=== PATIENT | female | born 1990 | race Caucasian/White ===

== ENCOUNTER 2017-12-27 18:35 | Emergency (ER) | payer BC ==
[2017-12-27 19:38] LABS: Absolute Lymphocytes (CBC) 2.5 K/uL (0.7-4.9); Absolute Monocytes 0.4 K/uL (0.1-1.3); Absolute Neutrophil 5.7 K/uL (1.8-8.0); Basophils % 0.9 % (0-1.3); Eosinophils % 5.6 % (0-4.4); Hematocrit 40.2 % (36.0-45.0); Lymphocytes % 27.1 % (15.3-44.8); MCH 28.3 pg (27.0-35.0); MCV 82.2 fL (80-100); MPV 8.1 fL (7.6-11.3); Monocytes % 4.6 % (3.3-12.3); RBC Red Blood Cell Count 4.89 M/uL (3.86-4.86)
[2017-12-27 19:47] LABS: Potassium 3.8 mEq/L (3.6-5.0)
[2017-12-27 20:09] LABS: Urine Blood 3+ (NEG); Urine Glucose NEGATIVE (NEG); Urine Protein NEGATIVE (NEG); Urine Specific Gravity 1.025 (1.005-1.030)
--- NOTE | 2017-12-27 20:40 | RAD REPORT ---
EXAM DESCRIPTION: US - Transvaginal OB - 12/27/2017 8:02 pm CLINICAL HISTORY: , vaginal bleeding COMPARISON: None. TECHNIQUE: Endovaginal and limited transabdominal sonography performed. FINDINGS: Endometrial stripe is approximately 10 mm. No gestational sac or sac remnant identifiable. No hematoma or mass seen. Uterus is 8.8 x 5.1 x 6.0 cm. No myometrial mass. Both ovaries are identif ied and normal in size. No adnexal mass to suspect ectopic . No free fluid or blood in the c ul-de-sac. IMPRESSION: No gestational sac or sac remnant in the uterus. No adnexal mass or finding to suspect ectopic .
--- NOTE | 2017-12-28 00:20 | ER ---
Nurse's Notes [facility] Name: Fauzia Darnell Age: 27 yrs Sex: Female : 1990 Arrival Date: 12/27/2017 Time: 18:36 Bed 30 Private MD: Diagnosis: Threatened Presentation: 12/27 18:47 Presenting complaint: Patient states: "I am supposed to be about 10 weeks . I lk1 had bleeding before and it stopped. I spotted over the weekend and today it was bright red with a clot and some cramping. I called my doctor and they told me to come get checked.". Transition of care: patient was not received from another setting of care. Onset of symptoms was December 24, 2017. Care prior to arrival: None. 18:47 Method Of Arrival: Ambulatory lk1 18:47 Acuity: PARAMJIT 3 lk1 Triage Assessment: 18:49 General: Appears in no apparent distress. Behavior is calm, cooperative, appropriate lk1 for age. Pain: Denies pain. : Reports vaginal bleeding that is bright red, with clots, light flow. 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 - Social history:: Smoking status: Patient uses tobacco products, smokes one-half pack cigarettes per day. Screenin:08 Abuse screen: Denies threats or abuse. Nutritional screening: No deficits noted. kb1 Tuberculosis screening: No symptoms or risk factors identified. Fall Risk None identified. Assessment: 19:07 General: Appears in no apparent distress. Behavior is calm, cooperative. Pain: Denies kb1 pain. Neuro: Level of Consciousness is awake, alert, obeys commands, Oriented to person, place, time. Cardiovascular: Patient's skin is warm and dry. Respiratory: Airway is patent. GI: Reports cramping, earlier today, has now resolved. : No signs and/or symptoms were reported regarding the genitourinary system. Reports vaginal bleeding that is with clots, currently approximately 10 weeks . 19:28 Reassessment: Notified nothing to eat or drink. kb1 20:27 Reassessment: Patient appears in no apparent distress at this time. Patient and/or kb1 family updated on plan of care and expected duration. Pain level reassessed. Patient is alert, oriented x 3, equal unlabored respirations, skin warm/dry/pink. 23:11 Reassessment: Patient appears in no apparent distress at this time. Patient and/or kb1 family updated on plan of care and expected duration. Pain level reassessed. Patient is alert, oriented x 3, equal unlabored respirations, skin warm/dry/pink. Vital Signs: 18:49 BP 134 / 88; Pulse 93; Resp 16; Temp 97.3(TE); Pulse Ox 98% on R/A; Weight 122.47 kg lk1 (R); Height 5 ft. 6 in. (167.64 cm) (R); Pain 0/10; 19:20 BP 128 / 93; Pulse 89; Resp 16; Pulse Ox 100% on R/A; mt 19:57 BP 121 / 74; Pulse 90; Resp 16; Pulse Ox 99% on R/A; mt 21:00 BP 126 / 91; Pulse 84; Resp 17; Pulse Ox 99% on R/A; mt 22:24 BP 129 / 89; Pulse 86; Resp 16; Pulse Ox 97% on R/A; mt 23:16 BP 108 / 84; Pulse 92; Resp 16; Pulse Ox 99% on R/A; mt 12/28 00:36 BP 120 / 69; Pulse 72; Resp 18; Pulse Ox 97% on R/A; [facility] 12/27 18:49 Body Mass Index 43.58 (122.47 kg, 167.64 cm) [facility] ED Course: 12/27 18:36 Patient arrived in ED. sb2 18:48 Triage completed. lk1 18:51 Arm band placed on left wrist. lk1 18:54 Karen Paul, MOSES is Primary Nurse. kb1 18:55 Froilan Hernandez NP is PHCP. pm1 18:55 Maikel Naqvi MD is Attending Physician. pm1 18:55 Attending Physician role handed off by Maikel Naqvi MD kdr 18:55 Oscar Murillo MD is Attending Physician. kdr 19:08 Patient has correct armband on for positive identification. Bed in low position. Call kb1 light in reach. Side rails up X 1. Pulse ox on. NIBP on. 19:25 Inserted saline lock: 20 gauge in right antecubital area, using aseptic technique. kb1 Blood collected. 19:29 Warm blanket given. kb1 20:02 Ultrasound completed. Patient tolerated well. lc3 20:02 Transvaginal OB US In Process Unspecified. EDMS 22:15 Assist provider with pelvic exam: Set up pelvic tray. Performed by Froilan Hernandez MIDDLE SCHOOL ART TEACHER. kb1 22:15 IV discontinued, intact, bleeding controlled, No redness/swelling at site. Pressure kb1 dressing applied. 12/28 00:19 New Harrell MD is Referral Physician. pm1 Administered Medications: No medications were administered Outcome: 00:20 Discharge ordered by . pm1 00:38 Discharged to home ambulatory. kb1 00:38 Condition: stable 00:38 Discharge instructions given to patient, Instructed on discharge instructions, follow up and referral plans. Demonstrated understanding of instructions, follow-up care. 00:38 Patient left the ED. kb1 Signatures: Dispatcher [employer] EDMS Oscar Murillo MD MD kdr Cunningham, Laulita lc3 Kluge, Leah, RN RN lk1 Froilan Hernandez NP MIDDLE SCHOOL ART TEACHER pm1 Christin Theodore mt, Kristina, RN RN kb1 Anni Richards sb2
--- NOTE | 2017-12-28 00:21 | EDPHYS ---
Physician Documentation [facility] Name: Fauzia Darnell Age: 27 yrs Sex: Female : 1990 Arrival Date: 12/27/2017 Time: 18:36 Bed 30 Private MD: ED Physician Oscar Murillo HPI: 12/27 20:30 This 27 yrs old Female presents to ER via Ambulatory with complaints of 10 pm1 WKS ,BLEEDING. 20:30 The patient presents with vaginal bleeding that is. Onset: The symptoms/episode pm1 began/occurred 2 week(s) ago. Modifying factors: The symptoms are alleviated by nothing, the symptoms are aggravated by nothing. Severity of symptoms: in the emergency department the symptoms have improved, markedly. The patient is sexually active. The patient has not experienced similar symptoms in the past. The patient has been recently seen by a physician: Dr. Harrell yesterday, with similar presenting complaints. Patient was seen by Julio Cesar yesterday for the same complaint of vaginal bleeding. Patient has had vaginal bleeding on and off with this for the past two weeks. Today around 1500 patient reports bleeding with a large clot passed. Since the large clot patient reports marked decrease in bleeding. 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 - Social history:: Smoking status: Patient uses tobacco products, smokes one-half pack cigarettes per day. ROS: 20:30 Positive for vaginal bleeding, Negative for burning with urination, vaginal pm1 discharge. 20:30 Constitutional: Negative for fever, chills, and weight loss, Eyes: Negative for injury, pain, redness, and discharge, ENT: Negative for injury, pain, and discharge, Neck: Negative for injury, pain, and swelling, Cardiovascular: Negative for chest pain, palpitations, and edema, Respiratory: Negative for shortness of breath, cough, wheezing, and pleuritic chest pain, Abdomen/GI: Negative for abdominal pain, nausea, vomiting, diarrhea, and constipation, MS/Extremity: Negative for injury and deformity, Skin: Negative for injury, rash, and discoloration, Neuro: Negative for headache, weakness, numbness, tingling, and seizure. 20:30 Back: Positive for mild right flank pain. Exam: 20:30 Constitutional: This is a well developed, well nourished patient who is awake, alert, pm1 and in no acute distress. Head/Face: Normocephalic, atraumatic. Eyes: Pupils equal round and reactive to light, extra-ocular motions intact. Lids and lashes normal. Conjunctiva and sclera are non-icteric and not injected. Cornea within normal limits. Periorbital areas with no swelling, redness, or edema. ENT: Nares patent. No nasal discharge, no septal abnormalities noted. Tympanic membranes are normal and external auditory canals are clear. Oropharynx with no redness, swelling, or masses, exudates, or evidence of obstruction, uvula midline. Mucous membranes moist. Neck: Trachea midline, no thyromegaly or masses palpated, and no cervical lymphadenopathy. Supple, full range of motion without nuchal rigidity, or vertebral point tenderness. No Meningismus. Chest/axilla: Normal chest wall appearance and motion. Nontender with no deformity. No lesions are appreciated. Cardiovascular: Regular rate and rhythm with a normal S1 and S2. No gallops, murmurs, or rubs. Normal PMI, no JVD. No pulse deficits. Respiratory: Lungs have equal breath sounds bilaterally, clear to auscultation and percussion. No rales, rhonchi or wheezes noted. No increased work of breathing, no retractions or nasal flaring. Abdomen/GI: Soft, non-tender, with normal bowel sounds. No distension or tympany. No guarding or rebound. No evidence of tenderness throughout. Back: No spinal tenderness. No costovertebral tenderness. Full range of motion. Skin: Warm, dry with normal turgor. Normal color with no rashes, no lesions, and no evidence of cellulitis. MS/ Extremity: Pulses equal, no cyanosis. Neurovascular intact. Full, normal range of motion. 20:30 Neuro: Orientation: is normal, Motor: is normal, moves all fours. 21:15 : Pelvic Exam: External exam: is normal, Speculum exam: scant bleeding, os that is pm1 closed, no tissue in cervix is seen, no tissue in vagina is seen, bimanual exam reveals normal findings, no cervical motion tenderness, no uterine tenderness, no adnexa tenderness or masses bilaterally, [place] police crime scene technician present. Vital Signs: 18:49 BP 134 / 88; Pulse 93; Resp 16; Temp 97.3(TE); Pulse Ox 98% on R/A; Weight 122.47 kg lk1 (R); Height 5 ft. 6 in. (167.64 cm) (R); Pain 0/10; 19:20 BP 128 / 93; Pulse 89; Resp 16; Pulse Ox 100% on R/A; mt 19:57 BP 121 / 74; Pulse 90; Resp 16; Pulse Ox 99% on R/A; mt 21:00 BP 126 / 91; Pulse 84; Resp 17; Pulse Ox 99% on R/A; mt 22:24 BP 129 / 89; Pulse 86; Resp 16; Pulse Ox 97% on R/A; mt 23:16 BP 108 / 84; Pulse 92; Resp 16; Pulse Ox 99% on R/A; mt 12/28 00:36 BP 120 / 69; Pulse 72; Resp 18; Pulse Ox 97% on R/A; kb1 12/27 18:49 Body Mass Index 43.58 (122.47 kg, 167.64 cm) lk1 MDM: 12/27 18:55 Patient medically screened. pm1 23:55 Physician consultation: Mariola Moore MD was contacted at 23:55, regarding patient's pm1 condition, recommended contacting Dr. Harrell through L\T\D. 12/28 00:15 Physician consultation: New Harrell MD was called at 22:31, was contacted at 00:05, pm1 regarding patient's condition, and will see patient in office, tomorrow. 00:19 Data reviewed: vital signs. Data interpreted: Pulse oximetry: on room air is 99 %. pm1 Interpretation: normal. Counseling: I had a detailed discussion with the patient and/or guardian regarding: the historical points, exam findings, and any diagnostic results supporting the discharge/admit diagnosis, the need for outpatient follow up, Dr. Jacobsen tomorrow in the office, to return to the emergency department if symptoms worsen or persist or if there are any questions or concerns that arise at home. 12/27 19:00 Order name: Quantitative Hcg; Complete Time: 20:48 pm1 12/27 19:00 Order name: Abo/rh Typing; Complete Time: 20:20 pm1 12/27 19:00 Order name: Basic Metabolic Panel; Complete Time: 20:48 pm1 12/27 19:00 Order name: CBC with Diff; Complete Time: 20:20 pm1 12/27 19:51 Order name: Urine Dipstick--Ancillary (enter results); Complete Time: 20:20 rg2 12/27 19:51 Order name: Urine --Ancillary (enter results); Complete Time: 20:20 rg2 12/27 19:00 Order name: Urine Test (obtain specimen); Complete Time: 19:20 pm1 12/27 19:00 Order name: IV Saline Lock; Complete Time: 19:20 pm1 12/27 19:00 Order name: Labs collected and sent; Complete Time: 19:20 pm1 12/27 19:00 Order name: NPO; Complete Time: 19:20 pm1 12/27 19:00 Order name: Urine Dipstick-Ancillary (obtain specimen); Complete Time: 19:20 pm1 12/27 19:00 Order name: Transvaginal OB US; Complete Time: 20:48 pm1 12/27 20:50 Order name: Pelvic Exam Setup; Complete Time: 20:57 pm1 Administered Medications: No medications were administered Disposition: 01:08 Co-signature as Attending Physician, Oscar Murillo MD I agree with the assessment and kdr plan of care. Disposition: 12/28/17 00:20 Discharged to Home. Impression: Threatened . - Condition is Stable. - Discharge Instructions: Threatened Miscarriage, Pelvic Rest. - Work release form, Medication Reconciliation Form, Thank You Letter form. - Follow up: Emergency Department; When: As needed; Reason: Worsening of condition. Follow up: New Harrell MD; When: Tomorrow; Reason: Recheck today's complaints, Continuance of care, Re-evaluation by your physician. - Problem is new. - Symptoms have improved. Signatures: Dispatcher [employer] EDMS Oscar Murillo MD MD kdr Kluge, Leah RN RN lk1 Froilan Hernandez NP JET MAN pm1 Karen Paul, RN RN kb1
== END 2017-12-28 00:38 | disposition home or self-care (01) ==
LOC: ER 18:35
DX: F17.210 Nicotine dependence, cigarettes, uncomplicated; O99.331 Smoking (tobacco) complicating pregnancy, first trimester; O20.0 Threatened abortion; Z3A.10 10 weeks gestation of pregnancy
CPT/HCPCS: 36415; 76817; 80048; 81003; 81025; 84702; 85025; 86900; 86901; 99284

== ENCOUNTER 2018-01-26 20:13 | Emergency (ER) | payer BC ==
[2018-01-26] MEDS ORDERED: ONDANSETRON 4 MG/2 ML VIAL ONE (21:49)
[2018-01-26] MEDS ORDERED: NA CHLORIDE 0.9% 1,000 ML ONE (21:49)
[2018-01-26] MEDS ORDERED: FENTANYL CITR 100 MCG/2 ML ONE (21:49)
[2018-01-26 21:52] LABS: Urine Blood 2+ (NEG); Urine Glucose NEGATIVE (NEG); Urine Protein TRACE (NEG); Urine Specific Gravity >1.030 (1.005-1.030); Urine pH 5.5 (5.0-7.0)
[2018-01-26 21:55] LABS: Absolute Lymphocytes (CBC) 1.6 K/uL (0.7-4.9); Absolute Monocytes 0.4 K/uL (0.1-1.3); Absolute Neutrophil 6.6 K/uL (1.8-8.0); Basophils % 0.6 % (0-1.3); Eosinophils % 3.9 % (0-4.4); Hematocrit 39.6 % (36.0-45.0); Lymphocytes % 17.4 % (15.3-44.8); MCV 82.3 fL (80-100); MPV 8.3 fL (7.6-11.3); Monocytes % 4.5 % (3.3-12.3); RBC Red Blood Cell Count 4.81 M/uL (3.86-4.86)
[2018-01-26 22:07] LABS: Potassium 3.8 mEq/L (3.6-5.0)
[2018-01-26 22:13] LABS: Albumin 4.2 g/dL (3.2-5.5); Bilirubin Direct 0.1 mg/dL (0-0.2); Bilirubin Total 0.5 mg/dL (0.3-1.2); Protein, Total 7.4 g/dL (6.0-8.3)
[2018-01-26 22:33] LABS: Urine Bacteria 20-50 /HPF (<20); Urine Culture Reflex Order REFLEXED; Urine RBC <5 /HPF (NONE SEEN)
--- NOTE | 2018-01-27 00:27 | ER ---
Nurse's Notes [facility] Name: Fauzia Darnell Age: 27 yrs Sex: Female : 1990 Arrival Date: 01/26/2018 Time: 20:14 Bed 17 Private MD: Diagnosis: Abdominal tenderness;Other ovarian cysts-3 cm right ovarian cyst Presentation: 01/26 20:28 Presenting complaint: Patient states: Reports right pelvic pain that shoots to left aj side of pelvis, started suddenly today. Patient had spontaneous 1 month ago. Transition of care: patient was not received from another setting of care. Onset of symptoms was January 26, 2018. Initial Sepsis Screen: Does the patient meet any 2 criteria? No. Patient's initial sepsis screen is negative. Does the patient have a suspected source of infection? No. Patient's initial sepsis screen is negative. Care prior to arrival: None. 20:28 Method Of Arrival: Ambulatory aj 20:28 Acuity: PARAMJIT 3 aj Triage Assessment: 20:30 General: Appears in no apparent distress. uncomfortable, Behavior is calm, cooperative, aj appropriate for age. Pain: Complains of pain in suprapubic area, right inguinal area and left inguinal area Pain currently is 9 out of 10 on a pain scale. Neuro: Level of Consciousness is awake, alert, obeys commands, Oriented to person, place, time, situation. Respiratory: Airway is patent Respiratory effort is even, unlabored, Respiratory pattern is regular, symmetrical. GI: Abdomen is obese. : Reports pain in right in left pelvis. Derm: Skin is intact, is healthy with good turgor, Skin is pink, warm \T\ dry. normal. 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 - Social history:: Smoking status: Patient uses tobacco products, smokes one pack cigarettes per day. - Family history:: not pertinent. Screenin:53 Abuse screen: Denies threats or abuse. Denies injuries from another. Nutritional aj1 screening: No deficits noted. Tuberculosis screening: No symptoms or risk factors identified. 01/27 01:00 Fall Risk None identified. lk1 Assessment: 01/26 20:53 General: Appears in no apparent distress. uncomfortable, Behavior is calm, cooperative, aj1 appropriate for age. Pain: Complains of pain in groin, right femoral area, suprapubic area and right inguinal area Pain does not radiate. Pain currently is 9 out of 10 on a pain scale. Quality of pain is described as sharp, Pain began 2 hours ago. Is continuous, Alleviated by nothing. Aggravated by nothing Also complains of nausea. Neuro: Level of Consciousness is awake, alert, obeys commands, Oriented to person, place, time, situation, Speech is normal, Facial symmetry appears normal. Cardiovascular: Patient's skin is warm and dry. Respiratory: Airway is patent Respiratory effort is even, unlabored, Respiratory pattern is regular, symmetrical. GI: Abdomen is non-distended, obese, Bowel sounds present X 4 quads. Abd is soft X 4 quads Reports nausea. : Reports vaginal bleeding that is spotty, that has now resolved Denies burning with urination, discharge, urinary frequency, urgency, vaginal itching. EENT: No signs and/or symptoms were reported regarding the EENT system. Derm: No signs and/or symptoms reported regarding the dermatologic system. Skin is pink, warm \T\ dry. normal. Musculoskeletal: No signs and/or symptoms reported regarding the musculoskeletal system. Circulation, motion, and sensation intact. 21:57 Reassessment: Patient appears in no apparent distress at this time. No changes from aj1 previously documented assessment. Patient and/or family updated on plan of care and expected duration. Pain level reassessed. Patient is alert, oriented x 3, equal unlabored respirations, skin warm/dry/pink. Vital Signs: 20:30 BP 136 / 83; Pulse 89; Resp 20; Temp 98.2; Pulse Ox 99% on R/A; Weight 122.47 kg; aj Height 5 ft. 6 in. (167.64 cm); Pain 9/10; 21:45 BP 137 / 65; Pulse 93; Resp 18; Pulse Ox 99% on R/A; aj1 22:30 BP 129 / 68; Pulse 87; Resp 15; Pulse Ox 100% on R/A; lk1 23:30 BP 132 / 74; Pulse 88; Resp 16; Pulse Ox 99% on R/A; 1 01/27 00:30 BP 124 / 62; Pulse 87; Resp 16; Pulse Ox 100% on R/A; Pain 8/10; lk1 01/26 20:30 Body Mass Index 43.58 (122.47 kg, 167.64 cm) ED Course: 01/26 20:14 Patient arrived in ED. as 20:29 Triage completed. aj 20:30 Arm band placed on left wrist. Patient placed in an exam room. aj 20:47 Dyan Balderas, MOSES is Primary Nurse. aj1 20:53 Patient has correct armband on for positive identification. Bed in low position. Call 1 light in reach. Side rails up X 1. 20:53 No provider procedures requiring assistance completed. aj1 21:02 Johnny Torrez MD is Attending Physician. omar 21:37 Oral contrast given. [facility] 21:57 Initial lab(s) drawn, by nj, sent to lab. Inserted saline lock: 20 gauge in right [facility] antecubital area, using aseptic technique. Blood collected. 23:36 CT Abd/Pelvis - W/Contrast In Process Unspecified. EDMS 01/27 00:27 Jonathan Barger MD is Referral Physician. omar 00:59 IV discontinued, intact, bleeding controlled, No redness/swelling at site. Pressure lk1 dressing applied. Administered Medications: 01/26 21:56 Drug: NS 0.9% 1000 ml Route: IV; Rate: 1 bolus; Site: right antecubital; aj 22:45 Follow up: Response: No adverse reaction; IV Status: Completed infusion lk1 21:56 Drug: fentaNYL (PF) 25 mcg Route: IVP; Site: right antecubital; aj1 22:30 Follow up: Response: No adverse reaction; Pain is unchanged, physician notified lk1 21:56 Drug: Zofran 4 mg Route: IVP; Site: right antecubital; aj1 22:30 Follow up: Response: No adverse reaction; Marked relief of symptoms [facility] Outcome: 01/27 00:27 Discharge ordered by . omar 00:59 Discharged to home ambulatory, with significant other. [facility] 00:59 Condition: good 00:59 Discharge instructions given to patient, significant other, Instructed on discharge instructions, follow up and referral plans. medication usage, safety practices, Demonstrated understanding of instructions, follow-up care, medications, Prescriptions given X 4. 01:15 Patient left the ED. lk1 Signatures: Dispatcher [employer] EDDyan Watkins RN RN vianney1 Margaret Goldsmith RN RN aj Anderson, Corey, MD MD cha Martinez, Amelia as Kluge, Leah, RN RN lk1 Nia White [facility]
--- NOTE | 2018-01-27 00:27 | EDPHYS ---
Physician Documentation [facility] Name: Fauzia Darnell Age: 27 yrs Sex: Female : 1990 Arrival Date: 01/26/2018 Time: 20:14 Bed 17 Private MD: ED Physician Johnny Torrez HPI: 01/26 21:25 This 27 yrs old Female presents to ER via Ambulatory with complaints of omar Abdominal Pain, Pelvic Pain, Nausea. 21:25 The patient presents to the emergency department with nausea, vomiting, abdominal pain, omar of the right lower quadrant. Onset: The symptoms/episode began/occurred today. Possible causes: unknown. The symptoms are aggravated by movement, pressure, The symptoms are alleviated by nothing. Associated signs and symptoms: The patient has no apparent associated signs or symptoms. Severity of symptoms: At their worst the symptoms were mild moderate in the emergency department the symptoms are unchanged. The patient has not experienced similar symptoms in the past. 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 - Social history:: Smoking status: Patient uses tobacco products, smokes one pack cigarettes per day. - Family history:: not pertinent. ROS: 21:25 Constitutional: Negative for fever, chills, and weight loss, Eyes: Negative for injury, omar pain, redness, and discharge, ENT: Negative for injury, pain, and discharge, Neck: Negative for injury, pain, and swelling, Cardiovascular: Negative for chest pain, palpitations, and edema, Respiratory: Negative for shortness of breath, cough, wheezing, and pleuritic chest pain, Back: Negative for injury and pain, : Negative for injury, bleeding, discharge, and swelling, MS/Extremity: Negative for injury and deformity, Skin: Negative for injury, rash, and discoloration, Neuro: Negative for headache, weakness, numbness, tingling, and seizure, Psych: Negative for depression, anxiety, suicide ideation, homicidal ideation, and hallucinations, Allergy/Immunology: Negative for hives, rash, and allergies, Endocrine: Negative for neck swelling, polydipsia, polyuria, polyphagia, and marked weight changes, Hematologic/Lymphatic: Negative for swollen nodes, abnormal bleeding, and unusual bruising. 21:25 Abdomen/GI: Positive for abdominal pain, abdominal distension, of the right lower quadrant. Exam: 21:25 Constitutional: This is a well developed, well nourished patient who is awake, alert, omar and in no acute distress. Head/Face: Normocephalic, atraumatic. Eyes: Pupils equal round and reactive to light, extra-ocular motions intact. Lids and lashes normal. Conjunctiva and sclera are non-icteric and not injected. Cornea within normal limits. Periorbital areas with no swelling, redness, or edema. ENT: Nares patent. No nasal discharge, no septal abnormalities noted. Tympanic membranes are normal and external auditory canals are clear. Oropharynx with no redness, swelling, or masses, exudates, or evidence of obstruction, uvula midline. Mucous membranes moist. Neck: Trachea midline, no thyromegaly or masses palpated, and no cervical lymphadenopathy. Supple, full range of motion without nuchal rigidity, or vertebral point tenderness. No Meningismus. Chest/axilla: Normal chest wall appearance and motion. Nontender with no deformity. No lesions are appreciated. Cardiovascular: Regular rate and rhythm with a normal S1 and S2. No gallops, murmurs, or rubs. Normal PMI, no JVD. No pulse deficits. Respiratory: Lungs have equal breath sounds bilaterally, clear to auscultation and percussion. No rales, rhonchi or wheezes noted. No increased work of breathing, no retractions or nasal flaring. Back: No spinal tenderness. No costovertebral tenderness. Full range of motion. Female : Normal external genitalia. Skin: Warm, dry with normal turgor. Normal color with no rashes, no lesions, and no evidence of cellulitis. MS/ Extremity: Pulses equal, no cyanosis. Neurovascular intact. Full, normal range of motion. Neuro: Awake and alert, GCS 15, oriented to person, place, time, and situation. Cranial nerves II-XII grossly intact. Motor strength 5/5 in all extremities. Sensory grossly intact. Cerebellar exam normal. Normal gait. Psych: Awake, alert, with orientation to person, place and time. Behavior, mood, and affect are within normal limits. 21:25 Abdomen/GI: Inspection: distension, Bowel sounds: normal, Palpation: mild abdominal tenderness, moderate abdominal tenderness, in the suprapubic area and right lower quadrant, Liver: no appreciated palpable abnormalities, Hernia: not appreciated. Vital Signs: 20:30 BP 136 / 83; Pulse 89; Resp 20; Temp 98.2; Pulse Ox 99% on R/A; Weight 122.47 kg; aj Height 5 ft. 6 in. (167.64 cm); Pain 9/10; 21:45 BP 137 / 65; Pulse 93; Resp 18; Pulse Ox 99% on R/A; aj1 22:30 BP 129 / 68; Pulse 87; Resp 15; Pulse Ox 100% on R/A; lk1 23:30 BP 132 / 74; Pulse 88; Resp 16; Pulse Ox 99% on R/A; 1 01/27 00:30 BP 124 / 62; Pulse 87; Resp 16; Pulse Ox 100% on R/A; Pain 8/10; lk1 01/26 20:30 Body Mass Index 43.58 (122.47 kg, 167.64 cm) aj MDM: 01/26 21:02 Patient medically screened. [facility] 21:27 Data reviewed: vital signs, nurses notes, lab test result(s), radiologic studies, CT omar scan. 01/26 21:25 Order name: Amylase, Serum; Complete Time: 23:42 [facility] 01/26 21:25 Order name: Basic Metabolic Panel; Complete Time: 23:42 [facility] 01/26 21:25 Order name: CBC with Diff; Complete Time: 23:42 [facility] 01/26 21:25 Order name: Creatinine for Radiology; Complete Time: 23:42 [facility] 01/26 21:25 Order name: Hepatic Function; Complete Time: 23:42 [facility] 01/26 21:25 Order name: Lipase; Complete Time: 23:42 [facility] 01/26 21:25 Order name: Urine Test (obtain specimen); Complete Time: 21:33 [facility] 01/26 21:25 Order name: Urine Microscopic Only; Complete Time: 23:42 [facility] 01/26 21:25 Order name: CT Abd/Pelvis - W/Contrast [facility] 01/26 21:34 Order name: Urine Dipstick--Ancillary (enter results); Complete Time: 23:42 01/26 22:34 Order name: Urine Culture EDMD 01/26 21:25 Order name: IV Saline Lock; Complete Time: 23:12 [facility] 01/26 21:25 Order name: Labs collected and sent; Complete Time: 23:13 [facility] 01/26 21:25 Order name: Urine Dipstick-Ancillary (obtain specimen); Complete Time: 21:33 [facility] Administered Medications: 21:56 Drug: NS 0.9% 1000 ml Route: IV; Rate: 1 bolus; Site: right antecubital; aj1 22:45 Follow up: Response: No adverse reaction; IV Status: Completed infusion [facility] 21:56 Drug: fentaNYL (PF) 25 mcg Route: IVP; Site: right antecubital; aj1 22:30 Follow up: Response: No adverse reaction; Pain is unchanged, physician notified [facility] 21:56 Drug: Zofran 4 mg Route: IVP; Site: right antecubital; aj1 22:30 Follow up: Response: No adverse reaction; Marked relief of symptoms [facility] Disposition: 01/27/18 00:27 Discharged to Home. Impression: Abdominal tenderness, Other ovarian cysts - 3 cm right ovarian cyst. - Condition is Stable. - Discharge Instructions: Abdominal Pain, Adult, Ovarian Cyst, Abdominal Pain, Adult, [id number], Ovarian Cyst, [id number]. - Prescriptions for Bentyl 20 mg Oral Tablet - take 1 tablet by ORAL route every 6 hours As needed; 20 tablet. Zofran 4 mg Oral Tablet - take 1 tablet by ORAL route every 12 hours As needed; 20 tablet. Motrin IB 200 mg Oral Tablet - take 2 tablet by ORAL route every 6 hours As needed as needed with food; 24 tablet. Tylenol- Codeine #3 300-30 mg Oral Tablet - take 2 tablets by ORAL route every 6 hours As needed; 20 tablet. - Medication Reconciliation Form, Thank You Letter, Antibiotic Education, Prescription Opioid Use, Work release form form. - Follow up: Private Physician; When: 2 - 3 days; Reason: Recheck today's complaints, Continuance of care, Re-evaluation by your physician. Follow up: Jonathan Barger MD; When: 2 - 3 days; Reason: Recheck today's complaints, Re-evaluation by your physician. - Problem is new. - Symptoms have improved. Signatures: Dispatcher [employer] [facility] Dyan Balderas RN RN aj1 Margaret Goldsmith, RN RN aj Johnny Torrez MD MD cha Kluge, Leah, RN RN lk1
--- NOTE | 2018-01-27 10:58 | RAD REPORT ---
EXAM DESCRIPTION: CT - Abdomen Pelvis W Contrast - 01/27/2018 6:41 am CLINICAL HISTORY: Abdominal pain. The right pelvic pain COMPARISON: None. TECHNIQUE: Computed axial tomography of the abdomen and pelvis was obtained. 100 cc Isovue-300 is ad ministered intravenously. Oral contrast was given. A preliminary report was generated by [facility] and review prior to this dictation All CT scans are performed using dose optimization technique as appropriate and may include automated exposure control or mA/KV adjustment according to patient size. FINDINGS: The liver has a diminished attenuation consistent with fatty infiltration. The gallbladder has been r emoved. The spleen measures 14 centimeters. Pancreas, adrenals and kidneys appear unremarkable. The appendix is normal caliber. There is no evidence of diverticulitis A 3 centimeter right ovarian cyst is present without significant free-fluid the. Air is present within the vagina which usually is not significant. It can be associated with infectio n or fistula and should be correlated clinically IMPRESSION: A 3 centimeter right ovarian cyst is present without significant free-fluid Air is present within the vagina which usually is not significant. It can be associated with infectio n or fistula and should be correlated clinically The exam was discussed with Familia Gleason in the Emergency Room at 10:55a.m. on January 27, 2018
== END 2018-01-27 01:15 | disposition home or self-care (01) ==
LOC: ER 20:13
DX: N83.291 Other ovarian cyst, right side (principal); F17.210 Nicotine dependence, cigarettes, uncomplicated
CPT/HCPCS: 36415; 74177; 80048; 80076; 81003; 81015; 81025; 82150; 83690; 85025; 87086; 87088; 96361; 96374; 96375; 99284; J2405; J3010; J7030; Q9967

== ENCOUNTER 2018-04-06 21:13 | Emergency (ER) | payer BC ==
[2018-04-06 22:03] LABS: Urine Blood 3+ (NEG); Urine Glucose NEGATIVE (NEG); Urine Protein 1+ (NEG); Urine pH 6.5 (5.0-7.0)
[2018-04-06 22:07] LABS: Absolute Lymphocytes (CBC) 2.1 K/uL (0.7-4.9); Absolute Monocytes 0.5 K/uL (0.1-1.3); Absolute Neutrophil 5.6 K/uL (1.8-8.0); Basophils % 0.7 % (0-1.3); Eosinophils % 3.8 % (0-4.4); Hematocrit 39.5 % (36.0-45.0); Lymphocytes % 24.8 % (15.3-44.8); MCH 28.6 pg (27.0-35.0); MCV 81.5 fL (80-100); Monocytes % 5.5 % (3.3-12.3); RBC Red Blood Cell Count 4.85 M/uL (3.86-4.86)
[2018-04-06 22:24] LABS: Potassium 3.5 mmol/L (3.5-5.1)
--- NOTE | 2018-04-06 23:33 | ER ---
Nurse's Notes [facility] Name: Fauzia Darnell Age: 27 yrs Sex: Female : 1990 Arrival Date: 04/06/2018 Time: 21:13 Bed 16 Private MD: Diagnosis: Other specified abnormal uterine and vaginal bleeding Presentation: 04/06 21:22 Presenting complaint: Patient states: "I've been having a lot of abnormally heavy aj1 menstrual bleeding. My period lasted for 2 weeks and then stopped for a week and now I've started again and its really heavy and Im going through a super tampon every 30 minutes" Reports abdominal cramping and pressure when she uses the bathroom. Patient also reports pain during sexual intercourse. Transition of care: patient was not received from another setting of care. Onset of symptoms was April 04, 2018. Risk Assessment: Do you want to hurt yourself or someone else? Patient reports no desire to harm self or others. Initial Sepsis Screen: Does the patient meet any 2 criteria? HR > 90 bpm. No. Patient's initial sepsis screen is negative. Does the patient have a suspected source of infection? No. Patient's initial sepsis screen is negative. Care prior to arrival: None. 21:22 Method Of Arrival: Ambulatory aj1 21:22 Acuity: PARAMJIT 3 aj1 Triage Assessment: 21:25 General: Appears in no apparent distress. uncomfortable, Behavior is calm, cooperative, aj1 appropriate for age. Pain: Complains of pain in suprapubic area, right lower quadrant and left lower quadrant Pain does not radiate. Pain currently is 5 out of 10 on a pain scale. Quality of pain is described as dull, pressure, Pain began 2-3 days ago. Neuro: Level of Consciousness is awake, alert, obeys commands. Cardiovascular: Patient's skin is warm and dry. Respiratory: Airway is patent Respiratory effort is even, unlabored, Respiratory pattern is regular, symmetrical. GI: Abdomen is non-distended, obese, Reports cramping, nausea, Patient currently denies diarrhea, tolerance of food. : Reports vaginal bleeding that is bright red, with clots, heavy flow. Derm: Skin is pink, warm \\T\\ dry. normal. Musculoskeletal: Circulation, motion, and sensation intact. 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 - Social history:: Smoking status: Patient uses tobacco products, smokes one-half pack cigarettes per day. - Ebola Screening: : Patient denies travel to an Ebola-affected area in the 21 days before illness onset. Screenin:39 Abuse screen: Denies threats or abuse. Nutritional screening: No deficits noted. tl2 Tuberculosis screening: No symptoms or risk factors identified. Fall Risk None identified. Assessment: 21:39 General: Appears in no apparent distress. uncomfortable, Behavior is calm, cooperative, tl2 appropriate for age. Pain: Complains of pain in left lower quadrant and right lower quadrant and suprapubic area Pain does not radiate. Quality of pain is described as pressure. Neuro: Level of Consciousness is awake, alert, obeys commands, Oriented to person, place, time, situation. Cardiovascular: Denies chest pain. Respiratory: Airway is patent Respiratory effort is even, unlabored, Respiratory pattern is regular, symmetrical. GI: Patient currently denies nausea, rectal bleeding, vomiting. : Reports vaginal bleeding that is heavy flow saturating a tampon every 30 minutes. Derm: Skin is pink, warm \\T\\ dry. 21:45 Reassessment: Instructed pt to remove tampon and use a pad to better monitor bleeding. tl2 22:31 Reassessment: Patient appears in no apparent distress at this time. Patient and/or tl2 family updated on plan of care and expected duration. Pain level reassessed. Patient is alert, oriented x 3, equal unlabored respirations, skin warm/dry/pink. Pt states that she is not saturating the pads like the tampons. 23:39 Reassessment: Patient appears in no apparent distress at this time. Patient and/or tl2 family updated on plan of care and expected duration. Pain level reassessed. Patient is alert, oriented x 3, equal unlabored respirations, skin warm/dry/pink. Pt verbalized understanding of discharge instructions and need for follow up Patient states symptoms have improved. Vital Signs: 21:25 BP 140 / 66; Pulse 121; Resp 18; Temp 97.8; Pulse Ox 98% on R/A; Weight 111.13 kg (R); aj1 Height 5 ft. 6 in. (167.64 cm) (R); Pain 5/10; 22:31 BP 136 / 85; Pulse 96; Resp 18; Pulse Ox 97% on R/A; tl2 23:39 BP 137 / 82; Pulse 98; Resp 18; Pulse Ox 98% on R/A; tl2 21:25 Body Mass Index 39.54 (111.13 kg, 167.64 cm) aj1 ED Course: 21:13 Patient arrived in ED. ds1 21:25 Triage completed. aj1 21:25 Arm band placed on Patient placed in an exam room. aj1 21:38 Gertrude Sarabia, MOSES is Primary Nurse. tl2 21:39 Patient has correct armband on for positive identification. Placed in gown. Bed in low tl2 position. Call light in reach. Side rails up X 1. 21:42 Froilan Hernandez NP is PHCP. pm1 21:42 Hawk Zamora MD is Attending Physician. pm1 21:56 Initial lab(s) drawn, by ga, sent to lab. Inserted saline lock: 20 gauge in right cb2 antecubital area, using aseptic technique. Blood collected. 23:40 No provider procedures requiring assistance completed. IV discontinued, intact, tl2 bleeding controlled, No redness/swelling at site. Pressure dressing applied. Administered Medications: No medications were administered Outcome: 23:33 Discharge ordered by . pm1 23:40 Discharged to home ambulatory. tl2 23:40 Condition: stable 23:40 Discharge instructions given to patient, Instructed on discharge instructions, follow up and referral plans. Demonstrated understanding of instructions, follow-up care. 23:43 Patient left the ED. tl2 Signatures: Dyan Balderas, RN RN aj1 Jennifer Black ds1 Froilan Hernandez NP REHAB THERAPIST pm1 Gertrude Sarabia RN RN 2 Natan Joe [facility]
--- NOTE | 2018-04-06 23:33 | EDPHYS ---
Physician Documentation [facility] Name: Fauzia Darnell Age: 27 yrs Sex: Female : 1990 Arrival Date: 04/06/2018 Time: 21:13 Bed 16 Private MD: ED Physician Hawk Zamora HPI: 04/06 23:00 This 27 yrs old Female presents to ER via Ambulatory with complaints of pm1 Vaginal Bleeding. 23:00 The patient presents with vaginal bleeding that is heavy. Onset: The symptoms/episode pm1 began/occurred 3 week(s) ago. Modifying factors: The symptoms are alleviated by nothing, the symptoms are aggravated by nothing. Associated signs and symptoms: Pertinent positives: dyspareunia, urinary frequency for 2 days, Pertinent negatives: fever. Severity of symptoms: in the emergency department the symptoms have improved. The patient is sexually active, reportedly has a single partner. The patient has not experienced similar symptoms in the past. Patient with vaginal bleeding onset 3 weeks ago. Lasted for 2 weeks and then resolved. No vaginal bleeding for 1 week then started having heavy vaginal bleeding for two days. Patient with history of irregular cycles. Patient of Dr. Harrell. Pending resolution of her menses so she can be placed on the Ciro ring . 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 - Social history:: Smoking status: Patient uses tobacco products, smokes one-half pack cigarettes per day. - Ebola Screening: : Patient denies travel to an Ebola-affected area in the 21 days before illness onset. ROS: 23:00 Positive for urinary frequency, vaginal bleeding, menstrual abnormality. pm1 23:00 Constitutional: Negative for fever, chills, and weight loss, Cardiovascular: Negative for chest pain, palpitations, and edema, Respiratory: Negative for shortness of breath, cough, wheezing, and pleuritic chest pain, Abdomen/GI: Negative for abdominal pain, nausea, vomiting, diarrhea, and constipation, Back: Negative for injury and pain, MS/Extremity: Negative for injury and deformity, Skin: Negative for injury, rash, and discoloration, Neuro: Negative for headache, weakness, numbness, tingling, and seizure. Exam: 23:00 Constitutional: This is a well developed, well nourished patient who is awake, alert, pm1 and in no acute distress. Head/Face: Normocephalic, atraumatic. Chest/axilla: Normal chest wall appearance and motion. Nontender with no deformity. No lesions are appreciated. Cardiovascular: Regular rate and rhythm with a normal S1 and S2. No gallops, murmurs, or rubs. No pulse deficits. Respiratory: Lungs have equal breath sounds bilaterally, clear to auscultation and percussion. No rales, rhonchi or wheezes noted. No increased work of breathing, no retractions or nasal flaring. Abdomen/GI: Soft, non-tender, with normal bowel sounds. No distension or tympany. No guarding or rebound. No evidence of tenderness throughout. Back: No spinal tenderness. No costovertebral tenderness. Full range of motion. Skin: Warm, dry with normal turgor. Normal color with no rashes, no lesions, and no evidence of cellulitis. MS/ Extremity: Pulses equal, no cyanosis. Neurovascular intact. Full, normal range of motion. 23:00 Neuro: Orientation: is normal, Motor: moves all fours, Gait: is steady, at a normal pace, without difficulty. Vital Signs: 21:25 BP 140 / 66; Pulse 121; Resp 18; Temp 97.8; Pulse Ox 98% on R/A; Weight 111.13 kg (R); aj1 Height 5 ft. 6 in. (167.64 cm) (R); Pain 5/10; 22:31 BP 136 / 85; Pulse 96; Resp 18; Pulse Ox 97% on R/A; tl2 23:39 BP 137 / 82; Pulse 98; Resp 18; Pulse Ox 98% on R/A; tl2 21:25 Body Mass Index 39.54 (111.13 kg, 167.64 cm) aj1 MDM: 21:43 Patient medically screened. pm1 23:30 ED course: Patient does not feel that she has a urinary tract infection. she does not pm1 want to wait to provide another urine sample for the urine microscopy. States she will go to the urgent care clinic or follow up with Julio Cesar if she has any other symptoms besides urinary frequency . 23:32 Data reviewed: vital signs. Data interpreted: Pulse oximetry: on room air is 97 %. pm1 Interpretation: normal. Counseling: I had a detailed discussion with the patient and/or guardian regarding: the historical points, exam findings, and any diagnostic results supporting the discharge/admit diagnosis, lab results, the need for outpatient follow up, an OB/Gyne specialist, to return to the emergency department if symptoms worsen or persist or if there are any questions or concerns that arise at home. 04/06 21:55 Order name: Abo/rh Typing tl1 04/06 21:55 Order name: Basic Metabolic Panel; Complete Time: 23:05 tl1 04/06 21:43 Order name: Urine Dipstick-Ancillary (obtain specimen); Complete Time: 21:44 pm1 04/06 21:55 Order name: CBC with Diff; Complete Time: 22:12 tl1 04/06 22:00 Order name: Urine Dipstick--Ancillary (enter results); Complete Time: 22:12 eb 04/06 22:00 Order name: Urine --Ancillary (enter results); Complete Time: 22:12 eb 04/06 21:43 Order name: Urine Test (obtain specimen); Complete Time: 21:44 pm1 04/06 21:55 Order name: IV Saline Lock; Complete Time: 21:56 tl1 04/06 21:55 Order name: Labs collected and sent; Complete Time: 21:57 tl1 04/06 21:55 Order name: NPO; Complete Time: 21:59 tl1 Administered Medications: No medications were administered Disposition: 23:46 Co-signature as Attending Physician, Hawk Zamora MD. pktino Disposition: 04/06/18 23:33 Discharged to Home. Impression: Other specified abnormal uterine and vaginal bleeding. - Condition is Stable. - Discharge Instructions: Abnormal Uterine Bleeding. - Medication Reconciliation Form, Thank You Letter, Antibiotic Education form. - Follow up: Emergency Department; When: As needed; Reason: Worsening of condition. Follow up: Private Physician; When: 2 - 3 days; Reason: Recheck today's complaints, Continuance of care, Re-evaluation by your physician. - Problem is new. - Symptoms have improved. Signatures: Dispatcher [facility] Dyan Peña RN RN aj1 Hawk Zamora MD MD pkl Marlen Griffiths RN RN tl1 Froilan Hernandez, INSOLE BUFFER INSOLE BUFFER pm1 Gertrude Sarabia RN RN tl2 Corrections: (The following items were deleted from the chart) 23:43 23:33 04/06/2018 23:33 Discharged to Home. Impression: Other specified abnormal uterine tl2 and vaginal bleeding. Condition is Stable. Forms are Medication Reconciliation Form, Thank You Letter, Antibiotic Education, Prescription Opioid Use. Follow up: Emergency Department; When: As needed; Reason: Worsening of condition. Follow up: Private Physician; When: 2 - 3 days; Reason: Recheck today's complaints, Continuance of care, Re-evaluation by your physician. Problem is new. Symptoms have improved. pm1
== END 2018-04-06 23:43 | disposition home or self-care (01) ==
LOC: ER 21:13
DX: N93.9 Abnormal uterine and vaginal bleeding, unspecified (principal); F17.210 Nicotine dependence, cigarettes, uncomplicated
CPT/HCPCS: 36415; 80048; 81003; 81025; 85025; 86900; 86901; 99283

== ENCOUNTER 2018-04-21 09:18 | Emergency (ER) | payer BC ==
[2018-04-21] MEDS ORDERED: ONDANSETRON 4 MG/2 ML VIAL ONE (09:51)
[2018-04-21] MEDS ORDERED: NA CHLORIDE 0.9% 1,000 ML ONE (09:51)
[2018-04-21] MEDS ORDERED: LIDOCAINE VISCOUS 2% SOLN 15 ML UDC ONE (09:51)
[2018-04-21] MEDS ORDERED: MAGNE/ALUM HYDROXD 30 ML UCUP ONE (09:51)
[2018-04-21 10:06] LABS: Urine Blood TRACE (NEG); Urine Glucose NEGATIVE (NEG); Urine Protein TRACE (NEG); Urine Specific Gravity >1.030 (1.005-1.030); Urine pH 5.5 (5.0-7.0)
[2018-04-21 10:22] LABS: Urine Amorphous Sediment 1+ /HPF (NONE SEEN); Urine Bacteria <20 /HPF (<20); Urine Culture Reflex Order NOT NEEDED; Urine RBC <5 /HPF (NONE SEEN)
[2018-04-21 10:58] LABS: Absolute Lymphocytes (CBC) 1.5 K/uL (0.7-4.9); Absolute Monocytes 0.4 K/uL (0.1-1.3); Absolute Neutrophil 8.2 K/uL (1.8-8.0); Eosinophils % 2.5 % (0-4.4); Hematocrit 41.1 % (36.0-45.0); Lymphocytes % 14.6 % (15.3-44.8); MCV 81.2 fL (80-100); MPV 8.1 fL (7.6-11.3); Monocytes % 4.1 % (3.3-12.3); RBC Red Blood Cell Count 5.07 M/uL (3.86-4.86)
[2018-04-21 11:06] LABS: Bilirubin Direct 0.1 mg/dL (0-0.2); Bilirubin Total 0.4 mg/dL (0.2-1.0); Potassium 4.1 mmol/L (3.5-5.1); Protein, Total 8.8 g/dL (6.4-8.2)
--- NOTE | 2018-04-21 11:08 | ER ---
Nurse's Notes [facility] Name: Fauzia Darnell Age: 27 yrs Sex: Female : 1990 Arrival Date: 04/21/2018 Time: 09:21 Bed 20 Private MD: None, None Diagnosis: Epigastric pain;Vomiting;Enteritis Presentation: 04/21 09:33 Presenting complaint: Patient states: i started having this crampy abdominal pain last hj night (epigastric area that moves to the sides, move to the R flank area), reports nausea and diarrhea that started today; denies fever and chills; reports lightheadness;. 09:33 Acuity: PARAMJIT 3 hj 09:33 Transition of care: patient was not received from another setting of care. Onset of hj symptoms was April 21, 2018. Risk Assessment: Do you want to hurt yourself or someone else? Patient reports no desire to harm self or others. Initial Sepsis Screen: Does the patient meet any 2 criteria? No. Patient's initial sepsis screen is negative. Does the patient have a suspected source of infection? No. Patient's initial sepsis screen is negative. Care prior to arrival: None. 09:33 Method Of Arrival: Ambulatory Triage Assessment: :41 General: Appears in no apparent distress. uncomfortable, Behavior is calm, cooperative, hj appropriate for age. Pain: Complains of pain in abdomen Pain radiates to back. GI: Reports upper abdominal pain, diarrhea, nausea. 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 - Social history:: Smoking status: Patient uses tobacco products, Patient/guardian denies using alcohol. - Ebola Screening: : Patient negative for fever greater than or equal to 101.5 degrees Fahrenheit, and additional compatible Ebola Virus Disease symptoms Patient denies exposure to infectious person Patient denies travel to an Ebola-affected area in the 21 days before illness onset. - Family history:: not pertinent. - Hospitalizations: : No recent hospitalization is reported. Screenin:41 Abuse screen: Denies threats or abuse. Denies injuries from another. Nutritional hj screening: No deficits noted. Tuberculosis screening: No symptoms or risk factors identified. Fall Risk None identified. Assessment: 09:42 GI: Bowel sounds present X 4 quads. Abd is soft Abd is non tender. hj 11:15 Reassessment: to finish 1L NS before going home;. hj 11:24 Reassessment: Patient and/or family updated on plan of care and expected duration. Pain hj level reassessed. Patient is alert, oriented x 3, equal unlabored respirations, skin warm/dry/pink. awaiting fluids to finish. Vital Signs: 09:42 BP 134 / 87; Pulse 94; Resp 18; Temp 98.0(O); Pulse Ox 99% on R/A; Weight 117.93 kg; hj Height 5 ft. 6 in. (167.64 cm); Pain 9/10; 10:30 BP 135 / 85; Pulse 95; Resp 18; Pulse Ox 100% on R/A; hj 11:27 BP 118 / 93; Pulse 73; Resp 18; Pulse Ox 98% on R/A; hj 09:42 Body Mass Index 41.96 (117.93 kg, 167.64 cm) hj ED Course: 09:21 Patient arrived in ED. mr 09:21 None, None is Private Physician. mr 09:25 Jourdan Jonas MD is Attending Physician. rn 09:28 Brent Mendoza, MOSES is Primary Nurse. hj 09:41 Triage completed. hj 09:42 Arm band placed on right wrist. hj 09:42 Patient has correct armband on for positive identification. Placed in gown. Bed in low hj position. Call light in reach. Side rails up X 1. 10:42 Initial lab(s) drawn, by me, sent to lab. Inserted saline lock: 20 gauge in right iw antecubital area, using aseptic technique. Blood collected. 11:14 No provider procedures requiring assistance completed. IV discontinued, intact, hj bleeding controlled, No redness/swelling at site. Pressure dressing applied. Administered Medications: 09:46 Drug: GI Cocktail without - (Maalox Suspension 30 ml, Lidocaine Liquid 2 % 15 hj ml) Route: PO; 10:46 Follow up: Response: No adverse reaction hj 10:41 Drug: Zofran 4 mg Route: IVP; Site: right antecubital; iw 10:46 Follow up: Response: No adverse reaction hj 10:41 Drug: NS 0.9% 1000 ml Route: IV; Rate: 1000 ml; Site: right antecubital; iw 11:28 Follow up: IV Status: Completed infusion hj 11:27 Drug: Bentyl 20 mg Route: PO; hj 11:30 Follow up: Response: No adverse reaction hj Outcome: 11:08 Discharge ordered by . rn 11:14 Discharged to home ambulatory. hj 11:14 Condition: stable 11:14 Discharge instructions given to patient, Instructed on discharge instructions, follow up and referral plans. medication usage, Demonstrated understanding of instructions, follow-up care, medications, Prescriptions given X 1. 11:57 Patient left the ED. iw Signatures: Zaynab Bailon Irene RN RN Jourdan Jonas MD MD rn Joaquin, Henry, RN RN
--- NOTE | 2018-04-21 11:09 | EDPHYS ---
Physician Documentation [facility] Name: Fauzia Darnell Age: 27 yrs Sex: Female : 1990 Arrival Date: 04/21/2018 Time: 09:21 Bed 20 Private MD: None, None ED Physician Jourdan Jonas HPI: 04/21 09:54 This 27 yrs old Female presents to ER via Ambulatory with complaints of rn Abdominal Pain, Nausea. 09:54 The patient presents to the emergency department with nausea, diarrhea, abdominal pain, rn of the epigastric area. Onset: The symptoms/episode began/occurred yesterday. Possible causes: unknown. Severity of symptoms: At their worst the symptoms were mild in the emergency department the symptoms have improved. The patient has experienced similar episodes in the past. Reports upper abd pain, assoc with nausea and diarrhea, no fever, began yesterday, has had this several times before, doesn't take her acid medication despite hx of GERD, has seen GI and no diagnosis other than GERD, has had cholecystectomy. Reports epigastric cramping and pain, intermittent. . 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 - Social history:: Smoking status: Patient uses tobacco products, Patient/guardian denies using alcohol. - Ebola Screening: : Patient negative for fever greater than or equal to 101.5 degrees Fahrenheit, and additional compatible Ebola Virus Disease symptoms Patient denies exposure to infectious person Patient denies travel to an Ebola-affected area in the 21 days before illness onset. - Family history:: not pertinent. - Hospitalizations: : No recent hospitalization is reported. ROS: 09:54 Constitutional: Negative for fever, chills, and weight loss, Eyes: Negative for injury, rn pain, redness, and discharge, Neck: Negative for injury, pain, and swelling, Cardiovascular: Negative for chest pain, palpitations, and edema, Respiratory: Negative for shortness of breath, cough, wheezing, and pleuritic chest pain, Abdomen/GI: + abd pain/nausea/diarrhea MS/Extremity: Negative for injury and deformity, Skin: Negative for injury, rash, and discoloration, Neuro: Negative for headache, weakness, numbness, tingling, and seizure. Exam: 09:54 Constitutional: This is a well developed, well nourished patient who is awake, alert, rn and in no acute distress. Head/Face: Normocephalic, atraumatic. Eyes: Pupils equal round and reactive to light, extra-ocular motions intact. Lids and lashes normal. Conjunctiva and sclera are non-icteric and not injected. Cornea within normal limits. Periorbital areas with no swelling, redness, or edema. ENT: MMM Cardiovascular: Regular rate and rhythm with a normal S1 and S2. No gallops, murmurs, or rubs. Normal PMI, no JVD. No pulse deficits. Respiratory: Lungs have equal breath sounds bilaterally, clear to auscultation and percussion. No rales, rhonchi or wheezes noted. No increased work of breathing, no retractions or nasal flaring. Abdomen/GI: soft, mild epigastric abd tenderness, no rebound Skin: Warm, dry with normal turgor. Normal color with no rashes, no lesions, and no evidence of cellulitis. Vital Signs: 09:42 BP 134 / 87; Pulse 94; Resp 18; Temp 98.0(O); Pulse Ox 99% on R/A; Weight 117.93 kg; hj Height 5 ft. 6 in. (167.64 cm); Pain 9/10; 10:30 BP 135 / 85; Pulse 95; Resp 18; Pulse Ox 100% on R/A; hj 11:27 BP 118 / 93; Pulse 73; Resp 18; Pulse Ox 98% on R/A; hj 09:42 Body Mass Index 41.96 (117.93 kg, 167.64 cm) MDM: 09:25 Patient medically screened. rn 11:07 Differential diagnosis: Nonspecific abd pain, gastritis, pancreatitis, viral rn gastroenteritis, gastroenteritis. Data reviewed: vital signs, nurses notes, lab test result(s), and as a result, I will discharge patient. Counseling: I had a detailed discussion with the patient and/or guardian regarding: the historical points, exam findings, and any diagnostic results supporting the discharge/admit diagnosis, lab results, the need for outpatient follow up, to return to the emergency department if symptoms worsen or persist or if there are any questions or concerns that arise at home. Response to treatment: the patient's symptoms have mildly improved after treatment, and as a result, I will discharge patient. Special discussion: Based on the patient's Hx, exam, and Dx evaluation, there is no indication for emergent surgery or inpatient Tx. It is understood by the patient/guardian that if the Sx's persist or worsen they need to return immediately for re-evaluation. I discussed with the patient/guardian in detail that at this point there is no indication for admission to the hospital. It is understood, however, that if the symptoms persist or worsen the patient needs to return immediately for re-evaluation. ED course: Recommended daily antacid use. . 04/21 09:46 Order name: Basic Metabolic Panel; Complete Time: 11: 04/21 09:46 Order name: CBC with Diff; Complete Time: 11: 04/21 09:46 Order name: Hepatic Function; Complete Time: 11: 04/21 09:46 Order name: Lipase; Complete Time: 11: 04/21 09:46 Order name: Urine Microscopic Only; Complete Time: 10:42 04/21 09:47 Order name: Urine Dipstick--Ancillary (enter results); Complete Time: 10:42 04/21 09:43 Order name: Urine Dipstick-Ancillary (obtain specimen); Complete Time: 09:43 04/21 09:43 Order name: Urine Test (obtain specimen); Complete Time: 09:43 04/21 09:46 Order name: IV Saline Lock; Complete Time: 10:42 04/21 09:47 Order name: Urine --Ancillary (enter results); Complete Time: 10:42 04/21 09:46 Order name: Labs collected and sent; Complete Time: 10:42 rn Administered Medications: 09:46 Drug: GI Cocktail without - (Maalox Suspension 30 ml, Lidocaine Liquid 2 % 15 hj ml) Route: PO; 10:46 Follow up: Response: No adverse reaction hj 10:41 Drug: Zofran 4 mg Route: IVP; Site: right antecubital; iw 10:46 Follow up: Response: No adverse reaction hj 10:41 Drug: NS 0.9% 1000 ml Route: IV; Rate: 1000 ml; Site: right antecubital; iw 11:28 Follow up: IV Status: Completed infusion hj 11:27 Drug: Bentyl 20 mg Route: PO; hj 11:30 Follow up: Response: No adverse reaction hj Disposition: 04/21/18 11:08 Discharged to Home. Impression: Epigastric pain, Vomiting, Enteritis. - Condition is Stable. - Discharge Instructions: Gastroesophageal Reflux Disease, Adult, Nausea and Vomiting, Adult, Viral Gastroenteritis, Adult. - Prescriptions for Zofran ODT 4 mg Oral tablet,disintegrating - place 1 tablet by TRANSLINGUAL route every 8 hours As needed; 20 tablet. - Medication Reconciliation Form, Thank You Letter, Antibiotic Education, Prescription Opioid Use, Work release form form. - Follow up: Private Physician; When: As needed; Reason: Recheck today's complaints, Re-evaluation by your physician. - Problem is new. - Symptoms have improved. Signatures: Dispatcher [employer] EDMichelle Grajeda RN RN iw Nieto, Roman, MD MD rn Joaquin, Henry, RN RN hj Corrections: (The following items were deleted from the chart) 11:57 11:08 04/21/2018 11:08 Discharged to Home. Impression: Epigastric pain; Vomiting; iw Enteritis. Condition is Stable. Forms are Medication Reconciliation Form, Thank You Letter, Antibiotic Education, Prescription Opioid Use. Follow up: Private Physician; When: As needed; Reason: Recheck today's complaints, Re-evaluation by your physician. Problem is new. Symptoms have improved. rn
[2018-04-21] MEDS ORDERED: DICYCLOMINE HCL 10 MG CAP ONE (11:32)
== END 2018-04-21 11:57 | disposition home or self-care (01) ==
LOC: ER 09:18
DX: K52.9 Noninfective gastroenteritis and colitis, unspecified (principal); R11.10 Vomiting, unspecified; Z72.0 Tobacco use
CPT/HCPCS: 36415; 80048; 80076; 81003; 81015; 81025; 83690; 85025; 96361; 96374; 99284; J2405; J7030

== ENCOUNTER 2018-07-16 22:29 | Emergency (ER) | payer BC ==
--- OUTSIDE RECORDS SUMMARY | 2018-07-16 22:33 | XMS REPORT | Summary of Care ---
:1990 Author Encounter FLORENCE Culp(LUIS EDUARDO) [id number] Date(s): 04/18/14 - 04/19/14 [facility] [id number] [address] Discharge Diagnosis: Abdominal pain Discharge Disposition: Home Physician Attending: Elbert Singh DO Reason for Visit ABD PAIN, NAUSEA, VOMITING Vital Signs Most recent to oldest [Reference Range]: 1 2 Height 167.64 cm (04/18/14 8:36 PM) Temperature Oral [96.4-99.1 DegF] 98 DegF 98.3 DegF (04/18/14 11:37 PM) (04/18/14 8:36 PM) Systolic Blood Pressure [90-140 mmHg] 123 mmHg 134 mmHg (04/18/14 11:37 PM) (04/18/14 8:36 PM) Diastolic Blood Pressure [60-90 mmHg] 81 mmHg 91 mmHg (04/18/14 11:37 PM) *HI* (04/18/14 8:36 PM) Respiratory Rate [14-20 BRMIN] 18 BRMIN 20 BRMIN (04/18/14 11:37 PM) (04/18/14 8:36 PM) Peripheral Pulse Rate [60-100 bpm] 77 bpm 112 bpm (04/18/14 11:37 PM) *HI* (04/18/14 8:36 PM) Weight 115.909 kg (04/18/14 8:36 PM) Body Mass Index 41.24 m2 (04/18/14 8:36 PM) Problem List Condition Effective Dates Status Health Status Informant Anxiety(Confirmed) Resolved Allergies, Adverse Reactions, Alerts Substance Reaction Severity Status NKDA Active Medications GI cocktail 30 mL, Route: PO, Dosing Weight 115.909, kg, ONCE, STAT, Start date: 04/18/14 23 :47:00, Stop date: 04/18/14 23:47:00 Start Date: 04/18/14 Stop Date: 04/18/14 Status: Completedmorphine Sulfate 4 mg, 2 mL, Route: IVP, Drug form: INJ, ONCE, Dosing Weight 115.909, kg, Priority: STAT, Start date:04/18/14 21:02:00, Stop date: 04/18/14 21:02:00 Notes: (Same as:MORPhine Sulfate) Start Date: 04/18/14 Stop Date: 04/18/14 Status: Completedondansetron 4 mg, 2 mL, Route: IVP, Drug form: INJ, ONCE, Dosing Weight 115.909, kg, Priority: STAT, Start date:04/18/14 21:02:00, Stop date: 04/18/14 21:02:00 Notes: (Same as: Zofran) Start Date: 04/18/14 Stop Date: 04/18/14 Status: CompletedProtonix 40 mg oral enteric coated tablet 40 mg=1 tab, PO, Daily, # 30 tab, 0 Refill(s) Start Date: 04/18/14 Status: OrderedUltram 50 mg oral tablet 50 mg=1 tab, PO, Q4H, for pain, # 30 tab, 0 Refill(s) Start Date: 04/18/14 Status: Ordered Results ELECTROLYTES Most recent to oldest [Reference Range]: 1 Sodium Lvl [135-145 mEq/L] 137 mEq/L (04/18/14 9:07 PM) Potassium Lvl [3.5-5.1 mEq/L] 3.5 mEq/L (04/18/14 9:07 PM) Chloride Lvl [95-109 mEq/L] 104 mEq/L (04/18/14 9:07 PM) CO2 [24-32 mEq/L] 23 mEq/L *LOW* (04/18/14 9:07 PM) AGAP [10.0-20.0 mEq/L] 13.5 mEq/L (04/18/14 9:07 PM) CHEM PANEL Most recent to oldest [Reference Range]: 1 Creatinine Lvl [0.5-1.4 mg/dL] 1.3 mg/dL (04/18/14 9:07 PM) eGFR 58 mL/min/1.73m2 1 *NA* (04/18/14 9:07 PM) BUN [7-22 mg/dL] 14 mg/dL (04/18/14 9:07 PM) B/C Ratio [6-25] 11 (04/18/14 9:07 PM) Glucose Lvl [70-99 mg/dL] 112 mg/dL 2 *HI* (04/18/14 9:07 PM) Total Protein [6.4-8.4 g/dL] 8.2 g/dL (04/18/14 9:07 PM) Albumin Lvl [3.5-5.0 g/dL] 4.1 g/dL (04/18/14 9:07 PM) Globulin [2.0-4.0 g/dL] 4.1 g/dL *HI* (04/18/14 9:07 PM) A/G Ratio [0.7-1.6] 1.0 (04/18/14 9:07 PM) Calcium Lvl [8.5-10.5 mg/dL] 8.8 mg/dL (04/18/14 9:07 PM) ALT [0-65 unit/L] 134 unit/L *HI* (04/18/14 9:07 PM) AST [0-37 unit/L] 55 unit/L *HI* (04/18/14 9:07 PM) Alk Phos [39-136 unit/L] 87 unit/L (04/18/14 9:07 PM) Bili Total [0.2-1.3 mg/dL] 0.5 mg/dL (04/18/14 9:07 PM) Lipase Lvl [73-393 unit/L] 134 unit/L (04/18/14 9:07 PM) 1Result Comment: The eGFR is calculated using the CKD-EPI formula. In most young , healthy individualsthe eGFR will be >90 mL/min/1.73m2. The eGFR declines with age. An eGFR of 60-89 may be normal in some populations, particularly the elderly, for whom the CKD-EPI formula has not been extensively validated. Use of the eGFR is not recommended in the following populations: Individuals with unstable creatinine concentrations, including patients and those with serious co-morbid conditions. Patients with extremes in muscle mass or diet. The data above are obtained from the National Kidney Disease Education Program ( NKDEP) which additionally recommends that when the eGFR is used in patients with extremes of body mass index for purposesof drug dosing, the eGFR should be multiplied by the estimated BMI.2Interpretive Data: Adult reference range values reflect the clinical guidelines of the [place] [employer].ENDOCRINOLOGY Most recent to oldest [Reference Range]: 1 S Preg [Negative] Negative *NA* (04/18/14 9:07 PM) URINE AND STOOL Most recent to oldest [Reference Range]: 1 UA Turbidity [Clear] Marked *ABN* (04/18/14 9:07 PM) UA Color [Yellow] Yellow *NA* (04/18/14 9:07 PM) UA pH [5.0-8.0] 5.0 (04/18/14 9:07 PM) UA Spec Grav [<=1.030] 1.031 *HI* (04/18/14 9:07 PM) UA Glucose [Negative mg/dL] Negative mg/dL *NA* (04/18/14 9:07 PM) UA Blood [Negative] Moderate *ABN* (04/18/14 9:07 PM) UA Ketones [Negative mg/dL] Negative mg/dL *NA* (04/18/14 9:07 PM) UA Protein [Negative mg/dL] Negative mg/dL (04/18/14 9:07 PM) UA Urobilinogen [0.1-1.0 mg/dL] 2.0 mg/dL *HI* (04/18/14 9:07 PM) UA Bili [Negative] Negative *NA* (04/18/14 9:07 PM) UA Leuk Est [Negative] Small *ABN* (04/18/14 9:07 PM) UA Nitrite [Negative] Negative (04/18/14 9:07 PM) UA WBC [0-5 /HPF] 3 /HPF (04/18/14 9:07 PM) UA RBC [0-2 /HPF] 2 /HPF (04/18/14 9:07 PM) UA Bacteria [None Seen /HPF] Occasional /HPF *NA* (04/18/14 9:07 PM) UA Sq Epi [Few /LPF] Many /LPF *ABN* (04/18/14 9:07 PM) UA Mucus [None Seen /LPF] Few /LPF *NA* (04/18/14 9:07 PM) IMMUNOLOGY Most recent to oldest [Reference Range]: [address] [facility] HIV 4th GEN [Negative] Negative (04/18/14 9:07 PM) HEMATOLOGY Most recent to oldest [Reference Range]: 1 WBC [3.7-10.4 K/CMM] 10.8 K/CMM *HI* (04/18/14 9:07 PM) RBC [4.20-5.40 M/CMM] 5.22 M/CMM (04/18/14 9:07 PM) Hgb [12.0-16.0 g/dL] 14.8 g/dL (04/18/14 9:07 PM) Hct [36.0-48.0 %] 43.0 % (04/18/14:07 PM) MCV [81.0-99.0 fL] 82.4 fL (04/18/14 9:07 PM) MCH [27.0-31.0 pg] 28.3 pg (04/18/14:07 PM) MCHC [32.0-36.0 g/dL] 34.4 g/dL (04/18/14 9:07 PM) RDW [11.5-14.5 %] 14.5 % (04/18/14 9:07 PM) Platelet [133-450 K/CMM] 321 K/CMM (04/18/14 9:07 PM) MPV [7.4-10.4 fL] 8.2 fL (04/18/14 9:07 PM) Segs [45.0-75.0 %] 66.3 % (04/18/14 9:07 PM) Lymphocytes [20.0-40.0 %] 24.6 % (04/18/14 9:07 PM) Monocytes [2.0-12.0 %] 4.8 % (04/18/14 9:07 PM) Eosinophils [0.0-4.0 %] 3.5 % (04/18/14 9:07 PM) Basophils [0.0-1.0 %] 0.8 % (04/18/14 9:07 PM) Segs-Bands # [1.5-8.1 K/CMM] 7.2 K/CMM (04/18/14 9:07 PM) Lymphocytes # [1.0-5.5 K/CMM] 2.7 K/CMM (04/18/14 9:07 PM) Monocytes # [0.0-0.8 K/CMM] 0.5 K/CMM (04/18/14 9:07 PM) Eosinophils # [0.0-0.5 K/CMM] 0.4 K/CMM (04/18/14 9:07 PM) Basophils # [0.0-0.2 K/CMM] 0.1 K/CMM (04/18/14 9:07 PM) Medications Administered During Your Visit No data available for this section Immunizations No data available for this section Social History Social History Type Response Smoking Status Current every day smoker, Type: Cigarettes, Exposure to Tobacco Smoke None, Cigarette Smoking Last 365 Days No, Reg Smoking Cessation Counseling No
--- OUTSIDE RECORDS SUMMARY | 2018-07-16 22:33 | XMS REPORT | Continuity of Care Document ---
:1990 Author Organization Interface Problems Problem Status Onset Classification Date Comments Source Date Reported ABD PAIN Active 08/22/20 [facility] 14 HEMATEMESIS, Active 08/22/20 [facility] EPIGASTRIC 14 ABDOMINAL PAIN, Discharge 04/18/20 04/21/2014 [facility] Diagnosis: 14 Abdominal pain ABD PAIN, Active 04/18/20 [facility] NAUSEA, 14 VOMITING Anxiety Resolved Problem 08/30/2014 [facility] Fatty liver Resolved Problem 08/30/2014 [facility] HEMATEMESIS Active [facility] Medications Medication Details Route Status Patient Ordering Order Source Instructions Provider Date pneumococcal 0.5 ml, Route: Inactive capsular IM, Drug Form: 2013 [facility] polysaccharide INJ, Daily, type 1 vaccine / Start date: pneumococcal 08/27/14 capsular 9:00:00, polysaccharide Duration: 1 type 10A vaccine doses or times, / pneumococcal Stop date: capsular 08/27/14 polysaccharide 9:00:00Notes: type 11A vaccine (Same as: / pneumococcal Pneumovax 23) capsular Refrigerate polysaccharide type 12F vaccine / pneumococcal capsular polysacchar Enoxaparin 40 mg, 0.4 mL, Inactive Route: SUB-Q, 2013 [facility] Drug form: INJ, [id number], Dosing Weight 120.227, kg, Start date: 08/27/14 5:02:00, Duration: 30 day, Stop date: 09/25/14 5:02:00Notes: (Same as: Lovenox) Ofirmev 1,000 mg, 100 No Longer mL, Route: IV, Active 2013 [facility] Drug form: INJ, Q6H, Dosing Weight 120.227, kg, for > or=50 kg, Start date: 08/26/14 18:00:00, Duration: 1 day, Stop date: 08/27/14 12:00:00Notes: Infuse over 15 minutes Do not exceed 4gm/day of acetaminophen Saline Flush 10 ml, Route: No Longer 0.9% IVP, Drug Form: Active 2013 [facility] INJ, Dosing Weight 120.227, kg, PRN, PRN Line Flush, Start date: 08/26/14 17:00:00, Duration: 30 day, Stop date: 09/25/14 16:59:00Notes: preservative free. Sodium Chloride 1,000 mL, Rate: No Longer 0.154 MEQ/ML 125 ml/hr, 2013 [facility] Injectable Infuse over: 8 Solution hr, Route: IV, Dosing Weight 120.227 kg, Total Volume: 1,000, Start date: 08/26/14 17:00:00, Duration: 30 day, Stop date: 09/25/14 16:59:00 Docusate Sodium 100 mg, 1 cap, No Longer 100 MG Oral Route: PO, Drug Active 2013 [facility] Capsule form: CAP, BID, Dosing Weight 120.227, kg, Start date: 08/26/14 17:00:00, Duration: 30 day, Stop date: 09/25/14 9:00:00Notes: (Same as: Colace) (Do Not Crush) Ondansetron 4 mg, 2 mL, No Longer Route: IVP, 2013 [facility] Drug form: INJ, Q6H, Dosing Weight 120.227, kg, PRN Nausea & Vomiting, Start date: 08/26/14 17:00:00, Duration: 30 day, Stop date: 09/25/14 16:59:00Notes: (Same as: Zofran) Acetaminophen 1 tab, Route: No Longer 325 MG / PO, Drug Form: [facility] 2013 [facility] Hydrocodone TAB, Dosing Bitartrate 5 MG Weight 120.227, Oral Tablet kg, Q4H, PRN Pain Score 1-3, Start date: 08/26/14 17:00:00, Stop date: 09/25/14 16:59:00Notes: (Same as: [place] 325/5) Do not exceed 4gm/day of acetaminophen. Morphine 2 mg, 1 mL, No Longer Route: IVP, [facility] 2013 [facility] Drug form: INJ, Q3H, Dosing Weight 120.227, kg, PRN Pain Score 4-6, Start date: 08/26/14 17:00:00, Duration: 30 day, Stop date: 09/25/14 16:59:00Notes: (Same as:MORPhine Sulfate) Acetaminophen 1 tab, Route: No Longer 300 MG / Codeine PO, Drug Form: 2013 [facility] Phosphate 30 MG TAB, Dosing Oral Tablet Weight 120.227, [Tylenol with kg, Q4H, PRN as Codeine #3] needed for pain, Start date: 08/24/14 12:30:00, Stop date: 09/23/14 12:29:00Notes: Do not exceed 4gm/day of acetaminophen. (Same as: Tylenol with Codeine # 3) Protonix 40 mg, 1 tab, No Longer Route: PO, Drug Active 2013 [facility] form: ECTAB, Before Dinner, Dosing Weight 120.227, kg, Start date: 08/23/14 16:30:00, Stop date: 09/21/14 16:30:00Notes: Tablet should not be chewed or crushed. (Same as: Protonix) Flumazenil 0.2 mg, 2 mL, No Longer Route: IVP, Active 2013 [facility] Drug form: INJ, PRN, Dosing Weight 120.227, kg, PRN Other -See Comment, Start date: 08/23/14 15:23:00, Duration: 1 doses or times, Stop date: Limited # of timesNotes: (Same as: Romazicon) Naloxone 0.1 mg, 0.25 No Longer mL, Route: IVP, Active 2013 [facility] Drug form: INJ, Q2MIN, Dosing Weight 120.227, kg, PRN Narcotic Reversal, Start date: 08/23/14 15:23:00, Duration: 4 doses or times, Stop date: Limited # of timesNotes: Same as Narcan Dilaudid 0.5 mg, 0.5 mL, Inactive Route: IV, Drug 2013 [facility] form: INJ, ONCE, Dosing Weight 120.227, kg, Start date: 08/23/14 12:26:00, Stop date: 08/23/14 12:26:00 Zofran 4 mg, 2 mL, No Longer Route: IV, Drug Active 2013 [facility] form: INJ, Q4H, Dosing Weight 120.227, kg, PRN as needed for nausea/vomiting , Start date: 08/23/14 9:02:00, Duration: 30 day, Stop date: 09/22/14 9:01:00Notes: (Same as: Zofran) Tylenol 650 mg, 2 tab, No Longer Route: PO, Drug Active 2013 [facility] form: TAB, Q6H, Dosing Weight 120.227, kg, PRN Pain Score 1-3, Start date: 08/23/14 9:01:00, Stop date: 09/22/14 9:00:00Notes: Do not exceed 4 gm/day. (Same as: Tylenol) pantoprazole 40 mg, Route: Inactive IVP, Drug form: 2013 INJ, Daily, Dosing Weight 118.182, kg, Start date: 08/23/14 9:00:00, Duration: 30 day, Stop date: 09/21/14 9:00:00Notes: For IV push reconstitute with 10 ml 0.9% sodium chloride and push over 2 minutes. (Same as: Protonix) Influenza Virus 0.5 mL, Route: Inactive Vaccine, IM, Drug Form: 2013 Inactivated SUSP, Daily, [id number] Start date: (H3N2)-like 08/23/14 virus 9:00:00, ([id number] Duration: 1 007 [facility] [id number]) doses or times, strain / Stop date: Influenza Virus 08/23/14 Vaccine, 9:00:00Notes: Inactivated (Same as: [id number] Fluzone 07, IVR-148 Quadrivalent) (H1N1) strain / Influenza Virus Vaccine, Inactivated, [id number] -lik normal saline 1,000 mL, Rate: No Longer 0.9% IV 1,000 mL 125 ml/hr, Active 2013 Infuse over: 8 hr, Route: IV, Dosing Weight 120.227 kg, Total Volume: 1,000, Start date: 08/23/14 8:30:00, Duration: 30 day, Stop date: 09/22/14 8:29:00 Ondansetron 4 mg, 2 mL, Inactive Route: IVP, 2013 [facility] Drug form: INJ, ONCE, Dosing Weight 118.182, kg, PRN Nausea & Vomiting, Start date: 08/23/14 5:33:00Notes: (Same as: Zofran) Saline Flush 10 ml, Route: No Longer 0.9% IVP, Drug Form: Active 2013 [facility] INJ, Dosing Weight 118.182, kg, PRN, PRN Line Flush, Start date: 08/23/14 5:33:00, Duration: 30 day, Stop date: 09/22/14 5:32:00Notes: (Same as: BD Posiflush) Sodium Chloride 1,000 mL, Rate: Inactive 0.154 MEQ/ML 100 ml/hr, 2013 [facility] Injectable Infuse over: 10 Solution hr, Route: IV, Dosing Weight 118.182 kg, Total Volume: 1,000, Start date: 08/23/14 5:33:00, Duration: 30 day, Stop date: 09/22/14 5:32:00 Dilaudid 0.5 mg, Route: Inactive IVP, ONCE, 2013 [facility] Dosing Weight 118.182, kg, Priority: STAT, Start date: 08/23/14 1:00:00, Stop date: 08/23/14 1:00:00 Zofran 4 mg, Route: Inactive IVP, Drug form: 2013 [facility] INJ, ONCE, Dosing Weight 118.182, kg, Priority: STAT, Start date: 08/22/14 23:11:00, Stop date: 08/22/14 23:11:00 Sodium Chloride 500 mL, 500 Inactive 0.154 MEQ/ML ml/hr, Infuse 2013 [facility] Injectable Over: 1 hr, Solution Route: IV, ONCE, Priority: STAT, Dosing Weight 118.182 kg, Start date: 08/22/14 23:11:00, Duration: 1 doses or times, Stop date: 08/22/14 23:11:00 Morphine 4 mg, Route: Inactive IVP, Drug form: 2013 [facility] INJ, ONCE, Dosing Weight 118.182, kg, Priority: STAT, Start date: 08/22/14 23:08:00, Stop date: 08/22/14 23:08:00 Protonix 40 mg, Route: No Longer IVP, Drug form: Active 2013 [facility] INJ, ONCE, Dosing Weight 118.182, kg, Priority: STAT, Start date: 08/22/14 23:06:00, Stop date: 08/22/14 23:06:00Notes: For IV push reconstitute with 10 ml 0.9% sodium chloride and push over 2 minutes. (Same as: Protonix) tramadol 50 mg=1 tab, Active hydrochloride 50 PO, Q4H, for 2013 [facility] MG Oral Tablet pain, # 30 tab, [Ultram] 0 Refill(s) pantoprazole 40 40 mg=1 tab, Active MG Enteric PO, Daily, # 30 2013 [facility] Coated Tablet tab, 0 [Protonix] Refill(s) GI cocktail 30 mL, Route: Inactive PO, Dosing 2013 [facility] Weight 115.909, kg, ONCE, STAT, Start date: 04/18/14 23:47:00, Stop date: 04/18/14 23:47:00 Ondansetron 4 mg, 2 mL, Inactive Route: IVP, 2013 [facility] Drug form: INJ, ONCE, Dosing Weight 115.909, kg, Priority: STAT, Start date: 04/18/14 21:02:00, Stop date: 04/18/14 21:02:00Notes: (Same as: Zofran) Morphine 4 mg, 2 mL, Inactive Route: IVP, 2013 [facility] Drug form: INJ, ONCE, Dosing Weight 115.909, kg, Priority: STAT, Start date: 04/18/14 21:02:00, Stop date: 04/18/14 21:02:00Notes: (Same as:MORPhine Sulfate) Allergies, Adverse Reactions, Alerts Substance Category Reaction Severity Reaction Status Date Comments Source type Reported Immunizations Immunization Date Site Status Last Comments Source Given Updated pneumococcal Left completed Dimitrios [facility] 23-valent 4 deltoid vaccine influenza virus Right completed Michael [facility] vaccine, 4 Deltoid inactivated Results Order Name Results Value Reference Date Interpretation Comments Source Range ELECTROLYT AGAP 21.7 meq/L 10.0 - 08/27 ES 20.0 [facility] ELECTROLYT eGFR 90 08/27 1Result Comment: The eGFR is calculated using the CKD-EPI formula. In most young, healthy individuals the eGFR will be >90 mL/ min/1.73m2. The eGFR declines with age. An eGFR of 60-89 may be normal in mL/min/1. some populations, particularly the elderly, for whom the CKD-EPI formula has not been extensively validated. Use of the eGFR is not recommended in the following populations: [facility] 3m2 Individuals with unstable creatinine concentrations, including patients and those with serious co-morbid conditions. Patients with extremes in muscle mass or diet. The data above are obtained from the National Kidney Disease Education Program (NKDEP) which additionally recommends that when the eGFR is used in patients with extremes of body mass index for purposes of drug dosing, the eGFR should be multiplied by the estimated BMI. ELECTROLYT Calcium Lvl 8.9 mg/dL 8.5 - 10.5 08/27 [facility] ELECTROLYT Chloride Lvl 105 meq/L 95 - 109 08/27 [facility] ELECTROLYT CO2 15 meq/L 24 - 32 08/27 [facility] ELECTROLYT Sodium Lvl 137 meq/L 135 - 145 08/27 [facility] ELECTROLYT BUN 7 mg/dL 7 - 22 08/27 [facility] ELECTROLYT Potassium 4.7 meq/L 3.5 - 5.1 08/27 [facility] ELECTROLYT Creatinine 0.9 mg/dL 0.5 - 1.4 08/27 ES Lv [facility] ELECTROLYT Glucose Lvl 86 mg/dL 70 - 99 08/27 4Interpretive Data: Adult reference range values reflect the clinical guidelines of the [place] [employer]. [facility] HEMATOLOGY Platelet 215 K/CMM 133 - 450 08/27 [facility] HEMATOLOGY MPV 8.4 fL 7.4 - 10.4 08/27 [facility] HEMATOLOGY MCHC 36.0 g/dL 32.0 - 08/27 36.0 [facility] HEMATOLOGY RDW 15.8 % 11.5 - 08/27 14. [facility] HEMATOLOGY MCV 98.7 fL 80.0 - 08/27 98.0 [facility] HEMATOLOGY MCH 35.5 pg 27.0 - 08/27 31.0 [facility] HEMATOLOGY Hct 33.8 % 36.0 - 08/27 MH 48.0 /2013 [facility] HEMATOLOGY Hgb 12.1 g/dL 12.0 - 08/27 MH 16.0 [facility] HEMATOLOGY WBC 9.4 K/CMM 3.7 - 10.4 08/27 [facility] HEMATOLOGY RBC 3.42 M/CMM 4.20 - 08/27 MH 5.40 /2013 [facility] HEMATOLOGY Segs-Bands # 8.6 K/CMM 1.5 - 8.1 08/27 [facility] HEMATOLOGY Basophils 0.2 % 0.0 - 1.0 08/27 [facility] HEMATOLOGY Monocytes # 0.2 K/CMM 0.0 - 0.8 08/27 [facility] HEMATOLOGY Lymphocytes 0.6 K/CMM 1.0 - 5.5 08/27 MH # /2014 [facility] HEMATOLOGY Lymphocytes 6.5 % 20.0 - 08/27 MH 40.0 [facility] HEMATOLOGY Segs 90.8 % 45.0 - 08/27 75.0 /2013 [facility] HEMATOLOGY Eosinophils 0.1 % 0.0 - 4.0 08/27 [facility] HEMATOLOGY Monocytes 2.4 % 2.0 - 12.0 08/27 [facility] CHEM PANEL A/G Ratio 1.0 0.7 - 1.6 08/25 [facility] CHEM PANEL B/C Ratio 8 6 - 25 08/25 [facility] CHEM PANEL Globulin 3.6 g/dL 2.0 - 4.0 08/25 [facility] CHEM PANEL AGAP 15.3 meq/L 10.0 - 08/25 20.0 [facility] CHEM PANEL eGFR 71 08/25 2Result Comment: The eGFR is calculated using the CKD-EPI formula. In most young, healthy individuals the eGFR will be >90 mL/ min/1.73m2. The eGFR declines with age. An eGFR of 60-89 may be normal in mL/min/1. some populations, particularly the elderly, for whom the CKD-EPI formula has not been extensively validated. Use of the eGFR is not recommended in the following populations: [facility] 3m2 Individuals with unstable creatinine concentrations, including patients and those with serious co-morbid conditions. Patients with extremes in muscle mass or diet. The data above are obtained from the National Kidney Disease Education Program (NKDEP) which additionally recommends that when the eGFR is used in patients with extremes of body mass index for purposes of drug dosing, the eGFR should be multiplied by the estimated BMI. CHEM PANEL Creatinine 1.1 mg/dL 0.5 - 1.4 08/25 [facility] CHEM PANEL CO2 26 meq/L 24 - 32 08/25 [facility] CHEM PANEL Calcium Lvl 9.0 mg/dL 8.5 - 10.5 08/25 [facility] CHEM PANEL BUN 9 mg/dL 7 - 22 08/25 [facility] CHEM PANEL Glucose Lvl 75 mg/dL 70 - 99 08/25 5Interpretive Data: Adult reference range values reflect the clinical guidelines of the [place] [employer]. [facility] CHEM PANEL Bili Total 0.8 mg/dL 0.2 - 1.3 08/25 [facility] CHEM PANEL ALT 72 unit/L 0 - 65 08/25 [facility] CHEM PANEL AST 30 unit/L 0 - 37 08/25 [facility] CHEM PANEL Total 7.1 g/dL 6.4 - 8.4 08/25 [facility] CHEM PANEL Alk Phos 70 unit/L 39 - 136 08/25 [facility] CHEM PANEL Albumin Lvl 3.5 g/dL 3.5 - 5.0 08/25 [facility] CHEM PANEL Potassium 4.3 meq/L 3.5 - 5.1 08/25 [facility] CHEM PANEL Chloride Lvl 103 meq/L 95 - 109 08/25 [facility] CHEM PANEL Sodium Lvl 140 meq/L 135 - 145 08/25 [facility] HEMATOLOGY MPV 8.0 fL 7.4 - 10.4 08/25 [facility] HEMATOLOGY Platelet 245 K/CMM 133 - 450 08/25 [facility] HEMATOLOGY RDW 14.1 % 11.5 - 08/25 14. [facility] HEMATOLOGY MCHC 33.9 g/dL 32.0 - 08/25 36.0 [facility] HEMATOLOGY Hgb 13.3 g/dL 12.0 - 08/25 16.0 [facility] HEMATOLOGY WBC 6.4 K/CMM 3.7 - 10.4 08/25 [facility] HEMATOLOGY RBC 4.67 M/CMM 4.20 - 08/25 MH 5.40 /2013 [facility] HEMATOLOGY Hct 39.2 % 36.0 - 08/25 MH 48.0 /2013 [facility] HEMATOLOGY MCV 83.8 fL 80.0 - 08/25 98.0 /2013 [facility] HEMATOLOGY MCH 28.5 pg 27.0 - 08/25 MH 31.0 /2013 [facility] HEMATOLOGY Basophils # 0.0 K/CMM 0.0 - 0.2 08/25 [facility] HEMATOLOGY Basophils 0.4 % 0.0 - 1.0 08/25 [facility] HEMATOLOGY Lymphocytes 1.6 K/CMM 1.0 - 5.5 08/25 MH # /2013 [facility] HEMATOLOGY Segs-Bands # 4.1 K/CMM 1.5 - 8.1 08/25 [facility] HEMATOLOGY Eosinophils 0.3 K/CMM 0.0 - 0.5 08/25 MH # /2013 [facility] HEMATOLOGY Monocytes # 0.4 K/CMM 0.0 - 0.8 08/25 [facility] HEMATOLOGY Segs 63.5 % 45.0 - 08/25 75.0 /2013 [facility] HEMATOLOGY Monocytes 6.4 % 2.0 - 12.0 08/25 [facility] HEMATOLOGY Lymphocytes 24.7 % 20.0 - 08/25 MH 40.0 [facility] HEMATOLOGY Eosinophils 5.0 % 0.0 - 4.0 08/25 [facility] CHEM PANEL ALT 89 unit/L 0 - 65 08/24 [facility] CHEM PANEL Total 7.3 g/dL 6.4 - 8.4 08/24 [facility] CHEM PANEL AST 36 unit/L 0 - 37 08/24 [facility] CHEM PANEL Globulin 3.4 g/dL 2.0 - 4.0 08/24 [facility] CHEM PANEL A/G Ratio 1.1 0.7 - 1.6 08/24 [facility] CHEM PANEL Alk Phos 80 unit/L 39 - 136 08/24 [facility] CHEM PANEL Bili Total 0.7 mg/dL 0.2 - 1.3 08/24 [facility] CHEM PANEL CO2 28 meq/L 24 - 32 08/24 [facility] CHEM PANEL Potassium 4.2 meq/L 3.5 - 5.1 08/24 Lvl [facility] CHEM PANEL Chloride Lvl 104 meq/L 95 - 109 08/24 [facility] CHEM PANEL AGAP 10.2 meq/L 10.0 - 08/24 MH 20.0 [facility] CHEM PANEL Albumin Lvl 3.9 g/dL 3.5 - 5.0 08/24 [facility] CHEM PANEL B/C Ratio 8 6 - 25 08/24 [facility] CHEM PANEL Calcium Lvl 8.9 mg/dL 8.5 - 10.5 08/24 [facility] CHEM PANEL Sodium Lvl 138 meq/L 135 - 145 08/24 [facility] CHEM PANEL Glucose Lvl 84 mg/dL 70 - 99 08/24 6Interpretive Data: Adult reference range values reflect the clinical guidelines of the [place] [employer]. [facility] CHEM PANEL Creatinine 1.1 mg/dL 0.5 - 1.4 08/24 Lv [facility] CHEM PANEL BUN 9 mg/dL 7 - 08/24 [facility] CHEM PANEL eGFR 71 08/24 3Result Comment: The eGFR is calculated using the CKD-EPI formula. In most young, healthy individuals the eGFR will be >90 mL/ min/1.73m2. The eGFR declines with age. An eGFR of 60-89 may be normal in mL/min/1. some populations, particularly the elderly, for whom the CKD-EPI formula has not been extensively validated. Use of the eGFR is not recommended in the following populations: [facility] 3m2 Individuals with unstable creatinine concentrations, including patients and those with serious co-morbid conditions. Patients with extremes in muscle mass or diet. The data above are obtained from the National Kidney Disease Education Program (NKDEP) which additionally recommends that when the eGFR is used in patients with extremes of body mass index for purposes of drug dosing, the eGFR should be multiplied by the estimated BMI. HEMATOLOGY PTT 33.6 s 22.9 - 08/24 9Interpretive MH 35.8 Data: Heparin [facility] Therapeutic Range: 57 - 92 Seconds HEMATOLOGY Platelet 255 K/CMM 133 - 450 08/24 [facility] HEMATOLOGY RDW 14.2 % 11.5 - 08/24 14. [facility] HEMATOLOGY MCH 28.5 pg 27.0 - 08/24 31.0 [facility] HEMATOLOGY MCHC 34.0 g/dL 32.0 - 08/24 36.0 [facility] HEMATOLOGY MCV 83.9 fL 80.0 - 08/24 98.0 /2014 [facility] HEMATOLOGY MPV 7.9 fL 7.4 - 10.4 08/24 /2013 [facility] HEMATOLOGY WBC 7.6 K/CMM 3.7 - 10.4 08/24 [facility] HEMATOLOGY RBC 4.86 M/CMM 4.20 - 08/24 5.40 /2013 [facility] HEMATOLOGY Hgb 13.9 g/dL 12.0 - 08/24 16.0 /2013 [facility] HEMATOLOGY Hct 40.8 % 36.0 - 08/24 48.0 /2013 [facility] HEMATOLOGY INR 1.01 0.85 - 08/24 7Interpretive Data: RECOMMENDED RANGES FOR PROTIME INR: . 2.0-3.0 for most medical and surgical thromboembolic states. [facility] 2.5-3.5 for artificial heart valves and recurrent embolism. INR SHOULD BE USED ONLY FOR PATIENTS ON STABLE ANTICOAGULANT THERAPY. HEMATOLOGY PT 13.3 s 12.0 - 08/24 14.7 /2013 [facility] HEMATOLOGY Segs-Bands # 4.9 K/CMM 1.5 - 8.1 08/24 [facility] HEMATOLOGY Lymphocytes 1.8 K/CMM 1.0 - 5.5 08/24 # /2013 [facility] HEMATOLOGY Basophils 0.9 % 0.0 - 1.0 08/24 [facility] HEMATOLOGY Eosinophils 0.4 K/CMM 0.0 - 0.5 08/24 MH # /2013 [facility] HEMATOLOGY Monocytes 5.3 % 2.0 - 12.0 08/24 [facility] HEMATOLOGY Monocytes # 0.4 K/CMM 0.0 - 0.8 08/24 [facility] HEMATOLOGY Lymphocytes 23.9 % 20.0 - 08/24 40.0 /2013 [facility] HEMATOLOGY Segs 64.9 % 45.0 - 08/24 75.0 /2013 [facility] HEMATOLOGY Eosinophils 5.0 % 0.0 - 4.0 08/24 [facility] HEMATOLOGY Basophils # 0.1 K/CMM 0.0 - 0.2 08/24 [facility] Gallbladde Gallbladder Nuclear medicine HIDA scan, Aug 24, 2014 11:16:23 AM 08/24 - r scan scan HID - [facility] HIDA w meds NM meds NM CLINICAL HISTORY: Abdominal pain Read by: Enrique Paulson MD Dictated Date/time: 08/24/14 11:23 Electronically Signed by: Enrique Paulson MD 08/24/14 11:24 FINAL REPORT COMPARISON: Abdominal ultrasound 04/18/2014 FINDINGS: After IV bolus injection of 6 mCi Tc 99m CHOLETEC, dynamic flow images of the anterior abdomen were obtained followed by the sequential images for approximately 1 hour. There is normal perfusion to the liver. Radiotracer uptake and excretion in the liver parenchyma are normal. The gallbladder and bowel activity are seen in a timely fashion. The patient then received 2.3 mcg CCK by slow IV injection and continued imaging over the anterior abdomen were obtained for 30 minutes, during which the patient did not experience any abdominal discom fort or cramping. The gallbladder ejection fraction is calculated based on the region of the interest drawn around the gall bladder and is approximately 18 %, which is significantly below the normal lower limit of 35%. There is no evidence of duodenal or gastric reflux. IMPRESSION: 1. Negative for acute obstructive cholecystitis or cystic duct obstruction. 2. Low ejection fraction of 18% is most consistent with chronic cholecystitis or biliary dyskinesia. SL: 14 IMMUNOLOGY C-REACTIVE 9.8 mg/L <=2.9 mg/L 08/23 [facility] CHEM PANEL Lipase Lvl 143 unit/L 73 - 393 08/23 [facility] CHEM PANEL Amylase Lvl 37 unit/L 25 - 115 08/23 [facility] CHEM PANEL Albumin Lvl 3.8 g/dL 3.5 - 5.0 08/23 [facility] CHEM PANEL Total 7.3 g/dL 6.4 - 8.4 08/23 [facility] CHEM PANEL Alk Phos 75 unit/L 39 - 136 08/23 [facility] CHEM PANEL AST 41 unit/L 0 - 37 08/23 [facility] CHEM PANEL ALT 101 unit/L 0 - 65 08/23 [facility] CHEM PANEL Bili Total 0.4 mg/dL 0.2 - 1.3 08/23 [facility] CHEM PANEL A/G Ratio 1.1 0.7 - 1.6 08/23 [facility] CHEM PANEL Globulin 3.5 g/dL 2.0 - 4.0 08/23 [facility] CHEM PANEL B/C Ratio 12 6 - 25 08/23 [facility] HEMATOLOGY Sed Rate 28 mm/h 0 - 20 08/23 [facility] HEMATOLOGY Eosinophils 0.5 K/CMM 0.0 - 0.5 08/23 # /2014 [facility] HEMATOLOGY PTT 32.7 s 22.9 - 08/23 10Interpretiv 35.8 /2014 e Data: [facility] Heparin Therapeutic Range: 57 - 92 Seconds HEMATOLOGY PT 13.7 s 12.0 - 08/23 14.7 /2013 [facility] HEMATOLOGY INR 1.05 0.85 - 08/23 8Interpretive Data: RECOMMENDED RANGES FOR PROTIME INR: 1. 2.0-3.0 for most medical and surgical thromboembolic states. [facility] 2.5-3.5 for artificial heart valves and recurrent embolism. INR SHOULD BE USED ONLY FOR PATIENTS ON STABLE ANTICOAGULANT THERAPY. IMMUNOLOGY Hep Bs Ag Negative Negative 08/23 [facility] *NA* (08/22/14 10:23 PM) IMMUNOLOGY Hep B Core Negative Negative 08/23 IgM [facility] *NA* (08/22/14 10:23 PM) IMMUNOLOGY Hep C Ab Negative 08/23 [facility] *NA* (08/22/14 10:23 PM) IMMUNOLOGY Hep A IgM Negative Negative 08/23 [facility] *NA* (08/22/14 10:23 PM) URINE AND UA <=1.0 0.1 - 1.0 08/23 STOOL Urobilinogen mg/dL /2013 [facility] URINE AND UA WBC 3 /HPF 0 - 5 08/23 STOOL [facility] URINE AND UA RBC 1 /HPF 0 - 2 08/23 STOOL [facility] URINE AND UA Nitrite Negative Negative 08/23 STOOL [facility] (08/22/14 10:23 PM) URINE AND UA Leuk Est Negative Negative 08/23 STOOL [facility] (08/22/14 10:23 PM) URINE AND UA Sq Epi Moderate Few /LPF 08/23 STOOL /LPF /2013 [facility] URINE AND UA Spec Grav 1.026 <=1.030 08/23 STOOL [facility] URINE AND UA pH 5.0 5.0 - 8.0 08/23 [facility] URINE AND UA Turbidity Slight Clear 08/23 [facility] *ABN* (08/22/14 10:23 PM) URINE AND UA Glucose Negative Negative 08/23 STOOL mg/dL mg/dL [facility] URINE AND UA Protein Negative Negative 08/23 STOOL mg/dL mg/dL [facility] URINE AND UA Color Yellow Yellow 08/23 [facility] *NA* (08/22/14 10:23 PM) URINE AND UA Blood Large Negative 08/23 [facility] *ABN* (08/22/14 10:23 PM) URINE AND UA Bili Negative Negative 08/23 [facility] *NA* (08/22/14 10:23 PM) URINE AND UA Ketones Negative Negative 08/23 STOOL mg/dL mg/dL [facility] URINE CHEM U Preg Negative Negative 08/23 [facility] (08/22/14 10:23 PM) CHEM PANEL Lipase Lvl 134 unit/L 73 - 393 04/19 [facility] CHEM PANEL eGFR 58 04/19 1Result Comment: The eGFR is calculated using the CKD-EPI formula. In most young, healthy individuals the eGFR will be >90 mL/ min/1.73m2. The eGFR declines with age. An eGFR of 60-89 may be normal in mL/min/1. some populations, particularly the elderly, for whom the CKD-EPI formula has not been extensively validated. Use of the eGFR is not recommended in the following populations: [facility] 3m2 Individuals with unstable creatinine concentrations, including patients and those with serious co-morbid conditions. Patients with extremes in muscle mass or diet. The data above are obtained from the National Kidney Disease Education Program (NKDEP) which additionally recommends that when the eGFR is used in patients with extremes of body mass index for purposes of drug dosing, the eGFR should be multiplied by the estimated BMI. CHEM PANEL AST 55 unit/L 0 - 37 04/19 [facility] CHEM PANEL Bili Total 0.5 mg/dL 0.2 - 1.3 04/19 [facility] CHEM PANEL Alk Phos 87 unit/L 39 - 136 04/19 [facility] CHEM PANEL BUN 14 mg/dL 7 - 22 04/19 [facility] CHEM PANEL Glucose Lvl 112 mg/dL 70 - 99 04/19 2Interpretive Data: Adult reference range values reflect the clinical guidelines of the [place] [employer]. [facility] CHEM PANEL ALT 134 unit/L 0 - 65 04/19 [facility] CHEM PANEL Albumin Lvl 4.1 g/dL 3.5 - 5.0 04/19 [facility] CHEM PANEL Calcium Lvl 8.8 mg/dL 8.5 - 10.5 04/19 [facility] CHEM PANEL CO2 23 meq/L 24 - 32 04/19 [facility] CHEM PANEL Total 8.2 g/dL 6.4 - 8.4 04/19 [facility] CHEM PANEL Creatinine 1.3 mg/dL 0.5 - 1.4 04/19 Lv [facility] CHEM PANEL Chloride Lvl 104 meq/L 95 - 109 04/19 [facility] CHEM PANEL Potassium 3.5 meq/L 3.5 - 5.1 04/19 Lvl [facility] CHEM PANEL Sodium Lvl 137 meq/L 135 - 145 04/19 [facility] CHEM PANEL B/C Ratio 11 6 - 25 04/19 [facility] CHEM PANEL AGAP 13.5 meq/L 10.0 - 04/19 20.0 [facility] CHEM PANEL Globulin 4.1 g/dL 2.0 - 4.0 04/19 [facility] CHEM PANEL A/G Ratio 1.0 0.7 - 1.6 04/19 [facility] ENDOCRINOL S Preg Negative Negative 04/19 OG [facility] *NA* (04/18/14 9:07 PM) HEMATOLOGY Lymphocytes 2.7 K/CMM 1.0 - 5.5 04/19 MH # /2013 [facility] HEMATOLOGY Eosinophils 0.4 K/CMM 0.0 - 0.5 04/19 /2013 [facility] HEMATOLOGY Basophils # 0.1 K/CMM 0.0 - 0.2 04/19 [facility] HEMATOLOGY Monocytes # 0.5 K/CMM 0.0 - 0.8 04/19 [facility] HEMATOLOGY Eosinophils 3.5 % 0.0 - 4.0 04/19 [facility] HEMATOLOGY Segs-Bands # 7.2 K/CMM 1.5 - 8.1 04/19 [facility] HEMATOLOGY Basophils 0.8 % 0.0 - 1.0 04/19 [facility] HEMATOLOGY Segs 66.3 % 45.0 - 04/19 75.0 [facility] HEMATOLOGY Monocytes 4.8 % 2.0 - 12.0 04/19 [facility] HEMATOLOGY Lymphocytes 24.6 % 20.0 - 04/19 MH 40.0 [facility] HEMATOLOGY RDW 14.5 % 11.5 - 04/19 MH 14.5 /2013 [facility] HEMATOLOGY MCHC 34.4 g/dL 32.0 - 04/19 36.0 /2013 [facility] HEMATOLOGY MPV 8.2 fL 7.4 - 10.4 04/19 [facility] HEMATOLOGY Platelet 321 K/CMM 133 - 450 04/19 [facility] HEMATOLOGY Hct 43.0 % 36.0 - 04/19 48.0 /2013 [facility] HEMATOLOGY Hgb 14.8 g/dL 12.0 - 04/19 16.0 /2013 [facility] HEMATOLOGY MCH 28.3 pg 27.0 - 04/19 31.0 /2013 [facility] HEMATOLOGY MCV 82.4 fL 81.0 - 04/19 99.0 /2013 [facility] HEMATOLOGY WBC 10.8 K/CMM 3.7 - 10.4 04/19 [facility] HEMATOLOGY RBC 5.22 M/CMM 4.20 - 04/19 5.40 /2013 [facility] IMMUNOLOGY [facility] HIV 4th Negative Negative 04/19 GEN /2013 [facility] (04/18/14 9:07 PM) URINE AND UA RBC 2 /HPF 0 - 2 04/19 STOOL [facility] URINE AND UA Bacteria Occasional None Seen 04/19 STOOL /HPF /HPF [facility] URINE AND UA WBC 3 /HPF 0 - 5 04/19 STOOL [facility] URINE AND UA Mucus Few /LPF None Seen 04/19 STOOL /LPF [facility] URINE AND UA Glucose Negative Negative 04/19 STOOL mg/dL mg/dL [facility] URINE AND UA Color Yellow Yellow 04/19 STOOL [facility] *NA* (04/18/14 9:07 PM) URINE AND UA Nitrite Negative Negative 04/19 STOOL [facility] (04/18/14 9:07 PM) URINE AND UA pH 5.0 5.0 - 8.0 04/19 STOOL [facility] URINE AND UA Protein Negative Negative 04/19 STOOL mg/dL mg/dL [facility] URINE AND UA Spec Grav 1.031 <=1.030 04/19 STOOL [facility] URINE AND UA Turbidity Marked Clear 04/19 STOOL [facility] *ABN* (04/18/14 9:07 PM) URINE AND UA Sq Epi Many /LPF Few /LPF 04/19 [facility] URINE AND UA Leuk Est Small Negative 04/19 STOOL [facility] *ABN* (04/18/14 9:07 PM) URINE AND UA Blood Moderate Negative 04/19 STOOL [facility] *ABN* (04/18/14 9:07 PM) URINE AND UA 2.0 mg/dL 0.1 - 1.0 04/19 STOOL Urobilinogen /2013 [facility] URINE AND UA Ketones Negative Negative 04/19 STOOL mg/dL mg/dL [facility] URINE AND UA Bili Negative Negative 04/19 STOOL [facility] *NA* (04/18/14 9:07 PM) Abdomen Abdomen RUQ RUQ ULTRASOUND: 04/18 - RUQ US US /2013 - [facility] HX: Acute abdominal pain Read by: Jose Lopez MD Dictated Date/time: 04/18/14 22:04 The gallbladder is well seen and is within normal limits, with no thickening of the gallbladder wall or pericholecystic fluid. The common hepatic duct is within normal limits, measuring 2.8 mm in diame Electronically Signed by: Jose Lopez MD 04/18/14 22 :04 ter. The liver is echogenic in a fashion consistent with fatty infiltration.. The intrahepatic bile ducts are not dilated. FINAL REPORT Views of the right kidney show no hydronephrosis or perinephric fluid. The pancreas is not well seen due to overlying bowel gas. IMPRESSION: 1. Fatty liver. 2. Pancreas not well-seen due to overlying gas. SL: 12 Vital Signs Vital Sign Value Date Comments Source Diastolic (mm Hg) 77 08/27/2014 [facility] Systolic (mm Hg) 114 08/27/2014 [facility] Heart Rate 76 08/27/2014 [facility] Temperature Oral (F) 98.6 F 08/27/2014 [facility] Respitory Rate 16 08/27/2014 [facility] Respitory Rate 16 08/27/2014 [facility] Heart Rate 56 08/27/2014 [facility] Temperature Oral (F) 97.6 F 08/27/2014 [facility] Respitory Rate 16 08/27/2014 [facility] Systolic (mm Hg) 104 08/27/2014 [facility] Diastolic (mm Hg) 70 08/27/2014 [facility] Diastolic (mm Hg) 69 08/27/2014 [facility] Temperature Oral (F) 97.7 F 08/27/2014 [facility] Heart Rate 85 08/27/2014 [facility] Systolic (mm Hg) 106 08/27/2014 [facility] Weight 120.227 08/23/2014 [facility] BMI Calculated 42.78 08/23/2014 [facility] Height 167.64 cm 08/23/2014 [facility] BMI Calculated 42.05 08/23/2014 [facility] Weight 118.182 08/23/2014 [facility] Height 167.64 cm 08/23/2014 [facility] Diastolic (mm Hg) 81 04/19/2014 [facility] Heart Rate 77 04/19/2014 [facility] Temperature Oral (F) 98 F 04/19/2014 [facility] Systolic (mm Hg) 123 04/19/2014 [facility] Respitory Rate 18 04/19/2014 [facility] Weight 115.909 04/19/2014 [facility] BMI Calculated 41.24 04/19/2014 [facility] Height 167.64 cm 04/19/2014 [facility] Temperature Oral (F) 98.3 F 04/19/2014 [facility] Respitory Rate 20 04/19/2014 [facility] Heart Rate 112 04/19/2014 [facility] Diastolic (mm Hg) 91 04/19/2014 [facility] Systolic (mm Hg) 134 04/19/2014 [facility] Encounters Location Location Encounter Encounter Reason Attending ADM DC Status Source Details Type Number For Provider Date Date Visit [facility] [id number] [place] 04/19 04/19 [facility] /2013 [facility] Inpatient [id number] [facility] 08/23 08/27 Camilo Camargo /2013 [facility] Procedures Procedure Code Date Perfomer Comments Source section [id number] [facility]
--- OUTSIDE RECORDS SUMMARY | 2018-07-16 22:34 | XMS REPORT | Summary of Care ---
:1990 Author Encounter HQ Suni(LUIS EDUARDO) [id number] Date(s): 08/22/14 - 08/27/14 [facility] [id number] Discharge Disposition: Home Physician Attending: Kvng Camargo MD Physician Admitting: Kvng Camargo MD Reason for Visit HEMATEMESIS, EPIGASTRIC ABDOMINAL PAIN, PERSISTENT VOMI Vital Signs Most recent to oldest 1 2 3 [Reference Range]: Height 167.64 cm 167.64 cm (08/23/14 5:35 AM) (08/22/14 7:16 PM) Temperature Oral [96.4-99.1 98.6 DegF 97.6 DegF 97.7 DegF DegF] (08/27/14 11:41 AM) (08/27/14 7:49 AM) (08/27/14 4:19 AM) Systolic Blood Pressure 114 mmHg 104 mmHg 106 mmHg [90-140 mmHg] (08/27/14 11:41 AM) (08/27/14 7:49 AM) (08/27/14 4:19 AM) Diastolic Blood Pressure 77 mmHg 70 mmHg 69 mmHg [60-90 mmHg] (08/27/14 11:41 AM) (08/27/14 7:49 AM) (08/27/14 4:19 AM) Respiratory Rate [14-20 16 BRMIN 16 BRMIN 16 BRMIN BRMIN] (08/27/14 11:41 AM) (08/27/14 8:47 AM) (08/27/14 7:49 AM) Peripheral Pulse Rate 76 bpm 56 bpm 85 bpm [60-100 bpm] (08/27/14 11:41 AM) *LOW* (08/27/14 4:19 AM) (08/27/14 7:49 AM) Weight 120.227 kg 118.182 kg (08/23/14 5:35 AM) (08/22/14 7:16 PM) Body Mass Index 42.78 m2 42.05 m2 (08/23/14 5:35 AM) (08/22/14 7:16 PM) Problem List Condition Effective Dates Status Health Status Informant Anxiety(Confirmed) Resolved Fatty liver(Confirmed) Resolved Allergies, Adverse Reactions, Alerts Substance Reaction Severity Status NKDA Active Medications acetaminophen-hydrocodone 325 mg-5 mg oral tablet 1 tab, Route: PO, Drug Form: TAB, Dosing Weight 120.227, kg, Q4H, PRN Pain Score 1-3, Start date: 08/26/14 17:00:00, Stop date: 09/25/14 16:59:00 Notes: (Same as: [place] 325/5) Do not exceed 4gm/day of acetaminophen. Start Date: 08/26/14 Stop Date: 08/27/14 Status: DiscontinuedDilaudid 0.5 mg, Route: IVP, ONCE, Dosing Weight 118.182, kg, Priority: STAT, Start date : 08/23/14 1:00:00, Stop date: 08/23/14 1:00:00 Start Date: 08/23/14 Stop Date: 08/23/14 Status: CompletedDilaudid 0.5 mg, 0.5 mL, Route: IV, Drug form: INJ, ONCE, Dosing Weight 120.227, kg, Start date: 08/23/14 12:26:00, Stop date: 08/23/14 12:26:00 Start Date: 08/23/14 Stop Date: 08/23/14 Status: Completeddocusate sodium 100 mg oral capsule 100 mg, 1 cap, Route: PO, Drug form: CAP, BID, Dosing Weight 120.227, kg, Start date: 08/26/14 17:00:00, Duration: 30 day, Stop date: 09/25/14 9:00:00 Notes: (Same as: Colace) (Do Not Crush) Start Date: 08/26/14 Stop Date: 08/27/14 Status: Discontinuedenoxaparin 40 mg, 0.4 mL, Route: SUB-Q, Drug form: INJ, [id number], Dosing Weight 120.227, kg , Start date: 08/27/14 5:02:00, Duration: 30 day, Stop date: 09/25/14 5:02:00 Notes: (Same as: Lovenox) Start Date: 08/27/14 Stop Date: 08/27/14 Status: Discontinuedflumazenil 0.2 mg, 2 mL, Route: IVP, Drug form: INJ, PRN, Dosing Weight 120.227, kg, PRN Other -See Comment, Start date: 08/23/14 15:23:00, Duration: 1 doses or times, Stop date: Limited # of times Notes: (Same as: Romazicon) Start Date: 08/23/14 Stop Date: 08/27/14 Status: Discontinuedflumazenil 0.1 mg, 1 mL, Route: IVP, Drug form: INJ, Q5Min, Dosing Weight 120.227, kg, PRN Other -See Comment, Start date: 08/23/14 15:23:00, Duration: 30 day, Stop date: 09/22/14 15:22:00 Notes: (Same as: Romazicon) Start Date: 08/23/14 Stop Date: 08/27/14 Status: Discontinuedinfluenza virus vaccine, inactivated 0.5 mL, Route: IM, Drug Form: SUSP, Daily, Start date: 08/23/14 9:00:00, Duration: 1 doses or times,Stop date: 08/23/14 9:00:00 Notes: (Same as: Fluzone Quadrivalent) Start Date: 08/23/14 Stop Date: 08/23/14 Status: Completedmorphine Sulfate 4 mg, Route: IVP, Drug form: INJ, ONCE, Dosing Weight 118.182, kg, Priority: STAT, Start date: 08/22/14 23:08:00, Stop date: 08/22/14 23:08:00 Start Date: 08/22/14 Stop Date: 08/22/14 Status: Completedmorphine Sulfate 2 mg, 1 mL, Route: IVP, Drug form: INJ, Q3H, Dosing Weight 120.227, kg, PRN Pain Score 4-6, Start date: 08/26/14 17:00:00, Duration: 30 day, Stop date: 16:59:00 Notes: (Same as:MORPhine Sulfate) Start Date: 08/26/14 Stop Date: 08/27/14 Status: Discontinuednaloxone 0.1 mg, 0.25 mL, Route: IVP, Drug form: INJ, Q2MIN, Dosing Weight 120.227, kg, PRN Narcotic Reversal, Start date: 08/23/14 15:23:00, Duration: 4 doses or times , Stop date: Limited # of times Notes: Same as Narcan Start Date: 08/23/14 Stop Date: 08/27/14 Status: Discontinuednormal saline 0.9% IV 1,000 mL 1,000 mL, Rate: 125 ml/hr, Infuse over: 8 hr, Route: IV, Dosing Weight 120.227 kg, Total Volume: 1,000, Start date: 08/23/14 8:30:00, Duration: 30 day, Stop date: 09/22/14 8:29:00 Start Date: 08/23/14 Stop Date: 08/26/14 Status: DiscontinuedNS (Bolus) IV 500 mL, 500 ml/hr, Infuse Over: 1 hr, Route: IV, ONCE, Priority: STAT, Dosing Weight 118.182 kg, Start date: 08/22/14 23:11:00, Duration: 1 doses or times, Stop date: 08/22/14 23:11:00 Start Date: 08/22/14 Stop Date: 08/22/14 Status: CompletedOfirmev 1,000 mg, 100 mL, Route: IV, Drug form: INJ, Q6H, Dosing Weight 120.227, kg, for > or=50 kg, Start date: 08/26/14 18:00:00, Duration: 1 day, Stop date: 08/27 12:00:00 Notes: Infuse over 15 minutes Do not exceed 4gm/day of acetaminophen Start Date: 08/26/14 Stop Date: 08/27/14 Status: Completedondansetron 4 mg, 2 mL, Route: IVP, Drug form: INJ, ONCE, Dosing Weight 118.182, kg, PRN Nausea & Vomiting, Start date: 08/23/14 5:33:00 Notes: (Same as: Zofran) Start Date: 08/23/14 Stop Date: 08/23/14 Status: Completedondansetron 4 mg, 2 mL, Route: IVP, Drug form: INJ, Q6H, Dosing Weight 120.227, kg, PRN Nausea & Vomiting, Start date: 08/26/14 17:00:00, Duration: 30 day, Stop date: 09/25/14 16:59:00 Notes: (Same as: Zofran) Start Date: 08/26/14 Stop Date: 08/27/14 Status: Discontinuedpantoprazole 40 mg, Route: IVP, Drug form: INJ, Daily, Dosing Weight 118.182, kg, Start date : 08/23/14 9:00:00, Duration: 30 day, Stop date: 09/21/14 9:00:00 Notes: For IV push reconstitute with 10 ml 0.9% sodium chloride and push over 2 minutes. (Same as: Protonix) Start Date: 08/23/14 Stop Date: 08/23/14 Status: Discontinuedpneumococcal 23-valent vaccine 0.5 ml, Route: IM, Drug Form: INJ, Daily, Start date: 08/27/14 9:00:00, Duration : 1 doses or times, Stop date: 08/27/14 9:00:00 Notes: (Same as: Pneumovax 23) Refrigerate Start Date: 08/27/14 Stop Date: 08/27/14 Status: CompletedProtonix 40 mg, Route: IVP, Drug form: INJ, ONCE, Dosing Weight 118.182, kg, Priority: STAT, Start date: 08/22/14 23:06:00, Stop date: 08/22/14 23:06:00 Notes: For IV push reconstitute with 10 ml 0.9% sodium chloride and push over 2 minutes. (Same as: Protonix) Start Date: 08/22/14 Stop Date: 08/23/14 Status: CompletedProtonix 40 mg, 1 tab, Route: PO, Drug form: ECTAB, Before Dinner, Dosing Weight 120.227 , kg, Start date: 08/23/14 16:30:00, Stop date: 09/21/14 16:30:00 Notes: Tablet should not be chewed or crushed.(Same as: Protonix) Start Date: 08/23/14 Stop Date: 08/27/14 Status: DiscontinuedSaline Flush 0.9% 10 ml, Route: IVP, Drug Form: INJ, Dosing Weight 118.182, kg, PRN, PRN Line Flush, Start date: 08/23/14 5:33:00, Duration: 30 day, Stop date: 09/22/14 5:32: 00 Notes: (Same as: BD Posiflush) Start Date: 08/23/14 Stop Date: 08/26/14 Status: DiscontinuedSaline Flush 0.9% 10 ml, Route: IVP, Drug Form: INJ, Dosing Weight 120.227, kg, PRN, PRN Line Flush, Start date: 08/26/14 17:00:00, Duration: 30 day, Stop date: 09/25/14 16: 59:00 Notes: preservative free. Start Date: 08/26/14 Stop Date: 08/27/14 Status: DiscontinuedSodium Chloride 0.9% IV 1,000 mL 1,000 mL, Rate: 100 ml/hr, Infuse over: 10 hr, Route: IV, Dosing Weight 118.182 kg, Total Volume: 1,000, Start date: 08/23/14 5:33:00, Duration: 30 day, Stop date: 09/22/14 5:32:00 Start Date: 08/23/14 Stop Date: 08/23/14 Status: DiscontinuedSodium Chloride 0.9% IV 1,000 mL 1,000 mL, Rate: 125 ml/hr, Infuse over: 8 hr, Route: IV, Dosing Weight 120.227 kg, Total Volume: 1,000, Start date: 08/26/14 17:00:00, Duration: 30 day, Stop date: 09/25/14 16:59:00 Start Date: 08/26/14 Stop Date: 08/27/14 Status: DiscontinuedTylenol 650 mg, 2 tab, Route: PO, Drug form: TAB, Q6H, Dosing Weight 120.227, kg, PRN Pain Score 1-3, Start date: 08/23/14 9:01:00, Stop date: 09/22/14 9:00:00 Notes: Do not exceed 4 gm/day. (Same as: Tylenol) Start Date: 08/23/14 Stop Date: 08/27/14 Status: DiscontinuedTylenol with Codeine #3 oral tablet 1 tab, Route: PO, Drug Form: TAB, Dosing Weight 120.227, kg, Q4H, PRN as needed for pain, Start date: 08/24/14 12:30:00, Stop date: 09/23/14 12:29:00 Notes: Do not exceed 4gm/day of acetaminophen. (Same as: Tylenol with Codeine # 3) Start Date: 08/24/14 Stop Date: 08/27/14 Status: DiscontinuedZofran 4 mg, Route: IVP, Drug form: INJ, ONCE, Dosing Weight 118.182, kg, Priority: STAT, Start date: 08/22/14 23:11:00, Stop date: 08/22/14 23:11:00 Start Date: 08/22/14 Stop Date: 08/22/14 Status: CompletedZofran 4 mg, 2 mL, Route: IV, Drug form: INJ, Q4H, Dosing Weight 120.227, kg, PRN as needed for nausea/vomiting, Start date: 08/23/14 9:02:00, Duration: 30 day, Stop date: 09/22/14 9:01:00 Notes: (Same as: Zofran) Start Date: 08/23/14 Stop Date: 08/26/14 Status: Discontinued Results ELECTROLYTES Most recent to oldest 1 2 3 [Reference Range]: Sodium Lvl [135-145 mEq/L] 137 mEq/L 140 mEq/L 138 mEq/L (08/27/14 4:15 AM) (08/25/14 3:00 AM) (08/24/14 11:36 AM) Potassium Lvl [3.5-5.1 4.7 mEq/L 4.3 mEq/L 4.2 mEq/L mEq/L] (08/27/14 4:15 AM) (08/25/14 3:00 AM) (08/24/14 11:36 AM) Chloride Lvl [95-109 mEq/L] 105 mEq/L 103 mEq/L 104 mEq/L (08/27/14 4:15 AM) (08/25/14 3:00 AM) (08/24/14 11:36 AM) CO2 [24-32 mEq/L] 15 mEq/L 26 mEq/L 28 mEq/L *LOW* (08/25/14 3:00 AM) (08/24/14 11:36 AM) (08/27/14 4:15 AM) AGAP [10.0-20.0 mEq/L] 21.7 mEq/L 15.3 mEq/L 10.2 mEq/L *HI* (08/25/14 3:00 AM) (08/24/14 11:36 AM) (08/27/14 4:15 AM) CHEM PANEL Most recent to oldest 1 2 3 [Reference Range]: Creatinine Lvl [0.5-1.4 0.9 mg/dL 1.1 mg/dL 1.1 mg/dL mg/dL] (08/27/14 4:15 AM) (08/25/14 3:00 AM) (08/24/14 11:36 AM) eGFR 90 mL/min/1.73m2 1 71 mL/min/1.73m2 2 71 mL/min/1.73m2 3 *NA* *NA* *NA* (08/27/14 4:15 AM) (08/25/14 3:00 AM) (08/24/14 11:36 AM) BUN [7-22 mg/dL] 7 mg/dL 9 mg/dL 9 mg/dL (08/27/14 4:15 AM) (08/25/14 3:00 AM) (08/24/14 11:36 AM) B/C Ratio [6-25] 8 8 12 (08/25/14 3:00 AM) (08/24/14 11:36 AM) (08/22/14 10:23 PM) Glucose Lvl [70-99 mg/dL] 86 mg/dL 4 75 mg/dL 5 84 mg/dL 6 (08/27/14 4:15 AM) (08/25/14 3:00 AM) (08/24/14 11:36 AM) Total Protein [6.4-8.4 7.1 g/dL 7.3 g/dL 7.3 g/dL g/dL] (08/25/14 3:00 AM) (08/24/14 11:36 AM) (08/22/14 10:23 PM) Albumin Lvl [3.5-5.0 g/dL] 3.5 g/dL 3.9 g/dL 3.8 g/dL (08/25/14 3:00 AM) (08/24/14 11:36 AM) (08/22/14 10:23 PM) Globulin [2.0-4.0 g/dL] 3.6 g/dL 3.4 g/dL 3.5 g/dL (08/25/14 3:00 AM) (08/24/14 11:36 AM) (08/22/14 10:23 PM) A/G Ratio [0.7-1.6] 1.0 1.1 1.1 (08/25/14 3:00 AM) (08/24/14 11:36 AM) (08/22/14 10:23 PM) Calcium Lvl [8.5-10.5 8.9 mg/dL 9.0 mg/dL 8.9 mg/dL mg/dL] (08/27/14 4:15 AM) (08/25/14 3:00 AM) (08/24/14 11:36 AM) ALT [0-65 unit/L] 72 unit/L 89 unit/L 101 unit/L *HI* *HI* *HI* (08/25/14 3:00 AM) (08/24/14 11:36 AM) (08/22/14 10:23 PM) AST [0-37 unit/L] 30 unit/L 36 unit/L 41 unit/L (08/25/14 3:00 AM) (08/24/14 11:36 AM) *HI* (08/22/14 10:23 PM) Alk Phos [39-136 unit/L] 70 unit/L 80 unit/L 75 unit/L (08/25/14 3:00 AM) (08/24/14 11:36 AM) (08/22/14 10:23 PM) Bili Total [0.2-1.3 mg/dL] 0.8 mg/dL 0.7 mg/dL 0.4 mg/dL (08/25/14 3:00 AM) (08/24/14 11:36 AM) (08/22/14 10:23 PM) Amylase Lvl [25-115 unit/L] 37 unit/L (08/22/14 10:23 PM) Lipase Lvl [73-393 unit/L] 143 unit/L (08/22/14 10:23 PM) 1Result Comment: The eGFR is calculated [...] eGFR should be multiplied by the estimated BMI.2Result Comment: The eGFR is calculated using the CKD-EPI formula. In most young, healthy individualsthe eGFR will be >90 mL/ min/1.73m2. The [...] eGFR should be multiplied by the estimated BMI.3Result Comment: The eGFR is calculated using the CKD-EPI formula. In most young, healthy individualsthe eGFR will be >90 mL/ min/1.73m2. The [...] eGFR should be multiplied by the estimated BMI.4Interpretive Data: Adult reference range values reflect the clinical guidelines of the [employer].5Interpretive Data: Adult reference range values reflect the clinical guidelines of the [employer].6Interpretive Data: Adult reference range values reflect the clinical guidelines of the [employer].URINE CHEM Most recent to oldest [Reference Range]: 1 2 3 U Preg [Negative] Negative (08/22/14 10:23 PM) URINE AND STOOL Most recent to oldest [Reference Range]: 1 2 3 UA Turbidity [Clear] Slight *ABN* (08/22/14 10:23 PM) UA Color [Yellow] Yellow *NA* (08/22/14 10:23 PM) UA pH [5.0-8.0] 5.0 (08/22/14 10:23 PM) UA Spec Grav [<=1.030] 1.026 (08/22/14 10:23 PM) UA Glucose [Negative mg/dL] Negative mg/dL *NA* (08/22/14 10:23 PM) UA Blood [Negative] Large *ABN* (08/22/14 10:23 PM) UA Ketones [Negative mg/dL] Negative mg/dL *NA* (08/22/14 10:23 PM) UA Protein [Negative mg/dL] Negative mg/dL (08/22/14 10:23 PM) UA Urobilinogen [0.1-1.0 mg/dL] <=1.0 mg/dL *NA* (08/22/14 10:23 PM) UA Bili [Negative] Negative *NA* (08/22/14 10:23 PM) UA Leuk Est [Negative] Negative (08/22/14 10:23 PM) UA Nitrite [Negative] Negative (08/22/14 10:23 PM) UA WBC [0-5 /HPF] 3 /HPF (08/22/14 10:23 PM) UA RBC [0-2 /HPF] 1 /HPF (08/22/14 10:23 PM) UA Sq Epi [Few /LPF] Moderate /LPF *ABN* (08/22/14 10:23 PM) IMMUNOLOGY Most recent to oldest [Reference Range]: 1 2 3 CRP [<=2.9 mg/L] 9.8 mg/L *HI* (08/23/14 4:41 PM) Hep Bs Ag [Negative] Negative *NA* (08/22/14 10:23 PM) Hep B Core IgM [Negative] Negative *NA* (08/22/14 10:23 PM) Hep A IgM [Negative] Negative *NA* (08/22/14 10:23 PM) Hep C Ab Negative *NA* (08/22/14 10:23 PM) HEMATOLOGY Most recent to oldest 1 2 3 [Reference Range]: WBC [3.7-10.4 K/CMM] 9.4 K/CMM 6.4 K/CMM 7.6 K/CMM (08/27/14 4:15 AM) (08/25/14 3:00 AM) (08/24/14 4:51 AM) RBC [4.20-5.40 M/CMM] 3.42 M/CMM 4.67 M/CMM 4.86 M/CMM *LOW* (08/25/14 3:00 AM) (08/24/14 4:51 AM) (08/27/14 4:15 AM) Hgb [12.0-16.0 g/dL] 12.1 g/dL 13.3 g/dL 13.9 g/dL (08/27/14 4:15 AM) (08/25/14 3:00 AM) (08/24/14 4:51 AM) Hct [36.0-48.0 %] 33.8 % 39.2 % 40.8 % *LOW* (08/25/14 3:00 AM) (08/24/14 4:51 AM) (08/27/14 4:15 AM) MCV [80.0-98.0 fL] 98.7 fL 83.8 fL 83.9 fL *HI* (08/25/14 3:00 AM) (08/24/14 4:51 AM) (08/27/14 4:15 AM) MCH [27.0-31.0 pg] 35.5 pg 28.5 pg 28.5 pg *HI* (08/25/14 3:00 AM) (08/24/14 4:51 AM) (08/27/14 4:15 AM) MCHC [32.0-36.0 g/dL] 36.0 g/dL 33.9 g/dL 34.0 g/dL (08/27/14 4:15 AM) (08/25/14 3:00 AM) (08/24/14 4:51 AM) RDW [11.5-14.5 %] 15.8 % 14.1 % 14.2 % *HI* (08/25/14 3:00 AM) (08/24/14 4:51 AM) (08/27/14 4:15 AM) Platelet [133-450 K/CMM] 215 K/CMM 245 K/CMM 255 K/CMM (08/27/14 4:15 AM) (08/25/14 3:00 AM) (08/24/14 4:51 AM) MPV [7.4-10.4 fL] 8.4 fL 8.0 fL 7.9 fL (08/27/14 4:15 AM) (08/25/14 3:00 AM) (08/24/14 4:51 AM) Segs [45.0-75.0 %] 90.8 % 63.5 % 64.9 % *HI* (08/25/14 3:00 AM) (08/24/14 4:51 AM) (08/27/14 4:15 AM) Lymphocytes [20.0-40.0 %] 6.5 % 24.7 % 23.9 % *LOW* (08/25/14 3:00 AM) (08/24/14 4:51 AM) (08/27/14 4:15 AM) Monocytes [2.0-12.0 %] 2.4 % 6.4 % 5.3 % (08/27/14 4:15 AM) (08/25/14 3:00 AM) (08/24/14 4:51 AM) Eosinophils [0.0-4.0 %] 0.1 % 5.0 % 5.0 % (08/27/14 4:15 AM) *HI* *HI* (08/25/14 3:00 AM) (08/24/14 4:51 AM) Basophils [0.0-1.0 %] 0.2 % 0.4 % 0.9 % (08/27/14 4:15 AM) (08/25/14 3:00 AM) (08/24/14 4:51 AM) Segs-Bands # [1.5-8.1 8.6 K/CMM 4.1 K/CMM 4.9 K/CMM K/CMM] *HI* (08/25/14 3:00 AM) (08/24/14 4:51 AM) (08/27/14 4:15 AM) Lymphocytes # [1.0-5.5 0.6 K/CMM 1.6 K/CMM 1.8 K/CMM K/CMM] *LOW* (08/25/14 3:00 AM) (08/24/14 4:51 AM) (08/27/14 4:15 AM) Monocytes # [0.0-0.8 0.2 K/CMM 0.4 K/CMM 0.4 K/CMM K/CMM] (08/27/14 4:15 AM) (08/25/14 3:00 AM) (08/24/14 4:51 AM) Eosinophils # [0.0-0.5 0.3 K/CMM 0.4 K/CMM 0.5 K/CMM K/CMM] (08/25/14 3:00 AM) (08/24/14 4:51 AM) (08/22/14 10:23 PM) Basophils # [0.0-0.2 0.0 K/CMM 0.1 K/CMM K/CMM] (08/25/14 3:00 AM) (08/24/14 4:51 AM) Sed Rate [0-20 mm/hr] 28 mm/hr *HI* (08/22/14 10:23 PM) PT [12.0-14.7 seconds] 13.3 seconds 13.7 seconds (08/24/14 4:51 AM) (08/22/14 10:23 PM) INR [0.85-1.17] 1.01 7 1.05 8 (08/24/14 4:51 AM) (08/22/14 10:23 PM) PTT [22.9-35.8 seconds] 33.6 seconds 9 32.7 seconds 10 (08/24/14 4:51 AM) (08/22/14 10:23 PM) 7Interpretive Data: RECOMMENDED RANGES FOR PROTIME INR: 2.0-3.0 for most medical and surgical thromboembolic states. 2.5-3.5 for artificial heart valves and recurrent embolism. INR SHOULD BE USED ONLY FOR PATIENTS ON STABLE ANTICOAGULANT THERAPY.8Interpretive Data: RECOMMENDED RANGES FOR PROTIME INR: 2.0-3.0 for most medical and surgical thromboembolic states. 2.5-3.5 for artificial heart valves and recurrent embolism. INR SHOULD BE USED ONLY FOR PATIENTS ON STABLE ANTICOAGULANT THERAPY.9Interpretive Data: Heparin Therapeutic Range: 57 - 92 [id number] Data: Heparin Therapeutic Range: 57 - 92 Seconds Medications Administered During Your Visit No data available for this section Immunizations Vaccine Date Refusal Reason influenza virus vaccine, inactivated 08/23/14 pneumococcal 23-valent vaccine 08/27/14 Procedures Procedure Type Body Site Date of Procedure Related Diagnosis section Social History Social History Type Response Alcohol Use: Current, Type: Beer, Frequency: 1-2 times per month Smoking Status Current every day smoker, Type: Cigarettes, Ready to change: No , Concerns about tobacco use in household: No, Exposure to Tobacco Smoke None, Cigarette Smoking Last 365 Days No, Reg Smoking Cessation Counseling No Assessment and Plan Extracted from: Title: Clinical Document Author: Stephan Mccormick MD Date: 08/27/14 GI PROGRESS NOTE Gastroenterology and Hepatology SUBJECTIVE Events of the day reviewed. Complete resolution of initial abdominal pain. OBJECTIVE Vital Signs (last 24 hrs) Last Charted Minimum Maximum Temp 98.6 (AUG 27 11:41) 97.6 (AUG 27 07:49) 98.6 (AUG 27:41) Heart Rate 76 (AUG 27:41) L 50 (AUG 27 00:10) H 103 (AUG 26 17:44) Resp Rate 16 (AUG 27 11:41) 15 (AUG 26 17:30) H 29 (AUG 26 17:00) SBP 114 (AUG 27 11:41) 102 (AUG 27 00:10) H 145 (AUG 26 20:00) DBP 77 (AUG 27 11:41) L 52 (AUG 26 17:00) H 92 (AUG 26 17:44) PHYSICAL EXAM Alert and oriented Good air movement bilateraly Regular rate Abdomen: soft, mild tenderness at surgical sites as expected, +bs Ext: trace edema Labs (Last four charted values) WBC 9.4 (AUG 27) 6.4 (AUG 25) 7.6 (AUG 24) 9.7 (AUG 22) Hgb 12.1 (AUG 27) 13.3 (AUG 25) 13.9 (AUG 24) 13.0 (AUG 22) Hct L 33.8 (AUG 27) 39.2 (AUG 25) 40.8 (AUG 24) 39.1 (AUG 22) Plt 215 (AUG 27) 245 (AUG 25) 255 (AUG 24) 280 (AUG 22) Na 137 (AUG 27) 140 (AUG 25) 138 (AUG 24) 139 (AUG 24) K 4.7 (AUG 27) 4.3 (AUG 25) 4.2 (AUG 24) 4.0 (AUG 24) CO2 L 15 (AUG 27) 26 (AUG 25) 28 (AUG 24) 27 (AUG 24) Cl 105 (AUG 27) 103 (AUG 25) 104 (AUG 24) 105 (AUG 24) Cr 0.9 (AUG 27) 1.1 (AUG 25) 1.1 (AUG 24) 1.1 (AUG 24) BUN 7 (AUG 27) 9 (AUG 25) 9 (AUG 24) 8 (AUG 24) Glucose Random 86 (AUG 27) 75 (AUG 25) 84 (AUG 24) 82 (AUG 24) Ca 8.9 (AUG 27) 9.0 (AUG 25) 8.9 (AUG 24) 8.7 (AUG 24) PT 13.3 (AUG 24) 13.7 (AUG 22) INR 1.01 (AUG 24) 1.05 (AUG 22) PTT 33.6 (AUG 24) 32.7 (AUG 22) ASSESSMENT AND PLAN Abodminal pain Biliary dyskinesia Hematemesis - s/p cholecystectomy - ok to d/c from gi standpoint Extracted from: Title: Clinical Document Author: Gerard Elena MD Date: 08/26/14 DATE OF PROCEDURE: 08/26/2014. PREOPERATIVE DIAGNOSIS: 1. Biliary dyskinesia. 2. Mobid obesity. POSTOPERATIVE DIAGNOSIS: 1. Biliary dyskinesia. 2. Mobid obesity. TECHNICAL PROCEDURE PERFORMED: Laparoscopic cholecystectomy. SURGEON: Gerard Elena M.D. ANESTHESIA: General endotracheal. SURGICAL WOUND CLASSIFICATION: Clean contaminate. OPERATIVE TIME: 35 minutes. ESTIMATED BLOOD LOSS: Minimal. FLUID REPLACEMENT: Per anesthesia. SPECIMENS SENT FOR PATHOLOGY: Gallbladder. COMPLICATIONS: None. FINDINGS: Well visualized critical view. CONDITION: To recovery, stable. POSTOPERATIVE PLAN: To the floor INDICATIONS: A 24 year old lady that presented to [facility] with abdominal pain. At this time, the history and physical as well as laboratory studies was consistent with diagnosis of biliary dyskinesia, therefo re, the option of laparoscopic versus open cholecystectomy was offered to the patient. Risks and benefits of the procedure were explained and the patient voiced understanding and consented to procedure. OPERATIVE NARRATIVE: Patient was taken the operating room, placed on the operating table, intubated by anesthesia. The abdomen was prepped and draped in the usual sterile fashion. A timeout was called and the correct tala ent, as well as procedure was verified. The patient had SCDs on for thromboembolic prophylaxis and received antibiotics within 1 hour of the incision. Umbilical region was identified, 0.5% Marcaine was infused followed 1-cm incision followed by dissection of the fascia. The fascia was grasped with a Karlos clamp and a Veress confirmed with a positive saline drop test. Pneumoperitoneum was achieved with CO2 gas up to 15 mmHg. The patient was placed in reverse Trendelenburg position airplaned to the left 0.5 cm trocars were introduced in the epigas trium, right upper quadrant right periumbilical regions under direct visualization. The gallbladder was identified. It was grasped at the fundus and retracted to the head, infundibulum was identified, grasped and retracted towards the legs, exposing the triangle of Calot. The cystic duct was identified, it was dissected out from all surrounding structures , clipped proximally 3 times, distally, once transected in between. Of note, a well visualized critical view was identified; therefore we bypasses cholangiogram. The dissection continued to identify the cystic artery, it was dissected out from all surrounding structures, clipped proximally twice, distally, once and transected in between. The gallbladder was then elevated off the liver bed using electrocautery. It was placed in the Endopouch bag and removed from the abdomen through the umbilical port. The liver bed was inspected, all residual bleeding was identified and controlled the abdomen was irrigated with copious amounts water until clear return was achieved. The patient was placed flat and all residual irrigation was suctioned out. The pneumoperitoneum was decompressed and the fascia and the umbilical port was closed using 0 Vi cryl in a [id number] manner, and the skin was closed using 4-0 Monocryl in running subcuticular manner. The skin and three 5-mm ports were closed using 4-0 Monocryl in simple U-stitch manner. The patient was extubated in the operating room and transferred to recovery in stable condition. All instrument and laparotomy counts were correct.
[2018-07-17 00:24] LABS: Absolute Lymphocytes (CBC) 2.8 K/uL (0.7-4.9); Absolute Monocytes 0.4 K/uL (0.1-1.3); Absolute Neutrophil 5.6 K/uL (1.8-8.0); Basophils % 0.7 % (0-1.3); Eosinophils % 4.3 % (0-4.4); Hematocrit 38.4 % (36.0-45.0); Lymphocytes % 30.3 % (15.3-44.8); MCH 27.6 pg (27.0-35.0); MCV 80.6 fL (80-100); MPV 7.9 fL (7.6-11.3); Monocytes % 4.6 % (3.3-12.3); RBC Red Blood Cell Count 4.76 M/uL (3.86-4.86)
[2018-07-17 00:38] LABS: Potassium 3.6 mmol/L (3.5-5.1)
[2018-07-17 00:41] LABS: Urine Blood NEGATIVE (NEG); Urine Glucose NEGATIVE (NEG); Urine Protein NEGATIVE (NEG); Urine Specific Gravity >1.030 (1.005-1.030); Urine pH 5.5 (5.0-7.0)
--- NOTE | 2018-07-17 01:59 | ER ---
Nurse's Notes [facility] Name: Fauzia Darnell Age: 27 yrs Sex: Female : 1990 Arrival Date: 07/16/2018 Time: 22:32 Bed 23 Private MD: Diagnosis: Anal fissure, unspecified;Hemorrhoids in , first trimester Presentation: 07/16 22:30 Presenting complaint: Patient states: that she had bowel movement at 2044 and there was fc a lot of blood (bright red). Also now having lower abd cramping and low back pain. Pt is 5 weeks preg. Transition of care: patient was not received from another setting of care. Onset of symptoms was July 16, 2018 at 20:45. Risk Assessment: Do you want to hurt yourself or someone else? Patient reports no desire to harm self or others. Initial Sepsis Screen: Does the patient meet any 2 criteria? HR > 90 bpm. Yes Does the patient have a suspected source of infection? No. Patient's initial sepsis screen is negative. Care prior to arrival: None. 22:30 Method Of Arrival: Ambulatory 22:30 Acuity: PARAMJIT 3 fc SKILL LABOR: 22:30 LMP 06/10/2018 fc 07/17 01:01 5, Full Term 2, 2, Living 2 pm1 Historical: - Allergies: 07/16 22:51 No Known Allergies; fc - Home Meds: 22:51 None [Active]; fc - PMHx: 22:51 None; fc - PSHx: 22:51 ; Cholecystectomy; fc - Immunization history:: Last tetanus immunization: up to date Flu vaccine is not up to date. - Social history:: Smoking status: Patient uses tobacco products, smokes one-half pack cigarettes per day, Patient uses alcohol, only on a social basis. Patient/guardian denies using street drugs. - Ebola Screening: : Patient negative for fever greater than or equal to 101.5 degrees Fahrenheit, and additional compatible Ebola Virus Disease symptoms Patient denies exposure to infectious person Patient denies travel to an Ebola-affected area in the 21 days before illness onset. Screenin:30 Abuse screen: Denies threats or abuse. Nutritional screening: No deficits noted. fc Tuberculosis screening: No symptoms or risk factors identified. Fall Risk None identified. Assessment: 23:08 General: Appears uncomfortable, well groomed, well developed, well nourished, Behavior tl3 is calm, cooperative, appropriate for age. Pain: Complains of pain in abdomen. Neuro: Level of Consciousness is awake, alert, obeys commands, Oriented to person, place, time, situation, Appropriate for age. Cardiovascular: Patient's skin is warm and dry. Respiratory: Airway is patent Respiratory effort is even, unlabored, Respiratory pattern is regular, symmetrical. GI: Reports cramping, bloody stool. : Urine is clear. : Parent/caregiver report the patient having 5 weeks . EENT: No deficits noted. No signs and/or symptoms were reported regarding the EENT system. Derm: No deficits noted. No signs and/or symptoms reported regarding the dermatologic system. Musculoskeletal: No deficits noted. No signs and/or symptoms reported regarding the musculoskeletal system. 07/17 00:22 Reassessment: Patient appears in no apparent distress at this time. No changes from tl3 previously documented assessment. Patient and/or family updated on plan of care and expected duration. Pain level reassessed. Patient is alert, oriented x 3, equal unlabored respirations, skin warm/dry/pink. Vital Signs: 07/16 22:30 BP 127 / 89; Pulse 111; Resp 18; Temp 98.4(O); Pulse Ox 98% on R/A; Weight 120.2 kg fc (R); Height 5 ft. 6 in. (167.64 cm) (R); Pain 4/10; 23:00 BP 127 / 83 LA Sitting (auto/reg); Pulse 109; Resp 16 S; Temp 98.7(O); mb4 07/17 00:22 BP 112 / 59; Pulse 96; Resp 18; Pulse Ox 97% ; tl3 01:24 BP 117 / 70; Pulse 90; Resp 18; Pulse Ox 100% on R/A; mg2 02:16 BP 120 / 70; Pulse 92; Resp 18; Pulse Ox 100% on R/A; mg2 07/16 22:30 Body Mass Index 42.77 (120.20 kg, 167.64 cm) ED Course: 07/16 22:30 Arm band placed on Patient placed in an exam room, on a stretcher. fc 22:30 Patient has correct armband on for positive identification. Placed in gown. Bed in low fc position. Call light in reach. Pulse ox on. NIBP on. 22:30 No provider procedures requiring assistance completed. fc 22:32 Patient arrived in ED. ds1 22:47 Froilan Hernandez NP is PHCP. pm1 22:47 Yasmani Hoffmann MD is Attending Physician. pm1 22:48 Triage completed. fc 23:08 Kaleigh Harris, RN is Primary Nurse. tl3 23:43 Served as a french translator during rectal exam. tl3 23:43 Served as a french translator during rectal exam. mb4 07/17 00:02 Missed attempt(s): 22 gauge in right antecubital area. Bleeding controlled, band aid mb4 applied, catheter tip intact. 00:22 Initial lab(s) drawn, by me, sent to lab. Inserted saline lock: 22 gauge in right tl3 antecubital area, using aseptic technique. Blood collected. 01:34 Ultrasound completed. Patient tolerated well. aa4 01:35 US Transvaginal Ob In Process Unspecified. EDWV 02:00 New Harrell MD is Referral Physician. pm1 02:06 IV discontinued, intact, bleeding controlled, No redness/swelling at site. Pressure mg2 dressing applied. Administered Medications: No medications were administered Outcome: 01:59 Discharge ordered by MD. pm1 02:16 Discharged to home ambulatory. mg2 02:16 Condition: stable 02:16 Discharge instructions given to patient, Instructed on discharge instructions, follow up and referral plans. Demonstrated understanding of instructions, follow-up care. 02:17 Patient left the ED. mg2 Signatures: Dispatcher [employer] EDWV Emily Case RN RN Jennifer Black ds1 Margaret Feliz aa4 Froilan Hernandez, DENISE INSPECTOR OF WEIGHTS AND MEASURES pm1 Kaleigh Harris, MOSES LOPES tl3 Brent Perez RN RN mg2 Madie Pelayo mb4 Corrections: (The following items were deleted from the chart) 00:04 00:02 Served as a french translator during rectal exam. mb4 mb4
--- NOTE | 2018-07-17 01:59 | EDPHYS ---
Physician Documentation [facility] Name: Fauzia Darnell Age: 27 yrs Sex: Female : 1990 Arrival Date: 07/16/2018 Time: 22:32 Bed 23 Private MD: ED Physician Yasmani Hoffmann HPI: 07/17 01:01 This 27 yrs old Female presents to ER via Ambulatory with complaints of pm1 Bloody Stools, Abdominal cramping - 5 Wks Preg. 01:01 Onset: The symptoms/episode began/occurred 2 day(s) ago. Associated signs and symptoms: pm1 Pertinent positives: cramping, Pertinent negatives: diarrhea, dysuria, fever, vaginal bleeding, vaginal discharge, vomiting. Severity of symptoms:. The patient is sexually active, reportedly has a single partner. The patient has not experienced similar symptoms in the past. The patient has not recently seen a physician. Patient with constipation a few days ago and had a large hard bowel movement with streaking of blood on stool and paper. bright red blood with bowel movement has continued with wiping. Patient approximates that she is 5 weeks and reports suprapubic cramping . RN ONCOLOGY: 07/16 22:30 LMP 06/10/2018 fc 07/17 01:01 5, Full Term 2, 2, Living 2 pm1 Historical: - Allergies: 07/16 22:51 No Known Allergies; fc - Home Meds: 22:51 None [Active]; fc - PMHx: 22:51 None; fc - PSHx: 22:51 ; Cholecystectomy; fc - Immunization history:: Last tetanus immunization: up to date Flu vaccine is not up to date. - Social history:: Smoking status: Patient uses tobacco products, smokes one-half pack cigarettes per day, Patient uses alcohol, only on a social basis. Patient/guardian denies using street drugs. - Ebola Screening: : Patient negative for fever greater than or equal to 101.5 degrees Fahrenheit, and additional compatible Ebola Virus Disease symptoms Patient denies exposure to infectious person Patient denies travel to an Ebola-affected area in the 21 days before illness onset. ROS: 07/17 01:01 Positive for pelvic pain, cramping, Negative for urinary symptoms, vaginal bleeding, pm1 vaginal discharge, vaginal itching. Constitutional: Negative for fever, chills, and weight loss, Eyes: Negative for injury, pain, redness, and discharge, ENT: Negative for injury, pain, and discharge, Neck: Negative for injury, pain, and swelling, Cardiovascular: Negative for chest pain, palpitations, and edema, Respiratory: Negative for shortness of breath, cough, wheezing, and pleuritic chest pain. : Negative for injury, bleeding, discharge, and swelling, MS/Extremity: Negative for injury and deformity, Skin: Negative for injury, rash, and discoloration, Neuro: Negative for headache, weakness, numbness, tingling, and seizure. Abdomen/GI: Positive for rectal pain, rectal bleeding, Negative for nausea, vomiting, and diarrhea. Exam: 01:07 Constitutional: This is a well developed, well nourished patient who is awake, alert, pm1 and in no acute distress. Head/Face: Normocephalic, atraumatic. Eyes: Pupils equal round and reactive to light, extra-ocular motions intact. Lids and lashes normal. Conjunctiva and sclera are non-icteric and not injected. Cornea within normal limits. Periorbital areas with no swelling, redness, or edema. ENT: Nares patent. No nasal discharge, no septal abnormalities noted. Tympanic membranes are normal and external auditory canals are clear. Oropharynx with no redness, swelling, or masses, exudates, or evidence of obstruction, uvula midline. Mucous membranes moist. Neck: Trachea midline, no thyromegaly or masses palpated, and no cervical lymphadenopathy. Supple, full range of motion without nuchal rigidity, or vertebral point tenderness. No Meningismus. Chest/axilla: Normal chest wall appearance and motion. Nontender with no deformity. No lesions are appreciated. Cardiovascular: Regular rate and rhythm with a normal S1 and S2. No gallops, murmurs, or rubs. Normal PMI, no JVD. No pulse deficits. Respiratory: Lungs have equal breath sounds bilaterally, clear to auscultation and percussion. No rales, rhonchi or wheezes noted. No increased work of breathing, no retractions or nasal flaring. Abdomen/GI: Soft, non-tender, with normal bowel sounds. No distension or tympany. No guarding or rebound. No evidence of tenderness throughout. Back: No spinal tenderness. No costovertebral tenderness. Full range of motion. 01:07 Skin: Warm, dry with normal turgor. Normal color with no rashes, no lesions, and no evidence of cellulitis. MS/ Extremity: Pulses equal, no cyanosis. Neurovascular intact. Full, normal range of motion. 01:07 Abdomen/GI: Rectal exam: rectal tone normal, hemorrhoid(s), external, with inflammation, with pain, without bleeding, without thrombosis, small, located at 5 and 12 o'clock. 01:07 Neuro: Orientation: is normal, Motor: is normal, moves all fours, Gait: is steady, at a normal pace, without difficulty. Vital Signs: 07/16 22:30 BP 127 / 89; Pulse 111; Resp 18; Temp 98.4(O); Pulse Ox 98% on R/A; Weight 120.2 kg fc (R); Height 5 ft. 6 in. (167.64 cm) (R); Pain 4/10; 23:00 BP 127 / 83 LA Sitting (auto/reg); Pulse 109; Resp 16 S; Temp 98.7(O); mb4 07/17 00:22 BP 112 / 59; Pulse 96; Resp 18; Pulse Ox 97% ; tl3 01:24 BP 117 / 70; Pulse 90; Resp 18; Pulse Ox 100% on R/A; mg2 02:16 BP 120 / 70; Pulse 92; Resp 18; Pulse Ox 100% on R/A; mg2 07/16 22:30 Body Mass Index 42.77 (120.20 kg, 167.64 cm) fc MDM: 07/16 22:47 Patient medically screened. pm1 07/17 01:10 Data reviewed: vital signs. Data interpreted: Pulse oximetry: on room air is 97 %. pm1 Interpretation: normal. 01:54 ED course: U/S tech report: No ectopic, Possible IUP visualized. Patient with early pm1 and beta HCG 150. discussed finding with patient. Patient reports abdomina cramping. No tenderness with palpation. No vaginal bleeding. Discussed return precautions and need to repeat beta HCG and U/S with OB in [address] Her OB is Dr. Harrell. 01:55 Counseling: I had a detailed discussion with the patient and/or guardian regarding: the pm1 historical points, exam findings, and any diagnostic results supporting the discharge/admit diagnosis, lab results, radiology results, the need for outpatient follow up, an OB/Gyne specialist, to return to the emergency department if symptoms worsen or persist or if there are any questions or concerns that arise at home. 07/16 23:20 Order name: Urine Dipstick--Ancillary (enter results); Complete Time: 00:54 mw2 07/16 23:20 Order name: Urine --Ancillary (enter results); Complete Time: 00:54 mw2 07/16 23:34 Order name: Quantitative Hcg; Complete Time: 01:16 pm1 07/16 23:34 Order name: Abo/rh Typing; Complete Time: 01:16 pm1 07/16 23:34 Order name: Basic Metabolic Panel; Complete Time: 01:16 pm1 07/16 23:34 Order name: CBC with Diff; Complete Time: 00:54 pm1 07/16 23:34 Order name: IV Saline Lock; Complete Time: 00:40 pm1 07/16 23:34 Order name: Labs collected and sent; Complete Time: 00:40 pm1 07/16 23:34 Order name: NPO; Complete Time: 00:40 pm1 07/17 00:55 Order name: US Transvaginal Ob pm1 Administered Medications: No medications were administered Disposition: 07/17/18 01:59 Discharged to Home. Impression: Anal fissure, unspecified, Hemorrhoids in , first trimester. - Condition is Stable. - Discharge Instructions: Anal Fissure, Adult, Hemorrhoids. - Medication Reconciliation Form, Thank You Letter form. - Follow up: Emergency Department; When: As needed; Reason: Worsening of condition. Follow up: New Harrell MD; When: 48 Hours; Reason: Further diagnostic work-up, Recheck today's complaints, Continuance of care, Repeat Beta-HCG (48 Hours), Re-evaluation by your physician. - Problem is new. - Symptoms have improved. Addendum: 07/18/2018 04:12 Co-signature as Attending Physician, Yasmani Hoffmann MD. g s Signatures: Dispatcher [employer] EDMS Emily Case RN RN Froilan Hernandez, LINUX ADMIN LINUX ADMIN pm1 Yasmani Hoffmann MD MD Brent Perez RN RN mg2 Corrections: (The following items were deleted from the chart) 07/16 23:34 23:34 Urine Dipstick-Ancillary ordered. pm1 pm1 23:35 23:34 Urine Test ordered. pm1 pm1 07/17 02:00 01:59 07/17/2018 01:59 Discharged to Home. Impression: Anal fissure, unspecified; pm1 Hemorrhoids in , first trimester. Condition is Stable. Forms are Medication Reconciliation Form, Thank You Letter, Antibiotic Education, Prescription Opioid Use. Follow up: Emergency Department; When: As needed; Reason: Worsening of condition. Follow up: Private Physician; When: 2 - 3 days; Reason: Recheck today's complaints, Continuance of care, Re-evaluation by your physician. Problem is new. Symptoms have improved. pm1 02:17 02:00 07/17/2018 01:59 Discharged to Home. Impression: Anal fissure, unspecified; mg2 Hemorrhoids in , first trimester. Condition is Stable. Discharge Instructions: Anal Fissure, Adult, Hemorrhoids. Forms are Medication Reconciliation Form, Thank You Letter. Follow up: Emergency Department; When: As needed; Reason: Worsening of condition. Follow up: New Harrell; When: 48 Hours; Reason: Further diagnostic work-up, Recheck today's complaints, Continuance of care, Repeat Beta-HCG (48 Hours), Re-evaluation by your physician. Problem is new. Symptoms have improved. pm1
--- NOTE | 2018-07-17 07:33 | RAD REPORT ---
EXAM DESCRIPTION: US - Transvaginal OB - 07/17/2018 1:35 am CLINICAL HISTORY: Abdominal pain, pelvic pain, cramping, beta HCG 1508 COMPARISON: None. TECHNIQUE: Endovaginal sonography performed. FINDINGS: Trace free fluid in the cul-de-sac. Uterus is 10.2 x 4.8 x 6.0 cm. No myometrial mass iden tifiable. There is no normal gestational sac confirmed. Minimal amount of fluid is seen in the endome trial cavity. There is a small focal rounded collection that could be a very early gestational sac. T his can be monitored with serial beta HCG values. Both ovaries are identified and show normal blood flow pattern of the stroma on Doppler evaluation. T here is no gestational sac or sac remnant. IMPRESSION: No adnexal mass or other findings suspicious for ectopic . Small oval fluid collection is present but no normal gestational sac identifiable in the endometrial cavity. Repeat sonography can be performed if beta HCG serial studies indicate ongoing .
== END 2018-07-17 02:17 | disposition home or self-care (01) ==
LOC: ER 22:29
DX: O22.41 Hemorrhoids in pregnancy, first trimester (principal); K60.2 Anal fissure, unspecified; O99.331 Smoking (tobacco) complicating pregnancy, first trimester; F17.210 Nicotine dependence, cigarettes, uncomplicated; Z3A.01 Less than 8 weeks gestation of pregnancy
CPT/HCPCS: 36415; 76817; 80048; 81003; 81025; 84702; 85025; 86900; 86901; 99284

== ENCOUNTER 2018-08-14 20:50 | Emergency (ER) | payer BC ==
--- OUTSIDE RECORDS SUMMARY | 2018-08-14 20:54 | XMS REPORT | Continuity of Care Document ---
:1990 Author Organization Interface Problems Problem Status Onset Classification Date Comments Source Date Reported ABD PAIN Active 08/22/20 [facility] 14 HEMATEMESIS, Active 08/22/20 [facility] EPIGASTRIC 14 ABDOMINAL PAIN, Discharge 04/18/20 04/21/2014 [facility] Diagnosis: 14 Abdominal pain ABD PAIN, Active 04/18/20 [facility] NAUSEA, 14 VOMITING Anxiety Resolved Problem 08/30/2014 [facility] Fatty liver Resolved Problem 08/30/2014 [facility] HEMATEMESIS Active [facility] Medications Medication Details Route Status Patient Ordering Order Source Instructions Provider Date pneumococcal 0.5 ml, Route: Inactive capsular IM, Drug Form: 2013 [place] polysaccharide INJ, Daily, type 1 vaccine / Start date: pneumococcal 08/27/14 capsular 9:00:00, polysaccharide Duration: 1 type 10A vaccine doses or times, / pneumococcal Stop date: capsular 08/27/14 polysaccharide 9:00:00Notes: type 11A vaccine (Same as: / pneumococcal Pneumovax 23) capsular Refrigerate polysaccharide type 12F vaccine / pneumococcal capsular polysacchar Enoxaparin 40 mg, 0.4 mL, Inactive Route: SUB-Q, 2013 [place] Drug form: INJ, [id number], Dosing Weight 120.227, kg, Start date: 08/27/14 5:02:00, Duration: 30 day, Stop date: 09/25/14 5:02:00Notes: (Same as: Lovenox) Ofirmev 1,000 mg, 100 No Longer mL, Route: IV, Active 2013 [place] Drug form: INJ, Q6H, Dosing Weight 120.227, kg, for > or=50 kg, Start date: 08/26/14 18:00:00, Duration: 1 day, Stop date: 08/27/14 12:00:00Notes: Infuse over 15 minutes Do not exceed 4gm/day of acetaminophen Saline Flush 10 ml, Route: No Longer 0.9% IVP, Drug Form: Active 2013 [place] INJ, Dosing Weight 120.227, kg, PRN, PRN Line Flush, Start date: 08/26/14 17:00:00, Duration: 30 day, Stop date: 09/25/14 16:59:00Notes: preservative free. Sodium Chloride 1,000 mL, Rate: No Longer 0.154 MEQ/ML 125 ml/hr, 2013 [place] Injectable Infuse over: 8 Solution hr, Route: IV, Dosing Weight 120.227 kg, Total Volume: 1,000, Start date: 08/26/14 17:00:00, Duration: 30 day, Stop date: 09/25/14 16:59:00 Docusate Sodium 100 mg, 1 cap, No Longer 100 MG Oral Route: PO, Drug Active 2013 [place] Capsule form: CAP, BID, Dosing Weight 120.227, kg, Start date: 08/26/14 17:00:00, Duration: 30 day, Stop date: 09/25/14 9:00:00Notes: (Same as: Colace) (Do Not Crush) Ondansetron 4 mg, 2 mL, No Longer Route: IVP, 2013 [place] Drug form: INJ, Q6H, Dosing Weight 120.227, kg, PRN Nausea & Vomiting, Start date: 08/26/14 17:00:00, Duration: 30 day, Stop date: 09/25/14 16:59:00Notes: (Same as: Zofran) Acetaminophen 1 tab, Route: No Longer 325 MG / PO, Drug Form: [facility] 2013 [place] Hydrocodone TAB, Dosing Bitartrate 5 MG Weight 120.227, Oral Tablet kg, Q4H, PRN Pain Score 1-3, Start date: 08/26/14 17:00:00, Stop date: 09/25/14 16:59:00Notes: (Same as: [place] 325/5) Do not exceed 4gm/day of acetaminophen. Morphine 2 mg, 1 mL, No Longer Route: IVP, [facility] 2013 [place] Drug form: INJ, Q3H, Dosing Weight 120.227, kg, PRN Pain Score 4-6, Start date: 08/26/14 17:00:00, Duration: 30 day, Stop date: 09/25/14 16:59:00Notes: (Same as:MORPhine Sulfate) Acetaminophen 1 tab, Route: No Longer 300 MG / Codeine PO, Drug Form: 2013 [place] Phosphate 30 MG TAB, Dosing Oral Tablet Weight 120.227, [Tylenol with kg, Q4H, PRN as Codeine #3] needed for pain, Start date: 08/24/14 12:30:00, Stop date: 09/23/14 12:29:00Notes: Do not exceed 4gm/day of acetaminophen. (Same as: Tylenol with Codeine # 3) Protonix 40 mg, 1 tab, No Longer Route: PO, Drug Active 2013 [place] form: ECTAB, Before Dinner, Dosing Weight 120.227, kg, Start date: 08/23/14 16:30:00, Stop date: 09/21/14 16:30:00Notes: Tablet should not be chewed or crushed. (Same as: Protonix) Flumazenil 0.2 mg, 2 mL, No Longer Route: IVP, Active 2013 [place] Drug form: INJ, PRN, Dosing Weight 120.227, kg, PRN Other -See Comment, Start date: 08/23/14 15:23:00, Duration: 1 doses or times, Stop date: Limited # of timesNotes: (Same as: Romazicon) Naloxone 0.1 mg, 0.25 No Longer mL, Route: IVP, Active 2013 [place] Drug form: INJ, Q2MIN, Dosing Weight 120.227, kg, PRN Narcotic Reversal, Start date: 08/23/14 15:23:00, Duration: 4 doses or times, Stop date: Limited # of timesNotes: Same as Narcan Dilaudid 0.5 mg, 0.5 mL, Inactive Route: IV, Drug 2013 [place] form: INJ, ONCE, Dosing Weight 120.227, kg, Start date: 08/23/14 12:26:00, Stop date: 08/23/14 12:26:00 Zofran 4 mg, 2 mL, No Longer Route: IV, Drug Active 2013 [place] form: INJ, Q4H, Dosing Weight 120.227, kg, PRN as needed for nausea/vomiting , Start date: 08/23/14 9:02:00, Duration: 30 day, Stop date: 09/22/14 9:01:00Notes: (Same as: Zofran) Tylenol 650 mg, 2 tab, No Longer Route: PO, Drug Active 2013 [place] form: TAB, Q6H, Dosing Weight 120.227, kg, [...] IM, Drug Form: 2013 Inactivated SUSP, Daily, [id number] Start date: (H3N2)-like 08/23/14 virus 9:00:00, ([id number] Duration: 1 007 [facility] X-175C) doses or times, strain / Stop date: Influenza Virus 08/23/14 Vaccine, 9:00:00Notes: Inactivated (Same as: [id number] Fluzone 07, IVR-148 Quadrivalent) (H1N1) strain / Influenza Virus Vaccine, Inactivated, D-[id number] -lik normal saline 1,000 mL, Rate: No Longer 0.9% IV 1,000 mL 125 ml/hr, Active 2013 Infuse over: 8 hr, Route: IV, Dosing Weight 120.227 kg, Total Volume: 1,000, Start date: 08/23/14 8:30:00, Duration: 30 day, Stop date: 09/22/14 8:29:00 Ondansetron 4 mg, 2 mL, Inactive Route: IVP, 2013 [place] Drug form: INJ, ONCE, Dosing Weight 118.182, kg, PRN Nausea & Vomiting, Start date: 08/23/14 5:33:00Notes: (Same as: Zofran) Saline Flush 10 ml, Route: No Longer 0.9% IVP, Drug Form: Active 2013 [place] INJ, Dosing Weight 118.182, kg, PRN, PRN Line Flush, Start date: 08/23/14 5:33:00, Duration: 30 day, Stop date: 09/22/14 5:32:00Notes: (Same as: BD Posiflush) Sodium Chloride 1,000 mL, Rate: Inactive 0.154 MEQ/ML 100 ml/hr, 2013 [place] Injectable Infuse over: 10 Solution hr, Route: IV, Dosing Weight 118.182 kg, Total Volume: 1,000, Start date: 08/23/14 5:33:00, Duration: 30 day, Stop date: 09/22/14 5:32:00 Dilaudid 0.5 mg, Route: Inactive IVP, ONCE, 2013 [place] Dosing Weight 118.182, kg, Priority: STAT, Start date: 08/23/14 1:00:00, Stop date: 08/23/14 1:00:00 Zofran 4 mg, Route: Inactive IVP, Drug form: 2013 [place] INJ, ONCE, Dosing Weight 118.182, kg, Priority: STAT, Start date: 08/22/14 23:11:00, Stop date: 08/22/14 23:11:00 Sodium Chloride 500 mL, 500 Inactive 0.154 MEQ/ML ml/hr, Infuse 2013 [place] Injectable Over: 1 hr, Solution Route: IV, ONCE, Priority: STAT, Dosing Weight 118.182 kg, Start date: 08/22/14 23:11:00, Duration: 1 doses or times, Stop date: 08/22/14 23:11:00 Morphine 4 mg, Route: Inactive IVP, Drug form: 2013 [place] INJ, ONCE, Dosing Weight 118.182, kg, Priority: STAT, Start date: 08/22/14 23:08:00, Stop date: 08/22/14 23:08:00 Protonix 40 mg, Route: No Longer IVP, Drug form: Active 2013 [place] INJ, ONCE, Dosing Weight 118.182, kg, Priority: [...] 30 mL, Route: Inactive PO, Dosing 2013 [place] Weight 115.909, kg, ONCE, STAT, Start date: 04/18/14 23:47:00, Stop date: 04/18/14 23:47:00 Ondansetron 4 mg, 2 mL, Inactive Route: IVP, 2013 [place] Drug form: INJ, ONCE, Dosing Weight 115.909, kg, Priority: STAT, Start date: 04/18/14 21:02:00, Stop date: 04/18/14 21:02:00Notes: (Same as: Zofran) Morphine 4 mg, 2 mL, Inactive Route: IVP, 2013 [place] Drug form: INJ, ONCE, Dosing Weight 115.909, kg, Priority: STAT, Start date: 04/18/14 21:02:00, Stop date: 04/18/14 21:02:00Notes: (Same as:MORPhine Sulfate) Allergies, Adverse Reactions, Alerts Substance Category Reaction Severity Reaction Status Date Comments Source type Reported Immunizations Immunization Date Site Status Last Comments Source Given Updated pneumococcal Left completed Dimitrios [facility] 23-valent 4 deltoid vaccine influenza virus Right completed Michael [facility] vaccine, 4 Deltoid inactivated Results Order Name Results Value Reference Date Interpretation Comments Source Range ELECTROLYT AGAP 21.7 meq/L 10.0 - 08/27 ES 20.0 [place] ELECTROLYT eGFR 90 08/27 1Result Comment: The [...] is not recommended in the following populations: [place] 3m2 Individuals with unstable creatinine concentrations, including [...] Lvl 8.9 mg/dL 8.5 - 10.5 08/27 [place] ELECTROLYT Chloride Lvl 105 meq/L 95 - 109 08/27 [place] ELECTROLYT CO2 15 meq/L 24 - 32 08/27 [place] ELECTROLYT Sodium Lvl 137 meq/L 135 - 145 08/27 [place] ELECTROLYT BUN 7 mg/dL 7 - 22 08/27 [place] ELECTROLYT Potassium 4.7 meq/L 3.5 - 5.1 08/27 [place] ELECTROLYT Creatinine 0.9 mg/dL 0.5 - 1.4 08/27 ES Lv [place] ELECTROLYT Glucose Lvl 86 mg/dL 70 - 99 08/27 4Interpretive Data: Adult reference range values reflect the clinical guidelines of the [place] [employer]. [place] HEMATOLOGY Platelet 215 K/CMM 133 - 450 08/27 [place] HEMATOLOGY MPV 8.4 fL 7.4 - 10.4 08/27 [place] HEMATOLOGY MCHC 36.0 g/dL 32.0 - 08/27 36.0 [place] HEMATOLOGY RDW 15.8 % 11.5 - 08/27 14. [place] HEMATOLOGY MCV 98.7 fL 80.0 - 08/27 98.0 [place] HEMATOLOGY MCH 35.5 pg 27.0 - 08/27 31.0 [place] HEMATOLOGY Hct 33.8 % 36.0 - 08/27 MH 48.0 /2013 [place] HEMATOLOGY Hgb 12.1 g/dL 12.0 - 08/27 MH 16.0 [place] HEMATOLOGY WBC 9.4 K/CMM 3.7 - 10.4 08/27 [place] HEMATOLOGY RBC 3.42 M/CMM 4.20 - 08/27 MH 5.40 /2013 [place] HEMATOLOGY Segs-Bands # 8.6 K/CMM 1.5 - 8.1 08/27 [place] HEMATOLOGY Basophils 0.2 % 0.0 - 1.0 08/27 [place] HEMATOLOGY Monocytes # 0.2 K/CMM 0.0 - 0.8 08/27 [place] HEMATOLOGY Lymphocytes 0.6 K/CMM 1.0 - 5.5 08/27 MH # /2014 [place] HEMATOLOGY Lymphocytes 6.5 % 20.0 - 08/27 MH 40.0 [place] HEMATOLOGY Segs 90.8 % 45.0 - 08/27 75.0 /2013 [place] HEMATOLOGY Eosinophils 0.1 % 0.0 - 4.0 08/27 [place] HEMATOLOGY Monocytes 2.4 % 2.0 - 12.0 08/27 [place] CHEM PANEL A/G Ratio 1.0 0.7 - 1.6 08/25 [place] CHEM PANEL B/C Ratio 8 6 - 25 08/25 [place] CHEM PANEL Globulin 3.6 g/dL 2.0 - 4.0 08/25 [place] CHEM PANEL AGAP 15.3 meq/L 10.0 - 08/25 20.0 [place] CHEM PANEL eGFR 71 08/25 2Result Comment: [...] is not recommended in the following populations: [place] 3m2 Individuals with unstable creatinine concentrations, including [...] Creatinine 1.1 mg/dL 0.5 - 1.4 08/25 [place] CHEM PANEL CO2 26 meq/L 24 - 32 08/25 [place] CHEM PANEL Calcium Lvl 9.0 mg/dL 8.5 - 10.5 08/25 [place] CHEM PANEL BUN 9 mg/dL 7 - 22 08/25 [place] CHEM PANEL Glucose Lvl 75 mg/dL 70 - 99 08/25 5Interpretive Data: Adult reference range values reflect the clinical guidelines of the [place] [employer]. [place] CHEM PANEL Bili Total 0.8 mg/dL 0.2 - 1.3 08/25 [place] CHEM PANEL ALT 72 unit/L 0 - 65 08/25 [place] CHEM PANEL AST 30 unit/L 0 - 37 08/25 [place] CHEM PANEL Total 7.1 g/dL 6.4 - 8.4 08/25 [place] CHEM PANEL Alk Phos 70 unit/L 39 - 136 08/25 [place] CHEM PANEL Albumin Lvl 3.5 g/dL 3.5 - 5.0 08/25 [place] CHEM PANEL Potassium 4.3 meq/L 3.5 - 5.1 08/25 [place] CHEM PANEL Chloride Lvl 103 meq/L 95 - 109 08/25 [place] CHEM PANEL Sodium Lvl 140 meq/L 135 - 145 08/25 [place] HEMATOLOGY MPV 8.0 fL 7.4 - 10.4 08/25 [place] HEMATOLOGY Platelet 245 K/CMM 133 - 450 08/25 [place] HEMATOLOGY RDW 14.1 % 11.5 - 08/25 14. [place] HEMATOLOGY MCHC 33.9 g/dL 32.0 - 08/25 36.0 [place] HEMATOLOGY Hgb 13.3 g/dL 12.0 - 08/25 16.0 [place] HEMATOLOGY WBC 6.4 K/CMM 3.7 - 10.4 08/25 [place] HEMATOLOGY RBC 4.67 M/CMM 4.20 - 08/25 MH 5.40 /2013 [place] HEMATOLOGY Hct 39.2 % 36.0 - 08/25 MH 48.0 /2013 [place] HEMATOLOGY MCV 83.8 fL 80.0 - 08/25 98.0 /2013 [place] HEMATOLOGY MCH 28.5 pg 27.0 - 08/25 MH 31.0 /2013 [place] HEMATOLOGY Basophils # 0.0 K/CMM 0.0 - 0.2 08/25 [place] HEMATOLOGY Basophils 0.4 % 0.0 - 1.0 08/25 [place] HEMATOLOGY Lymphocytes 1.6 K/CMM 1.0 - 5.5 08/25 MH # /2013 [place] HEMATOLOGY Segs-Bands # 4.1 K/CMM 1.5 - 8.1 08/25 [place] HEMATOLOGY Eosinophils 0.3 K/CMM 0.0 - 0.5 08/25 MH # /2013 [place] HEMATOLOGY Monocytes # 0.4 K/CMM 0.0 - 0.8 08/25 [place] HEMATOLOGY Segs 63.5 % 45.0 - 08/25 75.0 /2013 [place] HEMATOLOGY Monocytes 6.4 % 2.0 - 12.0 08/25 [place] HEMATOLOGY Lymphocytes 24.7 % 20.0 - 08/25 MH 40.0 [place] HEMATOLOGY Eosinophils 5.0 % 0.0 - 4.0 [...] 10.2 meq/L 10.0 - 08/24 MH 20.0 [place] CHEM PANEL Albumin Lvl 3.9 g/dL 3.5 - 5.0 08/24 [place] CHEM PANEL B/C Ratio 8 6 - 25 08/24 [place] CHEM PANEL Calcium Lvl 8.9 mg/dL 8.5 - 10.5 08/24 [place] CHEM PANEL Sodium Lvl 138 meq/L 135 - 145 08/24 [place] CHEM PANEL Glucose Lvl 84 mg/dL 70 - 99 08/24 6Interpretive Data: Adult reference range values reflect the clinical guidelines of the [place] [employer]. [place] CHEM PANEL Creatinine 1.1 mg/dL 0.5 - 1.4 08/24 Lv [place] CHEM PANEL BUN 9 mg/dL 7 - 08/24 [place] CHEM PANEL eGFR 71 08/24 3Result Comment: [...] is not recommended in the following populations: [place] 3m2 Individuals with unstable creatinine concentrations, including [...] - 08/24 9Interpretive MH 35.8 Data: Heparin [place] Therapeutic Range: 57 - 92 [facility] HEMATOLOGY Platelet 255 K/CMM 133 - 450 08/24 [place] HEMATOLOGY RDW 14.2 % 11.5 - 08/24 14. [place] HEMATOLOGY MCH 28.5 pg 27.0 - 08/24 31.0 [place] HEMATOLOGY MCHC 34.0 g/dL 32.0 - 08/24 36.0 [place] HEMATOLOGY MCV 83.9 fL 80.0 - 08/24 98.0 /2014 [place] HEMATOLOGY MPV 7.9 fL 7.4 - 10.4 08/24 /2013 [place] HEMATOLOGY WBC 7.6 K/CMM 3.7 - 10.4 08/24 [place] HEMATOLOGY RBC 4.86 M/CMM 4.20 - 08/24 5.40 /2013 [place] HEMATOLOGY Hgb 13.9 g/dL 12.0 - 08/24 16.0 /2013 [place] HEMATOLOGY Hct 40.8 % 36.0 - 08/24 48.0 /2013 [place] HEMATOLOGY INR 1.01 0.85 - 08/24 7Interpretive Data: RECOMMENDED RANGES FOR PROTIME INR: . 2.0-3.0 for most medical and surgical thromboembolic states. [place] 2.5-3.5 for artificial heart valves and recurrent embolism. INR SHOULD BE USED ONLY FOR PATIENTS ON STABLE ANTICOAGULANT THERAPY. HEMATOLOGY PT 13.3 s 12.0 - 08/24 14.7 /2013 [place] HEMATOLOGY Segs-Bands # 4.9 K/CMM 1.5 - 8.1 08/24 [place] HEMATOLOGY Lymphocytes 1.8 K/CMM 1.0 - 5.5 08/24 # /2013 [place] HEMATOLOGY Basophils 0.9 % 0.0 - 1.0 08/24 [place] HEMATOLOGY Eosinophils 0.4 K/CMM 0.0 - 0.5 08/24 MH # /2013 [place] HEMATOLOGY Monocytes 5.3 % 2.0 - 12.0 08/24 [place] HEMATOLOGY Monocytes # 0.4 K/CMM 0.0 - 0.8 08/24 [place] HEMATOLOGY Lymphocytes 23.9 % 20.0 - 08/24 40.0 /2013 [place] HEMATOLOGY Segs 64.9 % 45.0 - 08/24 75.0 /2013 [place] HEMATOLOGY Eosinophils 5.0 % 0.0 - 4.0 08/24 [place] HEMATOLOGY Basophils # 0.1 K/CMM 0.0 - 0.2 08/24 [place] Gallbladde Gallbladder Nuclear medicine HIDA scan, Aug 24, 2014 11:16:23 AM 08/24 - r scan scan HID - [place] HIDA w meds NM meds NM CLINICAL [...] B/C Ratio 12 6 - 25 08/23 [place] HEMATOLOGY Sed Rate 28 mm/h 0 - 20 08/23 [place] HEMATOLOGY Eosinophils 0.5 K/CMM 0.0 - 0.5 08/23 # /2014 [place] HEMATOLOGY PTT 32.7 s 22.9 - 08/23 10Interpretiv 35.8 /2014 e Data: [place] Heparin Therapeutic Range: 57 - 92 Seconds HEMATOLOGY PT 13.7 s 12.0 - 08/23 14.7 /2013 [place] HEMATOLOGY INR 1.05 0.85 - 08/23 8Interpretive Data: RECOMMENDED RANGES FOR PROTIME INR: 1. 2.0-3.0 for most medical and surgical thromboembolic states. [place] 2.5-3.5 for artificial heart valves and recurrent embolism. INR SHOULD BE USED ONLY FOR PATIENTS ON STABLE ANTICOAGULANT THERAPY. IMMUNOLOGY Hep Bs Ag Negative Negative 08/23 [place] *NA* (08/22/14 10:23 PM) IMMUNOLOGY Hep B Core Negative Negative 08/23 IgM [place] *NA* (08/22/14 10:23 PM) IMMUNOLOGY Hep C Ab Negative 08/23 [place] *NA* (08/22/14 10:23 PM) IMMUNOLOGY Hep A IgM Negative Negative 08/23 [place] *NA* (08/22/14 10:23 PM) URINE AND UA <=1.0 0.1 - 1.0 08/23 [facility] Urobilinogen mg/dL /2013 [place] URINE AND UA WBC 3 /HPF 0 - 5 08/23 STOOL [place] URINE AND UA RBC 1 /HPF 0 - 2 08/23 STOOL [place] URINE AND UA Nitrite Negative Negative 08/23 STOOL [place] (08/22/14 10:23 PM) URINE AND UA Leuk Est Negative Negative 08/23 STOOL [place] (08/22/14 10:23 PM) URINE AND UA Sq Epi Moderate Few /LPF 08/23 [facility] /LPF /2013 [place] URINE AND UA Spec Grav 1.026 <=1.030 08/23 STOOL [place] URINE AND UA pH 5.0 5.0 - 8.0 08/23 [place] URINE AND UA Turbidity Slight Clear 08/23 [place] *ABN* (08/22/14 10:23 PM) URINE AND UA Glucose Negative Negative 08/23 [facility] mg/dL mg/dL [place] URINE AND UA Protein Negative Negative 08/23 [facility] mg/dL mg/dL [place] URINE AND UA Color Yellow Yellow 08/23 [place] *NA* (08/22/14 10:23 PM) URINE AND UA Blood Large Negative 08/23 [place] *ABN* (08/22/14 10:23 PM) URINE AND UA Bili Negative Negative 08/23 [place] *NA* (08/22/14 10:23 PM) URINE AND UA Ketones Negative Negative 08/23 [facility] mg/dL mg/dL [place] URINE CHEM U Preg Negative Negative 08/23 [place] (08/22/14 10:23 PM) CHEM PANEL Lipase Lvl 134 unit/L 73 - 393 04/19 [place] CHEM PANEL eGFR 58 04/19 1Result Comment: [...] is not recommended in the following populations: [place] 3m2 Individuals with unstable creatinine concentrations, including [...] AST 55 unit/L 0 - 37 04/19 [place] CHEM PANEL Bili Total 0.5 mg/dL 0.2 - 1.3 04/19 [place] CHEM PANEL Alk Phos 87 unit/L 39 - 136 04/19 [place] CHEM PANEL BUN 14 mg/dL 7 - 22 04/19 [place] CHEM PANEL Glucose Lvl 112 mg/dL 70 - 99 04/19 2Interpretive Data: Adult reference range values reflect the clinical guidelines of the [place] [employer]. [place] CHEM PANEL ALT 134 unit/L 0 - 65 04/19 [place] CHEM PANEL Albumin Lvl 4.1 g/dL 3.5 - 5.0 04/19 [place] CHEM PANEL Calcium Lvl 8.8 mg/dL 8.5 - 10.5 04/19 [place] CHEM PANEL CO2 23 meq/L 24 - 32 04/19 [place] CHEM PANEL Total 8.2 g/dL 6.4 - 8.4 04/19 [place] CHEM PANEL Creatinine 1.3 mg/dL 0.5 - 1.4 04/19 Lv [place] CHEM PANEL Chloride Lvl 104 meq/L 95 - 109 04/19 [place] CHEM PANEL Potassium 3.5 meq/L 3.5 - 5.1 04/19 Lvl [place] CHEM PANEL Sodium Lvl 137 meq/L 135 - 145 04/19 [place] CHEM PANEL B/C Ratio 11 6 - 25 04/19 [place] CHEM PANEL AGAP 13.5 meq/L 10.0 - 04/19 20.0 [place] CHEM PANEL Globulin 4.1 g/dL 2.0 - 4.0 04/19 [place] CHEM PANEL A/G Ratio 1.0 0.7 - 1.6 04/19 [place] ENDOCRINOL S Preg Negative Negative 04/19 OG [place] *NA* (04/18/14 9:07 PM) HEMATOLOGY Lymphocytes 2.7 K/CMM 1.0 - 5.5 04/19 MH # /2013 [place] HEMATOLOGY Eosinophils 0.4 K/CMM 0.0 - 0.5 04/19 /2013 [place] HEMATOLOGY Basophils # 0.1 K/CMM 0.0 - 0.2 04/19 [place] HEMATOLOGY Monocytes # 0.5 K/CMM 0.0 - 0.8 04/19 [place] HEMATOLOGY Eosinophils 3.5 % 0.0 - 4.0 04/19 [place] HEMATOLOGY Segs-Bands # 7.2 K/CMM 1.5 - 8.1 04/19 [place] HEMATOLOGY Basophils 0.8 % 0.0 - 1.0 04/19 [place] HEMATOLOGY Segs 66.3 % 45.0 - 04/19 75.0 [place] HEMATOLOGY Monocytes 4.8 % 2.0 - 12.0 04/19 [place] HEMATOLOGY Lymphocytes 24.6 % 20.0 - 04/19 MH 40.0 [place] HEMATOLOGY RDW 14.5 % 11.5 - 04/19 MH 14.5 /2013 [place] HEMATOLOGY MCHC 34.4 g/dL 32.0 - 04/19 36.0 /2013 [place] HEMATOLOGY MPV 8.2 fL 7.4 - 10.4 04/19 [place] HEMATOLOGY Platelet 321 K/CMM 133 - 450 04/19 [place] HEMATOLOGY Hct 43.0 % 36.0 - 04/19 48.0 /2013 [place] HEMATOLOGY Hgb 14.8 g/dL 12.0 - 04/19 16.0 /2013 [place] HEMATOLOGY MCH 28.3 pg 27.0 - 04/19 31.0 /2013 [place] HEMATOLOGY MCV 82.4 fL 81.0 - 04/19 99.0 /2013 [place] HEMATOLOGY WBC 10.8 K/CMM 3.7 - 10.4 04/19 [place] HEMATOLOGY RBC 5.22 M/CMM 4.20 - 04/19 5.40 /2013 [place] IMMUNOLOGY [facility] HIV 4th Negative Negative 04/19 GEN /2013 [place] (04/18/14 9:07 PM) URINE AND UA RBC 2 /HPF 0 - 2 04/19 STOOL [place] URINE AND UA Bacteria Occasional None Seen 04/19 [facility] /HPF /HPF [place] URINE AND UA WBC 3 /HPF 0 - 5 04/19 STOOL [place] URINE AND UA Mucus Few /LPF None Seen 04/19 [facility] /LPF [place] URINE AND UA Glucose Negative Negative 04/19 [facility] mg/dL mg/dL [place] URINE AND UA Color Yellow Yellow 04/19 STOOL [place] *NA* (04/18/14 9:07 PM) URINE AND UA Nitrite Negative Negative 04/19 STOOL [place] (04/18/14 9:07 PM) URINE AND UA pH 5.0 5.0 - 8.0 04/19 STOOL [place] URINE AND UA Protein Negative Negative 04/19 [facility] mg/dL mg/dL [place] URINE AND UA Spec Grav 1.031 <=1.030 04/19 STOOL [place] URINE AND UA Turbidity Marked Clear 04/19 STOOL [place] *ABN* (04/18/14 9:07 PM) URINE AND UA Sq Epi Many /LPF Few /LPF 04/19 [place] URINE AND UA Leuk Est Small Negative 04/19 STOOL [place] *ABN* (04/18/14 9:07 PM) URINE AND UA Blood Moderate Negative 04/19 STOOL [place] *ABN* (04/18/14 9:07 PM) URINE AND UA 2.0 mg/dL 0.1 - 1.0 04/19 [facility] Urobilinogen /2013 [place] URINE AND UA Ketones Negative Negative 04/19 [facility] mg/dL mg/dL [place] URINE AND UA Bili Negative Negative 04/19 STOOL [place] *NA* (04/18/14 9:07 PM) Abdomen Abdomen RUQ RUQ ULTRASOUND: 04/18 - RUQ US US /2013 - [place] HX: Acute abdominal pain Read by: Jose [...] Comments Source Diastolic (mm Hg) 77 08/27/2014 [facility] Systolic (mm Hg) 114 08/27/2014 [facility] Heart Rate 76 08/27/2014 [facility] Temperature Oral (F) 98.6 F 08/27/2014 [facility] Respitory Rate 16 08/27/2014 [facility] Respitory Rate 16 08/27/2014 [facility] Heart Rate 56 08/27/2014 [facility] Temperature Oral (F) 97.6 F 08/27/2014 [facility] Respitory Rate 16 08/27/2014 [facility] Systolic (mm Hg) 104 08/27/2014 [facility] Diastolic (mm Hg) 70 08/27/2014 [facility] Diastolic (mm Hg) 69 08/27/2014 [facility] Temperature Oral (F) 97.7 F 08/27/2014 [facility] Heart Rate 85 08/27/2014 [facility] Systolic (mm Hg) 106 08/27/2014 [facility] Weight 120.227 08/23/2014 [facility] BMI Calculated 42.78 08/23/2014 [facility] Height 167.64 cm 08/23/2014 [facility] BMI Calculated 42.05 08/23/2014 [facility] Weight 118.182 08/23/2014 [facility] Height 167.64 cm 08/23/2014 [facility] Diastolic (mm Hg) 81 04/19/2014 [facility] Heart Rate 77 04/19/2014 [facility] Temperature Oral (F) 98 F 04/19/2014 [facility] Systolic (mm Hg) 123 04/19/2014 [facility] Respitory Rate 18 04/19/2014 [facility] Weight 115.909 04/19/2014 [facility] BMI Calculated 41.24 04/19/2014 [facility] Height 167.64 cm 04/19/2014 [facility] Temperature Oral (F) 98.3 F 04/19/2014 [facility] Respitory Rate 20 04/19/2014 [facility] Heart Rate 112 04/19/2014 [facility] Diastolic (mm Hg) 91 04/19/2014 [facility] Systolic (mm Hg) 134 04/19/2014 [facility] Encounters Location Location Encounter Encounter Reason Attending ADM DC Status Source Details Type Number For Provider Date Date Visit [facility] [id number] [place] 04/19 04/19 Camilo [facility] Singh /2013 [facility] Inpatient [id number] [place] 08/23 08/27 Camilo Camargo /2013 [facility] Procedures Procedure Code Date Perfomer Comments Source section [id number] [facility]
[2018-08-14] MEDS ORDERED: NA CHLORIDE 0.9% 1,000 ML ONE (21:29)
[2018-08-14 21:56] LABS: Urine Blood 2+ (NEG); Urine Glucose NEGATIVE (NEG); Urine Protein NEGATIVE (NEG); Urine Specific Gravity >1.030 (1.005-1.030)
[2018-08-14 21:56] LABS: Absolute Lymphocytes (CBC) 2.1 K/uL (0.7-4.9); Absolute Monocytes 0.5 K/uL (0.1-1.3); Absolute Neutrophil 6.6 K/uL (1.8-8.0); Basophils % 0.8 % (0-1.3); Eosinophils % 2.4 % (0-4.4); Lymphocytes % 22.1 % (15.3-44.8); MCH 27.8 pg (27.0-35.0); MCV 80.8 fL (80-100); MPV 8.1 fL (7.6-11.3); Monocytes % 5.6 % (3.3-12.3); RBC Red Blood Cell Count 4.83 M/uL (3.86-4.86)
[2018-08-14 22:27] LABS: Potassium 3.5 mmol/L (3.5-5.1)
--- NOTE | 2018-08-14 22:32 | EDPHYS ---
Physician Documentation [facility] Name: Fauzia Darnell Age: 28 yrs Sex: Female : 1990 Arrival Date: 08/14/2018 Time: 20:53 Bed 5 Private MD: [place] B ED Physician Johnny Torrez HPI: 08/14 21:50 This 28 yrs old Female presents to ER via Ambulatory with complaints of omar Vaginal Bleeding, 9 WEEKS PREG. 21:50 The patient presents with vaginal bleeding that is light. Onset: The symptoms/episode omar began/occurred just prior to arrival. Modifying factors: The symptoms are alleviated by nothing, the symptoms are aggravated by nothing. Associated signs and symptoms: The patient has no apparent associated signs or symptoms. Severity of symptoms: At their worst the symptoms were mild, in the emergency department the symptoms are unchanged. The patient is not sexually active. The patient has experienced similar episodes in the past, a few times. 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 - Social history:: Smoking status: Patient uses tobacco products, 2 cigarettes per day. - Ebola Screening: : Patient denies travel to an Ebola-affected area in the 21 days before illness onset. - Family history:: pertinent for. ROS: 21:50 Constitutional: Negative for fever, chills, and weight loss, Eyes: Negative for injury, omar pain, redness, and discharge, ENT: Negative for injury, pain, and discharge, Neck: Negative for injury, pain, and swelling, Cardiovascular: Negative for chest pain, palpitations, and edema, Respiratory: Negative for shortness of breath, cough, wheezing, and pleuritic chest pain, Abdomen/GI: Negative for abdominal pain, nausea, vomiting, diarrhea, and constipation, Back: Negative for injury and pain, MS/Extremity: Negative for injury and deformity, Skin: Negative for injury, rash, and discoloration, Neuro: Negative for headache, weakness, numbness, tingling, and seizure, Psych: Negative for depression, anxiety, suicide ideation, homicidal ideation, and hallucinations, Allergy/Immunology: Negative for hives, rash, and allergies, Endocrine: Negative for neck swelling, polydipsia, polyuria, polyphagia, and marked weight changes, Hematologic/Lymphatic: Negative for swollen nodes, abnormal bleeding, and unusual bruising. 21:50 : Positive for vaginal bleeding. Exam: 21:50 Constitutional: This is a well developed, well nourished patient who is awake, alert, omar and in no acute distress. Head/Face: Normocephalic, atraumatic. Eyes: Pupils equal round and reactive to light, extra-ocular motions intact. Lids and lashes normal. Conjunctiva and sclera are non-icteric and not injected. Cornea within normal limits. Periorbital areas with no swelling, redness, or edema. ENT: Nares patent. No nasal discharge, no septal abnormalities noted. Tympanic membranes are normal and external auditory canals are clear. Oropharynx with no redness, swelling, or masses, exudates, or evidence of obstruction, uvula midline. Mucous membranes moist. Neck: Trachea midline, no thyromegaly or masses palpated, and no cervical lymphadenopathy. Supple, full range of motion without nuchal rigidity, or vertebral point tenderness. No Meningismus. Chest/axilla: Normal chest wall appearance and motion. Nontender with no deformity. No lesions are appreciated. Cardiovascular: Regular rate and rhythm with a normal S1 and S2. No gallops, murmurs, or rubs. Normal PMI, no JVD. No pulse deficits. Respiratory: Lungs have equal breath sounds bilaterally, clear to auscultation and percussion. No rales, rhonchi or wheezes noted. No increased work of breathing, no retractions or nasal flaring. Back: No spinal tenderness. No costovertebral tenderness. Full range of motion. Skin: Warm, dry with normal turgor. Normal color with no rashes, no lesions, and no evidence of cellulitis. MS/ Extremity: Pulses equal, no cyanosis. Neurovascular intact. Full, normal range of motion. Neuro: Awake and alert, GCS 15, oriented to person, place, time, and situation. Cranial nerves II-XII grossly intact. Motor strength 5/5 in all extremities. Sensory grossly intact. Cerebellar exam normal. Normal gait. Psych: Awake, alert, with orientation to person, place and time. Behavior, mood, and affect are within normal limits. 21:50 Abdomen/GI: Inspection: abdomen appears normal, Bowel sounds: normal, Palpation: abdomen is soft and non-tender, Liver: no appreciated palpable abnormalities, Hernia: not appreciated. Vital Signs: 21:07 BP 143 / 85; Pulse 101; Resp 20; Temp 97.6; Pulse Ox 100% on R/A; Weight 124.74 kg (R); aj1 Height 5 ft. 6 in. (167.64 cm) (R); Pain 0/10; 21:34 BP 118 / 81; Pulse 101; Resp 18; Pulse Ox 98% on R/A; ak1 22:15 BP 121 / 84; Pulse 92; Resp 18; Pulse Ox 96% on R/A; mw2 22:48 BP 120 / 85; Pulse 97; Resp 18; Pulse Ox 99% on R/A; mw2 21:07 Body Mass Index 44.39 (124.74 kg, 167.64 cm) aj1 MDM: 21:09 Patient medically screened. [facility] 21:55 Data reviewed: vital signs, nurses notes, lab test result(s), radiologic studies, omar ultrasound. 08/14 21:10 Order name: Quantitative Hcg; Complete Time: 22:29 [facility] 08/14 21:10 Order name: Abo/rh Typing; Complete Time: 22:19 [facility] 08/14 21:10 Order name: Basic Metabolic Panel; Complete Time: 22:29 [facility] 08/14 21:10 Order name: CBC with Diff; Complete Time: 22:19 [facility] 08/14 21:35 Order name: Urine Dipstick--Ancillary (enter results); Complete Time: 22:[address] [facility] 08/14 21:35 Order name: Urine --Ancillary (enter results); Complete Time: 22:[address] [facility] 08/14 21:10 Order name: Urine Test (obtain specimen); Complete Time: 21:32 [facility] 08/14 21:10 Order name: IV Saline Lock; Complete Time: 21:32 [facility] 08/14 21:10 Order name: Labs collected and sent; Complete Time: 21:32 [facility] 08/14 21:10 Order name: NPO; Complete Time: 21:16 [facility] 08/14 21:10 Order name: Urine Dipstick-Ancillary (obtain specimen); Complete Time: 21:32 [facility] 08/14 21:10 Order name: Transvaginal Ob [facility] Administered Medications: 21:31 Drug: NS 0.9% 1000 ml Route: IV; Rate: 1 bolus; Site: right antecubital; ak1 22:55 Follow up: IV Status: Completed infusion ak1 Disposition: 08/14/18 22:32 Discharged to Home. Impression: Threatened . - Condition is Stable. - Discharge Instructions: Threatened Miscarriage, Vaginal Bleeding During , First Trimester, First Trimester of , [id number], First Trimester of , Threatened Miscarriage, Lnjj-mz-Aoto, Pelvic Rest. - Prescriptions for Vitamin 27- 0.8 mg Oral Tablet - take 1 tablet by ORAL route once daily; 30 tablet. - Medication Reconciliation Form, Thank You Letter, Antibiotic Education, Prescription Opioid Use form. - Follow up: [place]; When: 2 - 3 days; Reason: Recheck today's complaints, Continuance of care, Re-evaluation by your physician. - Problem is new. - Symptoms have improved. Signatures: Dispatcher [employer] EDMN Dyan Balderas RN RN aj1 Johnny Torrez MD MD cha Therrien, Shelly, DIE TRIMMER-C DIE TRIMMER-Csnw Cherri Rouse RN RN ak1 Corrections: (The following items were deleted from the chart) 21:51 21:30 TRANSVAG OB ordered. [facility] EDMN 22:57 22:32 08/14/2018 22:32 Discharged to Home. Impression: Threatened . Condition ak1 is Stable. Discharge Instructions: Threatened Miscarriage, Vaginal Bleeding During , First Trimester, First Trimester of , Bwra-ce-Uhen, First Trimester of , Threatened Miscarriage, Srzh-gc-Yhlj, Pelvic Rest. Prescriptions for Vitamin 27-0.8 mg Oral Tablet - take 1 tablet by ORAL route once daily; 30 tablet. and Forms are Medication Reconciliation Form, Thank You Letter, Antibiotic Education, Prescription Opioid Use. Follow up: [place]; When: 2 - 3 days; Reason: Recheck today's complaints, Continuance of care, Re-evaluation by your physician. Problem is new. Symptoms have improved. snw
--- NOTE | 2018-08-14 22:32 | ER ---
Nurse's Notes [facility] Name: Fauzia Darnell Age: 28 yrs Sex: Female : 1990 Arrival Date: 08/14/2018 Time: 20:53 Bed 5 Private MD: [place] B Diagnosis: Threatened Presentation: 08/14 21:05 Presenting complaint: Patient states: Vaginal bleeding that started one hour ago, that aj1 she describes as light flow. Patient reports that she is currently 9 weeks . Denies pain. Transition of care: patient was not received from another setting of care. Onset of symptoms was August 14, 2018. Risk Assessment: Do you want to hurt yourself or someone else? Patient reports no desire to harm self or others. Initial Sepsis Screen: Does the patient meet any 2 criteria? HR > 90 bpm. No. Patient's initial sepsis screen is negative. Does the patient have a suspected source of infection? No. Patient's initial sepsis screen is negative. Care prior to arrival: None. 21:05 Method Of Arrival: Ambulatory aj1 21:05 Acuity: PARAMJIT 3 aj1 Triage Assessment: 21:07 General: Appears in no apparent distress. comfortable, Behavior is calm, cooperative, aj1 appropriate for age. Pain: Denies pain. Neuro: Level of Consciousness is awake, alert, obeys commands. Cardiovascular: Patient's skin is warm and dry. Respiratory: Airway is patent Respiratory effort is even, unlabored, Respiratory pattern is regular, symmetrical. : Reports vaginal bleeding that is light flow. 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 - Social history:: Smoking status: Patient uses tobacco products, 2 cigarettes per day. - Ebola Screening: : Patient denies travel to an Ebola-affected area in the 21 days before illness onset. - Family history:: pertinent for. Screenin:33 Abuse screen: Denies threats or abuse. Denies injuries from another. Nutritional ak1 screening: No deficits noted. Tuberculosis screening: No symptoms or risk factors identified. Fall Risk None identified. 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 pt ak1 denies pain. General: Appears in no apparent distress. Vital Signs: 21:07 BP 143 / 85; Pulse 101; Resp 20; Temp 97.6; Pulse Ox 100% on R/A; Weight 124.74 kg (R); aj1 Height 5 ft. 6 in. (167.64 cm) (R); Pain 0/10; 21:34 BP 118 / 81; Pulse 101; Resp 18; Pulse Ox 98% on R/A; ak1 22:15 BP 121 / 84; Pulse 92; Resp 18; Pulse Ox 96% on R/A; mw2 22:48 BP 120 / 85; Pulse 97; Resp 18; Pulse Ox 99% on R/A; mw2 21:07 Body Mass Index 44.39 (124.74 kg, 167.64 cm) aj1 ED Course: 20:53 Patient arrived in ED. al2 20:53 [place] MD is Private Physician. al2 21:07 Triage completed. aj1 21:07 Arm band placed on Patient placed in an exam room. aj1 21:09 Johnny Torrez MD is Attending Physician. [facility] 21:15 Steven Rouse, RN is Primary Nurse. ak1 21:33 Initial lab(s) drawn, by mo, sent to lab. Urine collected: clean catch specimen, steven ak1 colored. Inserted saline lock: 20 gauge in right antecubital area, using aseptic technique. Blood collected. 21:34 Patient has correct armband on for positive identification. Placed in gown. Bed in low ak1 position. Call light in reach. Side rails up X 1. Pulse ox on. NIBP on. 21:46 Urine Dipstick--Ancillary (enter results) Sent. mw2 21:46 Urine --Ancillary (enter results) Sent. mw2 22:11 Belkis Servin FNP-C is PHCP. snw 22:13 US Transvaginal Ob In Process Unspecified. EDMS 22:32 [place] MD is Referral Physician. snw 22:56 No provider procedures requiring assistance completed. IV discontinued, intact, ak1 bleeding controlled, No redness/swelling at site. Pressure dressing applied. Administered Medications: 21:31 Drug: NS 0.9% 1000 ml Route: IV; Rate: 1 bolus; Site: right antecubital; ak1 22:55 Follow up: IV Status: Completed infusion ak1 Outcome: 22:32 Discharge ordered by . snw 22:56 Discharged to home via ambulance. ak1 22:56 Condition: good 22:56 Discharge instructions given to patient, Instructed on discharge instructions, follow up and referral plans. medication usage, Demonstrated understanding of instructions, follow-up care, medications, Prescriptions given X 1. 22:57 Patient left the ED. ak1 Signatures: Dispatcher [employer] EDDyan Watkins, MOSES RN Johnny Vicente MD MD cha Therrien, Shelly, WEEDER THINNER-C WEEDER THINNER-Csnw Steven Rouse RN RN Shante Lopes2 Mehnaz Oropeza 2
--- NOTE | 2018-08-15 07:46 | RAD REPORT ---
EXAM DESCRIPTION: US - Transvaginal OB - 08/14/2018 10:13 pm CLINICAL HISTORY: with abdominal pain and vaginal bleeding COMPARISON: None. FINDINGS: The uterus is measures 10 x 7 x 7 and centimeters. A gestational sac is present within th e endometrium. Within this is a yolk sac and pole with a crown-rump length 2.3 centimeters. Car diac activity 167 beats per minute. 1 centimeter subchorionic bleed Neither ovary was seen. An adnexal mass is not visualized. No significant free fluid is seen. IMPRESSION: Single live intrauterine with an estimated gestational age 9 weeks 0 days NAKIA 03/19/2019 Small subchorionic bleed
== END 2018-08-14 22:57 | disposition home or self-care (01) ==
LOC: ER 20:50
DX: O20.0 Threatened abortion (principal); O99.331 Smoking (tobacco) complicating pregnancy, first trimester; F17.210 Nicotine dependence, cigarettes, uncomplicated; Z3A.09 9 weeks gestation of pregnancy
CPT/HCPCS: 36415; 76817; 80048; 81003; 81025; 84702; 85025; 86900; 86901; 96360; 99284; J7030

== ENCOUNTER 2022-06-29 11:31 | Observation (INO) | payer BC ==
--- OUTSIDE RECORDS SUMMARY | 2022-06-29 11:42 | XMS REPORT | Continuity of Care Document ---
:1990 Author Organization [facility] t Address [address] [place] [address] Care Team Providers Name Role Phone Pcp, Patient Does Not Have A Primary Care Physician +[id number] ERNIE ADDISON Attending Clinician Unavailable Makenzie Mckeon MD Attending Clinician MAKENZIE MCKEON Attending Clinician Unavailable Doctor Unassigned, [place] Attending Clinician Unavailable Marleni Ca Attending Clinician Olga Edmond Attending Clinician Claus Zayas Attending Clinician Jazmin Molina Attending Clinician Kvng [place] Attending Clinician Elbert Singh Attending Clinician Kvng [place] Admitting Clinician Payers Payer Name Policy Type Policy Number Effective Date Expiration Date S zaida [id number] PPO AND [id number] 2016 00:00:00 OUT OF STATE Problems Condition Condition Condition Status Onset Resolution Last Treating Co mments Source Name Details Category Date Date Treatment Clinician Date Morbid Morbid Disease Active 2019-0 Univers obesity obesity 6-10 ity of with [place] mass [place] mass index 00 Me dical of of Branch 40.0-49.9 40.0-49.9 39 weeks 39 weeks Disease Active Unive rs gestation gestation 6-09 ity of of of 00:00: [place] 00 Medi [facility] Branch ABDOMINAL ABDOMINAL Diagnosis Active 2017-12-01 Memoria PAIN PAIN 12-01 18:50:00 l Active 00:00: [place] 12/01/2017 00 [facility] 5 WKS 5 WKS Diagnosis Active 2017-11-28 Mem oria / / 11-28 15:10:00 l VAG VAG 00:00: [place] BLEEDING BLEEDING 00 Active 11/28/2017 [facility] Supervisio Supervisio Disease Active U nivers n of high n of high 05-28 ity of risk risk 00:00: [place] 00 Medi lary in first in first Branch trimester trimester Previous Previous Disease Active Unive rs 05-28 ity of delivery delivery 00:00: [place] affecting affecting 00 Medi lary , , Br anch antepartum antepartum REA REA Disease Active Univers (nonalcoho (nonalcoho 05-28 it y of lic lic 00:00: [place] steatohepa steatohepa 00 Me dical titis) titis) Branch M25.571 - M25.571 - Diagnosis Active 2016-03-26 Memoria PAIN IN PAIN IN 03-26 15:17:00 l RIGHT RIGHT 00:01: [place] ANKLE AND ANKLE AND 00 JOINTS JOINTS Active 03/26/2016 [facility] ABD PAIN ABD PAIN Diagnosis Active 2013-102014-08-22 Memoria Active 10-22 22:57:00 l 08/22/2014 00:00: [place] dewitt [address] HEMATEMESI HEMATEMES Diagnosis Active 2013-102014-08-28 Memoria S, IS, 10-22 08:11:00 l EPIGASTRIC EPIGASTRIC 00:00: [place] ABDOMINAL ABDOMINAL 00 PAIN, PAIN, Active 08/22/2014 [facility] ABD PAIN, ABD PAIN, Diagnosis Active 2014-05-20 Memoria NAUSEA, NAUSEA, 04-18 16:43:00 l VOMITING VOMITING 00:00: [place] dewitt Active 00 04/18/2014 [facility] Less than Less than Problem 2018-03-10 Memoria 8 weeks 8 weeks 13:56:39 l gestation gestation Herm cale of of 03/10/2018 [facility] Personal Personal Problem 2018-03-06 Memoria history of history of 13:55:49 l nicotine nicotine [place] dependence dependence 03/06/2018 [facility] Right Right Problem 2018-03-10 Memor ia lower lower 13:56:39 l quadrant quadrant [place] pain pain 03/10/2018 [facility] Smoking Smoking Problem 2018-03-10 Me moria (tobacco) (tobacco) 13:56:39 l complicati complicati He rmann ng ng , , first first trimester trimester 03/10/2018 [facility] Anxiety Anxiety Problem Resolve 2021-04-05 M emoria (finding) (finding) d 21:44:25 l Resolved [place] [facility] 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 21:44:25 l (disorder) (disorder) [place] r[place] Resolved Problem 04/05/2021 [facility] Anxiety Anxiety Problem Active 2021-04-05 Me moria disorder disorder 21:44:25 l (disorder) (disorder) [place] r[place] Active Problem 04/05/2021 Medical [facility] Depressive Depressiv Problem Active 2021-04-05 Memoria disorder e disorder 21:44:25 l (disorder) (disorder) [place] Active Problem 04/05/2021 [facility] Group Morbid Morbid Problem Active 2021-04-05 Ruddy tiffany obesity obesity 21:44:25 l (disorder) (disorder) [place] r[place] Active Problem 04/05/2021 [facility] Group Polycystic Polycysti Problem Active 2021-04-05 Memoria ovary c ovary 21:44:25 l syndrome syndrome [place] Active Problem 04/05/2021 [facility] HEMATEMESI HEMATEMES Diagnosis Active 2014-08-28 Memoria S IS Active 08:11:00 l [facility] History of Past Illness Condition Condition Condition Status Onset Resolution Last Treating Co mments Source Name Details Category Date Date Treatment Clinician Date Other Other Problem 2017-2018-03-10 2018-03-10 Memoria specified specified 12-09 13:56:39 13:56:39 l 04:51: Herm cale related related 44 conditions conditions , first , first trimester trimester 12/09/2017 03/10/2018 [facility] Other Other Problem 2018-03-10 2018-03-10 M emoria specified specified 12-02 13:56:39 13:56:39 l 06:00: Herm cale related related 00 conditions conditions , , unspecifie unspecifie d d trimester trimester 12/02/2017 8 [facility] Hemorrhage Hemorrhag Problem 2018-03-06 2018-03-06 Memoria in early e in early 12-06 13:55:49 13:55:49 l , , 04:44: He rmann unspecifie unspecifie 21 d d 12/06/2017 03/06/2018 [facility] Antepartum Antepartu Problem 2018-03-06 2018-03-06 Memoria hemorrhage m 11-28 13:55:49 13:55:49 l , hemorrhage 06:00: [place] unspecifie , 00 d, unspecifie unspecifie d, d unspecifie trimester d trimester 11/28/2017 03/06/2018 [facility] Discharge Discharge Problem 2014-04-21 2014-04-21 Memoria Diagnosis: Diagnosis: 04-18 23:27:35 23:27:35 l Abdominal Abdominal 05:00: Herm cale pain pain 00 04/18/2014 04/21/2014 [facility] Allergies, Adverse Reactions, Alerts Allergy Allergy Status Severity Reaction(s) Onset Inactive Treating Comm ents Source Name Type Date Date Clinician NO KNOWN Drug Active Univers ALLERGIE Class ity of S [facility] Social History Social Habit Start Date Stop Date Quantity Comments Source History [facility] o f [facility] o f Alcohol Std Drinks [facility] History [facility] o f Alcohol Binge [facility] al Branch Exposure to 2021-12-16 2022-01-15 Not sure [facility] SARS-CoV-2 (event) 00:00:00 13:30:00 [facility] Alcohol intake 2022-01-15 2022-01-15 0 /d University of 00:00:00 00:00:00 [facility] Cigarettes smoked 2016-05-28 2016-05-28 Univers ity of current (pack per 00:00:00 00:00:[address] [facility] ) - Reported Branch Cigarette 2016-05-28 2016-05-28 University of pack-years 00:00:00 00:00:00 [facility] Tobacco use and 2016-05-28 2016-05-28 Never used Universit y of exposure 00:00:00 00:00:00 [facility] Alcohol Comment 2016-05-28 2016-05-28 socially, none Unive rsity of 00:00:00 00:00:00 since [facility] History of tobacco 2016-05-21 Cigarette Smoker University of use 00:00:00 [facility] Tobacco Comment 2015-10-13 2015-10-13 reducing Universit y of 00:00:00 00:00:00 [facility] Social History 2014-08-23 2014-08-23 [facility] 11:46:19 11:46:19 Sex [birth year] Universit y of 00:00:00 00:00:00 [facility] Smoking Status Start Date Stop Date Source Former smoker 2016-05-28 00:00:00 2016-05-28 00:00:00 Universi ty of [facility] Medications Ordered Filled Start Stop Current Ordering Indication Dosage Frequency Signature Comments Components Source Medication Medication Date Date Medication? Clinician (SIG) Name Name metFORMIN Yes 500mg Take 500 Uni vers 500 mg 4-01 mg by ity of tablet 20:42: mouth [place] 48 daily. [facility] metFORMIN Yes 500mg Take 500 Uni vers 500 mg 4-01 mg by ity of tablet 20:42: mouth [place] 48 daily. [facility] metFORMIN Yes 500mg Take 500 Uni vers 500 mg 4-01 mg by ity of tablet 20:42: mouth [place] 48 daily. [facility] Metformin Yes 500 mg = 1 Me moria hydrochlori 6-30 tab, PO, l de 500 MG 22:40: Daily, [place] Oral Tablet 00 take with a meal, # 90 tab, 3 Refill(s), Pharmacy: [facility] #[id number], 167.64, cm, 04/01/21 14:54:00 CDT, Height, 137.545, kg, 04/01/21 14:54:00 CDT, Weight Metformin Yes 500 mg = 1 Me moria hydrochlori 6-30 tab, PO, l de 500 MG 22:40: Daily, [place] Oral Tablet 00 take with a meal, # 90 tab, 3 Refill(s), Pharmacy: [facility] #[id number], 167.64, cm, 04/01/21 14:54:00 CDT, Height, 137.545, kg, 04/01/21 14:54:00 CDT, Weight metFORMIN 2020-0 No 500 mg = 1 Me moria 500 mg oral 6-30 tab, PO, l tablet, 20:31: Daily, # [place] extended 00 90 tab, 3 release Refill(s), Pharmacy: [facility] #[id number], 167.64, cm, 04/01/21 14:54:00 CDT, Height, 137.545, kg, 04/01/21 14:54:00 CDT, Weight metFORMIN 2020-0 No 500 mg = 1 Me moria 500 mg oral 6-30 tab, PO, l tablet, 20:31: Daily, # [place] extended 00 90 tab, 3 release Refill(s), Pharmacy: [facility] #[id number], 167.64, cm, 04/01/21 14:54:00 CDT, Height, 137.545, kg, 04/01/21 14:54:00 CDT, Weight citalopram 2020-0 Yes 20 mg = 1 Me moria 20 mg oral 6-30 tab, PO, l tablet 20:24: Daily, # [place] 00 90 tab, 1 Refill(s), Pharmacy: [facility] #[id number], 167.64, cm, 04/01/21 14:54:00 CDT, Height, 137.545, kg, 04/01/21 14:54:00 CDT, Weight citalopram 2020-0 Yes 20 mg = 1 Me moria 20 mg oral 6-30 tab, PO, l tablet 20:24: Daily, # [place] 00 90 tab, 1 Refill(s), Pharmacy: [facility] [employer] [facility] #[id number], 167.64, cm, 04/01/21 14:54:00 CDT, Height, 137.545, kg, 04/01/21 14:54:00 CDT, Weight Mirena 2020-0 Yes Intrautera Memor ia 6-30 l, ONCE, 0 l 19:56: Refill(s) [place] 00 Mirena Yes Intrautera Memor ia 6-30 l, ONCE, 0 l 19:56: Refill(s) [place] 00 normal No 1,000 mL, Memori a saline 0.9% 2-26 Rate: l IV 1000 mL 22:23: 1,000 [place] 00 ml/hr, Infuse over: 1 hr, Route: IV, Dosing Weight 122.727 kg, Total Volume: 1,000, Priority: STAT, Start date: 11/28/17 16:23:00 [employer]OR[employer] AUDITOR, Duration: 1 doses or times, Stop date: 11/28/17 17:22:00 MEDICAL RECORDS AUDITOR, 2.43, m2 normal No 1,000 mL, Memori a saline 0.9% 2-26 Rate: l IV 1000 mL 22:23: 1,000 [place] 00 ml/hr, Infuse over: 1 hr, Route: IV, Dosing Weight 122.727 kg, Total Volume: 1,000, Priority: STAT, Start date: 11/28/17 16:23:00 MEDICAL RECORDS AUDITOR, Duration: 1 doses or times, Stop date: 11/28/17 17:22:00 MEDICAL RECORDS AUDITOR, 2.43, m2 Saline No Notes: Memoria Flush 0.9% 2-26 (Same as: l 20:22: BD [place] 00 Posiflush) Saline No Notes: Memoria Flush 0.9% 2-26 (Same as: l 20:22: BD [place] 00 Posiflush) pneumococca 2013-10 No Notes: Ruddy tiffany l capsular 1-25 (Same as: l polysacchar 15:00: Pneumovax H ermann joe type 1 ) vaccine / Refrigerat pneumococca e l capsular polysacchar joe type 10A vaccine / pneumococca l capsular polysacchar joe type 11A vaccine / pneumococca l capsular polysacchar joe type 12F vaccine / pneumococca l capsular polysacchar pneumococca 2013-10 No Notes: Ruddy tiffany l capsular 1-25 (Same as: l polysacchar 15:00: Pneumovax H ermann joe type ) vaccine / Refrigerat pneumococca e l capsular polysacchar joe type 10A vaccine / pneumococca l capsular polysacchar joe type 11A vaccine / pneumococca l capsular polysacchar joe type 12F vaccine / pneumococca l capsular polysacchar Enoxaparin 2013-10 No Notes: Memor ia -25 (Same as: l 11:02: Lovenox) [place] 00 Enoxaparin 2013-10 No Notes: Memor ia -25 (Same as: l 11:02: Lovenox) [place] 00 Ofirmev 2013-10 No Notes: Memoria 1-25 Infuse l 00:00: over 15 [place] 00 minutes Do not exceed 4gm/day of acetaminop hen Ofirmev 2013-10 No Notes: Memoria 1-25 Infuse l 00:00: over 15 [place] 00 minutes Do not exceed 4gm/day of acetaminop hen Saline 2013-10 No Notes: Memoria Flush 0.9% 1-24 preservati l 23:00: ve free. [place] 00 Sodium 2013-10 No 1,000 mL, Memori a Chloride 10-26 Rate: 125 l 0.154 23:00: ml/hr, [place] MEQ/ML 00 Infuse Injectable over: 8 Solution hr, Route: IV, Dosing Weight 120.227 kg, Total Volume: 1,000, Start date: 08/26/14 17:00:00, Duration: 30 day, Stop date: 09/25/14 16:59:00 Docusate 2013-10 No Notes: Memoria Sodium 100 1-24 (Same as: l MG Oral 23:00: Colace) [place] Capsule 00 (Do Not Crush) Ondansetron 2013-10 No Notes: Ruddy tiffany 1-24 (Same as: l 23:00: Zofran) [place] 00 Acetaminoph 2013-10 No Notes: Ruddy tiffany en 325 MG / -24 (Same as: l Hydrocodone 23:00: [place] Chelsey nn Bitartrate 00 325/5) Do 5 MG Oral not exceed Tablet 4gm/day of acetaminop hen. Morphine 2013-10 No Notes: Memoria 1-24 (Same l 23:00: as:MORPhin [place] 00 e Sulfate) Saline 2013-10 No Notes: Memoria Flush 0.9% 1-24 preservati l 23:00: ve free. [place] 00 Sodium 2013-10 No 1,000 mL, Memori a Chloride 10-26 Rate: 125 l 0.154 23:00: ml/hr, [place] MEQ/ML 00 Infuse Injectable over: 8 Solution hr, Route: IV, Dosing Weight 120.227 kg, Total Volume: 1,000, Start date: 08/26/14 17:00:00, Duration: 30 day, Stop date: 09/25/14 16:59:00 Docusate 2013-10 No Notes: Memoria Sodium 100 10-26 (Same as: l MG Oral 23:00: Colace) [place] Capsule 00 (Do Not Crush) Ondansetron 2013-10 No Notes: Ruddy tiffany 10-26 (Same as: l 23:00: Zofran) [place] 00 Acetaminoph 2013-10 No Notes: Ruddy tiffany en 325 MG / 10-26 (Same as: l Hydrocodone 23:00: [place] Chelsey nn Bitartrate 00 325/5) Do 5 MG Oral not exceed Tablet 4gm/day of acetaminop hen. Morphine 2013-10 No Notes: Memoria -24 (Same l 23:00: as:MORPhin [place] 00 e Sulfate) Acetaminoph 2013-10 No Notes: Do M emoria en 300 MG / 10-24 not exceed l Codeine 18:30: 4gm/day of Herm cale Phosphate 00 acetaminop 30 MG Oral hen. (Same Tablet as: [Tylenol Tylenol with with Codeine #3] Codeine # 3) Acetaminoph 2013-10 No Notes: Do M emoria en 300 MG / 10-24 not exceed l Codeine 18:30: 4gm/day of Herm cale Phosphate 00 acetaminop 30 MG Oral hen. (Same Tablet as: [Tylenol Tylenol with with Codeine #3] Codeine # 3) Protonix 2013-10 No Notes: Memoria 1-21 Tablet l 22:30: should not [place] 00 be chewed or crushed. (Same as: Protonix) Protonix 2013-10 No Notes: Memoria 1-21 Tablet l 22:30: should not [place] 00 be chewed or crushed. (Same as: Protonix) Flumazenil 2013-10 No Notes: Memor ia 10-23 (Same as: l 21:23: Romazicon) [place] 00 Naloxone 2013-10 No Notes: Memoria - Same as l 21:23: Narcan Flumazenil 2013-10 No Notes: Memor ia - (Same as: l 21:23: Romazicon) Naloxone 2013-10 No Notes: Memoria - Same as l 21:23: Narcan Dilaudid 2013-10 No 0.5 mg, Memori a 1-21 0.5 mL, l 18:26: Route: IV, [place] 00 Drug form: INJ, ONCE, Dosing Weight 120.227, kg, Start date: 08/23/14 12:26:00, Stop date: 08/23/14 12:26:00 Dilaudid 2013-10 No 0.5 mg, Memori a 1-21 0.5 mL, l 18:26: Route: IV, [place] 00 Drug form: INJ, ONCE, Dosing Weight 120.227, kg, Start date: 08/23/14 12:26:00, Stop date: 08/23/14 12:26:00 Zofran 2013-10 No Notes: Memoria - (Same as: l 15:02: Zofran) Zofran 2013-10 No Notes: Memoria - (Same as: l 15:02: Zofran) Tylenol 2013-10 No Notes: Do Memor ia 10-23 not exceed l 15:01: 4 gm/day. [place] 00 (Same as: Tylenol) Tylenol 2013-10 No Notes: Do Memor ia - not exceed l 15:01: 4 gm/day. (Same as: Tylenol) pantoprazol 2013-10 No Notes: For Memoria e 10-23 IV push l 15:00: reconstitu te with 10 ml 0.9% sodium chloride and push over 2 minutes. (Same as: Protonix) Influenza 2013-10 No Notes: Memori a Virus 10-23 (Same as: l Vaccine, 15:00: Fluzone [place] Inactivated 00 [place]- nt) (H3N2)-like virus ([place] [facility] X-175C) strain / Influenza Virus Vaccine, Inactivated A[place], IVR-148 (H1N1) strain / Influenza Virus Vaccine, Inactivated , B--lik pantoprazol 2013-10 No Notes: For Memoria e 1-21 IV push l 15:00: reconstitu [place] 00 te with 10 ml 0.9% sodium chloride and push over 2 minutes. (Same as: Protonix) Influenza 2013-10 No Notes: Memori a Virus -21 (Same as: l Vaccine, 15:00: Fluzone [place] Inactivated 00 [place]- nt) (H3N2)-like virus ([place] [facility] X-175C) strain / Influenza Virus Vaccine, Inactivated -[place], IVR-148 (H1N1) strain / Influenza Virus Vaccine, Inactivated , B--lik normal 2013-10 No 1,000 mL, Memori a saline 0.9% 1-21 Rate: 125 l IV 1,000 mL 14:30: ml/hr, Herm cale 00 Infuse over: 8 hr, Route: IV, Dosing Weight 120.227 kg, Total Volume: 1,000, Start date: 08/23/14 8:30:00, Duration: 30 day, Stop date: 09/22/14 8:29:00 normal 2013-10 No 1,000 mL, Memori a saline 0.9% 1-21 Rate: 125 l IV 1,000 mL 14:30: ml/hr, Herm cale 00 Infuse over: 8 hr, Route: IV, Dosing Weight 120.227 kg, Total Volume: 1,000, Start date: 08/23/14 8:30:00, Duration: 30 day, Stop date: 09/22/14 8:29:00 Ondansetron 2013-10 No Notes: Ruddy tiffany 1-21 (Same as: l 11:33: Zofran) [place] 00 Saline 2013-10 No Notes: Memoria Flush 0.9% 1-21 (Same as: l 11:33: BD [place] 00 Posiflush) Sodium 2013-10 No 1,000 mL, Memori a Chloride 1-21 Rate: 100 l 0.154 11:33: ml/hr, [place] MEQ/ML 00 Infuse Injectable over: 10 Solution hr, Route: IV, Dosing Weight 118.182 kg, Total Volume: 1,000, Start date: 08/23/14 5:33:00, Duration: 30 day, Stop date: 09/22/14 5:32:00 Ondansetron 2013-10 No Notes: Ruddy tiffany 10-23 (Same as: l 11:33: Zofran) [place] Saline 2013-10 No Notes: Memoria Flush 0.9% 10-23 (Same as: l 11:33: BD [place] Posiflush) Sodium 2013-10 No 1,000 mL, Memori a Chloride 10-23 Rate: 100 l 0.154 11:33: ml/hr, [place] MEQ/ML 00 Infuse Injectable over: 10 Solution hr, Route: IV, Dosing Weight 118.182 kg, Total Volume: 1,000, Start date: 08/23/14 5:33:00, Duration: 30 day, Stop date: 09/22/14 5:32:00 Dilaudid 2013-10 No 0.5 mg, Memori a 10-23 Route: l 07:00: IVP, ONCE, Dosing Weight 118.182, kg, Priority: STAT, Start date: 08/23/14 1:00:00, Stop date: 08/23/14 1:00:00 Dilaudid 2013-10 No 0.5 mg, Memori a 10-23 Route: l 07:00: IVP, ONCE, Dosing Weight 118.182, kg, Priority: STAT, Start date: 08/23/14 1:00:00, Stop date: 08/23/14 1:00:00 Zofran 2013-10 No 4 mg, Memoria 10-23 Route: l 05:11: IVP, Drug form: INJ, ONCE, Dosing Weight 118.182, kg, Priority: STAT, Start date: 08/22/14 23:11:00, Stop date: 08/22/14 23:11:00 Sodium 2013-10 No 500 mL, Memoria Chloride 10-23 500 ml/hr, l 0.154 05:11: Infuse [place] MEQ/ML 00 Over: 1 Injectable hr, Route: Solution IV, ONCE, Priority: STAT, Dosing Weight 118.182 kg, Start date: 08/22/14 23:11:00, Duration: 1 doses or times, Stop date: 08/22/14 23:11:00 Zofran 2013- No 4 mg, Memoria 1-21 Route: l 05:11: IVP, Drug [place] 00 form: INJ, ONCE, Dosing Weight 118.182, kg, Priority: STAT, Start date: 08/22/14 23:11:00, Stop date: 08/22/14 23:11:00 Sodium 2013-1 No 500 mL, Memoria Chloride 1-21 500 ml/hr, l 0.154 05:11: Infuse [place] MEQ/ML 00 Over: 1 Injectable hr, Route: Solution IV, ONCE, Priority: STAT, Dosing Weight 118.182 kg, Start date: 08/22/14 23:11:00, Duration: 1 doses or times, Stop date: 08/22/14 23:11:00 Morphine 2013-10 No 4 mg, Memoria 1-21 Route: l 05:08: IVP, Drug [place] 00 form: INJ, ONCE, Dosing Weight 118.182, kg, Priority: STAT, Start date: 08/22/14 23:08:00, Stop date: 08/22/14 23:08:00 Morphine 2013- No 4 mg, Memoria 1- Route: l 05:08: IVP, Drug [place] 00 form: INJ, ONCE, Dosing Weight 118.182, kg, Priority: STAT, Start date: 08/22/14 23:08:00, Stop date: 08/22/14 23:08:00 Protonix 2013-10 No Notes: For Mem oria 1-21 IV push l 05:06: reconstitu [place] 00 te with 10 ml 0.9% sodium chloride and push over 2 minutes. (Same as: Protonix) Protonix 2013-10 No Notes: For Mem oria 1-21 IV push l 05:06: reconstitu [place] 00 te with 10 ml 0.9% sodium chloride and push over 2 minutes. (Same as: Protonix) tramadol Yes 50 mg = 1 Ruddy tiffany hydrochlori 7-18 tab, PO, l de 50 MG 04:51: Q4H, for [place] nn Oral Tablet 00 pain, # 30 [Ultram] tab, 0 Refill(s) pantoprazol Yes 40 mg = 1 M emoria e 40 MG 7-18 tab, PO, l Enteric 04:51: Daily, # [place] Coated 00 30 tab, 0 Tablet Refill(s) [Protonix] tramadol Yes 50 mg = 1 Ruddy tiffany hydrochlori 7-18 tab, PO, l de 50 MG 04:51: Q4H, for Chelsey nn Oral Tablet 00 pain, # 30 [Ultram] tab, 0 Refill(s) pantoprazol Yes 40 mg = 1 M emoria e 40 MG 7-18 tab, PO, l Enteric 04:51: Daily, # [place] Coated 00 30 tab, 0 Tablet Refill(s) [Protonix] GI cocktail No 30 mL, Ruddy tiffany 7-18 Route: PO, l 04:47: Dosing [place] 00 Weight 115.909, kg, ONCE, STAT, Start date: 04/18/14 23:47:00, Stop date: 04/18/14 23:47:00 GI cocktail No 30 mL, Ruddy tiffany 7-18 Route: PO, l 04:47: Dosing [place] 00 Weight 115.909, kg, ONCE, STAT, Start date: 04/18/14 23:47:00, Stop date: 04/18/14 23:47:00 Ondansetron No Notes: Ruddy tiffany 7-18 (Same as: l 02:02: Zofran) Morphine No Notes: Memoria 7-18 (Same l 02:02: as:MORPhin [place] 00 e Sulfate) Ondansetron No Notes: Ruddy tiffany 7-18 (Same as: l 02:02: Zofran) [place] Morphine No Notes: Memoria 7-18 (Same l 02:02: as:MORPhin [place] 00 e Sulfate) Immunizations Ordered Filled Immunization Date Status Comments [facility] e Immunization Name Name TDAP (ADACEL) 2019-02-22 Completed University of VACCINE 00:00:00 [facility] TDAP (ADACEL) 2019-02-22 Completed University of VACCINE 00:00:00 [facility] TDAP (ADACEL) 2019-02-22 Completed [facility] VACCINE 00:00:00 [facility] pneumococcal 2014-08-27 Completed [facility] [place] 23-valent vaccine 14:38:00 pneumococcal 2014-08-27 Completed [facility] [place] 23-valent vaccine 14:38:00 influenza virus 2014-08-23 Completed [facility] [place] vaccine, 23:39:00 inactivated influenza virus 2014-08-23 Completed [facility] [place] vaccine, 23:39:00 inactivated Vital Signs Vital Name Observation Time Observation Value Comments Source Body temperature 2022-01-15 18:33:00 [facility] 2022-01-15 18:33:00 172.7 cm [facility] Body weight 2022-01-15 18:33:00 144.244 kg [facility] BMI 2022-01-15 18:33:00 48.35 kg/m2 [facility] Systolic (mm Hg) 2021-04-01 19:54:00 Ruddy rial [place] Diastolic (mm Hg) 2021-04-01 19:54:00 Mem orial [place] Heart Rate 2021-04-01 19:54:00 [facility] [place] Respitory Rate 2021-04-01 19:54:00 Memori al [place] Temperature Oral (F) 2021-04-01 19:54:00 [facility] 2021-04-01 19:54:00 167[facility] Weight 2021-04-01 19:54:00 [facility] [place] BMI Calculated 2021-04-01 19:54:00 Memori al [place] Respitory Rate 2017-12-02 06:21:00 Memori al [place] Heart Rate 2017-12-02 06:21:00 [facility] [place] Systolic (mm Hg) 2017-12-02 06:21:00 Ruddy rial [place] Diastolic (mm Hg) 2017-12-02 06:21:00 Mem orial [place] Temperature Oral (F) 2017-12-02 06:21:00 98.7 F [facility] [place] Systolic (mm Hg) 2017-12-02 03:24:00 Ruddy rial [place] Diastolic (mm Hg) 2017-12-02 03:24:00 Mem orial [place] Heart Rate 2017-12-02 03:24:00 [facility] [place] Respitory Rate 2017-12-02 03:24:00 Memori al [place] BMI Calculated 2017-12-01 23:05:00 Memori al [place] Temperature Oral (F) 2017-12-01 23:05:00 98.8 F [facility] [place] Weight 2017-12-01 23:05:00 [facility] [place] Height 2017-12-01 23:05:00 167.64 cm [facility] [place] Systolic (mm Hg) 2017-12-01 23:05:00 Ruddy rial [place] Diastolic (mm Hg) 2017-12-01 23:05:00 Mem orial [place] Heart Rate 2017-12-01 23:05:00 [facility] [place] Respitory Rate 2017-12-01 23:05:00 Memori al [place] Temperature Oral (F) 2017-11-28 23:40:00 98.4 F [facility] [place] Systolic (mm Hg) 2017-11-28 23:40:00 Ruddy rial [place] Diastolic (mm Hg) 2017-11-28 23:40:00 Mem orial [place] Heart Rate 2017-11-28 23:40:00 [facility] [place] Height 2017-11-28 20:20:00 167.64 cm [facility] Weight 2017-11-28 20:20:00 [facility] BMI Calculated 2017-11-28 20:20:00 [facility] [place] Heart Rate 2017-11-28 20:20:00 [facility] Temperature Oral (F) 2017-11-28 20:20:00 98.9 F [facility] Systolic (mm Hg) 2017-11-28 20:20:00 [facility]dy [facility] [place] Diastolic (mm Hg) 2017-11-28 20:20:00 [facility] [place] Respitory Rate 2017-11-28 20:20:00 [facility] [place] Diastolic (mm Hg) 2014-08-27 17:41:00 [facility] [place] Systolic (mm Hg) 2014-08-27 17:41:00 Ruddy [facility] [place] Heart Rate 2014-08-27 17:41:00 [facility] Temperature Oral (F) 2014-08-27 17:41:00 98.6 F [facility] Respitory Rate 2014-08-27 17:41:00 [facility] Respitory Rate 2014-08-27 14:47:00 [facility] [place] Heart Rate 2014-08-27 13:49:00 [facility] Temperature Oral (F) 2014-08-27 13:49:00 97.6 F [facility] Respitory Rate 2014-08-27 13:49:00 [facility] Systolic (mm Hg) 2014-08-27 13:49:00 [facility]dy [facility] [place] Diastolic (mm Hg) 2014-08-27 13:49:00 [facility] [place] Diastolic (mm Hg) 2014-08-27 10:19:00 [facility] Temperature Oral (F) 2014-08-27 10:19:00 97.7 F [facility] Heart Rate 2014-08-27 10:19:00 [facility] Systolic (mm Hg) 2014-08-27 10:19:00 [facility] [place] Weight 2014-08-23 11:35:00 [facility] BMI Calculated 2014-08-23 11:35:00 [facility] Height 2014-08-23 11:35:00 167.64 cm [facility] BMI Calculated 2014-08-23 01:16:00 [facility] Weight 2014-08-23 01:16:00 [facility] Height 2014-08-23 01:16:00 167.64 cm [facility] Diastolic (mm Hg) 2014-04-19 04:37:00 [facility] Heart Rate 2014-04-19 04:37:00 [facility] Temperature Oral (F) 2014-04-19 04:37:00 98 F [facility] Systolic (mm Hg) 2014-04-19 04:37:00 [facility]dy [facility] [place] Respitory Rate 2014-04-19 04:37:00 [facility] Weight 2014-04-19 01:36:00 [facility] BMI Calculated 2014-04-19 01:36:00 [facility] Height 2014-04-19 01:36:00 167.64 cm [facility] Temperature Oral (F) 2014-04-19 01:36:00 98.3 F [facility] Respitory Rate 2014-04-19 01:36:00 [facility] Heart Rate 2014-04-19 01:36:00 [facility] Diastolic (mm Hg) 2014-04-19 01:36:00 [facility] [place] Systolic (mm Hg) 2014-04-19 01:36:00 [facility] [place] Procedures Procedure Date / Time Performing Clinician Source Performed PATIENT AGREEMENTS AND 2022-01-15 05:01:00 Doctor Unassigned[facility] [place] [facility] Sampling of cervix for 2019-03-03 05:00:00 Rvai Page Papanicolaou smear Cholecystectomy Allan Page section Allan dewitt Encounters Start End Encounter Admission Attending Care Care Encounter Source Date/Time Date/Time Type Type Clinicians Facility Department ID 2022-06-24 Outpatient [facility] [id number] [place] 11:55:21 [id number] [facility] 2022-06-08 Outpatient [facility] [id number] [place] 12:54:59 [id number] [facility] 2022-07-19 2022-07-19 Outpatient [facility] [id number] [place] 09:30:00 09:30:00 [facility] 2022-06-25 2022-06-25 Outpatient [facility] [id number] [place] 09:30:00 09:30:00 [facility] 2022-01-15 2022-01-15 [facility] [id number] Univers 13:30:00 13:49:07 [id number] AT [phone] [address] 2022-01-15 2022-01-15 [facility] [id number] [facility] 13:30:00 13:49:07 MAKENZIE ity of [facility] 2022-01-15 2022-01-15 Orders Doctor ORTIZ [id number] Univers 00:00:00 00:00:00 Only Unassigned, VANNA [id number] ity of [place] [facility] [id number] [facility] [phone] [place] [id number] [place] 2021-04-02 2021-04-03 Between nullFlavo [facility] [id number] Memoria 17:54:01 17:54:01 Visit r Cristal Feldman l Care Leroy Barbosa 2021-04-02 2021-04-03 Between nullFlavo [facility] [id number] Memoria 17:54:01 17:54:01 Visit r Primary 04 l Care Leroy Barbosa 2021-04-02 2021-04-03 Outpatient [facility] MG [id number] 12:54:01 12:54:01 04 2021-04-01 2021-04-02 Between nullFlavo [facility] [id number] Memoria 19:20:13 19:20:13 Visit r Primary 03 l Care Leroy Barbosa 2021-04-01 2021-04-02 Between nullFlavo MG [id number] Memoria 19:20:13 19:20:13 Visit r Primary 03 l Care Leroy Barbosa 2021-04-01 2021-04-02 Outpatient [facility] MG [id number] 14:20:13 14:20:13 03 2021-04-01 2021-04-02 [place] [id number] Memoria 19:30:00 04:59:59 r Primary 00 l Care Leroy Barbosa 2021-04-01 2021-04-02 [place] [id number] Memoria 19:30:00 04:59:59 r Primary 00 l Care Leroy Barbosa 2021-04-01 2021-04-01 Outpatient Ca, [facility] MG [id number] 14:30:00 23:59:59 Marleni R 00 2021-04-01 2021-04-01 Outpatient [facility] IE [id number] Memoria 14:30:00 14:30:00 00 tino Page 2017-12-01 2017-12-02 Emergency nullFlavo [facility] [id number] Memoria 22:46:00 07:07:00 rosi Page [facility] 2017-12-01 2017-12-02 Emergency nullFlavo [facility] [id number] Memoria 22:46:00 07:07:00 rosi Page [facility] 2017-12-01 2017-12-02 Outpatient Feli, SE [facility] [id number] 16:46:00 01:07:00 Olga Rojas 2017-11-28 2017-11-28 Emergency nullFlavo [facility] [id number] Memoria 20:09:00 23:55:00 [place] 00 l [facility] 2017-11-28 2017-11-28 Emergency nullFlavo [facility] [id number] Memoria 20:09:00 23:55:00 [facility] [place] 00 l [facility] 2017-11-28 2017-11-28 Outpatient Chana, AHMETSE [facility] [id number] 14:09:00 17:55:00 Claus 00 2016-03-26 2016-03-27 Outpt Diag nullFlavo [facility] [id number] Memoria 20:08:00 04:59:00 Services r Outpatient 00 l Imaging [facility] 2016-03-26 2016-03-27 Outpt Diag nullFlavo [facility] [id number] Memoria 20:08:00 04:59:00 Services r Outpatient 00 l Imaging [facility] 2016-03-26 2016-03-26 Outpatient [place], [id number]. [id number] 15:08:00 23:59:00 Jazmin Jannie [id number] 2014-08-23 2014-08-27 Inpatient nullFlavo [facility] [id number] Memoria 01:02:00 20:57:00 [facility] [place] 01 l [facility] 2014-08-23 2014-08-27 Inpatient nullFlavo [facility] [id number] Memoria 01:02:00 20:57:00 r [place] 01 l [facility] 2014-08-22 2014-08-27 Outpatient Raman, [id number]. [id number] 19:02:00 14:57:00 Adnan [id number] Yeh [id number] 02 0631-07-18 2014-04-19 EC nullFlavo [facility] [id number] Memoria 01:19:00 05:17:00 Emergency r [place] 00 l [facility] 2014-04-19 2014-04-19 EC nullFlavo [facility] [id number] Memoria 01:19:00 05:17:00 Emergency r [place] 00 l [facility] 2014-04-18 2014-04-19 Outpatient Singh, [id number]. [id number]. [id number] 20:19:00 00:17:00 Elbert Coto [id number] 01 Results Test Description Test Time Test Comments Results Result Comments Source CHEM PANEL 2021-04-01 05:00:00 Test Item Value Reference Range Interpretation Comme nts Glucose Lvl (test code = Glucose Lvl) 85 65-139 [facility]2021-06-30 05:00:00 Test Item Value Reference Range Interpretation Comments BUN (test code = BUN) 11 7-25 [facility]2021-06-30 05:00:00 Test Item Value Reference Range Interpretation Comments Creatinine Lvl (test code = Creatinine 0.88 0.50-1.10 Lvl) [facility]2021-06-30 05:00:00 Test Item Value Reference Range Interpretation Comments eGFR NON-AFR. SPANISH (test code = 89 eGFR NON-AFR. SPANISH) [facility]2021-06-30 05:00:00 Test Item Value Reference Range Interpretation Comments eGFR (test code = eGFR 103 ) [facility]VslokpcIFLPCNMGVT7431-09-34 05:00:00 Test Item Value Reference Range Interpretation Comments MCHC (test code = MCHC) 32.8 32.0-36.0 [facility]stHlodboaROYHUIDDTZ7742-02-61 05:00:00 Test Item Value Reference Range Interpretation Comments RDW (test code = RDW) 14.7 11.0-15.0 [facility]stIkacwjzROJVGFIIEO5055-96-92 05:00:00 Test Item Value Reference Range Interpretation Comments Platelet (test code = Platelet) 225 140-400 [facility] Hill[facility]stXmnqayaGGBMOHVYMY0651-25-40 05:00:00 Test Item Value Reference Range Interpretation Comments MPV (test code = MPV) 9.0 7.5-12.5 [facility] Hill[facility]stOrrnlegDKNCFERQPF0583-24-56 05:00:00 Test Item Value Reference Range Interpretation Comments Neutrophils # (test code = Neutrophils 3295 2983-9798 #) [facility]stXvjuiuzMQUBDZWQYT4615-36-36 05:00:00 Test Item Value Reference Range Interpretation Comments Lymphocytes # (test code = Lymphocytes 0753 335-7773 #) [facility]stHvmmcdkEHGSSRQEYC3984-53-03 05:00:00 Test Item Value Reference Range Interpretation Comments Monocytes # (test code = Monocytes #) 296 200-950 [facility]2021-06-30 05:00:00 Test Item Value Reference Range Interpretation Comments B/C Ratio (test code = B/C NOT APPLICABLE 6-22 Ratio) [facility]stRjfmmtrSPTRNMLPJH4413-62-75 05:00:00 Test Item Value Reference Range Interpretation Comments Eosinophils # (test code = Eosinophils 148 15-500 #) [facility]stShhmemxLQFWRCRDNY0897-34-83 05:00:00 Test Item Value Reference Range Interpretation Comments Basophils # (test code 17 See_Comment [Aut omated message] The = Basophils #) system which generated this result tra nsmitted reference range : <=200. The reference r radha was not used to int erpret this result as normal/abnormal . [facility]stDdxeassHZAJCTWMBN0510-40-85 05:00:00 Test Item Value Reference Range Interpretation Comments Segs (test code = Segs) 57.8 [facility]stLudibuqKZZPXCSYGN1093-30-01 05:00:00 Test Item Value Reference Range Interpretation Comments Lymphocytes (test code = Lymphocytes) 34.1 [facility]stZrpzdbmVABAJIXQCE1852-63-20 05:00:00 Test Item Value Reference Range Interpretation Comments Monocytes (test code = Monocytes) 5.2 [facility]stPkatftvCJDLBWETEY2106-09-45 05:00:00 Test Item Value Reference Range Interpretation Comments Eosinophils (test code = Eosinophils) 2.6 [facility]stSdsdgmdDQXYQNDEOF4208-59-10 05:00:00 Test Item Value Reference Range Interpretation Comments Basophils (test code = Basophils) 0.3 [facility]icsPyyrhjlXIDCXB8337-94-12 05:00:00 Test Item Value Reference Range Interpretation Comments Chol (test code = Chol) 162 [facility]BzocujpSJHICE1923-91-95 05:00:00 Test Item Value Reference Range Interpretation Comments HDL (test code = HDL) 31 [facility] CenterVvfeqpuPLKAML0658-10-10 05:00:00 Test Item Value Reference Range Interpretation Comments Trig (test code = Trig) 113 [facility] [id number] 05:00:00 Test Item Value Reference Range Interpretation Comments Sodium Lvl (test code = Sodium Lvl) 134 135-146 [facility]icsWpwqmvfXQLAGZ0880-82-09 05:00:00 Test Item Value Reference Range Interpretation Comments LDL (Calculated) (test code = LDL 109 (Calculated)) [facility]icsViksnphDNIXNC8439-67-38 05:00:00 Test Item Value Reference Range Interpretation Comments CHD Risk (test code = CHD Risk) 5.2 [facility]icsWjdxochPODLWF5821-95-08 05:00:00 Test Item Value Reference Range Interpretation Comments Non HDL Chol (test code = Non HDL Chol) 131 [facility] [id number] 05:00:00 Test Item Value Reference Range Interpretation Comments Hgb A1C (test code = Hgb A1C) 4.5 [facility]icsTrip[facility] [id number] 05:00:00 Test Item Value Reference Range Interpretation Comments Glucose Lvl (test code = Glucose Lvl) 85 65-139 [facility] [id number] 05:00:00 Test Item Value Reference Range Interpretation Comments BUN (test code = BUN) 11 7-25 [facility] [id number] 05:00:00 Test Item Value Reference Range Interpretation Comments Creatinine Lvl (test code = Creatinine 0.88 0.50-1.10 Lvl) [facility] [id number] 05:00:00 Test Item Value Reference Range Interpretation Comments eGFR NON-AFR. SPANISH (test code = 89 eGFR NON-AFR. SPANISH) [facility] [id number] 05:00:00 Test Item Value Reference Range Interpretation Comments eGFR (test code = eGFR 103 ) [facility] [id number] 05:00:00 Test Item Value Reference Range Interpretation Comments B/C Ratio (test code = B/C NOT APPLICABLE 6-22 Ratio) [facility] [id number] 05:00:00 Test Item Value Reference Range Interpretation Comments Potassium Lvl (test code = Potassium 4.1 3.5-5.3 Lvl) [facility] [id number] 05:00:00 Test Item Value Reference Range Interpretation Comments Sodium Lvl (test code = Sodium Lvl) 134 135-146 [facility] [id number] 05:00:00 Test Item Value Reference Range Interpretation Comments Potassium Lvl (test code = Potassium 4.1 3.5-5.3 Lvl) [facility]2021-06-30 05:00:00 Test Item Value Reference Range Interpretation Comments Chloride Lvl (test code = Chloride Lvl) 98 98-110 [facility]2021-06-30 05:00:00 Test Item Value Reference Range Interpretation Comments CO2 (test code = CO2) 27 20-32 [facility]2021-06-30 05:00:00 Test Item Value Reference Range Interpretation Comments Calcium Lvl (test code = Calcium Lvl) 9.0 8.6-10.2 [facility]2021-06-30 05:00:00 Test Item Value Reference Range Interpretation Comments Total Protein (test code = Total 7.1 6.1-8.1 Protein) [facility]2021-06-30 05:00:00 Test Item Value Reference Range Interpretation Comments Albumin Lvl (test code = Albumin Lvl) 4.2 3.6-5.1 [facility]2021-06-30 05:00:00 Test Item Value Reference Range Interpretation Comments Globulin (test code = Globulin) 2.9 1.9-3.7 [facility]2021-06-30 05:00:00 Test Item Value Reference Range Interpretation Comments A/G Ratio (test code = A/G Ratio) 1.4 1.0-2.5 [facility]2021-06-30 05:00:00 Test Item Value Reference Range Interpretation Comments Bili Total (test code = Bili Total) 0.9 0.2-1.2 [facility]2021-06-30 05:00:00 Test Item Value Reference Range Interpretation Comments Chloride Lvl (test code = Chloride Lvl) 98 98-110 [facility]2021-06-30 05:00:00 Test Item Value Reference Range Interpretation Comments Alk Phos (test code = Alk Phos) 78 31-125 [facility]2021-06-30 05:00:00 Test Item Value Reference Range Interpretation Comments ASPARTATE TRANSAMINASE (test code = 32 10-30 ASPARTATE TRANSAMINASE) [facility]2021-06-30 05:00:00 Test Item Value Reference Range Interpretation Comments ALANINE AMINOTRANSFERASE (test code = 40 6-29 ALANINE AMINOTRANSFERASE) [facility]stXbjzuyfLBQLQQXPTH5098-49-25 05:00:00 Test Item Value Reference Range Interpretation Comments WBC X 10x3 (test code = WBC X 10x3) 5.7 3.8-10.8 [place] 348161-06-30 05:00:00 Test Item Value Reference Range Interpretation Comments RBC X 10x6 (test code = RBC X 10x6) 4.73 3.80-5.10 [id number] 05:00:00 Test Item Value Reference Range Interpretation Comments Hgb (test code = Hgb) 12.0 11.7-15.5 [place] 348161-06-30 05:00:00 Test Item Value Reference Range Interpretation Comments Hct (test code = Hct) 36.6 35.0-45.0 [place] 348161-06-30 05:00:00 Test Item Value Reference Range Interpretation Comments MCV (test code = MCV) 77.4 80.0-100.0 [place] 348161-06-30 05:00:00 Test Item Value Reference Range Interpretation Comments MCH (test code = MCH) 25.4 pg 27.0-33.0 [facility]2021-06-30 05:00:00 Test Item Value Reference Range Interpretation Comments CO2 (test code = CO2) 27 20-32 [facility]2021-06-30 05:00:00 Test Item Value Reference Range Interpretation Comments Calcium Lvl (test code = Calcium Lvl) 9.0 8.6-10.2 [facility]2021-06-30 05:00:00 Test Item Value Reference Range Interpretation Comments Total Protein (test code = Total 7.1 6.1-8.1 Protein) [facility]2021-06-30 05:00:00 Test Item Value Reference Range Interpretation Comments Albumin Lvl (test code = Albumin Lvl) 4.2 3.6-5.1 [place] 168061-06-30 05:00:00 Test Item Value Reference Range Interpretation Comments Globulin (test code = Globulin) 2.9 1.9-3.7 [place] 168061-06-30 05:00:00 Test Item Value Reference Range Interpretation Comments A/G Ratio (test code = A/G Ratio) 1.4 1.0-2.5 [facility]2021-06-30 05:00:00 Test Item Value Reference Range Interpretation Comments Bili Total (test code = Bili Total) 0.9 0.2-1.2 [facility]2021-06-30 05:00:00 Test Item Value Reference Range Interpretation Comments Alk Phos (test code = Alk Phos) 78 31-125 [facility]2021-06-30 05:00:00 Test Item Value Reference Range Interpretation Comments ASPARTATE TRANSAMINASE (test code = 32 10-30 ASPARTATE TRANSAMINASE) [facility]2021-06-30 05:00:00 Test Item Value Reference Range Interpretation Comments ALANINE AMINOTRANSFERASE (test code = 40 6-29 ALANINE AMINOTRANSFERASE) [facility]stQcftdwrDEDJEXSXLN5969-80-13 05:00:00 Test Item Value Reference Range Interpretation Comments WBC X 10x3 (test code = WBC X 10x3) 5.7 3.8-10.8 [facility]stTjhhvrvJFQOKXTXPR1692-57-56 05:00:00 Test Item Value Reference Range Interpretation Comments RBC X 10x6 (test code = RBC X 10x6) 4.73 3.80-5.10 [facility] Hill[facility]stWeoijphYFHFASTWHW8812-84-94 05:00:00 Test Item Value Reference Range Interpretation Comments Hgb (test code = Hgb) 12.0 11.7-15.5 [facility]stLwuxyqxAVKEMLBZNB5677-79-57 05:00:00 Test Item Value Reference Range Interpretation Comments Hct (test code = Hct) 36.6 35.0-45.0 [facility]stMxqvzlhZURZMSFUVI9830-24-57 05:00:00 Test Item Value Reference Range Interpretation Comments MCV (test code = MCV) 77.4 80.0-100.0 [facility]stEgfjhimZPIBNMWQNL3307-49-31 05:00:00 Test Item Value Reference Range Interpretation Comments MCH (test code = MCH) 25.4 pg 27.0-33.0 [facility]stJvtzllgSLYKVPSCUC5903-46-11 05:00:00 Test Item Value Reference Range Interpretation Comments MCHC (test code = MCHC) 32.8 32.0-36.0 [facility]stLgbqyxcLSITZBWDGL0266-49-35 05:00:00 Test Item Value Reference Range Interpretation Comments RDW (test code = RDW) 14.7 11.0-15.0 [facility]stDshkukzBSEWZMDYYR3649-11-39 05:00:00 Test Item Value Reference Range Interpretation Comments Platelet (test code = Platelet) 225 140-400 [facility] HillcrestEnfuinrKLENGJIEYB3180-39-53 05:00:00 Test Item Value Reference Range Interpretation Comments MPV (test code = MPV) 9.0 7.5-12.5 [facility] Hill[facility]stNbdbislOKXINWPEPR3887-01-99 05:00:00 Test Item Value Reference Range Interpretation Comments Neutrophils # (test code = Neutrophils 3295 6209-9062 #) [facility]stNescdvuXXGJRRPIVI5460-58-62 05:00:00 Test Item Value Reference Range Interpretation Comments Lymphocytes # (test code = Lymphocytes 7902 243-8100 #) [facility]stWuzscfuOETCIRHTKV1616-83-44 05:00:00 Test Item Value Reference Range Interpretation Comments Monocytes # (test code = Monocytes #) 296 200-950 [facility] HillcrestZzwbuifYTGILVJSKI8618-64-53 05:00:00 Test Item Value Reference Range Interpretation Comments Eosinophils # (test code = Eosinophils 148 15-500 #) [facility] Hill[facility]stNmvjfknTBZIXAXUKL4040-87-87 05:00:00 Test Item Value Reference Range Interpretation Comments Basophils # (test code 17 See_Comment [Aut omated message] The = Basophils #) system which generated this result tra nsmitted reference range : <=200. The reference r radha was not used to int erpret this result as normal/abnormal . [facility]stIxkhehzKDVLRUCQOM9111-59-90 05:00:00 Test Item Value Reference Range Interpretation Comments Segs (test code = Segs) 57.8 [facility]stLsinzsvLKPNGATWAQ0750-79-87 05:00:00 Test Item Value Reference Range Interpretation Comments Lymphocytes (test code = Lymphocytes) 34.1 [facility]stKrahdghHOVSSCMHII3673-93-71 05:00:00 Test Item Value Reference Range Interpretation Comments Monocytes (test code = Monocytes) 5.2 [facility] Hill[facility]stOweolsoCMLLGSNXFM2064-97-29 05:00:00 Test Item Value Reference Range Interpretation Comments Eosinophils (test code = Eosinophils) 2.6 [facility]stWxklimvPTADBKWUNH3027-60-51 05:00:00 Test Item Value Reference Range Interpretation Comments Basophils (test code = Basophils) 0.3 [facility] CenterKlnsyizYUTZSO7580-41-65 05:00:00 Test Item Value Reference Range Interpretation Comments Chol (test code = Chol) 162 [facility] CenterLiumxyrJPMUDO0773-25-41 05:00:00 Test Item Value Reference Range Interpretation Comments HDL (test code = HDL) 31 [facility]icsSvarcfiROKEJG4331-47-27 05:00:00 Test Item Value Reference Range Interpretation Comments Trig (test code = Trig) 113 [facility]icsQgkueqnBCGJWM6510-60-65 05:00:00 Test Item Value Reference Range Interpretation Comments LDL (Calculated) (test code = LDL 109 (Calculated)) [facility]icsKopyjdhUERZWL2789-15-08 05:00:00 Test Item Value Reference Range Interpretation Comments CHD Risk (test code = CHD Risk) 5.2 [facility]icsIwlkkrxPCOCOV8982-62-79 05:00:00 Test Item Value Reference Range Interpretation Comments Non HDL Chol (test code = Non HDL Chol) 131 [facility] QSQGEKUUL6136-39-34 05:00:00 Test Item Value Reference Range Interpretation Comments Hgb A1C (test code = Hgb A1C) 4.5 [facility] [employer] [id number] 04:52:00 Test Item Value Reference Range Interpretation Comments AGAP (test code = AGAP) 12.9 10.0-20.0 [facility] [employer] [id number] 04:52:00 Test Item Value Reference Range Interpretation Comments Globulin (test code = Globulin) 4.1 2.7-4.2 [facility] [employer] [id number] 04:52:00 Test Item Value Reference Range Interpretation Comments B/C Ratio (test code = B/C Ratio) 11 1 6-25 [facility] [employer] [id number] 04:52:00 Test Item Value Reference Range Interpretation Comments eGFR (test code = eGFR) 76 [facility] [employer] [id number] 04:52:00 Test Item Value Reference Range Interpretation Comments Bili Total (test code = Bili Total) 1.0 0.2-1.3 [facility] [employer]2018-03-02 04:52:00 Test Item Value Reference Range Interpretation Comments Alk Phos (test code = Alk Phos) 75 39-136 [facility] [employer] [id number] 04:52:00 Test Item Value Reference Range Interpretation Comments AST (test code = AST) 62 See_Comment [Auto mated message] The system which ge nerated this result transmit romi reference range : <=37. The reference range was not used to interpr et this result as erma l/abnormal. [facility]2018-03-02 04:52:00 Test Item Value Reference Range Interpretation Comments Total Protein (test code = Total 8.0 6.4-8.4 Protein) [facility]2018-03-02 04:52:00 Test Item Value Reference Range Interpretation Comments Albumin Lvl (test code = Albumin Lvl) 3.9 3.5-5.0 [facility]2018-03-02 04:52:00 Test Item Value Reference Range Interpretation Comments Creatinine Lvl (test code = Creatinine 1.02 0.50-1.40 Lvl) [facility]2018-03-02 04:52:00 Test Item Value Reference Range Interpretation Comments BUN (test code = BUN) 11 7-22 [facility]2018-03-02 04:52:00 Test Item Value Reference Range Interpretation Comments Chloride Lvl (test code = Chloride Lvl) 100 95-109 [facility]2018-03-02 04:52:00 Test Item Value Reference Range Interpretation Comments CO2 (test code = CO2) 26 24-32 [facility]2018-03-02 04:52:00 Test Item Value Reference Range Interpretation Comments Calcium Lvl (test code = Calcium Lvl) 9.2 8.5-10.5 [facility]2018-03-02 04:52:00 Test Item Value Reference Range Interpretation Comments ALT (test code = ALT) 114 See_Comment [Auto mated message] The system which ge nerated this result transmit romi reference range : <=65. The reference range was not used to interpr et this result as erma l/abnormal. [facility]2018-03-02 04:52:00 Test Item Value Reference Range Interpretation Comments Sodium Lvl (test code = Sodium Lvl) 135 135-145 [facility]2018-03-02 04:52:00 Test Item Value Reference Range Interpretation Comments Potassium Lvl (test code = Potassium 3.9 3.5-5.1 Lvl) [facility]2018-03-02 04:52:00 Test Item Value Reference Range Interpretation Comments Glucose Lvl (test code = Glucose Lvl) 81 70-99 [facility]0924[facility]-13 04:52:00 Test Item Value Reference Range Interpretation Comments WBC (test code = WBC) 10.1 3.7-10.4 [facility]stYkjrcehKYWPINROBA3488-36-36 04:52:00 Test Item Value Reference Range Interpretation Comments RBC (test code = RBC) 4.99 4.20-5.40 [facility]stFxofkdwIFUOXOUJEF6566-21-76 04:52:00 Test Item Value Reference Range Interpretation Comments Hgb (test code = Hgb) 13.9 12.0-16.0 [facility]stLintcmkXAJPSINWXY9870-12-41 04:52:00 Test Item Value Reference Range Interpretation Comments MPV (test code = MPV) 7.7 7.4-10.4 [facility]stKpaneyiFAWZOHYGZB8732-41-60 04:52:00 Test Item Value Reference Range Interpretation Comments Hct (test code = Hct) 41.0 36.0-48.0 [facility]stLumkmafQLPTYQTGKT2525-14-75 04:52:00 Test Item Value Reference Range Interpretation Comments MCH (test code = MCH) 27.9 pg 27.0-31.0 [facility]stFbkiiqjOTKJJYYFEN2450-25-99 04:52:00 Test Item Value Reference Range Interpretation Comments MCHC (test code = MCHC) 34.0 32.0-36.0 [facility]stZmvddxuIBRVGVIDOC4630-04-68 04:52:00 Test Item Value Reference Range Interpretation Comments RDW (test code = RDW) 14.0 11.5-14.5 [facility]stXjgtlyzCIBHVMPRHW0380-39-31 04:52:00 Test Item Value Reference Range Interpretation Comments Platelet (test code = Platelet) 320 133-450 [facility]stKfbxaoqWWPNINHLMP8584-13-34 04:52:00 Test Item Value Reference Range Interpretation Comments MCV (test code = MCV) 82.2 80.0-98.0 [facility]stRxyjpibHTZWQIWEVY9538-06-90 04:52:00 Test Item Value Reference Range Interpretation Comments Lymphocytes (test code = Lymphocytes) 33.5 20.0-40.0 [facility]stUjfnmotMTOMSESAVL5153-32-79 04:52:00 Test Item Value Reference Range Interpretation Comments Monocytes (test code = Monocytes) 4.9 2.0-12.0 [facility]stNrayoqyGZQQHEIHDP0692-99-40 04:52:00 Test Item Value Reference Range Interpretation Comments Segs (test code = Segs) 56.5 45.0-75.0 [facility]stEplwrlaSQOTBWWCFJ9348-17-18 04:52:00 Test Item Value Reference Range Interpretation Comments Basophils (test code = 1.0 See_Comment [Aut omated message] The Basophils) system which ge nerated this result tra nsmitted reference range : <=1.0. The reference r radha was not used to int erpret this result as normal/abnormal . [facility]stHyxcgeuRPTFZVDHMF8523-76-67 04:52:00 Test Item Value Reference Range Interpretation Comments Segs-Bands # (test code = Segs-Bands #) 5.7 1.5-8.1 [facility]stEsugtchAYIJIRRHQM4532-52-36 04:52:00 Test Item Value Reference Range Interpretation Comments Lymphocytes # (test code = Lymphocytes 3.4 1.0-5.5 #) [facility]stLdzkwljOGINQUEZYX3159-92-22 04:52:00 Test Item Value Reference Range Interpretation Comments Eosinophils (test code = 4.1 See_Comment [A utomated message] The Eosinophils) system which ge nerated this result tra nsmitted reference range : <=4.0. The reference r radha was not used to int erpret this result as normal/abnormal . [facility]stFdybylvZHRIIAECOV7457-29-30 04:52:00 Test Item Value Reference Range Interpretation Comments Eosinophils # (test code 0.4 See_Comment [A utomated message] The = Eosinophils #) system whic h generated this result tra nsmitted reference range : <=0.5. The reference r radha was not used to int erpret this result as normal/abnormal . [facility]stUnjfgnaRWNRVUIPXY5820-31-85 04:52:00 Test Item Value Reference Range Interpretation Comments Basophils # (test code 0.1 See_Comment [Aut omated message] The = Basophils #) system which generated this result tra nsmitted reference range : <=0.2. The reference r radha was not used to int erpret this result as normal/abnormal . [facility]stZwhgewiXWNFXOWAOP0365-25-79 04:52:00 Test Item Value Reference Range Interpretation Comments Monocytes # (test code 0.5 See_Comment [Aut omated message] The = Monocytes #) system which generated this result tra nsmitted reference range : <=0.8. The reference r radha was not used to int erpret this result as normal/abnormal . [facility] AND [id number] 04:52:00 Test Item Value Reference Range Interpretation Comments UA Urobilinogen (test code = UA <=1.0 mg/dL 0.1-1.0 Urobilinogen) [facility] AND [id number] 04:52:00 Test Item Value Reference Range Interpretation Comments UA Color (test code = UA Color) Ltyellow [facility] AND [id number] 04:52:00 Test Item Value Reference Range Interpretation Comments UA Turbidity (test code = Clear (12/01/17 10:52 UA Turbidity) PM) [facility] AND [id number] 04:52:00 Test Item Value Reference Range Interpretation Comments UA Spec Grav (test code = UA Spec 1.004 1 Grav) [facility] AND [id number] 04:52:00 Test Item Value Reference Range Interpretation Comments UA pH (test code = UA pH) 6.0 1 5.0-8.0 [facility] AND [id number] 04:52:00 Test Item Value Reference Range Interpretation Comments UA Protein (test code = UA Negative mg/dL Protein) [facility] AND [id number] 04:52:00 Test Item Value Reference Range Interpretation Comments UA Bili (test code = Negative *NA*(12/01/17 UA Bili) 10:52 PM) [facility] AND [id number] 04:52:00 Test Item Value Reference Range Interpretation Comments UA Glucose (test code = UA Negative mg/dL Glucose) [facility] AND [id number] 04:52:00 Test Item Value Reference Range Interpretation Comments UA Blood (test code = Negative (12/01/17 10:52 UA Blood) PM) [facility] AND [id number] 04:52:00 Test Item Value Reference Range Interpretation Comments UA Ketones (test code = UA Negative mg/dL Ketones) [facility] AND [id number] 04:52:00 Test Item Value Reference Range Interpretation Comments UA Nitrite (test code Negative (12/01/17 10:52 = UA Nitrite) PM) [facility] AND [id number] 04:52:00 Test Item Value Reference Range Interpretation Comments UA Sq Epi (test code = UA Sq Occasional /LPF Epi) [facility] AND [id number] 04:52:00 Test Item Value Reference Range Interpretation Comments UA Leuk Est (test code Trace *ABN*(12/01/17 = UA Leuk Est) 10:52 PM) [facility] AND [id number] 04:52:00 Test Item Value Reference Range Interpretation Comments UA RBC (test code = 2 See_Comment [Automa romi message] The UA RBC) system which ge nerated this result transmit romi reference range : <=2. The reference range was not used to interpr et this result as erma l/abnormal. [facility] AND [id number] 04:52:00 Test Item Value Reference Range Interpretation Comments UA WBC (test code = 1 See_Comment [Automa romi message] The UA WBC) system which ge nerated this result transmit romi reference range : <=5. The reference range was not used to interpr et this result as erma l/abnormal. [facility] [employer] [id number] 04:52:00 Test Item Value Reference Range Interpretation Comments A/G Ratio (test code = A/G Ratio) 1.0 1 0[facility]7-1.6 [facility] [id number] 04:52:00 Test Item Value Reference Range Interpretation Comments AGAP (test code = AGAP) 12.9 10.0-20.0 [facility] [id number] 04:52:00 Test Item Value Reference Range Interpretation Comments Globulin (test code = Globulin) 4.1 2.7-4.2 [facility] [id number] 04:52:00 Test Item Value Reference Range Interpretation Comments B/C Ratio (test code = B/C Ratio) 11 1 6-25 [facility] [id number] 04:52:00 Test Item Value Reference Range Interpretation Comments eGFR (test code = eGFR) 76 [facility]ics[facility] [id number] 04:52:00 Test Item Value Reference Range Interpretation Comments Bili Total (test code = Bili Total) 1.0 0.2-1.3 [facility] [id number] 04:52:00 Test Item Value Reference Range Interpretation Comments Alk Phos (test code = Alk Phos) 75 39-136 [facility]2018-03-02 04:52:00 Test Item Value Reference Range Interpretation Comments AST (test code = AST) 62 See_Comment [Auto mated message] The system which ge nerated this result transmit romi reference range : <=37. The reference range was not used to interpr et this result as erma l/abnormal. [facility]2018-03-02 04:52:00 Test Item Value Reference Range Interpretation Comments Total Protein (test code = Total 8.0 6.4-8.4 Protein) [facility]2018-03-02 04:52:00 Test Item Value Reference Range Interpretation Comments Albumin Lvl (test code = Albumin Lvl) 3.9 3.5-5.0 [facility]2018-03-02 04:52:00 Test Item Value Reference Range Interpretation Comments Creatinine Lvl (test code = Creatinine 1.02 0.50-1.40 Lvl) [facility]2018-03-02 04:52:00 Test Item Value Reference Range Interpretation Comments BUN (test code = BUN) 11 7-22 [facility]2018-03-02 04:52:00 Test Item Value Reference Range Interpretation Comments Chloride Lvl (test code = Chloride Lvl) 100 95-109 [facility]2018-03-02 04:52:00 Test Item Value Reference Range Interpretation Comments CO2 (test code = CO2) 26 24-32 [facility]2018-03-02 04:52:00 Test Item Value Reference Range Interpretation Comments Calcium Lvl (test code = Calcium Lvl) 9.2 8.5-10.5 [facility]2018-03-02 04:52:00 Test Item Value Reference Range Interpretation Comments ALT (test code = ALT) 114 See_Comment [Auto mated message] The system which ge nerated this result transmit romi reference range : <=65. The reference range was not used to interpr et this result as erma l/abnormal. [facility]2018-03-02 04:52:00 Test Item Value Reference Range Interpretation Comments Sodium Lvl (test code = Sodium Lvl) 135 135-145 [facility]2018-03-02 04:52:00 Test Item Value Reference Range Interpretation Comments Potassium Lvl (test code = Potassium 3.9 3.5-5.1 Lvl) [facility]2018-03-02 04:52:00 Test Item Value Reference Range Interpretation Comments Glucose Lvl (test code = Glucose Lvl) 81 70-99 [facility]stGwwgzgvTXSNRKHTAL8472-12-79 04:52:00 Test Item Value Reference Range Interpretation Comments WBC (test code = WBC) 10.1 3.7-10.4 [facility]stGtaecqfXWFYLMVDPA7017-02-11 04:52:00 Test Item Value Reference Range Interpretation Comments RBC (test code = RBC) 4.99 4.20-5.40 [facility]stMrbgwyqCBSECPLSPB9080-54-61 04:52:00 Test Item Value Reference Range Interpretation Comments Hgb (test code = Hgb) 13.9 12.0-16.0 [id number] 04:52:00 Test Item Value Reference Range Interpretation Comments MPV (test code = MPV) 7.7 7.4-10.4 [facility]stEcpmefwCSAUETMHJC6645-94-24 04:52:00 Test Item Value Reference Range Interpretation Comments Hct (test code = Hct) 41.0 36.0-48.0 [facility]stYfyklqqHFMCZIAHMC3867-33-26 04:52:00 Test Item Value Reference Range Interpretation Comments MCH (test code = MCH) 27.9 pg 27.0-31.0 [facility]stXolydtrGALFBQZWJX4543-55-73 04:52:00 Test Item Value Reference Range Interpretation Comments MCHC (test code = MCHC) 34.0 32.0-36.0 [id number] 04:52:00 Test Item Value Reference Range Interpretation Comments RDW (test code = RDW) 14.0 11.5-14.5 [facility]stHimkxutAGHZXXAFFB3928-95-23 04:52:00 Test Item Value Reference Range Interpretation Comments Platelet (test code = Platelet) 320 133-450 [id number] 04:52:00 Test Item Value Reference Range Interpretation Comments MCV (test code = MCV) 82.2 80.0-98.0 [facility]stYupotavFGOUJXJNOR6259-18-51 04:52:00 Test Item Value Reference Range Interpretation Comments Lymphocytes (test code = Lymphocytes) 33.5 20.0-40.0 [facility]stKcghkziWKCHLKMTFV0463-29-32 04:52:00 Test Item Value Reference Range Interpretation Comments Monocytes (test code = Monocytes) 4.9 2.0-12.0 [facility]stYmgwjruNBKBFVEYJN6851-67-44 04:52:00 Test Item Value Reference Range Interpretation Comments Segs (test code = Segs) 56.5 45.0-75.0 [facility]stHmethglPSTECRADZR4663-43-56 04:52:00 Test Item Value Reference Range Interpretation Comments Basophils (test code = 1.0 See_Comment [Aut omated message] The Basophils) system which ge nerated this result tra nsmitted reference range : <=1.0. The reference r radha was not used to int erpret this result as normal/abnormal . [id number] 04:52:00 Test Item Value Reference Range Interpretation Comments Segs-Bands # (test code = Segs-Bands #) 5.7 1.5-8.1 [id number] 04:52:00 Test Item Value Reference Range Interpretation Comments Lymphocytes # (test code = Lymphocytes 3.4 1.0-5.5 #) [id number] 04:52:00 Test Item Value Reference Range Interpretation Comments Eosinophils (test code = 4.1 See_Comment [A utomated message] The Eosinophils) system which ge nerated this result tra nsmitted reference range : <=4.0. The reference r radha was not used to int erpret this result as normal/abnormal . [id number] 04:52:00 Test Item Value Reference Range Interpretation Comments Eosinophils # (test code 0.4 See_Comment [A utomated message] The = Eosinophils #) system whic h generated this result tra nsmitted reference range : <=0.5. The reference r radha was not used to int erpret this result as normal/abnormal . [facility]stCbpumwzYMEQFXEJRT9469-47-29 04:52:00 Test Item Value Reference Range Interpretation Comments Basophils # (test code 0.1 See_Comment [Aut omated message] The = Basophils #) system which generated this result tra nsmitted reference range : <=0.2. The reference r radha was not used to int erpret this result as normal/abnormal . [id number] 04:52:00 Test Item Value Reference Range Interpretation Comments Monocytes # (test code 0.5 See_Comment [Aut omated message] The = Monocytes #) system which generated this result tra nsmitted reference range : <=0.8. The reference r radha was not used to int erpret this result as normal/abnormal . [facility] AND [id number] 04:52:00 Test Item Value Reference Range Interpretation Comments UA Urobilinogen (test code = UA <=1.0 mg/dL 0.1-1.0 Urobilinogen) [facility] AND [id number] 04:52:00 Test Item Value Reference Range Interpretation Comments UA Color (test code = UA Color) Ltyellow [facility] AND [id number] 04:52:00 Test Item Value Reference Range Interpretation Comments UA Turbidity (test code = Clear (12/01/17 10:52 UA Turbidity) PM) [facility] AND [id number] 04:52:00 Test Item Value Reference Range Interpretation Comments UA Spec Grav (test code = UA Spec 1.004 1 Grav) [facility] AND [id number] 04:52:00 Test Item Value Reference Range Interpretation Comments UA pH (test code = UA pH) 6.0 1 5.0-8.0 [facility] AND [id number] 04:52:00 Test Item Value Reference Range Interpretation Comments UA Protein (test code = UA Negative mg/dL Protein) [facility] AND [id number] 04:52:00 Test Item Value Reference Range Interpretation Comments UA Bili (test code = Negative *NA*(12/01/17 UA Bili) 10:52 PM) [facility] AND [id number] 04:52:00 Test Item Value Reference Range Interpretation Comments UA Glucose (test code = UA Negative mg/dL Glucose) [facility] AND [id number] 04:52:00 Test Item Value Reference Range Interpretation Comments UA Blood (test code = Negative (12/01/17 10:52 UA Blood) PM) [facility] AND [id number] 04:52:00 Test Item Value Reference Range Interpretation Comments UA Ketones (test code = UA Negative mg/dL Ketones) [facility] AND [id number] 04:52:00 Test Item Value Reference Range Interpretation Comments UA Nitrite (test code Negative (12/01/17 10:52 = UA Nitrite) PM) [facility] AND [id number] 04:52:00 Test Item Value Reference Range Interpretation Comments UA Sq Epi (test code = UA Sq Occasional /LPF Epi) [facility] AND [id number] 04:52:00 Test Item Value Reference Range Interpretation Comments UA Leuk Est (test code Trace *ABN*(12/01/17 = UA Leuk Est) 10:52 PM) [facility] AND [id number] 04:52:00 Test Item Value Reference Range Interpretation Comments UA RBC (test code = 2 See_Comment [Automa romi message] The UA RBC) system which ge nerated this result transmit romi reference range : <=2. The reference range was not used to interpr et this result as erma l/abnormal. [facility] AND [id number] 04:52:00 Test Item Value Reference Range Interpretation Comments UA WBC (test code = 1 See_Comment [Automa romi message] The UA WBC) system which ge nerated this result transmit romi reference range : <=5. The reference range was not used to interpr et this result as erma l/abnormal. [facility]icsCHEM [id number] 04:52:00 Test Item Value Reference Range Interpretation Comments A/G Ratio (test code = A/G Ratio) 1.0 1 0.7-1.6 [id number] 23:53:00 Test Item Value Reference Range Interpretation Comments hCG Tot (test code = hCG Tot) 257 [facility] Cl[id number] 23:53:00 Test Item Value Reference Range Interpretation Comments hCG Tot (test code = hCG Tot) [facility] [id number] 22:44:00 Test Item Value Reference Range Interpretation Comments Source APTIMA (test Endocervix *NA*(11/28/17 code = Source APTIMA) 4:44 PM) [facility] [id number] 22:44:00 Test Item Value Reference Range Interpretation Comments N gonorrhea by Amp Det Negative *NA*(11/28/17 (APTIMA) (test code = N 4:44 PM) gonorrhea by Amp Det (APTIMA)) [facility] [id number] 22:44:00 Test Item Value Reference Range Interpretation Comments C trachomatis by Amp Det Negative *NA*(11/28/17 (APTIMA) (test code = C 4:44 PM) trachomatis by Amp Det (APTIMA)) [facility] [id number] 22:44:00 Test Item Value Reference Range Interpretation Comments Source APTIMA (test Endocervix *NA*(11/28/17 code = Source APTIMA) 4:44 PM) [facility] [id number] 22:44:00 Test Item Value Reference Range Interpretation Comments Source APTIMA (test Endocervix *NA*(11/28/17 code = Source APTIMA) 4:44 PM) [facility] [id number] 22:44:00 Test Item Value Reference Range Interpretation Comments N gonorrhea by Amp Det Negative *NA*(11/28/17 (APTIMA) (test code = N 4:44 PM) gonorrhea by Amp Det (APTIMA)) [facility] [id number] 22:44:00 Test Item Value Reference Range Interpretation Comments C trachomatis by Amp Det Negative *NA*(11/28/17 (APTIMA) (test code = C 4:44 PM) trachomatis by Amp Det (APTIMA)) [facility] [id number] 22:44:00 Test Item Value Reference Range Interpretation Comments Source APTIMA (test Endocervix *NA*(11/28/17 code = Source APTIMA) 4:44 PM) [facility] [id number] 21:18:00 Test Item Value Reference Range Interpretation Comments UA Urobilinogen (test code = UA <=1.0 mg/dL 0.1-1.0 Urobilinogen) [facility] [id number] 21:18:00 Test Item Value Reference Range Interpretation Comments UA Color (test code = UA Color) Red [facility] [id number] 21:18:00 Test Item Value Reference Range Interpretation Comments UA Ketones (test code = UA Negative mg/dL Ketones) [facility] AND [id number] 21:18:00 Test Item Value Reference Range Interpretation Comments UA Bili (test code = Negative *NA*(11/28/17 UA Bili) 3:18 PM) [facility] AND [id number] 21:18:00 Test Item Value Reference Range Interpretation Comments UA Glucose (test code = UA Negative mg/dL Glucose) [facility] AND [id number] 21:18:00 Test Item Value Reference Range Interpretation Comments UA Protein (test code = UA Protein) 100 mg/dL [facility] AND [id number] 21:18:00 Test Item Value Reference Range Interpretation Comments UA pH (test code = UA pH) 6.0 1 5.0-8.0 [facility] AND [id number] 21:18:00 Test Item Value Reference Range Interpretation Comments UA Spec Grav (test code = UA Spec 1.026 1 Grav) [facility] AND [id number] 21:18:00 Test Item Value Reference Range Interpretation Comments UA Blood (test code = Large *ABN*(11/28/17 UA Blood) 3:18 PM) [facility] AND [id number] 21:18:00 Test Item Value Reference Range Interpretation Comments UA Nitrite (test code Negative (11/28/17 3:18 = UA Nitrite) PM) [facility] AND [id number] 21:18:00 Test Item Value Reference Range Interpretation Comments UA CaOx Beth (test code = UA Moderate /HPF CaOx Beth) [facility] AND [id number] 21:18:00 Test Item Value Reference Range Interpretation Comments UA Sq Epi (test code = UA Sq Occasional /LPF Epi) [facility] AND [id number] 21:18:00 Test Item Value Reference Range Interpretation Comments UA RBC (test code = no gt See_Comment [Automa romi message] The UA RBC) system which ge nerated this result transmit romi reference range : <=2. The reference range was not used to interpr et this result as erma l/abnormal. [facility] AND [id number] 21:18:00 Test Item Value Reference Range Interpretation Comments UA Leuk Est (test Negative (11/28/17 3:18 code = UA Leuk Est) PM) [facility] AND [id number] 21:18:00 Test Item Value Reference Range Interpretation Comments UA Turbidity (test code Marked *ABN*(11/28/17 = UA Turbidity) 3:18 PM) [facility] AND [id number] 21:18:00 Test Item Value Reference Range Interpretation Comments UA Urobilinogen (test code = UA <=1.0 mg/dL 0.1-1.0 Urobilinogen) [facility] AND [id number] 21:18:00 Test Item Value Reference Range Interpretation Comments UA Color (test code = UA Color) Red [facility] AND [id number] 21:18:00 Test Item Value Reference Range Interpretation Comments UA Ketones (test code = UA Negative mg/dL Ketones) [facility] AND [id number] 21:18:00 Test Item Value Reference Range Interpretation Comments UA Bili (test code = Negative *NA*(11/28/17 UA Bili) 3:18 PM) [facility] AND [id number] 21:18:00 Test Item Value Reference Range Interpretation Comments UA Glucose (test code = UA Negative mg/dL Glucose) [facility] AND [id number] 21:18:00 Test Item Value Reference Range Interpretation Comments UA Protein (test code = UA Protein) 100 mg/dL [facility] AND [id number] 21:18:00 Test Item Value Reference Range Interpretation Comments UA pH (test code = UA pH) 6.0 1 5.0-8.0 [facility] AND [id number] 21:18:00 Test Item Value Reference Range Interpretation Comments UA Spec Grav (test code = UA Spec 1.026 1 Grav) [facility] AND [id number] 21:18:00 Test Item Value Reference Range Interpretation Comments UA Blood (test code = Large *ABN*(11/28/17 UA Blood) 3:18 PM) [facility] AND [id number] 21:18:00 Test Item Value Reference Range Interpretation Comments UA Nitrite (test code Negative (11/28/17 3:18 = UA Nitrite) PM) [facility] AND [id number] 21:18:00 Test Item Value Reference Range Interpretation Comments UA CaOx Beth (test code = UA Moderate /HPF CaOx Beth) [facility] AND [id number] 21:18:00 Test Item Value Reference Range Interpretation Comments UA Sq Epi (test code = UA Sq Occasional /LPF Epi) [facility] AND [id number] 21:18:00 Test Item Value Reference Range Interpretation Comments UA RBC (test code = no gt See_Comment [Automa romi message] The UA RBC) system which ge nerated this result transmit romi reference range : <=2. The reference range was not used to interpr et this result as erma l/abnormal. [facility] AND [id number] 21:18:00 Test Item Value Reference Range Interpretation Comments UA Leuk Est (test Negative (11/28/17 3:18 code = UA Leuk Est) PM) [facility] AND [id number] 21:18:00 Test Item Value Reference Range Interpretation Comments UA Turbidity (test code Marked *ABN*(11/28/17 = UA Turbidity) 3:18 PM) [facility] [id number] 20:46:00 Test Item Value Reference Range Interpretation Comments ABO/Rh (test code = ABO/Rh) [facility] [id number] 20:46:00 Test Item Value Reference Range Interpretation Comments eGFR (test code = eGFR) 82 [facility] [employer] [id number] 20:46:00 Test Item Value Reference Range Interpretation Comments Calcium Lvl (test code = Calcium Lvl) 9.0 8.5-10.5 [facility] [employer] [id number] 20:46:00 Test Item Value Reference Range Interpretation Comments CO2 (test code = CO2) 28 24-32 [facility] [employer] [id number] 20:46:00 Test Item Value Reference Range Interpretation Comments Creatinine Lvl (test code = Creatinine 0.96 0.50-1.40 Lvl) [facility] [id number] 20:46:00 Test Item Value Reference Range Interpretation Comments Sodium Lvl (test code = Sodium Lvl) 136 135-145 [facility] [employer] [id number] 20:46:00 Test Item Value Reference Range Interpretation Comments Chloride Lvl (test code = Chloride Lvl) 101 95-109 [facility]2018-02-26 20:46:00 Test Item Value Reference Range Interpretation Comments Potassium Lvl (test code = Potassium 3.4 3.5-5.1 Lvl) [facility]2018-02-26 20:46:00 Test Item Value Reference Range Interpretation Comments Glucose Lvl (test code = Glucose Lvl) 107 70-99 [facility]2018-02-26 20:46:00 Test Item Value Reference Range Interpretation Comments BUN (test code = BUN) 10 7-22 [facility]2018-02-26 20:46:00 Test Item Value Reference Range Interpretation Comments AGAP (test code = AGAP) 10.4 10.0-20.0 [place] [id number] 20:46:00 Test Item Value Reference Range Interpretation Comments hCG Tot (test code = hCG Tot) 59 [id number] 20:46:00 Test Item Value Reference Range Interpretation Comments Segs-Bands # (test code = Segs-Bands #) 5.4 1.5-8.1 [facility]stFnumuqdBSTAIDBQKZ8888-46-26 20:46:00 Test Item Value Reference Range Interpretation Comments Basophils (test code = 0.7 See_Comment [Aut omated message] The Basophils) system which ge nerated this result tra nsmitted reference range : <=1.0. The reference r radha was not used to int erpret this result as normal/abnormal . [facility]stFyrjcuiVKYSEWHNBU5024-23-93 20:46:00 Test Item Value Reference Range Interpretation Comments Lymphocytes # (test code = Lymphocytes 2.1 1.0-5.5 #) [id number] 20:46:00 Test Item Value Reference Range Interpretation Comments Monocytes # (test code 0.2 See_Comment [Aut omated message] The = Monocytes #) system which generated this result tra nsmitted reference range : <=0.8. The reference r radha was not used to int erpret this result as normal/abnormal . [facility]stOkxgdsyUPMUOGWVRL2957-89-17 20:46:00 Test Item Value Reference Range Interpretation Comments Basophils # (test code 0.1 See_Comment [Aut omated message] The = Basophils #) system which generated this result tra nsmitted reference range : <=0.2. The reference r radha was not used to int erpret this result as normal/abnormal . [id number] 20:46:00 Test Item Value Reference Range Interpretation Comments Eosinophils # (test code 0.3 See_Comment [A utomated message] The = Eosinophils #) system whic h generated this result tra nsmitted reference range : <=0.5. The reference r radha was not used to int erpret this result as normal/abnormal . [facility]stMpbkseyCNNSZBVXGU8386-06-50 20:46:00 Test Item Value Reference Range Interpretation Comments Segs (test code = Segs) 66.5 45.0-75.0 [facility]stXanncqxIIWUMFOWWI9690-18-37 20:46:00 Test Item Value Reference Range Interpretation Comments Lymphocytes (test code = Lymphocytes) 25.9 20.0-40.0 [facility]stWakpvjeAULINTTBXZ9896-10-72 20:46:00 Test Item Value Reference Range Interpretation Comments Eosinophils (test code = 3.9 See_Comment [A utomated message] The Eosinophils) system which ge nerated this result tra nsmitted reference range : <=4.0. The reference r radha was not used to int erpret this result as normal/abnormal . [facility]stAemansjFURDEOPCAM8612-42-06 20:46:00 Test Item Value Reference Range Interpretation Comments Monocytes (test code = Monocytes) 3.0 2.0-12.0 [facility]stRnbobsbNVOZHQQHPC4466-90-01 20:46:00 Test Item Value Reference Range Interpretation Comments Platelet (test code = Platelet) 293 133-450 [id number] 20:46:00 Test Item Value Reference Range Interpretation Comments RDW (test code = RDW) 14.3 11.5-14.5 [facility]stCvcxyjrYEXVSWVWFR2996-29-10 20:46:00 Test Item Value Reference Range Interpretation Comments MPV (test code = MPV) 7.7 7.4-10.4 [facility]stLfmwqbzZBKQDXGLBL0272-39-64 20:46:00 Test Item Value Reference Range Interpretation Comments Hct (test code = Hct) 42.0 36.0-48.0 [facility]icsKqunkszFVAJDVVIEM8491-45-33 20:46:00 Test Item Value Reference Range Interpretation Comments Hgb (test code = Hgb) 14.3 12.0-16.0 [facility]stTdnxdlmJIPMMTCMJM8985-17-16 20:46:00 Test Item Value Reference Range Interpretation Comments WBC (test code = WBC) 8.1 3.7-10.4 [facility]stZgdkufxAPBHEBGZFW2041-29-53 20:46:00 Test Item Value Reference Range Interpretation Comments RBC (test code = RBC) 5.07 4.20-5.40 [facility]stCqsnynjUXPPJUBHAY9797-89-53 20:46:00 Test Item Value Reference Range Interpretation Comments MCH (test code = MCH) 28.2 pg 27.0-31.0 [facility]stAwcmxjyPRAIETHYEE2899-09-03 20:46:00 Test Item Value Reference Range Interpretation Comments MCV (test code = MCV) 82.8 80.0-98.0 [facility]stEhcojpkZGGRPMOOBO1363-20-45 20:46:00 Test Item Value Reference Range Interpretation Comments MCHC (test code = MCHC) 34.1 32.0-36.0 [facility] [id number] 20:46:00 Test Item Value Reference Range Interpretation Comments ABO/Rh (test code = ABO/Rh) A POS [facility] [employer] [id number] 20:46:00 Test Item Value Reference Range Interpretation Comments eGFR (test code = eGFR) 82 [facility] [id number] 20:46:00 Test Item Value Reference Range Interpretation Comments Calcium Lvl (test code = Calcium Lvl) 9.0 8.5-10.5 [facility] [id number] 20:46:00 Test Item Value Reference Range Interpretation Comments CO2 (test code = CO2) 28 24-32 [facility] [id number] 20:46:00 Test Item Value Reference Range Interpretation Comments Creatinine Lvl (test code = Creatinine 0.96 0.50-1.40 Lvl) [facility] [id number] 20:46:00 Test Item Value Reference Range Interpretation Comments Sodium Lvl (test code = Sodium Lvl) 136 135-145 [facility] [id number] 20:46:00 Test Item Value Reference Range Interpretation Comments Chloride Lvl (test code = Chloride Lvl) 101 95-109 [facility]2018-02-26 20:46:00 Test Item Value Reference Range Interpretation Comments Potassium Lvl (test code = Potassium 3.4 3.5-5.1 Lvl) [facility]2018-02-26 20:46:00 Test Item Value Reference Range Interpretation Comments Glucose Lvl (test code = Glucose Lvl) 107 70-99 [facility]2018-02-26 20:46:00 Test Item Value Reference Range Interpretation Comments BUN (test code = BUN) 10 7-22 [facility]2018-02-26 20:46:00 Test Item Value Reference Range Interpretation Comments AGAP (test code = AGAP) 10.4 10.0-20.0 [facility]RcffaibPEJHOAPVMTBIU4322-64-11 20:46:00 Test Item Value Reference Range Interpretation Comments hCG Tot (test code = hCG Tot) 59 [facility]stWizqjxfYIOMNAICEF5951-55-24 20:46:00 Test Item Value Reference Range Interpretation Comments Segs-Bands # (test code = Segs-Bands #) 5.4 1.5-8.1 [facility]stHnrudhwETULAGMMCF2220-90-88 20:46:00 Test Item Value Reference Range Interpretation Comments Basophils (test code = 0.7 See_Comment [Aut omated message] The Basophils) system which ge nerated this result tra nsmitted reference range : <=1.0. The reference r radha was not used to int erpret this result as normal/abnormal . [facility]stZftxzquJRBDFIRUQT9243-45-67 20:46:00 Test Item Value Reference Range Interpretation Comments Lymphocytes # (test code = Lymphocytes 2.1 1.0-5.5 #) [facility]stIktaclzVZXSQGAWXC6678-98-11 20:46:00 Test Item Value Reference Range Interpretation Comments Monocytes # (test code 0.2 See_Comment [Aut omated message] The = Monocytes #) system which generated this result tra nsmitted reference range : <=0.8. The reference r radha was not used to int erpret this result as normal/abnormal . [facility]stYsboximUXITCYASRJ7303-95-44 20:46:00 Test Item Value Reference Range Interpretation Comments Basophils # (test code 0.1 See_Comment [Aut omated message] The = Basophils #) system which generated this result tra nsmitted reference range : <=0.2. The reference r radha was not used to int erpret this result as normal/abnormal . [facility]stFpyghxyRUAVLKMLTK4517-73-09 20:46:00 Test Item Value Reference Range Interpretation Comments Eosinophils # (test code 0.3 See_Comment [A utomated message] The = Eosinophils #) system whic h generated this result tra nsmitted reference range : <=0.5. The reference r radha was not used to int erpret this result as normal/abnormal . [facility]stZkockrsINKRXPVZMM3199-30-86 20:46:00 Test Item Value Reference Range Interpretation Comments Segs (test code = Segs) 66.5 45.0-75.0 [facility]stMiyjzbuAKGXCLQASX4203-33-18 20:46:00 Test Item Value Reference Range Interpretation Comments Lymphocytes (test code = Lymphocytes) 25.9 20.0-40.0 [facility]stFbowwalCBYFIDNLPX6175-21-41 20:46:00 Test Item Value Reference Range Interpretation Comments Eosinophils (test code = 3.9 See_Comment [A utomated message] The Eosinophils) system which ge nerated this result tra nsmitted reference range : <=4.0. The reference r radha was not used to int erpret this result as normal/abnormal . [facility]stIofiwwfDAYSWIJSOG7497-90-13 20:46:00 Test Item Value Reference Range Interpretation Comments Monocytes (test code = Monocytes) 3.0 2.0-12.0 [facility]stJmiswxhQITTTSTNEY7648-23-86 20:46:00 Test Item Value Reference Range Interpretation Comments Platelet (test code = Platelet) 293 133-450 [facility]stFgkwiblJMPXGILKNM6113-44-98 20:46:00 Test Item Value Reference Range Interpretation Comments RDW (test code = RDW) 14.3 11.5-14.5 [facility]stBnyvbdpCCGHJCHEQU9204-44-66 20:46:00 Test Item Value Reference Range Interpretation Comments MPV (test code = MPV) 7.7 7.4-10.4 [facility]stTgbguzkCRLYGQJKEZ5579-05-19 20:46:00 Test Item Value Reference Range Interpretation Comments Hct (test code = Hct) 42.0 36.0-48.0 [facility]stUftopnyDYWYQQRUGP8501-70-72 20:46:00 Test Item Value Reference Range Interpretation Comments Hgb (test code = Hgb) 14.3 12.0-16.0 [facility]stXoavcfvITBCJKNXCP8143-04-09 20:46:00 Test Item Value Reference Range Interpretation Comments WBC (test code = WBC) 8.1 3.7-10.4 [facility]stEpqjfvgVZVXEQSXGZ7142-83-54 20:46:00 Test Item Value Reference Range Interpretation Comments RBC (test code = RBC) 5.07 4.20-5.40 [facility]stJlxjzlxSADJXHDYWS6779-32-71 20:46:00 Test Item Value Reference Range Interpretation Comments MCH (test code = MCH) 28.2 pg 27.0-31.0 [facility]stLhntmuiXULUTVVAZM6223-13-08 20:46:00 Test Item Value Reference Range Interpretation Comments MCV (test code = MCV) 82.8 80.0-98.0 [facility]stYkyqtrnXLRYEGUMED7540-05-98 20:46:00 Test Item Value Reference Range Interpretation Comments MCHC (test code = MCHC) 34.1 32.0-36.0 [facility] SurgeryKxhxttnRAKKBQWOOQDU5723-93-21 10:15:00 Test Item Value Reference Range Interpretation Comments AGAP (test code = AGAP) 21.7 10.0-20.0 [facility] SurgeryIvdmdncXUODEBOKMNUW5591-35-03 10:15:00 Test Item Value Reference Range Interpretation Comments eGFR (test code = eGFR) 90 [facility] SurgeryXgoiebmGBWZPXNMYCAO0189-18-99 10:15:00 Test Item Value Reference Range Interpretation Comments Calcium Lvl (test code = Calcium Lvl) 8.9 8.5-10.5 [facility] SurgeryBrwuzmxSLJGCWAVMGWH5120-82-55 10:15:00 Test Item Value Reference Range Interpretation Comments Chloride Lvl (test code = Chloride Lvl) 105 95-109 [facility] SurgeryEfyajviQVURYVLAGBJY2985-31-96 10:15:00 Test Item Value Reference Range Interpretation Comments CO2 (test code = CO2) 15 24-32 [facility] SurgeryMfcyyqaTOSPCYKHQHJJ7031-46-66 10:15:00 Test Item Value Reference Range Interpretation Comments Sodium Lvl (test code = Sodium Lvl) 137 135-145 [facility] SurgeryBmmedlwHNPDMHVVYIHA6969-68-30 10:15:00 Test Item Value Reference Range Interpretation Comments BUN (test code = BUN) 7 7-22 [facility] SurgeryYqwldglSNHYSBMOLVIT2813-37-37 10:15:00 Test Item Value Reference Range Interpretation Comments Potassium Lvl (test code = Potassium 4.7 3.5-5.1 Lvl) [facility] SurgeryOblfndaCNSHPNHEEDWB4792-22-03 10:15:00 Test Item Value Reference Range Interpretation Comments Creatinine Lvl (test code = Creatinine 0.9 0.5-1.4 Lvl) [facility] SurgeryVhttiazONYGIOGOUXWM0334-53-38 10:15:00 Test Item Value Reference Range Interpretation Comments Glucose Lvl (test code = Glucose Lvl) 86 70-99 [facility]stVymnstbNEWSXDQJZC2670-60-00 10:15:00 Test Item Value Reference Range Interpretation Comments Platelet (test code = Platelet) 215 133-450 [facility]stDpsprrxBOHQIQMHHA9759-72-02 10:15:00 Test Item Value Reference Range Interpretation Comments MPV (test code = MPV) 8.4 7.4-10.4 [facility]stHssguhfMUXYYOXWSG9629-67-63 10:15:00 Test Item Value Reference Range Interpretation Comments MCHC (test code = MCHC) 36.0 32.0-36.0 [facility]stXypbsltHUTJORTTHN7079-18-08 10:15:00 Test Item Value Reference Range Interpretation Comments RDW (test code = RDW) 15.8 11.5-14.5 [facility]stSbuwoykAXLFPFNZOK8564-58-64 10:15:00 Test Item Value Reference Range Interpretation Comments MCV (test code = MCV) 98.7 80.0-98.0 [facility]stQyxjrfwXNCRVSDLCM7645-33-69 10:15:00 Test Item Value Reference Range Interpretation Comments MCH (test code = MCH) 35.5 pg 27.0-31.0 [facility]stPcxljqwMNVFVMLCTY8869-58-80 10:15:00 Test Item Value Reference Range Interpretation Comments Hct (test code = Hct) 33.8 36.0-48.0 [facility]stGqdpddoRMYPOXVYIJ6899-61-48 10:15:00 Test Item Value Reference Range Interpretation Comments Hgb (test code = Hgb) 12.1 12.0-16.0 [facility]stBdgsdcpUSQMWSGEDF4576-78-18 10:15:00 Test Item Value Reference Range Interpretation Comments WBC (test code = WBC) 9.4 3.7-10.4 [facility]stAellfhmPUIUVNGNJU7467-89-41 10:15:00 Test Item Value Reference Range Interpretation Comments RBC (test code = RBC) 3.42 4.20-5.40 [facility]stUmhfczyXTEBLMFHJU7577-43-74 10:15:00 Test Item Value Reference Range Interpretation Comments Segs-Bands # (test code = Segs-Bands #) 8.6 1.5-8.1 [facility]stUbzevtxWQZYHRLUWO5519-99-07 10:15:00 Test Item Value Reference Range Interpretation Comments Basophils (test code = 0.2 See_Comment [Aut omated message] The Basophils) system which ge nerated this result tra nsmitted reference range : <=1.0. The reference r radha was not used to int erpret this result as normal/abnormal . [facility]stAdklxnhFWHDYDLBXP8070-60-62 10:15:00 Test Item Value Reference Range Interpretation Comments Monocytes # (test code 0.2 See_Comment [Aut omated message] The = Monocytes #) system which generated this result tra nsmitted reference range : <=0.8. The reference r radha was not used to int erpret this result as normal/abnormal . [facility]stXbalbquBNWYHOMSFB2384-28-09 10:15:00 Test Item Value Reference Range Interpretation Comments Lymphocytes # (test code = Lymphocytes 0.6 1.0-5.5 #) [facility]stYybbgsdKNTLAZVDJY8281-26-38 10:15:00 Test Item Value Reference Range Interpretation Comments Lymphocytes (test code = Lymphocytes) 6.5 20.0-40.0 [facility]stGxnfblvLMQCNKUXXG9389-50-94 10:15:00 Test Item Value Reference Range Interpretation Comments Segs (test code = Segs) 90.8 45.0-75.0 [facility]stCwrgwayCAZHEAZGFW1382-67-03 10:15:00 Test Item Value Reference Range Interpretation Comments Eosinophils (test code = 0.1 See_Comment [A utomated message] The Eosinophils) system which ge nerated this result tra nsmitted reference range : <=4.0. The reference r radha was not used to int erpret this result as normal/abnormal . [facility]stKrrvcoaTAUADYXVOS7352-28-07 10:15:00 Test Item Value Reference Range Interpretation Comments Monocytes (test code = Monocytes) 2.4 2.0-12.0 [facility]anoUacobanTUWJRVYARPJW4660-18-99 10:15:00 Test Item Value Reference Range Interpretation Comments AGAP (test code = AGAP) 21.7 10.0-20.0 [facility] SurgeryPusqldnXZDNAYGDKHMS4062-50-68 10:15:00 Test Item Value Reference Range Interpretation Comments eGFR (test code = eGFR) 90 [facility] SurgeryCyvqfiqEROFHJMXGSFS7528-82-86 10:15:00 Test Item Value Reference Range Interpretation Comments Calcium Lvl (test code = Calcium Lvl) 8.9 8.5-10.5 [facility] SurgeryOcastnpYMWBXCZABQYL7170-32-00 10:15:00 Test Item Value Reference Range Interpretation Comments Chloride Lvl (test code = Chloride Lvl) 105 95-109 [facility] SurgeryXbxdnobZFOOIPZIOBRI8422-47-10 10:15:00 Test Item Value Reference Range Interpretation Comments CO2 (test code = CO2) 15 24-32 [facility] SurgeryBigawrxENARMIVQBKHJ5244-89-57 10:15:00 Test Item Value Reference Range Interpretation Comments Sodium Lvl (test code = Sodium Lvl) 137 135-145 [facility] SurgeryXiohuelBGBIXYPEBVUQ4646-85-71 10:15:00 Test Item Value Reference Range Interpretation Comments BUN (test code = BUN) 7 7-22 [facility] SurgeryClrrgoeIERDRYWQBLZR3214-38-01 10:15:00 Test Item Value Reference Range Interpretation Comments Potassium Lvl (test code = Potassium 4.7 3.5-5.1 Lvl) [facility] SurgeryElralwnJSAABCUUVCKJ0660-96-25 10:15:00 Test Item Value Reference Range Interpretation Comments Creatinine Lvl (test code = Creatinine 0.9 0.5-1.4 Lvl) [facility] SurgeryNnrovhyCYUYTFIEVLDR8396-30-26 10:15:00 Test Item Value Reference Range Interpretation Comments Glucose Lvl (test code = Glucose Lvl) 86 70-99 [facility]stLjnwlueQEHDCRVVSK8198-26-13 10:15:00 Test Item Value Reference Range Interpretation Comments Platelet (test code = Platelet) 215 133-450 [facility]stPpjsdzzZXJKRDHOVS1646-76-50 10:15:00 Test Item Value Reference Range Interpretation Comments MPV (test code = MPV) 8.4 7.4-10.4 [facility]stRywivmeBGDKLGVUWZ4459-33-34 10:15:00 Test Item Value Reference Range Interpretation Comments MCHC (test code = MCHC) 36.0 32.0-36.0 [facility]stYcpukcoHEOHNWOPCU5713-86-51 10:15:00 Test Item Value Reference Range Interpretation Comments RDW (test code = RDW) 15.8 11.5-14.5 [facility]stJbhrvurPERHZMSDDY2388-70-48 10:15:00 Test Item Value Reference Range Interpretation Comments MCV (test code = MCV) 98.7 80.0-98.0 [facility]stGlmfmqvNZZWSRBGMF8075-19-27 10:15:00 Test Item Value Reference Range Interpretation Comments MCH (test code = MCH) 35.5 pg 27.0-31.0 [facility]stIunprseLZGUHZJCRO9974-26-49 10:15:00 Test Item Value Reference Range Interpretation Comments Hct (test code = Hct) 33.8 36.0-48.0 [facility]stExvumerGIILBUGZMB2550-90-23 10:15:00 Test Item Value Reference Range Interpretation Comments Hgb (test code = Hgb) 12.1 12.0-16.0 [facility]stUceojusUUZJDUXXVF3659-77-45 10:15:00 Test Item Value Reference Range Interpretation Comments WBC (test code = WBC) 9.4 3.7-10.4 [facility]stJsmuhddVMQLNWDBNY7580-76-60 10:15:00 Test Item Value Reference Range Interpretation Comments RBC (test code = RBC) 3.42 4.20-5.40 [facility]stVlfjrqxZXMIPUWFIM4307-08-84 10:15:00 Test Item Value Reference Range Interpretation Comments Segs-Bands # (test code = Segs-Bands #) 8.6 1.5-8.1 [facility]stJsbcqnqHDBIKNKGWM3481-09-10 10:15:00 Test Item Value Reference Range Interpretation Comments Basophils (test code = 0.2 See_Comment [Aut omated message] The Basophils) system which ge nerated this result tra nsmitted reference range : <=1.0. The reference r radha was not used to int erpret this result as normal/abnormal . [facility]stLwykxdbKNAFHLSOMR6120-93-49 10:15:00 Test Item Value Reference Range Interpretation Comments Monocytes # (test code 0.2 See_Comment [Aut omated message] The = Monocytes #) system which generated this result tra nsmitted reference range : <=0.8. The reference r radha was not used to int erpret this result as normal/abnormal . [facility]stZrnxoacADYHXFTOIA8348-58-50 10:15:00 Test Item Value Reference Range Interpretation Comments Lymphocytes # (test code = Lymphocytes 0.6 1.0-5.5 #) [facility]stElxxpeqALYMHNPJKP7592-88-61 10:15:00 Test Item Value Reference Range Interpretation Comments Lymphocytes (test code = Lymphocytes) 6.5 20.0-40.0 [facility]stSvqqcyuHESPJSKYDH5925-02-09 10:15:00 Test Item Value Reference Range Interpretation Comments Segs (test code = Segs) 90.8 45.0-75.0 [place] 257974-11-25 10:15:00 Test Item Value Reference Range Interpretation Comments Eosinophils (test code = 0.1 See_Comment [A utomated message] The Eosinophils) system which ge nerated this result tra nsmitted reference range : <=4.0. The reference r radha was not used to int erpret this result as normal/abnormal . [facility]stFzrqzfxZBQCTRFWNP7554-63-80 10:15:00 Test Item Value Reference Range Interpretation Comments Monocytes (test code = Monocytes) 2.4 2.0-12.0 [facility]2014-11-23 09:00:00 Test Item Value Reference Range Interpretation Comments A/G Ratio (test code = A/G Ratio) 1.0 0.7-1.6 [facility]2014-11-23 09:00:00 Test Item Value Reference Range Interpretation Comments B/C Ratio (test code = B/C Ratio) 8 6-25 [facility]2014-11-23 09:00:00 Test Item Value Reference Range Interpretation Comments Globulin (test code = Globulin) 3.6 2.0-4.0 [facility]2014-11-23 09:00:00 Test Item Value Reference Range Interpretation Comments AGAP (test code = AGAP) 15.3 10.0-20.0 [facility]2014-11-23 09:00:00 Test Item Value Reference Range Interpretation Comments eGFR (test code = eGFR) 71 [facility]2014-11-23 09:00:00 Test Item Value Reference Range Interpretation Comments Creatinine Lvl (test code = Creatinine 1.1 0.5-1.4 Lvl) [facility]2014-11-23 09:00:00 Test Item Value Reference Range Interpretation Comments CO2 (test code = CO2) 26 24-32 [facility]2014-11-23 09:00:00 Test Item Value Reference Range Interpretation Comments Calcium Lvl (test code = Calcium Lvl) 9.0 8.5-10.5 [facility]2014-11-23 09:00:00 Test Item Value Reference Range Interpretation Comments BUN (test code = BUN) 9 7-22 [facility]2014-11-23 09:00:00 Test Item Value Reference Range Interpretation Comments Glucose Lvl (test code = Glucose Lvl) 75 70-99 [facility]2014-11-23 09:00:00 Test Item Value Reference Range Interpretation Comments Bili Total (test code = Bili Total) 0.8 0.2-1.3 [facility]2014-11-23 09:00:00 Test Item Value Reference Range Interpretation Comments ALT (test code = ALT) 72 See_Comment [Auto mated message] The system which ge nerated this result transmit romi reference range : <=65. The reference range was not used to interpr et this result as erma l/abnormal. [facility]2014-11-23 09:00:00 Test Item Value Reference Range Interpretation Comments AST (test code = AST) 30 See_Comment [Auto mated message] The system which ge nerated this result transmit romi reference range : <=37. The reference range was not used to interpr et this result as erma l/abnormal. [facility]2014-11-23 09:00:00 Test Item Value Reference Range Interpretation Comments Total Protein (test code = Total 7.1 6.4-8.4 Protein) [facility]2014-11-23 09:00:00 Test Item Value Reference Range Interpretation Comments Alk Phos (test code = Alk Phos) 70 39-136 [facility]2014-11-23 09:00:00 Test Item Value Reference Range Interpretation Comments Albumin Lvl (test code = Albumin Lvl) 3.5 3.5-5.0 [facility]2014-11-23 09:00:00 Test Item Value Reference Range Interpretation Comments Potassium Lvl (test code = Potassium 4.3 3.5-5.1 Lvl) [facility]2014-11-23 09:00:00 Test Item Value Reference Range Interpretation Comments Chloride Lvl (test code = Chloride Lvl) 103 95-109 [facility]2014-11-23 09:00:00 Test Item Value Reference Range Interpretation Comments Sodium Lvl (test code = Sodium Lvl) 140 135-145 [facility]stOphrzuzBMLJZSJBOF5250-85-95 09:00:00 Test Item Value Reference Range Interpretation Comments MPV (test code = MPV) 8.0 7.4-10.4 [facility]stSmlamhsLCSFEQCLIZ3024-88-65 09:00:00 Test Item Value Reference Range Interpretation Comments Platelet (test code = Platelet) 245 133-450 [facility]stHofzhcuCSCVNKOSAS0775-61-35 09:00:00 Test Item Value Reference Range Interpretation Comments RDW (test code = RDW) 14.1 11.5-14.5 [facility]stVtaazhzNSQQAUHONG1769-99-59 09:00:00 Test Item Value Reference Range Interpretation Comments MCHC (test code = MCHC) 33.9 32.0-36.0 [facility]stQykmnatEKCFLRULYM6452-42-23 09:00:00 Test Item Value Reference Range Interpretation Comments Hgb (test code = Hgb) 13.3 12.0-16.0 [facility]stBkytnynPWSWIHQRQJ1509-27-39 09:00:00 Test Item Value Reference Range Interpretation Comments WBC (test code = WBC) 6.4 3.7-10.4 [facility]stVyzbideSOTGWMBLGT1544-73-44 09:00:00 Test Item Value Reference Range Interpretation Comments RBC (test code = RBC) 4.67 4.20-5.40 [facility]stFwallbyKIRNMVEQUE2304-80-36 09:00:00 Test Item Value Reference Range Interpretation Comments Hct (test code = Hct) 39.2 36.0-48.0 [facility]stFqnxpohSMLTDBXNHM9093-35-13 09:00:00 Test Item Value Reference Range Interpretation Comments MCV (test code = MCV) 83.8 80.0-98.0 [facility]stOxqahuzXGNETLZCUB5245-85-95 09:00:00 Test Item Value Reference Range Interpretation Comments MCH (test code = MCH) 28.5 pg 27.0-31.0 [facility]stRkgiwdyKRXUVXDICM7616-62-79 09:00:00 Test Item Value Reference Range Interpretation Comments Basophils # (test code 0.0 See_Comment [Aut omated message] The = Basophils #) system which generated this result tra nsmitted reference range : <=0.2. The reference r radha was not used to int erpret this result as normal/abnormal . [facility]stWfyrjefVSDPVJULWV3938-51-90 09:00:00 Test Item Value Reference Range Interpretation Comments Basophils (test code = 0.4 See_Comment [Aut omated message] The Basophils) system which ge nerated this result tra nsmitted reference range : <=1.0. The reference r radha was not used to int erpret this result as normal/abnormal . [facility]stKstirlnMOOYEJRBKQ9505-58-18 09:00:00 Test Item Value Reference Range Interpretation Comments Lymphocytes # (test code = Lymphocytes 1.6 1.0-5.5 #) [facility]stSxhdlonDTIOSASLJU2970-85-90 09:00:00 Test Item Value Reference Range Interpretation Comments Segs-Bands # (test code = Segs-Bands #) 4.1 1.5-8.1 [facility]stMtfluktVMBSDUPVXR1144-02-37 09:00:00 Test Item Value Reference Range Interpretation Comments Eosinophils # (test code 0.3 See_Comment [A utomated message] The = Eosinophils #) system whic h generated this result tra nsmitted reference range : <=0.5. The reference r radha was not used to int erpret this result as normal/abnormal . [facility]stMatyqyrELHHNJJAHV5305-87-72 09:00:00 Test Item Value Reference Range Interpretation Comments Monocytes # (test code 0.4 See_Comment [Aut omated message] The = Monocytes #) system which generated this result tra nsmitted reference range : <=0.8. The reference r radha was not used to int erpret this result as normal/abnormal . [facility]stPjdkdykGNBLWBLZQT6716-34-25 09:00:00 Test Item Value Reference Range Interpretation Comments Segs (test code = Segs) 63.5 45.0-75.0 [facility]stUtxhmceHZRPJVHWCC3517-88-43 09:00:00 Test Item Value Reference Range Interpretation Comments Monocytes (test code = Monocytes) 6.4 2.0-12.0 [facility]stSbgfcioBDQRFSLQOU8025-16-35 09:00:00 Test Item Value Reference Range Interpretation Comments Lymphocytes (test code = Lymphocytes) 24.7 20.0-40.0 [facility]icsWpcoutkWBEPHZJVKH2092-89-96 09:00:00 Test Item Value Reference Range Interpretation Comments Eosinophils (test code = 5.0 See_Comment [A utomated message] The Eosinophils) system which ge nerated this result tra nsmitted reference range : <=4.0. The reference r radha was not used to int erpret this result as normal/abnormal . [facility]2014-11-23 09:00:00 Test Item Value Reference Range Interpretation Comments A/G Ratio (test code = A/G Ratio) 1.0 0.7-1.6 [facility]2014-11-23 09:00:00 Test Item Value Reference Range Interpretation Comments B/C Ratio (test code = B/C Ratio) 8 6- [place] 770734-11-23 09:00:00 Test Item Value Reference Range Interpretation Comments Globulin (test code = Globulin) 3.6 2.0-4.0 [facility]2014-11-23 09:00:00 Test Item Value Reference Range Interpretation Comments AGAP (test code = AGAP) 15.3 10.0-20.0 [facility]2014-11-23 09:00:00 Test Item Value Reference Range Interpretation Comments eGFR (test code = eGFR) 71 [facility]2014-11-23 09:00:00 Test Item Value Reference Range Interpretation Comments Creatinine Lvl (test code = Creatinine 1.1 0.5-1.4 Lvl) [facility]2014-11-23 09:00:00 Test Item Value Reference Range Interpretation Comments CO2 (test code = CO2) 26 24-32 [facility]2014-11-23 09:00:00 Test Item Value Reference Range Interpretation Comments Calcium Lvl (test code = Calcium Lvl) 9.0 8.5-10.5 [facility]2014-11-23 09:00:00 Test Item Value Reference Range Interpretation Comments BUN (test code = BUN) 9 7-22 [facility]2014-11-23 09:00:00 Test Item Value Reference Range Interpretation Comments Glucose Lvl (test code = Glucose Lvl) 75 70-99 [facility]2014-11-23 09:00:00 Test Item Value Reference Range Interpretation Comments Bili Total (test code = Bili Total) 0.8 0.2-1.3 [facility]2014-11-23 09:00:00 Test Item Value Reference Range Interpretation Comments ALT (test code = ALT) 72 See_Comment [Auto mated message] The system which ge nerated this result transmit romi reference range : <=65. The reference range was not used to interpr et this result as erma l/abnormal. [facility]2014-11-23 09:00:00 Test Item Value Reference Range Interpretation Comments AST (test code = AST) 30 See_Comment [Auto mated message] The system which ge nerated this result transmit romi reference range : <=37. The reference range was not used to interpr et this result as erma l/abnormal. [place] 770734-11-23 09:00:00 Test Item Value Reference Range Interpretation Comments Total Protein (test code = Total 7.1 6.4-8.4 Protein) [facility]2014-11-23 09:00:00 Test Item Value Reference Range Interpretation Comments Alk Phos (test code = Alk Phos) 70 39-136 [place] 770734-11-23 09:00:00 Test Item Value Reference Range Interpretation Comments Albumin Lvl (test code = Albumin Lvl) 3.5 3.5-5.0 [facility]2014-11-23 09:00:00 Test Item Value Reference Range Interpretation Comments Potassium Lvl (test code = Potassium 4.3 3.5-5.1 Lvl) [facility]2014-11-23 09:00:00 Test Item Value Reference Range Interpretation Comments Chloride Lvl (test code = Chloride Lvl) 103 95-109 [place] 770734-11-23 09:00:00 Test Item Value Reference Range Interpretation Comments Sodium Lvl (test code = Sodium Lvl) 140 135-145 [facility]stImgmyocAKMDHXUSON8088-46-23 09:00:00 Test Item Value Reference Range Interpretation Comments MPV (test code = MPV) 8.0 7.4-10.4 [facility]stGwjcvyaUSNXZDUMAB6785-73-18 09:00:00 Test Item Value Reference Range Interpretation Comments Platelet (test code = Platelet) 245 133-450 [facility]stBrtqwxxKHDBTVVWYG6794-37-75 09:00:00 Test Item Value Reference Range Interpretation Comments RDW (test code = RDW) 14.1 11.5-14.5 [facility]stVartntgSRDNMLIXGU4964-93-32 09:00:00 Test Item Value Reference Range Interpretation Comments MCHC (test code = MCHC) 33.9 32.0-36.0 [facility]stRnjfdytCNHCYZCYKD5331-14-78 09:00:00 Test Item Value Reference Range Interpretation Comments Hgb (test code = Hgb) 13.3 12.0-16.0 [facility]stTbmbioaCHXFFZINUM7915-82-89 09:00:00 Test Item Value Reference Range Interpretation Comments WBC (test code = WBC) 6.4 3.7-10.4 [facility]stZpctyapKAKIFIQJRV5208-19-86 09:00:00 Test Item Value Reference Range Interpretation Comments RBC (test code = RBC) 4.67 4.20-5.40 [facility]stBorozvrUQBZRUOKPW4804-14-01 09:00:00 Test Item Value Reference Range Interpretation Comments Hct (test code = Hct) 39.2 36.0-48.0 [facility]stFizphsvLCTSRTVWSB9592-75-52 09:00:00 Test Item Value Reference Range Interpretation Comments MCV (test code = MCV) 83.8 80.0-98.0 [facility]stHeassbvHCTXUPWPBO1514-49-25 09:00:00 Test Item Value Reference Range Interpretation Comments MCH (test code = MCH) 28.5 pg 27.0-31.0 [facility]stCbadmoaAXXBSKCGNS8112-56-75 09:00:00 Test Item Value Reference Range Interpretation Comments Basophils # (test code 0.0 See_Comment [Aut omated message] The = Basophils #) system which generated this result tra nsmitted reference range : <=0.2. The reference r radha was not used to int erpret this result as normal/abnormal . [facility]stAnetqsrKMEBKHWPYW9418-71-15 09:00:00 Test Item Value Reference Range Interpretation Comments Basophils (test code = 0.4 See_Comment [Aut omated message] The Basophils) system which ge nerated this result tra nsmitted reference range : <=1.0. The reference r radha was not used to int erpret this result as normal/abnormal . [place] [address]-11-23 09:00:00 Test Item Value Reference Range Interpretation Comments Lymphocytes # (test code = Lymphocytes 1.6 1.0-5.5 #) [facility]stQjavacgIFDVTBECLD2455-06-97 09:00:00 Test Item Value Reference Range Interpretation Comments Segs-Bands # (test code = Segs-Bands #) 4.1 1.5-8.1 [facility]stZpcdxbpIKBZUWWINC0332-87-30 09:00:00 Test Item Value Reference Range Interpretation Comments Eosinophils # (test code 0.3 See_Comment [A utomated message] The = Eosinophils #) system whic h generated this result tra nsmitted reference range : <=0.5. The reference r radha was not used to int erpret this result as normal/abnormal . [facility]stXbduzczFKOEWGOZLY1250-70-50 09:00:00 Test Item Value Reference Range Interpretation Comments Monocytes # (test code 0.4 See_Comment [Aut omated message] The = Monocytes #) system which generated this result tra nsmitted reference range : <=0.8. The reference r radha was not used to int erpret this result as normal/abnormal . [facility]stHggezbbORFUDVUIRI7741-31-85 09:00:00 Test Item Value Reference Range Interpretation Comments Segs (test code = Segs) 63.5 45.0-75.0 [facility]stBpwfugqNUUILVHIUI9146-54-72 09:00:00 Test Item Value Reference Range Interpretation Comments Monocytes (test code = Monocytes) 6.4 2.0-12.0 [facility]stHmqukzkHMBBPQHPTO8451-29-76 09:00:00 Test Item Value Reference Range Interpretation Comments Lymphocytes (test code = Lymphocytes) 24.7 20.0-40.0 [facility]stQzljnynPUCEERHXVL1456-06-63 09:00:00 Test Item Value Reference Range Interpretation Comments Eosinophils (test code = 5.0 See_Comment [A utomated message] The Eosinophils) system which ge nerated this result tra nsmitted reference range : <=4.0. The reference r radha was not used to int erpret this result as normal/abnormal . [facility]2014-11-22 17:36:00 Test Item Value Reference Range Interpretation Comments ALT (test code = ALT) 89 See_Comment [Auto mated message] The system which ge nerated this result transmit romi reference range : <=65. The reference range was not used to interpr et this result as erma l/abnormal. [facility]2014-11-22 17:36:00 Test Item Value Reference Range Interpretation Comments Total Protein (test code = Total 7.3 6.4-8.4 Protein) [facility]2014-11-22 17:36:00 Test Item Value Reference Range Interpretation Comments AST (test code = AST) 36 See_Comment [Auto mated message] The system which ge nerated this result transmit romi reference range : <=37. The reference range was not used to interpr et this result as erma l/abnormal. [facility]2014-11-22 17:36:00 Test Item Value Reference Range Interpretation Comments Globulin (test code = Globulin) 3.4 2.0-4.0 [facility]2014-11-22 17:36:00 Test Item Value Reference Range Interpretation Comments A/G Ratio (test code = A/G Ratio) 1.1 0.7-1.6 [facility]2014-11-22 17:36:00 Test Item Value Reference Range Interpretation Comments Alk Phos (test code = Alk Phos) 80 39-136 [facility]2014-11-22 17:36:00 Test Item Value Reference Range Interpretation Comments Bili Total (test code = Bili Total) 0.7 0.2-1.3 [facility]2014-11-22 17:36:00 Test Item Value Reference Range Interpretation Comments CO2 (test code = CO2) 28 24-32 [facility]2014-11-22 17:36:00 Test Item Value Reference Range Interpretation Comments Potassium Lvl (test code = Potassium 4.2 3.5-5.1 Lvl) [facility]2014-11-22 17:36:00 Test Item Value Reference Range Interpretation Comments Chloride Lvl (test code = Chloride Lvl) 104 95-109 [facility]2014-11-22 17:36:00 Test Item Value Reference Range Interpretation Comments AGAP (test code = AGAP) 10.2 10.0-20.0 [facility]2014-11-22 17:36:00 Test Item Value Reference Range Interpretation Comments Albumin Lvl (test code = Albumin Lvl) 3.9 3.5-5.0 [facility]2014-11-22 17:36:00 Test Item Value Reference Range Interpretation Comments B/C Ratio (test code = B/C Ratio) 8 6-25 [facility]2014-11-22 17:36:00 Test Item Value Reference Range Interpretation Comments Calcium Lvl (test code = Calcium Lvl) 8.9 8.5-10.5 [facility]2014-11-22 17:36:00 Test Item Value Reference Range Interpretation Comments Sodium Lvl (test code = Sodium Lvl) 138 135-145 [facility]2014-11-22 17:36:00 Test Item Value Reference Range Interpretation Comments Glucose Lvl (test code = Glucose Lvl) 84 70-99 [facility]2014-11-22 17:36:00 Test Item Value Reference Range Interpretation Comments Creatinine Lvl (test code = Creatinine 1.1 0.5-1.4 Lvl) [facility]2014-11-22 17:36:00 Test Item Value Reference Range Interpretation Comments BUN (test code = BUN) 9 - [facility]2014-11-22 17:36:00 Test Item Value Reference Range Interpretation Comments eGFR (test code = eGFR) 71 [facility]2014-11-22 17:36:00 Test Item Value Reference Range Interpretation Comments ALT (test code = ALT) 89 See_Comment [Auto mated message] The system which ge nerated this result transmit romi reference range : <=65. The reference range was not used to interpr et this result as erma l/abnormal. [facility]2014-11-22 17:36:00 Test Item Value Reference Range Interpretation Comments Total Protein (test code = Total 7.3 6.4-8.4 Protein) [facility]2014-11-22 17:36:00 Test Item Value Reference Range Interpretation Comments AST (test code = AST) 36 See_Comment [Auto mated message] The system which ge nerated this result transmit romi reference range : <=37. The reference range was not used to interpr et this result as erma l/abnormal. [facility]2014-11-22 17:36:00 Test Item Value Reference Range Interpretation Comments Globulin (test code = Globulin) 3.4 2.0-4.0 [facility]2014-11-22 17:36:00 Test Item Value Reference Range Interpretation Comments A/G Ratio (test code = A/G Ratio) 1.1 0.7-1.6 [facility]2014-11-22 17:36:00 Test Item Value Reference Range Interpretation Comments Alk Phos (test code = Alk Phos) 80 39-136 [facility]2014-11-22 17:36:00 Test Item Value Reference Range Interpretation Comments Bili Total (test code = Bili Total) 0.7 0.2-1.3 [facility]2014-11-22 17:36:00 Test Item Value Reference Range Interpretation Comments CO2 (test code = CO2) 28 24-32 [facility]2014-11-22 17:36:00 Test Item Value Reference Range Interpretation Comments Potassium Lvl (test code = Potassium 4.2 3.5-5.1 Lvl) [facility]2014-11-22 17:36:00 Test Item Value Reference Range Interpretation Comments Chloride Lvl (test code = Chloride Lvl) 104 95-109 [facility]2014-11-22 17:36:00 Test Item Value Reference Range Interpretation Comments AGAP (test code = AGAP) 10.2 10.0-20.0 [facility]2014-11-22 17:36:00 Test Item Value Reference Range Interpretation Comments Albumin Lvl (test code = Albumin Lvl) 3.9 3.5-5.0 [facility]2014-11-22 17:36:00 Test Item Value Reference Range Interpretation Comments B/C Ratio (test code = B/C Ratio) 8 6-25 [facility]2014-11-22 17:36:00 Test Item Value Reference Range Interpretation Comments Calcium Lvl (test code = Calcium Lvl) 8.9 8.5-10.5 [facility]2014-11-22 17:36:00 Test Item Value Reference Range Interpretation Comments Sodium Lvl (test code = Sodium Lvl) 138 135-145 [facility]2014-11-22 17:36:00 Test Item Value Reference Range Interpretation Comments Glucose Lvl (test code = Glucose Lvl) 84 70-99 [facility]2014-11-22 17:36:00 Test Item Value Reference Range Interpretation Comments Creatinine Lvl (test code = Creatinine 1.1 0.5-1.4 Lvl) [facility]2014-11-22 17:36:00 Test Item Value Reference Range Interpretation Comments BUN (test code = BUN) 9 7-22 [facility]2014-11-22 17:36:00 Test Item Value Reference Range Interpretation Comments eGFR (test code = eGFR) 71 [facility]GcdktffHXYQCDSZZC3699-72-54 10:51:00 Test Item Value Reference Range Interpretation Comments PTT (test code = PTT) 33.6 s 22.9-35.8 [facility]stVsgtjdwAUIGKVCOLX8216-96-12 10:51:00 Test Item Value Reference Range Interpretation Comments Platelet (test code = Platelet) 255 133-450 [facility]stCjdqdcaMOWULICUQK8719-87-77 10:51:00 Test Item Value Reference Range Interpretation Comments RDW (test code = RDW) 14.2 11.5-14.5 [facility]stHvgyjtoRRWRTHLOKK3287-08-77 10:51:00 Test Item Value Reference Range Interpretation Comments MCH (test code = MCH) 28.5 pg 27.0-31.0 [facility]stItdtfkjKQVDYKILFT4915-26-90 10:51:00 Test Item Value Reference Range Interpretation Comments MCHC (test code = MCHC) 34.0 32.0-36.0 [facility]stPgspfugPQHKVWBWNN9990-43-44 10:51:00 Test Item Value Reference Range Interpretation Comments MCV (test code = MCV) 83.9 80.0-98.0 [facility]stIhysfziHBBKKGTRNV6568-18-36 10:51:00 Test Item Value Reference Range Interpretation Comments MPV (test code = MPV) 7.9 7.4-10.4 [facility]stRgluxdxMJJMSITLMD3453-51-82 10:51:00 Test Item Value Reference Range Interpretation Comments WBC (test code = WBC) 7.6 3.7-10.4 [facility]stNdrcaycLHRUCLXSCE1324-51-53 10:51:00 Test Item Value Reference Range Interpretation Comments RBC (test code = RBC) 4.86 4.20-5.40 [facility]stVcehgcaXXXSOCJFAN8186-77-13 10:51:00 Test Item Value Reference Range Interpretation Comments Hgb (test code = Hgb) 13.9 12.0-16.0 [facility]stLqnmhpqQDJHYPVKWS7215-68-05 10:51:00 Test Item Value Reference Range Interpretation Comments Hct (test code = Hct) 40.8 36.0-48.0 [facility]stMnqqqkzDQQOOHUSKZ9887-60-15 10:51:00 Test Item Value Reference Range Interpretation Comments INR (test code = INR) 1.01 0.85-1.17 [facility]stBlherkcJVYMEUBMWO7267-00-36 10:51:00 Test Item Value Reference Range Interpretation Comments PT (test code = PT) 13.3 s 12.0-14.7 [facility]stJyrougjKZWZJFKPAA7657-66-47 10:51:00 Test Item Value Reference Range Interpretation Comments Segs-Bands # (test code = Segs-Bands #) 4.9 1.5-8.1 [facility]stTwyqtgyOYXMTCWGPR1972-50-37 10:51:00 Test Item Value Reference Range Interpretation Comments Lymphocytes # (test code = Lymphocytes 1.8 1.0-5.5 #) [facility]stMsgfxcmHSNHFIYTFW2460-29-89 10:51:00 Test Item Value Reference Range Interpretation Comments Basophils (test code = 0.9 See_Comment [Aut omated message] The Basophils) system which ge nerated this result tra nsmitted reference range : <=1.0. The reference r radha was not used to int erpret this result as normal/abnormal . [facility]stGpcnenxSSKMOXHMZD7438-19-98 10:51:00 Test Item Value Reference Range Interpretation Comments Eosinophils # (test code 0.4 See_Comment [A utomated message] The = Eosinophils #) system whic h generated this result tra nsmitted reference range : <=0.5. The reference r radha was not used to int erpret this result as normal/abnormal . [facility]stXtjtrlrVJYQECUWFS5592-03-43 10:51:00 Test Item Value Reference Range Interpretation Comments Monocytes (test code = Monocytes) 5.3 2.0-12.0 [facility]stFahkbfqHIYPMJWLRP0353-51-27 10:51:00 Test Item Value Reference Range Interpretation Comments Monocytes # (test code 0.4 See_Comment [Aut omated message] The = Monocytes #) system which generated this result tra nsmitted reference range : <=0.8. The reference r radha was not used to int erpret this result as normal/abnormal . [facility]stFiijwzbFQRBPDUXOY9391-51-92 10:51:00 Test Item Value Reference Range Interpretation Comments Lymphocytes (test code = Lymphocytes) 23.9 20.0-40.0 [facility]stRktvhbyRBVUPVHTEP6734-38-41 10:51:00 Test Item Value Reference Range Interpretation Comments Segs (test code = Segs) 64.9 45.0-75.0 [facility]stKhxpulcFKOGTQWIPT9029-21-23 10:51:00 Test Item Value Reference Range Interpretation Comments Eosinophils (test code = 5.0 See_Comment [A utomated message] The Eosinophils) system which ge nerated this result tra nsmitted reference range : <=4.0. The reference r radha was not used to int erpret this result as normal/abnormal . [facility]stMlksmxzDXDDXAALRI2937-87-36 10:51:00 Test Item Value Reference Range Interpretation Comments Basophils # (test code 0.1 See_Comment [Aut omated message] The = Basophils #) system which generated this result tra nsmitted reference range : <=0.2. The reference r radha was not used to int erpret this result as normal/abnormal . [facility]stIowxbqlQNRGWATEKV3831-33-93 10:51:00 Test Item Value Reference Range Interpretation Comments PTT (test code = PTT) 33.6 s 22.9-35.8 [facility]stTofauilJCUZHLISFN7095-97-66 10:51:00 Test Item Value Reference Range Interpretation Comments Platelet (test code = Platelet) 255 133-450 [facility]stTsvwctkOLXSHBGDUG8984-51-72 10:51:00 Test Item Value Reference Range Interpretation Comments RDW (test code = RDW) 14.2 11.5-14.5 [facility]stXohrrueBVBCNMQZRT4716-48-67 10:51:00 Test Item Value Reference Range Interpretation Comments MCH (test code = MCH) 28.5 pg 27.0-31.0 [facility]stJrrkjabNVBVITVQXH8019-66-73 10:51:00 Test Item Value Reference Range Interpretation Comments MCHC (test code = MCHC) 34.0 32.0-36.0 [facility]stEvxkrakLNDTAAMCSI7092-48-59 10:51:00 Test Item Value Reference Range Interpretation Comments MCV (test code = MCV) 83.9 80.0-98.0 [facility]stVisouowBGLALJKWSG1786-30-77 10:51:00 Test Item Value Reference Range Interpretation Comments MPV (test code = MPV) 7.9 7.4-10.4 [facility]stNyjanmePLCOYZZLAL4412-37-96 10:51:00 Test Item Value Reference Range Interpretation Comments WBC (test code = WBC) 7.6 3.7-10.4 [facility]stDygiqpfFXAIZODCGI9062-26-36 10:51:00 Test Item Value Reference Range Interpretation Comments RBC (test code = RBC) 4.86 4.20-5.40 [facility]stYjldnjbNUSNCZGIIU4031-29-43 10:51:00 Test Item Value Reference Range Interpretation Comments Hgb (test code = Hgb) 13.9 12.0-16.0 [facility]stAjcjedfBDOUODFGVD7085-71-54 10:51:00 Test Item Value Reference Range Interpretation Comments Hct (test code = Hct) 40.8 36.0-48.0 [facility]stYfkbspaFIKZHNVXJI0724-09-02 10:51:00 Test Item Value Reference Range Interpretation Comments INR (test code = INR) 1.01 0.85-1.17 [facility]stUzrorypTDBHNMHUKG7230-91-32 10:51:00 Test Item Value Reference Range Interpretation Comments PT (test code = PT) 13.3 s 12.0-14.7 [facility]stSavwzesFATDXIPLWE3925-28-22 10:51:00 Test Item Value Reference Range Interpretation Comments Segs-Bands # (test code = Segs-Bands #) 4.9 1.5-8.1 [facility]stNycxktmOBLPGDMCOY3720-28-52 10:51:00 Test Item Value Reference Range Interpretation Comments Lymphocytes # (test code = Lymphocytes 1.8 1.0-5.5 #) [facility]stKzhhbfcONBNFZVMAB7442-86-52 10:51:00 Test Item Value Reference Range Interpretation Comments Basophils (test code = 0.9 See_Comment [Aut omated message] The Basophils) system which ge nerated this result tra nsmitted reference range : <=1.0. The reference r radha was not used to int erpret this result as normal/abnormal . [facility]stIwcwgduWJXMRRCHRW6564-65-79 10:51:00 Test Item Value Reference Range Interpretation Comments Eosinophils # (test code 0.4 See_Comment [A utomated message] The = Eosinophils #) system whic h generated this result tra nsmitted reference range : <=0.5. The reference r radha was not used to int erpret this result as normal/abnormal . [facility]stYlzqmtfYKGAKYCPPB9086-52-82 10:51:00 Test Item Value Reference Range Interpretation Comments Monocytes (test code = Monocytes) 5.3 2.0-12.0 [facility]stEgyvieeYIWEIQJVXA7650-42-02 10:51:00 Test Item Value Reference Range Interpretation Comments Monocytes # (test code 0.4 See_Comment [Aut omated message] The = Monocytes #) system which generated this result tra nsmitted reference range : <=0.8. The reference r radha was not used to int erpret this result as normal/abnormal . [facility]stTihztahTQQZSZVZUO4674-14-19 10:51:00 Test Item Value Reference Range Interpretation Comments Lymphocytes (test code = Lymphocytes) 23.9 20.0-40.0 [facility]stGaexwkaTGJQVASJCI9454-06-03 10:51:00 Test Item Value Reference Range Interpretation Comments Segs (test code = Segs) 64.9 45.0-75.0 [facility]stDjsyjqtGHQTYZSJND7265-28-88 10:51:00 Test Item Value Reference Range Interpretation Comments Eosinophils (test code = 5.0 See_Comment [A utomated message] The Eosinophils) system which ge nerated this result tra nsmitted reference range : <=4.0. The reference r radha was not used to int erpret this result as normal/abnormal . [facility]stBkujfzsMXXJTDUKIQ9562-05-30 10:51:00 Test Item Value Reference Range Interpretation Comments Basophils # (test code 0.1 See_Comment [Aut omated message] The = Basophils #) system which generated this result tra nsmitted reference range : <=0.2. The reference r radha was not used to int erpret this result as normal/abnormal . [facility]AmzyvzoUOFCPQWEOS4345-92-66 22:41:00 Test Item Value Reference Range Interpretation Comments C-REACTIVE PROTEIN (test code = 9.8 C-REACTIVE PROTEIN) [facility]AbzqyfxEOQREHTJYE9851-27-23 22:41:00 Test Item Value Reference Range Interpretation Comments C-REACTIVE PROTEIN (test code = 9.8 C-REACTIVE PROTEIN) [facility]2014-11-21 04:23:00 Test Item Value Reference Range Interpretation Comments Lipase Lvl (test code = Lipase Lvl) 143 73-393 [facility]2014-11-21 04:23:00 Test Item Value Reference Range Interpretation Comments Amylase Lvl (test code = Amylase Lvl) 37 25-115 [facility]2014-11-21 04:23:00 Test Item Value Reference Range Interpretation Comments Albumin Lvl (test code = Albumin Lvl) 3.8 3.5-5.0 [facility]2014-11-21 04:23:00 Test Item Value Reference Range Interpretation Comments Total Protein (test code = Total 7.3 6.4-8.4 Protein) [facility]2014-11-21 04:23:00 Test Item Value Reference Range Interpretation Comments Alk Phos (test code = Alk Phos) 75 39-136 [facility]2014-11-21 04:23:00 Test Item Value Reference Range Interpretation Comments AST (test code = AST) 41 See_Comment [Auto mated message] The system which ge nerated this result transmit romi reference range : <=37. The reference range was not used to interpr et this result as erma l/abnormal. [facility]2014-11-21 04:23:00 Test Item Value Reference Range Interpretation Comments ALT (test code = ALT) 101 See_Comment [Auto mated message] The system which ge nerated this result transmit romi reference range : <=65. The reference range was not used to interpr et this result as erma l/abnormal. [facility]2014-11-21 04:23:00 Test Item Value Reference Range Interpretation Comments Bili Total (test code = Bili Total) 0.4 0.2-1.3 [facility]2014-11-21 04:23:00 Test Item Value Reference Range Interpretation Comments A/G Ratio (test code = A/G Ratio) 1.1 0.7-1.6 [facility]2014-11-21 04:23:00 Test Item Value Reference Range Interpretation Comments Globulin (test code = Globulin) 3.5 2.0-4.0 [place] 770734-11-21 04:23:00 Test Item Value Reference Range Interpretation Comments B/C Ratio (test code = B/C Ratio) 12 6-25 [facility]stMbypiulYWMJKMYKAE6440-92-76 04:23:00 Test Item Value Reference Range Interpretation Comments Sed Rate (test code = 28 See_Comment [Auto mated message] The Sed Rate) system which ge nerated this result transmit romi reference range : <=20. The reference range was not used to interpr et this result as erma l/abnormal. [facility]stBaqtadaGFVATNGBPL4865-28-01 04:23:00 Test Item Value Reference Range Interpretation Comments Eosinophils # (test code 0.5 See_Comment [A utomated message] The = Eosinophils #) system whic h generated this result tra nsmitted reference range : <=0.5. The reference r radha was not used to int erpret this result as normal/abnormal . [facility]stUzlunwgNZLTRYWKAY6938-73-68 04:23:00 Test Item Value Reference Range Interpretation Comments PTT (test code = PTT) 32.7 s 22.9-35.8 [facility]stQmcyjazLGYICSGUHN4371-77-39 04:23:00 Test Item Value Reference Range Interpretation Comments PT (test code = PT) 13.7 s 12.0-14.7 [facility]stSimiekoXRMDLTKJPZ7824-56-98 04:23:00 Test Item Value Reference Range Interpretation Comments INR (test code = INR) 1.05 0.85-1.17 [facility]DvfdrqxBNIAFYOHBU9625-64-44 04:23:00 Test Item Value Reference Range Interpretation Comments Hep Bs Ag (test code Negative *NA*(08/22/14 = Hep Bs Ag) 10:23 PM) [facility] HospitalUwwnoidMWWMDGJVHH6994-06-51 04:23:00 Test Item Value Reference Range Interpretation Comments Hep B Core IgM (test Negative *NA*(08/22/14 code = Hep B Core 10:23 PM) IgM) [facility] HospitalGpyvgvxRXOVOQXHVD0831-22-83 04:23:00 Test Item Value Reference Range Interpretation Comments Hep C Ab (test code = Negative *NA*(08/22/14 Hep C Ab) 10:23 PM) [facility] HospitalEryzoieMYFHYCDCJU8644-56-86 04:23:00 Test Item Value Reference Range Interpretation Comments Hep A IgM (test code Negative *NA*(08/22/14 = Hep A IgM) 10:23 PM) [facility]2014-11-21 04:23:00 Test Item Value Reference Range Interpretation Comments UA Urobilinogen (test code = UA <=1.0 mg/dL 0.1-1.0 Urobilinogen) [facility] AND [id number] 04:23:00 Test Item Value Reference Range Interpretation Comments UA WBC (test code = 3 See_Comment [Automa romi message] The UA WBC) system which ge nerated this result transmit romi reference range : <=5. The reference range was not used to interpr et this result as erma l/abnormal. [facility] AND [id number] 04:23:00 Test Item Value Reference Range Interpretation Comments UA RBC (test code = 1 See_Comment [Automa romi message] The UA RBC) system which ge nerated this result transmit romi reference range : <=2. The reference range was not used to interpr et this result as erma l/abnormal. [facility] AND [id number] 04:23:00 Test Item Value Reference Range Interpretation Comments UA Nitrite (test code Negative (08/22/14 = UA Nitrite) 10:23 PM) [facility] AND [id number] 04:23:00 Test Item Value Reference Range Interpretation Comments UA Leuk Est (test Negative (08/22/14 10:23 code = UA Leuk Est) PM) [facility] AND [id number] 04:23:00 Test Item Value Reference Range Interpretation Comments UA Sq Epi (test code = UA Sq Moderate /LPF Epi) [facility] AND [id number] 04:23:00 Test Item Value Reference Range Interpretation Comments UA Spec Grav (test code = UA Spec Grav) 1.026 [facility] AND [id number] 04:23:00 Test Item Value Reference Range Interpretation Comments UA pH (test code = UA pH) 5.0 5.0-8.0 [facility] AND [id number] 04:23:00 Test Item Value Reference Range Interpretation Comments UA Turbidity (test code Slight *ABN*(08/22/14 = UA Turbidity) 10:23 PM) [facility] AND [id number] 04:23:00 Test Item Value Reference Range Interpretation Comments UA Glucose (test code = UA Negative mg/dL Glucose) [facility] AND [id number] 04:23:00 Test Item Value Reference Range Interpretation Comments UA Protein (test code = UA Negative mg/dL Protein) [facility] AND [id number] 04:23:00 Test Item Value Reference Range Interpretation Comments UA Color (test code = Yellow *NA*(08/22/14 UA Color) 10:23 PM) [facility] AND [id number] 04:23:00 Test Item Value Reference Range Interpretation Comments UA Blood (test code = Large *ABN*(08/22/14 UA Blood) 10:23 PM) [facility] AND [id number] 04:23:00 Test Item Value Reference Range Interpretation Comments UA Bili (test code = Negative *NA*(08/22/14 UA Bili) 10:23 PM) [facility] AND [id number] 04:23:00 Test Item Value Reference Range Interpretation Comments UA Ketones (test code = UA Negative mg/dL Ketones) [facility] [id number] 04:23:00 Test Item Value Reference Range Interpretation Comments U Preg (test code = U Negative (08/22/14 10:23 Preg) PM) [facility] [id number] 04:23:00 Test Item Value Reference Range Interpretation Comments Lipase Lvl (test code = Lipase Lvl) 143 73-393 [facility]2014-11-21 04:23:00 Test Item Value Reference Range Interpretation Comments Amylase Lvl (test code = Amylase Lvl) 37 25-115 [facility]2014-11-21 04:23:00 Test Item Value Reference Range Interpretation Comments Albumin Lvl (test code = Albumin Lvl) 3.8 3.5-5.0 [facility]2014-11-21 04:23:00 Test Item Value Reference Range Interpretation Comments Total Protein (test code = Total 7.3 6.4-8.4 Protein) [facility]2014-11-21 04:23:00 Test Item Value Reference Range Interpretation Comments Alk Phos (test code = Alk Phos) 75 39-136 [facility]2014-11-21 04:23:00 Test Item Value Reference Range Interpretation Comments AST (test code = AST) 41 See_Comment [Auto mated message] The system which ge nerated this result transmit romi reference range : <=37. The reference range was not used to interpr et this result as erma l/abnormal. [facility]2014-11-21 04:23:00 Test Item Value Reference Range Interpretation Comments ALT (test code = ALT) 101 See_Comment [Auto mated message] The system which ge nerated this result transmit romi reference range : <=65. The reference range was not used to interpr et this result as erma l/abnormal. [facility]2014-11-21 04:23:00 Test Item Value Reference Range Interpretation Comments Bili Total (test code = Bili Total) 0.4 0.2-1.3 [facility]2014-11-21 04:23:00 Test Item Value Reference Range Interpretation Comments A/G Ratio (test code = A/G Ratio) 1.1 0.7-1.6 [place] [address]-11-21 04:23:00 Test Item Value Reference Range Interpretation Comments Globulin (test code = Globulin) 3.5 2.0-4.0 [place] [address]-11-21 04:23:00 Test Item Value Reference Range Interpretation Comments B/C Ratio (test code = B/C Ratio) 12 6-25 [id number] 04:23:00 Test Item Value Reference Range Interpretation Comments Sed Rate (test code = 28 See_Comment [Auto mated message] The Sed Rate) system which ge nerated this result transmit romi reference range : <=20. The reference range was not used to interpr et this result as erma l/abnormal. [id number] 04:23:00 Test Item Value Reference Range Interpretation Comments Eosinophils # (test code 0.5 See_Comment [A utomated message] The = Eosinophils #) system whic h generated this result tra nsmitted reference range : <=0.5. The reference r radha was not used to int erpret this result as normal/abnormal . [place] [id number] 04:23:00 Test Item Value Reference Range Interpretation Comments PTT (test code = PTT) 32.7 s 22.9-35.8 [facility]stNraewzvWLACHBGSUK8287-88-18 04:23:00 Test Item Value Reference Range Interpretation Comments PT (test code = PT) 13.7 s 12.0-14.7 [facility]NHGOYZNDII3417-58-97 04:23:00 Test Item Value Reference Range Interpretation Comments INR (test code = INR) 1.05 0.85-1.17 [facility]MnghctzKEYCKWERFN3780-22-15 04:23:00 Test Item Value Reference Range Interpretation Comments Hep Bs Ag (test code Negative *NA*(08/22/14 = Hep Bs Ag) 10:23 PM) [facility] HospitalWixmmgpJIEMPORFRS9764-02-78 04:23:00 Test Item Value Reference Range Interpretation Comments Hep B Core IgM (test Negative *NA*(08/22/14 code = Hep B Core 10:23 PM) IgM) [id number] 04:23:00 Test Item Value Reference Range Interpretation Comments Hep C Ab (test code = Negative *NA*(08/22/14 Hep C Ab) 10:23 PM) [facility]icsSmwpjjpGXCIZOHCJJ9683-00-04 04:23:00 Test Item Value Reference Range Interpretation Comments Hep A IgM (test code Negative *NA*(08/22/14 = Hep A IgM) 10:23 PM) [facility] AND [id number] 04:23:00 Test Item Value Reference Range Interpretation Comments UA Urobilinogen (test code = UA <=1.0 mg/dL 0.1-1.0 Urobilinogen) [facility] AND [id number] 04:23:00 Test Item Value Reference Range Interpretation Comments UA WBC (test code = 3 See_Comment [Automa romi message] The UA WBC) system which ge nerated this result transmit romi reference range : <=5. The reference range was not used to interpr et this result as erma l/abnormal. [facility] AND [id number] 04:23:00 Test Item Value Reference Range Interpretation Comments UA RBC (test code = 1 See_Comment [Automa romi message] The UA RBC) system which ge nerated this result transmit romi reference range : <=2. The reference range was not used to interpr et this result as erma l/abnormal. [facility] AND [id number] 04:23:00 Test Item Value Reference Range Interpretation Comments UA Nitrite (test code Negative (08/22/14 = UA Nitrite) 10:23 PM) [facility] AND [id number] 04:23:00 Test Item Value Reference Range Interpretation Comments UA Leuk Est (test Negative (08/22/14 10:23 code = UA Leuk Est) PM) [facility] AND [id number] 04:23:00 Test Item Value Reference Range Interpretation Comments UA Sq Epi (test code = UA Sq Moderate /LPF Epi) [facility] AND [id number] 04:23:00 Test Item Value Reference Range Interpretation Comments UA Spec Grav (test code = UA Spec Grav) 1.026 [facility] AND [id number] 04:23:00 Test Item Value Reference Range Interpretation Comments UA pH (test code = UA pH) 5.0 5.0-8.0 [facility] AND [id number] 04:23:00 Test Item Value Reference Range Interpretation Comments UA Turbidity (test code Slight *ABN*(08/22/14 = UA Turbidity) 10:23 PM) [facility] AND [id number] 04:23:00 Test Item Value Reference Range Interpretation Comments UA Glucose (test code = UA Negative mg/dL Glucose) [facility] AND [id number] 04:23:00 Test Item Value Reference Range Interpretation Comments UA Protein (test code = UA Negative mg/dL Protein) [facility] AND [id number] 04:23:00 Test Item Value Reference Range Interpretation Comments UA Color (test code = Yellow *NA*(08/22/14 UA Color) 10:23 PM) [facility] AND [id number] 04:23:00 Test Item Value Reference Range Interpretation Comments UA Blood (test code = Large *ABN*(08/22/14 UA Blood) 10:23 PM) [facility] AND [id number] 04:23:00 Test Item Value Reference Range Interpretation Comments UA Bili (test code = Negative *NA*(08/22/14 UA Bili) 10:23 PM) [facility] AND [id number] 04:23:00 Test Item Value Reference Range Interpretation Comments UA Ketones (test code = UA Negative mg/dL Ketones) [facility]2014-11-21 04:23:00 Test Item Value Reference Range Interpretation Comments U Preg (test code = U Negative (08/22/14 10:23 Preg) PM) [facility]2014-07-18 02:07:00 Test Item Value Reference Range Interpretation Comments Lipase Lvl (test code = Lipase Lvl) 134 73-393 [facility]2014-07-18 02:07:00 Test Item Value Reference Range Interpretation Comments eGFR (test code = eGFR) 58 [facility]2014-07-18 02:07:00 Test Item Value Reference Range Interpretation Comments AST (test code = AST) 55 See_Comment [Auto mated message] The system which ge nerated this result transmit romi reference range : <=37. The reference range was not used to interpr et this result as erma l/abnormal. [facility]2014-07-18 02:07:00 Test Item Value Reference Range Interpretation Comments Bili Total (test code = Bili Total) 0.5 0.2-1.3 [facility]2014-07-18 02:07:00 Test Item Value Reference Range Interpretation Comments Alk Phos (test code = Alk Phos) 87 39-136 [facility]2014-07-18 02:07:00 Test Item Value Reference Range Interpretation Comments BUN (test code = BUN) 14 7-22 [facility]2014-07-18 02:07:00 Test Item Value Reference Range Interpretation Comments Glucose Lvl (test code = Glucose Lvl) 112 70-99 [facility]2014-07-18 02:07:00 Test Item Value Reference Range Interpretation Comments ALT (test code = ALT) 134 See_Comment [Auto mated message] The system which ge nerated this result transmit romi reference range : <=65. The reference range was not used to interpr et this result as erma l/abnormal. [facility] [id number] 02:07:00 Test Item Value Reference Range Interpretation Comments Albumin Lvl (test code = Albumin Lvl) 4.1 3.5-5.0 [facility]2014-07-18 02:07:00 Test Item Value Reference Range Interpretation Comments Calcium Lvl (test code = Calcium Lvl) 8.8 8.5-10.5 [facility]2014-07-18 02:07:00 Test Item Value Reference Range Interpretation Comments CO2 (test code = CO2) 23 24-32 [facility]2014-07-18 02:07:00 Test Item Value Reference Range Interpretation Comments Total Protein (test code = Total 8.2 6.4-8.4 Protein) [facility]2014-07-18 02:07:00 Test Item Value Reference Range Interpretation Comments Creatinine Lvl (test code = Creatinine 1.3 0.5-1.4 Lvl) [facility]2014-07-18 02:07:00 Test Item Value Reference Range Interpretation Comments Chloride Lvl (test code = Chloride Lvl) 104 95-109 [facility]2014-07-18 02:07:00 Test Item Value Reference Range Interpretation Comments Potassium Lvl (test code = Potassium 3.5 3.5-5.1 Lvl) [facility]2014-07-18 02:07:00 Test Item Value Reference Range Interpretation Comments Sodium Lvl (test code = Sodium Lvl) 137 135-145 [facility]2014-07-18 02:07:00 Test Item Value Reference Range Interpretation Comments B/C Ratio (test code = B/C Ratio) 11 6-25 [facility]2014-07-18 02:07:00 Test Item Value Reference Range Interpretation Comments AGAP (test code = AGAP) 13.5 10.0-20.0 [facility]2014-07-18 02:07:00 Test Item Value Reference Range Interpretation Comments Globulin (test code = Globulin) 4.1 2.0-4.0 [facility]2014-07-18 02:07:00 Test Item Value Reference Range Interpretation Comments A/G Ratio (test code = A/G Ratio) 1.0 0.7-1.6 [facility]Q[id number] 02:07:00 Test Item Value Reference Range Interpretation Comments S Preg (test code = S Negative *NA*(04/18/14 Preg) 9:07 PM) [facility]stOagxtaaBSCYREAGPV3452-92-73 02:07:00 Test Item Value Reference Range Interpretation Comments Lymphocytes # (test code = Lymphocytes 2.7 1.0-5.5 #) [id number] 02:07:00 Test Item Value Reference Range Interpretation Comments Eosinophils # (test code 0.4 See_Comment [A utomated message] The = Eosinophils #) system whic h generated this result tra nsmitted reference range : <=0.5. The reference r radha was not used to int erpret this result as normal/abnormal . [facility]stGiforcaODKLUKCTGV1159-68-67 02:07:00 Test Item Value Reference Range Interpretation Comments Basophils # (test code 0.1 See_Comment [Aut omated message] The = Basophils #) system which generated this result tra nsmitted reference range : <=0.2. The reference r radha was not used to int erpret this result as normal/abnormal . [facility]stGsvjfviLQWLQZVZTX3758-41-05 02:07:00 Test Item Value Reference Range Interpretation Comments Monocytes # (test code 0.5 See_Comment [Aut omated message] The = Monocytes #) system which generated this result tra nsmitted reference range : <=0.8. The reference r radha was not used to int erpret this result as normal/abnormal . [facility]stYpekastWTBWHVIZCF1450-52-74 02:07:00 Test Item Value Reference Range Interpretation Comments Eosinophils (test code = 3.5 See_Comment [A utomated message] The Eosinophils) system which ge nerated this result tra nsmitted reference range : <=4.0. The reference r radha was not used to int erpret this result as normal/abnormal . [facility]stRlrxocfEJLLUXTVXY6686-08-15 02:07:00 Test Item Value Reference Range Interpretation Comments Segs-Bands # (test code = Segs-Bands #) 7.2 1.5-8.1 [facility]stBibtwjoIMFUHRESRE6684-86-16 02:07:00 Test Item Value Reference Range Interpretation Comments Basophils (test code = 0.8 See_Comment [Aut omated message] The Basophils) system which ge nerated this result tra nsmitted reference range : <=1.0. The reference r radha was not used to int erpret this result as normal/abnormal . [facility]stPfvseokIJGKCKLURI8932-18-05 02:07:00 Test Item Value Reference Range Interpretation Comments Segs (test code = Segs) 66.3 45.0-75.0 [facility]stWifdzwlCYQKEXGCTP6501-03-95 02:07:00 Test Item Value Reference Range Interpretation Comments Monocytes (test code = Monocytes) 4.8 2.0-12.0 [facility]stDcroxguWZEHUITIOW7988-47-12 02:07:00 Test Item Value Reference Range Interpretation Comments Lymphocytes (test code = Lymphocytes) 24.6 20.0-40.0 [facility]stXdkfifvESVQELTIMC5029-44-50 02:07:00 Test Item Value Reference Range Interpretation Comments RDW (test code = RDW) 14.5 11.5-14.5 [facility]stZspijsoCMGCCVXNJV1681-99-54 02:07:00 Test Item Value Reference Range Interpretation Comments MCHC (test code = MCHC) 34.4 32.0-36.0 [facility]stCheubjePUOROXAOYZ8033-01-59 02:07:00 Test Item Value Reference Range Interpretation Comments MPV (test code = MPV) 8.2 7.4-10.4 [facility]stGrajivrXYIPMYYXEK4344-42-33 02:07:00 Test Item Value Reference Range Interpretation Comments Platelet (test code = Platelet) 321 133-450 [facility]stXlhklkzMLDWSKSRPR2936-49-37 02:07:00 Test Item Value Reference Range Interpretation Comments Hct (test code = Hct) 43.0 36.0-48.0 [facility]stCeehgnqTLFJYXHRYW5063-05-10 02:07:00 Test Item Value Reference Range Interpretation Comments Hgb (test code = Hgb) 14.8 12.0-16.0 [facility]stIoiesthHAXZUGMPLQ7306-20-48 02:07:00 Test Item Value Reference Range Interpretation Comments MCH (test code = MCH) 28.3 pg 27.0-31.0 [facility]stKnqlsfuOGTRRFMJXQ3267-38-65 02:07:00 Test Item Value Reference Range Interpretation Comments MCV (test code = MCV) 82.4 81.0-99.0 [facility]stUcmsbcwBJVURRTFJS6989-07-28 02:07:00 Test Item Value Reference Range Interpretation Comments WBC (test code = WBC) 10.8 3.7-10.4 [facility]stQresdblJULCDEFLFG8143-96-77 02:07:00 Test Item Value Reference Range Interpretation Comments RBC (test code = RBC) 5.22 4.20-5.40 [facility]icsPqyvdodIGUTCZWIDU2595-19-65 02:07:00 Test Item Value Reference Range Interpretation Comments CDC HIV 4th GEN (test Negative (04/18/14 9:07 code = CDC HIV 4th PM) GEN) [facility] AND [id number] 02:07:00 Test Item Value Reference Range Interpretation Comments UA RBC (test code = 2 See_Comment [Automa romi message] The UA RBC) system which ge nerated this result transmit romi reference range : <=2. The reference range was not used to interpr et this result as erma l/abnormal. [facility] AND [id number] 02:07:00 Test Item Value Reference Range Interpretation Comments UA Bacteria (test code = UA Occasional /HPF Bacteria) [facility] AND [id number] 02:07:00 Test Item Value Reference Range Interpretation Comments UA WBC (test code = 3 See_Comment [Automa romi message] The UA WBC) system which ge nerated this result transmit romi reference range : <=5. The reference range was not used to interpr et this result as erma l/abnormal. [facility] AND [id number] 02:07:00 Test Item Value Reference Range Interpretation Comments UA Mucus (test code = UA Mucus) Few /LPF [facility] AND [id number] 02:07:00 Test Item Value Reference Range Interpretation Comments UA Glucose (test code = UA Negative mg/dL Glucose) [facility] AND [id number] 02:07:00 Test Item Value Reference Range Interpretation Comments UA Color (test code = Yellow *NA*(04/18/14 UA Color) 9:07 PM) [facility] AND [id number] 02:07:00 Test Item Value Reference Range Interpretation Comments UA Nitrite (test code Negative (04/18/14 9:07 = UA Nitrite) PM) [facility] AND [id number] 02:07:00 Test Item Value Reference Range Interpretation Comments UA pH (test code = UA pH) 5.0 5.0-8.0 [facility] AND [id number] 02:07:00 Test Item Value Reference Range Interpretation Comments UA Protein (test code = UA Negative mg/dL Protein) [facility] AND [id number] 02:07:00 Test Item Value Reference Range Interpretation Comments UA Spec Grav (test code = UA Spec Grav) 1.031 [facility] AND [id number] 02:07:00 Test Item Value Reference Range Interpretation Comments UA Turbidity (test code Marked *ABN*(04/18/14 = UA Turbidity) 9:07 PM) [facility] AND [id number] 02:07:00 Test Item Value Reference Range Interpretation Comments UA Sq Epi (test code = UA Sq Epi) Many /LPF [facility] AND [id number] 02:07:00 Test Item Value Reference Range Interpretation Comments UA Leuk Est (test code Small *ABN*(04/18/14 = UA Leuk Est) 9:07 PM) [facility] AND [id number] 02:07:00 Test Item Value Reference Range Interpretation Comments UA Blood (test code = Moderate *ABN*(04/18/14 UA Blood) 9:07 PM) [facility] AND [id number] 02:07:00 Test Item Value Reference Range Interpretation Comments UA Urobilinogen (test code = UA 2.0 0.1-1.0 Urobilinogen) [facility] AND [id number] 02:07:00 Test Item Value Reference Range Interpretation Comments UA Ketones (test code = UA Negative mg/dL Ketones) [facility] AND [id number] 02:07:00 Test Item Value Reference Range Interpretation Comments UA Bili (test code = Negative *NA*(04/18/14 UA Bili) 9:07 PM) [facility]2014-07-18 02:07:00 Test Item Value Reference Range Interpretation Comments Lipase Lvl (test code = Lipase Lvl) 134 73-393 [facility]2014-07-18 02:07:00 Test Item Value Reference Range Interpretation Comments eGFR (test code = eGFR) 58 [facility]2014-07-18 02:07:00 Test Item Value Reference Range Interpretation Comments AST (test code = AST) 55 See_Comment [Auto mated message] The system which ge nerated this result transmit romi reference range : <=37. The reference range was not used to interpr et this result as erma l/abnormal. [facility] ClinicsTripbirds [id number] 02:07:00 Test Item Value Reference Range Interpretation Comments Bili Total (test code = Bili Total) 0.5 0.2-1.3 [facility]2014-07-18 02:07:00 Test Item Value Reference Range Interpretation Comments Alk Phos (test code = Alk Phos) 87 39-136 [facility]2014-07-18 02:07:00 Test Item Value Reference Range Interpretation Comments BUN (test code = BUN) 14 7-22 [facility]2014-07-18 02:07:00 Test Item Value Reference Range Interpretation Comments Glucose Lvl (test code = Glucose Lvl) 112 70-99 [facility]2014-07-18 02:07:00 Test Item Value Reference Range Interpretation Comments ALT (test code = ALT) 134 See_Comment [Auto mated message] The system which ge nerated this result transmit romi reference range : <=65. The reference range was not used to interpr et this result as erma l/abnormal. [facility]2014-07-18 02:07:00 Test Item Value Reference Range Interpretation Comments Albumin Lvl (test code = Albumin Lvl) 4.1 3.5-5.0 [facility]2014-07-18 02:07:00 Test Item Value Reference Range Interpretation Comments Calcium Lvl (test code = Calcium Lvl) 8.8 8.5-10.5 [facility]2014-07-18 02:07:00 Test Item Value Reference Range Interpretation Comments CO2 (test code = CO2) 23 24-32 [facility]2014-07-18 02:07:00 Test Item Value Reference Range Interpretation Comments Total Protein (test code = Total 8.2 6.4-8.4 Protein) [facility]2014-07-18 02:07:00 Test Item Value Reference Range Interpretation Comments Creatinine Lvl (test code = Creatinine 1.3 0.5-1.4 Lvl) [facility]2014-07-18 02:07:00 Test Item Value Reference Range Interpretation Comments Chloride Lvl (test code = Chloride Lvl) 104 95-109 [facility]2014-07-18 02:07:00 Test Item Value Reference Range Interpretation Comments Potassium Lvl (test code = Potassium 3.5 3.5-5.1 Lvl) [facility]2014-07-18 02:07:00 Test Item Value Reference Range Interpretation Comments Sodium Lvl (test code = Sodium Lvl) 137 135-145 [facility]2014-07-18 02:07:00 Test Item Value Reference Range Interpretation Comments B/C Ratio (test code = B/C Ratio) 11 6-25 [facility]2014-07-18 02:07:00 Test Item Value Reference Range Interpretation Comments AGAP (test code = AGAP) 13.5 10.0-20.0 [facility]2014-07-18 02:07:00 Test Item Value Reference Range Interpretation Comments Globulin (test code = Globulin) 4.1 2.0-4.0 [facility]2014-07-18 02:07:00 Test Item Value Reference Range Interpretation Comments A/G Ratio (test code = A/G Ratio) 1.0 0.7-1.6 [place] [id number] 02:07:00 Test Item Value Reference Range Interpretation Comments S Preg (test code = S Negative *NA*(04/18/14 Preg) 9:07 PM) [id number] 02:07:00 Test Item Value Reference Range Interpretation Comments Lymphocytes # (test code = Lymphocytes 2.7 1.0-5.5 #) [facility]stDxtqlndRWJHPMVBGM7075-73-68 02:07:00 Test Item Value Reference Range Interpretation Comments Eosinophils # (test code 0.4 See_Comment [A utomated message] The = Eosinophils #) system whic h generated this result tra nsmitted reference range : <=0.5. The reference r radha was not used to int erpret this result as normal/abnormal . [id number] 02:07:00 Test Item Value Reference Range Interpretation Comments Basophils # (test code 0.1 See_Comment [Aut omated message] The = Basophils #) system which generated this result tra nsmitted reference range : <=0.2. The reference r radha was not used to int erpret this result as normal/abnormal . [facility]stSgbeburDXHRLXYDKN7355-12-99 02:07:00 Test Item Value Reference Range Interpretation Comments Monocytes # (test code 0.5 See_Comment [Aut omated message] The = Monocytes #) system which generated this result tra nsmitted reference range : <=0.8. The reference r radha was not used to int erpret this result as normal/abnormal . [facility]stCasmboeKIZULKYVNU0351-77-30 02:07:00 Test Item Value Reference Range Interpretation Comments Eosinophils (test code = 3.5 See_Comment [A utomated message] The Eosinophils) system which ge nerated this result tra nsmitted reference range : <=4.0. The reference r radha was not used to int erpret this result as normal/abnormal . [facility]stXinexlxLBZOWFOSEW2859-04-31 02:07:00 Test Item Value Reference Range Interpretation Comments Segs-Bands # (test code = Segs-Bands #) 7.2 1.5-8.1 [id number] 02:07:00 Test Item Value Reference Range Interpretation Comments Basophils (test code = 0.8 See_Comment [Aut omated message] The Basophils) system which ge nerated this result tra nsmitted reference range : <=1.0. The reference r radha was not used to int erpret this result as normal/abnormal . [facility]stDjkfjuvIMGYDCXGZP4938-87-27 02:07:00 Test Item Value Reference Range Interpretation Comments Segs (test code = Segs) 66.3 45.0-75.0 [facility]stCbgluyfZKFHWFJADR6929-75-93 02:07:00 Test Item Value Reference Range Interpretation Comments Monocytes (test code = Monocytes) 4.8 2.0-12.0 [id number] 02:07:00 Test Item Value Reference Range Interpretation Comments Lymphocytes (test code = Lymphocytes) 24.6 20.0-40.0 [facility]stJeumwbcOOXQADAZCK4163-01-47 02:07:00 Test Item Value Reference Range Interpretation Comments RDW (test code = RDW) 14.5 11.5-14.5 [facility]stEjicafaAYZQECTCLE0244-41-35 02:07:00 Test Item Value Reference Range Interpretation Comments MCHC (test code = MCHC) 34.4 32.0-36.0 [id number] 02:07:00 Test Item Value Reference Range Interpretation Comments MPV (test code = MPV) 8.2 7.4-10.4 [id number] 02:07:00 Test Item Value Reference Range Interpretation Comments Platelet (test code = Platelet) 321 133-450 [id number] 02:07:00 Test Item Value Reference Range Interpretation Comments Hct (test code = Hct) 43.0 36.0-48.0 [id number] 02:07:00 Test Item Value Reference Range Interpretation Comments Hgb (test code = Hgb) 14.8 12.0-16.0 [id number] 02:07:00 Test Item Value Reference Range Interpretation Comments MCH (test code = MCH) 28.3 pg 27.0-31.0 [id number] 02:07:00 Test Item Value Reference Range Interpretation Comments MCV (test code = MCV) 82.4 81.0-99.0 [id number] 02:07:00 Test Item Value Reference Range Interpretation Comments WBC (test code = WBC) 10.8 3.7-10.4 [id number] 02:07:00 Test Item Value Reference Range Interpretation Comments RBC (test code = RBC) 5.22 4.20-5.40 [id number] 02:07:00 Test Item Value Reference Range Interpretation Comments CDC HIV 4th GEN (test Negative (04/18/14 9:07 code = CDC HIV 4th PM) GEN) [facility] AND [id number] 02:07:00 Test Item Value Reference Range Interpretation Comments UA RBC (test code = 2 See_Comment [Automa romi message] The UA RBC) system which ge nerated this result transmit romi reference range : <=2. The reference range was not used to interpr et this result as erma l/abnormal. [facility] AND [id number] 02:07:00 Test Item Value Reference Range Interpretation Comments UA Bacteria (test code = UA Occasional /HPF Bacteria) [facility] AND [id number] 02:07:00 Test Item Value Reference Range Interpretation Comments UA WBC (test code = 3 See_Comment [Automa romi message] The UA WBC) system which ge nerated this result transmit romi reference range : <=5. The reference range was not used to interpr et this result as erma l/abnormal. [facility] AND [id number] 02:07:00 Test Item Value Reference Range Interpretation Comments UA Mucus (test code = UA Mucus) Few /LPF [facility] AND [id number] 02:07:00 Test Item Value Reference Range Interpretation Comments UA Glucose (test code = UA Negative mg/dL Glucose) [facility] AND [id number] 02:07:00 Test Item Value Reference Range Interpretation Comments UA Color (test code = Yellow *NA*(04/18/14 UA Color) 9:07 PM) [facility] AND [id number] 02:07:00 Test Item Value Reference Range Interpretation Comments UA Nitrite (test code Negative (04/18/14 9:07 = UA Nitrite) PM) [facility] AND [id number] 02:07:00 Test Item Value Reference Range Interpretation Comments UA pH (test code = UA pH) 5.0 5.0-8.0 [facility] AND [id number] 02:07:00 Test Item Value Reference Range Interpretation Comments UA Protein (test code = UA Negative mg/dL Protein) [facility] AND [id number] 02:07:00 Test Item Value Reference Range Interpretation Comments UA Spec Grav (test code = UA Spec Grav) 1.031 [facility] AND [id number] 02:07:00 Test Item Value Reference Range Interpretation Comments UA Turbidity (test code Marked *ABN*(04/18/14 = UA Turbidity) 9:07 PM) [facility] AND [id number] 02:07:00 Test Item Value Reference Range Interpretation Comments UA Sq Epi (test code = UA Sq Epi) Many /LPF [facility] AND [id number] 02:07:00 Test Item Value Reference Range Interpretation Comments UA Leuk Est (test code Small *ABN*(04/18/14 = UA Leuk Est) 9:07 PM) [facility] AND [id number] 02:07:00 Test Item Value Reference Range Interpretation Comments UA Blood (test code = Moderate *ABN*(04/18/14 UA Blood) 9:07 PM) [facility] AND [id number] 02:07:00 Test Item Value Reference Range Interpretation Comments UA Urobilinogen (test code = UA 2.0 0.1-1.0 Urobilinogen) [facility] AND [id number] 02:07:00 Test Item Value Reference Range Interpretation Comments UA Ketones (test code = UA Negative mg/dL Ketones) [facility] AND [id number] 02:07:00 Test Item Value Reference Range Interpretation Comments UA Bili (test code = Negative *NA*(04/18/14 UA Bili) 9:07 PM) [facility]
[2022-06-29 12:21] LABS: Urine Blood 3+ (Negative); Urine Glucose Negative (Negative); Urine Protein Negative (Negative); Urine Specific Gravity 1.025 (1.005-1.030)
[2022-06-29 12:44] LABS: Urine Mucus Slight /HPF (None Seen); Urine RBC >50 /HPF (None Seen)
[2022-06-29] MEDS ORDERED: NA CHLORIDE 0.9% 1,000 ML ONE (13:08)
--- NOTE | 2022-06-29 13:10 | RAD REPORT ---
EXAM DESCRIPTION: US - Transvaginal Study Probe - 06/29/2022 12:58 pm CLINICAL HISTORY: Vaginal bleeding COMPARISON: none FINDINGS: The uterus measures 11 x 6 x 7 cm. A fibroid is not seen. The endometrial stripe measures 8 millimeters and contains fluid. Small cervical nabothian cysts The ovaries are normal in size and echotexture. Prominent follicles within the ovaries. The right and left adnexa unremarkable No significant free fluid is seen. IMPRESSION: Prominent fluid within the endometrium probably blood. Endometrial stripe is normal lucie [place]. Followup ultrasound in a months is recommended for re-evaluation
[2022-06-29 13:15] LABS: Absolute Lymphocytes (CBC) 1.2 K/uL (0.7-4.9); Hematocrit 26.2 % (36.0-45.0); Lymphocytes % 25.8 % (15.3-44.8); MCV 66.3 fL (80-100); MPV 6.7 fL (7.6-11.3); RBC Red Blood Cell Count 3.95 M/uL (3.86-4.86)
[2022-06-29 13:18] LABS: Protime INR 1.17
[2022-06-29 13:36] LABS: Albumin 3.6 g/dL (3.4-5.0); Bilirubin Total 0.4 mg/dL (0.2-1.0); Potassium 3.5 mmol/L (3.5-5.1); Protein, Total 7.6 g/dL (6.4-8.2)
[2022-06-29] MEDS ORDERED: ESTROGENS,CONJ 25 MG IV ONE (14:30)
[2022-06-29] MEDS ORDERED: WATER FOR INJ,STERILE 10 ML ONE (14:30)
[2022-06-29 15:01] LABS: Urine Specific Gravity/Preg 1.025 (1.005-1.030)
[2022-06-29] MEDS ORDERED: TRANEXAMIC ACID 1,000 MG in NA CHLORIDE 0.9% 50 ML IV ONE (16:00)
[2022-06-29 16:23] LABS: Absolute Lymphocytes (CBC) 1.6 K/uL (0.7-4.9); Hematocrit 24.7 % (36.0-45.0); Lymphocytes % 29.4 % (15.3-44.8); MCV 66.8 fL (80-100); MPV 6.9 fL (7.6-11.3)
[2022-06-29] MEDS ORDERED: TRANEXAMIC ACID 1,000 MG/10 ML VIAL IV ONE (16:23)
[2022-06-29] MEDS ORDERED: NA CHLORIDE 0.9% 500 ML ONE ×2 (16:23→17:58)
[2022-06-29] MEDS ORDERED: NA CHLORIDE 0.9% 100 ML ONE ×2 (16:23→22:23)
[2022-06-29 16:24] LABS: Blood Morphology Comment NOTED (NOT SEEN); Hypochromasia 1+; Platelet Estimate ADEQ; White Blood Cell Scan OK (OK)
[2022-06-29] MEDS ORDERED: NA CHLORIDE 0.9% 50 ML ONE (16:25)
--- NOTE | 2022-06-29 16:48 | ER ---
Nurse's Notes [facility] Name: Fauzia Darnell Age: 31 yrs Sex: Female : 1990 Arrival Date: 06/29/2022 Time: 11:32 Bed 19 Private MD: Diagnosis: MENOMETRORRHAGIA Presentation: 06/29 11:45 Chief complaint: Patient states: "I've been passing vaginal clots for 2 months now and aa5 there is no bleeding in between it's only when I have the clots come out, today I passed 4 clots". Has not been able to be evaluated by highway design engineer. Coronavirus screen: At this time, the client does not indicate any symptoms associated with coronavirus-19. Ebola Screen: Patient denies travel to an Ebola-affected area in the 21 days before illness onset. Initial Sepsis Screen: Does the patient meet any 2 criteria? HR > 90 bpm. Does the patient have a suspected source of infection? No. Patient's initial sepsis screen is negative. Risk Assessment: Do you want to hurt yourself or someone else? Patient reports no desire to harm self or others. Onset of symptoms was June 2022. 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 - Social history:: Smoking status: Patient denies any tobacco usage or history of. Screenin:00 Abuse screen: Denies threats or abuse. Denies injuries from another. jh6 12:00 Nutritional screening: No deficits noted. Tuberculosis screening: No symptoms or risk jh6 factors identified. Fall Risk None identified. Assessment: 12:00 General: Appears in no apparent distress. Behavior is calm, cooperative. Pain: jh6 Complains of pain in pelvis. : Reports vaginal bleeding that is with clots, light flow, spotty. 13:00 Reassessment: No changes from previously documented assessment. Patient and/or family jh6 updated on plan of care and expected duration. Pain level reassessed. 14:00 Reassessment: No changes from previously documented assessment. Patient and/or family jh6 updated on plan of care and expected duration. Pain level reassessed. 15:00 Reassessment: Patient and/or family updated on plan of care and expected duration. Pain jh6 level reassessed. Patient is alert, oriented x 3, equal unlabored respirations, skin warm/dry/pink. Pt when walking to bathroom stated that she had another large clot. Pt also reporting that she feels like her hr is elevated when walking back and forth to bathroom. provider was advised . 16:20 Reassessment: No changes from previously documented assessment. Patient and/or family jh6 updated on plan of care and expected duration. Pain level reassessed. 17:30 Reassessment: Patient and/or family updated on plan of care and expected duration. Pain jh6 level reassessed. Patient is alert, oriented x 3, equal unlabored respirations, skin warm/dry/pink. pts H/H has dropped and provider aware, calling REFRACTORY WORKER for the need for admit and blood transfusion. pt made aware and is in agreement with admit and transfusion. 19:42 Reassessment: Patient appears in no apparent distress at this time. Patient and/or kl family updated on plan of care and expected duration. Pain level reassessed. Patient is alert, oriented x 3, equal unlabored respirations, skin warm/dry/pink. Patient states feeling better. 19:42 : Last void was June 29, 2022. Vital Signs: 11:45 BP 139 / 86; Pulse 120; Resp 20 S; Temp 97.7(TE); Pulse Ox 100% on R/A; Weight 141.52 aa5 kg (R); Height 5 ft. 6 in. (167.64 cm) (R); 13:00 BP 136 / 92; Pulse 114; Resp 17; Pulse Ox 100% ; Pain 0/10; jh6 14:00 BP 132 / 79; Pulse 108; Resp 17; Pulse Ox 100% ; Pain 0/10; jh6 15:00 BP 129 / 77; Pulse 110; Resp 18; Pulse Ox 100% ; Pain 0/10; jh6 16:00 BP 130 / 81; Pulse 109; Resp 17; Pulse Ox 100% ; Pain 0/10; jh6 11:45 Body Mass Index 50.36 (141.52 kg, 167.64 cm) aa5 ED Course: 11:32 Patient arrived in ED. am2 11:40 [facility] Yi FNP is [facility]. jh7 11:40 Johnny Torrez MD is Attending Physician. jh7 11:45 Arm band placed on. aa5 11:47 Triage completed. aa5 11:57 Paty Barnett, RN is Primary Nurse. jh6 12:35 US Transvaginal Study (Probe) In Process Unspecified. EDMS 12:55 Patient moved back from ultrasound. jh6 13:02 Initial lab(s) drawn, by ED staff, sent to lab. jh6 13:04 Inserted saline lock: 20 gauge in right antecubital area, using aseptic technique. jh6 Blood collected. 13:05 Placed in gown. jh6 14:30 Assist provider with pelvic exam: Set up pelvic tray. Performed by Paty GOMEZ jh6 Patient tolerated well. 16:45 New Harrell MD is Hospitalizing Provider. 7 19:23 Primary Nurse role handed off by Paty Barnett, RN mw2 19:44 Patient admitted, IV remains in place. Administered Medications: 13:05 Drug: NS 0.9% 1000 ml Route: IV; Rate: 1 bolus; Site: right antecubital; 6 14:34 Drug: Premarin 25 mg Route: IV; Rate: 1 calculated rate; Site: right antecubital; 6 16:34 Drug: Sodium Chloride 0.9% 500 ml Route: IVPB; Site: right antecubital; [facility] 16:34 Drug: Tranexamic Acid 1000 mg Route: IV; Rate: calculated rate; Site: right antecubital;6 Medication: 13:04 VIS not applicable for this client. [facility] Outcome: 16:48 Decision to Hospitalize by Provider. [facility] 19:43 Admitted to L \\T\\ D, via wheelchair, room 272. 19:43 Condition: stable 19:43 Discharge instructions given to family, Instructed on the need for admit, Demonstrated understanding of instructions. 21:34 Patient left the ED. Signatures: Dispatcher [employer] EDNE Leslye Izaguirre RN RN kl Calderon, Audri, RN RN aa5 Margaret Schaffer am2 Mehnaz Oropeza mw2 Paty Barnett, RN RN 6 Paty Yi FNP PUBLIC FINANCE SPECIALIST jh7 Corrections: (The following items were deleted from the chart) 11:47 11:45 Chief complaint: Patient states: "I've been passing vaginal clots for 2 months aa5 now and there is no bleeding in between it's only when I have the clots come out, today I passed 4 clots". 5 13:04 13:03 General: Appears in no apparent distress. Behavior is calm, cooperative, [place] [id number] 13:04 13:03 Pain: Complains of pain in pelvis [place] [id number] 13: 13:03 : Reports vaginal bleeding that is with clots, light flow, spotty, [place] [id number]
--- NOTE | 2022-06-29 16:48 | EDPHYS ---
Physician Documentation [facility] Name: Fauzia Darnell Age: 31 yrs Sex: Female : 1990 Arrival Date: 06/29/2022 Time: 11:32 Bed 19 Private MD: ANGELA Physician Johnny Torrez HPI: 06/29 11:50 This 31 yrs old Female presents to ER via Ambulatory with complaints of Vaginal jh7 Bleeding. 11:50 The patient presents with vaginal bleeding that is heavy, with clots. Onset: The jh7 symptoms/episode began/occurred 2 month(s) ago, and became worse this morning. Associated signs and symptoms: The patient has no apparent associated signs or symptoms. 31-year-old female presents to the ER complaining of vaginal bleeding with clots for 2 months. She reports that she has been passing 1-2 clots a day with no bleeding in between. States that this morning the bleeding worsened and she has been continuously passing clots. Reports that she has not seen a deep fat fry cook in at least a year. Denies dizziness, syncope, weakness, and fatigue. Reports that she had an IUD removed last May.. 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 - Social history:: Smoking status: Patient denies any tobacco usage or history of. ROS: 11:50 Constitutional: Negative for fever, chills, and weight loss, Eyes: Negative for injury, jh7 pain, redness, and discharge, ENT: Negative for injury, pain, and discharge, Cardiovascular: Negative for chest pain, palpitations, and edema, Respiratory: Negative for shortness of breath, cough, wheezing, and pleuritic chest pain, Abdomen/GI: Negative for abdominal pain, nausea, vomiting, diarrhea, and constipation, Back: Negative for injury and pain, MS/Extremity: Negative for injury and deformity, Skin: Negative for injury, rash, and discoloration, Neuro: Negative for headache, weakness, numbness, tingling, and seizure. 11:50 : Positive for vaginal bleeding, Negative for urinary symptoms. 11:50 All other systems are negative. Exam: 11:50 Constitutional: This is a well developed, well nourished patient who is awake, alert, jh7 and in no acute distress. Head/Face: Normocephalic, atraumatic. Eyes: Pupils equal round and reactive to light, extra-ocular motions intact. Lids and lashes normal. Conjunctiva and sclera are non-icteric and not injected. Cornea within normal limits. Periorbital areas with no swelling, redness, or edema. Cardiovascular: Regular rate and rhythm with a normal S1 and S2. No gallops, murmurs, or rubs. Normal PMI, no JVD. No pulse deficits. Respiratory: Lungs have equal breath sounds bilaterally, clear to auscultation and percussion. No rales, rhonchi or wheezes noted. No increased work of breathing, no retractions or nasal flaring. Abdomen/GI: Soft, non-tender, with normal bowel sounds. No distension or tympany. No guarding or rebound. No evidence of tenderness throughout. Back: No spinal tenderness. No costovertebral tenderness. Full range of motion. Skin: Warm, dry with normal turgor. Normal color with no rashes, no lesions, and no evidence of cellulitis. MS/ Extremity: Pulses equal, no cyanosis. Neurovascular intact. Full, normal range of motion. Neuro: Awake and alert, GCS 15, oriented to person, place, time, and situation. Motor strength 5/5 in all extremities. Sensory grossly intact. Normal gait. 11:50 : CVA tenderness, is absent, Pelvic Exam: Speculum exam: moderate bleeding, blood clots in vaginal vault, os that is open, discharge, is not appreciated, the nurse was present for the exam. Vital Signs: 11:45 BP 139 / 86; Pulse 120; Resp 20 S; Temp 97.7(TE); Pulse Ox 100% on R/A; Weight 141.52 aa5 kg (R); Height 5 ft. 6 in. (167.64 cm) (R); 13:00 BP 136 / 92; Pulse 114; Resp 17; Pulse Ox 100% ; Pain 0/10; jh6 14:00 BP 132 / 79; Pulse 108; Resp 17; Pulse Ox 100% ; Pain 0/10; jh6 15:00 BP 129 / 77; Pulse 110; Resp 18; Pulse Ox 100% ; Pain 0/10; 6 16:00 BP 130 / 81; Pulse 109; Resp 17; Pulse Ox 100% ; Pain 0/10; 6 11:45 Body Mass Index 50.36 (141.52 kg, 167.64 cm) aa5 MDM: 11:48 Patient medically screened. [facility] 13:35 ED course: Awaiting OB consult. [facility] 14:00 Physician consultation: New Harrell MD was called at 14:00, was contacted at 14:00, [facility] regarding patient's condition, would like medications started, Premarin 25 mg IV. If not better in 1 hour, give Tranexamic Acid 1g IV. Start on control. Give 2-3 months.. 16:34 ED course: Pending repeat CBC. The patient's HR has decreased to 103. May discharge [facility] after Tranexamic Acid to f/u with COO & CO FOUNDER if no significant change in HGB.. 16:35 Differential diagnosis: menometrorrhagia, ovarian cyst, uterine fibroids. Data [facility] reviewed: vital signs, nurses notes, lab test result(s), radiologic studies, ultrasound. Data interpreted: Pulse oximetry: is 100 %. Interpretation: normal. Counseling: I had a detailed discussion with the patient and/or guardian regarding: the historical points, exam findings, and any diagnostic results supporting the discharge/admit diagnosis, the need for further work-up and treatment in the hospital, Spoke to Dr. Harrell. The [facility].. 06/29 11:52 Order name: CBC with Diff; Complete Time: 16:30 [facility] 06/29 11:52 Order name: CMP; Complete Time: 13:41 [facility] 06/29 11:52 Order name: Urine Microscopic Only; Complete Time: 12:59 [facility] 06/29 11:52 Order name: PT-INR; Complete Time: 13:27 [facility] 06/29 11:52 Order name: Type And Screen [facility] 06/29 12:21 Order name: Urine Dipstick-Ancillary; Complete Time: 12:35 EDMS 06/29 12:29 Order name: Urine --Ancillary (enter results); Complete Time: 15:10 bd 06/29 15:38 Order name: CBC with Diff; Complete Time: 16:51 [facility] 06/29 16:25 Order name: CBC Smear Scan; Complete Time: 16:30 EDNY 06/29 16:48 Order name: SARS RAPID [facility] 06/29 16:51 Order name: Bb Add On bd 06/29 16:54 Order name: Packed RBC Leukored [facility] 06/29 16:59 Order name: Urinalysis [facility] 06/29 16:59 Order name: CBC with Automated Diff [facility] 06/29 11:52 Order name: IV Saline Lock [facility] 06/29 11:52 Order name: Labs collected and sent [facility] 06/29 11:52 Order name: Urine Dipstick-Ancillary (obtain specimen) [facility] 06/29 11:52 Order name: Urine Test (obtain specimen) [facility] 06/29 11:52 Order name: US Transvaginal Study (Probe); Complete Time: 13:27 [facility] 06/29 11:54 Order name: Pelvic Exam Setup; Complete Time: 16:35 [facility] 06/29 16:48 Order name: Transfuse [facility] 06/29 16:59 Order name: Regular [facility] Administered Medications: 13:05 Drug: NS 0.9% 1000 ml Route: IV; Rate: 1 bolus; Site: right antecubital; [facility] 14:34 Drug: Premarin 25 mg Route: IV; Rate: 1 calculated rate; Site: right antecubital; [facility] 16:34 Drug: Sodium Chloride 0.9% 500 ml Route: IVPB; Site: right antecubital; [facility] 16:34 Drug: Tranexamic Acid 1000 mg Route: IV; Rate: calculated rate; Site: right antecubital;[facility] Disposition Summary: 06/29/22 16:48 Hospitalization Ordered Hospitalization Status: Observation [facility] Provider: New Harrell [facility] Location: [facility] Condition: Stable [facility] Problem: new [facility] Symptoms: have worsened [facility] Bed/Room Type: Standard [facility] Room Assignment: [facility]-(06/29/22 18:16) Diagnosis - MENOMETRORRHAGIA [facility] Forms: - Medication Reconciliation Form [facility] - SBAR form [facility] Signatures: Dispatcher [facility] Karissa Roberts RN RN dw Williams, Irene, RN RN iw Calderon, Audri, RN RN aa5 Paty Barnett, RN RN jh6 Paty Yi, STATE ARCHIVIST [place] [id number] Corrections: (The following items were deleted from the chart) 16:31 14:00 Physician consultation: New Harrell MD was called at 14:00, was contacted at [facility] 14:00, regarding patient's condition, would like medications started, Premarin 25 mg IV. If not better in 1 hour, give Transexamic Acid 1g. Start on control. Give 2-3 months., [facility] 18:16 16:48 [facility] dw
[2022-06-29] MEDS ORDERED: NA CHLORIDE 0.9% 1,000 ML IV SCH (17:00)
[2022-06-29 17:51] LABS: SARS-CoV-2 Antigen Rapid Res Negative (Negative)
[2022-06-29 19:34] LABS: Absolute Lymphocytes (CBC) 1.1 K/uL (0.7-4.9); Hematocrit 23.9 % (36.0-45.0); Lymphocytes % 20.6 % (15.3-44.8); MCV 67.1 fL (80-100); MPV 7.1 fL (7.6-11.3); RBC Red Blood Cell Count 3.55 M/uL (3.86-4.86)
[2022-06-29 23:16] VITALS: BMI 50.1
[2022-06-30 03:46] LABS: Hematocrit 28.4 % (36.0-45.0)
[2022-06-30 08:53] VITALS: BP 131/79; TEMP 97.3
--- NOTE | 2022-06-30 11:40 | PREOPHP ---
Date of Admission: 06/29/2022 History Of Present Illness: A 31-year-old female, one previous delivery, section. Patient had an IUD for 2 years and was doing quite well, then had it removed as she thought she might want to have a and has had significant bleeding problems since then. For several months, she has been having bleeding fairly heavily. Came into our emergency room, noted to be passing large clots. Hemoglobin went from 8 to 7.7 or so and patient was feeling faint. Dr. Torrez thought she needed blood and she has been given 2 units of blood. Her hemoglobin is now 9. The bleeding is basically s topped. She was given Premarin 25 mg IV x2 and tranexamic acid 1 g IV. Family History: Not really contributory. Past Medical History: Really not contributory. Allergies: NO ALLERGIES NOTED. Physical Examination: HEENT: Clear. Pupils equally round and reactive to light and accommodation. Conjunctivae well perf used. No oral, lingual, or buccal lesions. Chest and Lungs: Clear. Breasts: Not examined. Abdomen: Massively obese. Extremities: Clear without edema, cyanosis, or clubbing. Pelvic: Not done. Ultrasound demonstrated basically normal uterus, no fibroids, no ovarian cyst, no intraperitoneal ble eding, a normal lining thickness of the uterus. Basically, we are dealing with severe menorrhagia. The situation thoroughly discussed with patient today. We have even discussed endometrial biopsy, al though patient is under 40. She does have risk factors and that her weight is the main risk factor f or endometrial hyperplasia. Even though she had been given Premarin, if we did a biopsy today, I thi nk that it would not be severely affected by the medicines that she had been given. Patient does not seem to be inclined to want a biopsy. I have discussed with the patient options including con trol pills, patches, rings, Depo-Provera shots, replacing the IUD, she said that IUD caused her to newsome ve mood problems. She knows that this could occur with any kind of hormonal medication, but could al so prevent her having such heavy periods. We even discussed endometrial ablation, but patient would have to have a tubal, which I think would be significantly risky in a patient of her size. The possi bility of her getting a vasectomy and then her getting an ablation discussed. [place]. I told her that if she does well today, she can be dismissed and follow up with a ROTATING FIELD ASSEMBLER in [facility] If she wants Depo, of course, we can give that to her before she leaves. She knows that the medicines we have given her will only temporarily stop her bleeding and that some other decision nee ds to be made. Otherwise, she will find herself in the same position in the near future. Full discu ssion. She is alert, seems to be clinically aware and asked pertinent questions. DAPHNE/RUBINA Voice ID: [id number]
--- NOTE | 2022-06-30 18:40 | DS ---
Date of Discharge: 06/30/2022 Hospital Course: The patient has decided that she wants endometrial biopsy. She was prepped and the tenaculum was placed on the anterior cervical lip. Betadine cleansing of the cervix. Gynosampler w as introduced to 9 cm. Good amount of tissue and some clot obtained. Again after biopsy, the cervix swabbed again with Betadine. The patient is agreed to start on control pills. She will take 2 a day until further notice. She knows the biopsy report will take about a week to get back. She w ants referral to [place], which we were working on now. Thus far, though we have not found anybody, who will accept her for possible ablation and tubal sterilization, but we will keep working on it. I f we cannot find anybody in [place], we will probably send her to Dr. Pepper here in [facility], who migh t be able to get clearance for doing tubal at the same time as an endometrial ablation. She is stabl e, feeling much better. Final Diagnoses: Severe menorrhagia, blood transfusion given, endometrial biopsy obtained, Premarin IV 25 mg x2, and tranexamic acid 1 g IV. No signs of fibroids. Followup according to biopsy report and the patient desires. Now dismissed. DAPHNE/RUBINA Voice ID: [id number] Report ID: [id number]
[2022-07-02 01:25] VITALS: O2SAT 100
== END 2022-06-30 13:00 | disposition home or self-care (01) ==
LOC: ER 11:31 → ERHOLD 16:53 → 2ND-WC 20:06
PROVIDERS: ADMIT Specialist; ATTEND Specialist
PROC: 30233N1 Transfusion of Nonautologous Red Blood Cells into Peripheral Vein, Percutaneous Approach (ICD-10-PCS; principal; 2022-06-29)
PROC: 0UBC7ZX Excision of Cervix, Via Natural or Artificial Opening, Diagnostic (ICD-10-PCS; 2022-06-30)
DX: N92.1 Excessive and frequent menstruation with irregular cycle (principal); D62 Acute posthemorrhagic anemia; Z20.822 Contact with and (suspected) exposure to COVID-19
CPT/HCPCS: 36430; 58100; 85025 ×3; 36415 ×2; 86900; 86850; 81025; 85610; 86901; 88305; 85018; 85014; 80053; 76830; 96375; 96374; 99285; 87811; J1410; P9016 ×2; J7040 ×2; J7030 ×2; G0378 ×3; 81003; 81015

== ENCOUNTER 2024-11-26 17:44 | Emergency (ER) | payer BC ==
--- NOTE | 2024-11-26 19:34 | RAD REPORT ---
EXAM: OB Multi Gestation HISTORY: ABD CRAMPING, COMPARISON: None TECHNIQUE: Multiple grayscale and color Doppler images were obtained in a transabdominal pelvic ultra sound. Spectral analysis of the Doppler waveforms of the ovaries were performed. FINDINGS: UTERUS: Twin gestation which is diamniotic and dichorionic Fetus a: There is an intrauterine gestational sac. This contains a yolk sac and pole. [place]-rump length: 3.2 cm which estimates gestational age at 10w1d. A heart rate is detected at 172 bpm. No evidence of subchorionic hemorrhage. Fetus b: There is an intrauterine gestational sac. This contains a yolk sac and pole. [place]-rump length: 3.3 cm which estimates gestational age at 10w1d. A heart rate is detected at 172 bpm. No evidence of subchorionic hemorrhage. No free fluid is seen in the pelvis. RIGHT OVARY: Not evaluated. LEFT OVARY: Not evaluated. IMPRESSION: Twin viable gestations (diamniotic/dichorionic) with positive heart tones and both measuring 10 weeks 1 day with NAKIA of 06/23/2025.
--- NOTE | 2024-11-26 20:22 | ER ---
Nurse's Notes [facility] Name: Fauzia Darnell Age: 34 yrs Sex: Female : 1990 Arrival Date: 11/26/2024 Time: 17:44 Bed [id number] Private MD: Diagnosis: Threatened Presentation: 11/26 18:23 Chief complaint: Patient states: she has been having menstrual cramps started Tuesday, ap3 with spotting when she wipes. Patient states she is almost 11 weeks with twins. Coronavirus screen: At this time, the client does not indicate any symptoms associated with coronavirus-19. Ebola Screen: No symptoms or risks identified at this time. Initial Sepsis Screen: Does the patient meet any 2 criteria? No. Patient's initial sepsis screen is negative. Does the patient have a suspected source of infection? No. Patient's initial sepsis screen is negative. Risk Assessment: Do you want to hurt yourself or someone else? Patient reports no desire to harm self or others. Onset of symptoms was November 24, 2024. 18:23 Method Of Arrival: Ambulatory ap3 18:23 Acuity: PARAMJIT 3 ap3 Triage Assessment: 18:25 General: Appears in no apparent distress. Behavior is calm, cooperative, appropriate ap3 for age. Pain: Complains of pain in suprapubic area Quality of pain is described as crampy. 18:26 Neuro: Level of Consciousness is awake, alert, obeys commands, Oriented to person, ap3 place, time, situation, Appropriate for age. Cardiovascular: Patient's skin is warm and dry. Respiratory: Airway is patent Respiratory effort is even, unlabored, Respiratory pattern is regular, symmetrical. : Reports discharge, from vagina that is bloody. 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 - Infectious Disease History:: Denies. - Social history:: Smoking status: Patient denies any tobacco usage or history of. Screenin:26 [facility] ED Fall Risk Assessment (Adult) History of falling in the last 3 months, ap3 including since admission No falls in past 3 months (0 pts) Confusion or Disorientation No (0 pts) Intoxicated or Sedated No (0 pts) Impaired Gait No (0 pts) Mobility Assist Device Used No (0 pt) Altered Elimination No (0 pt) Score/Fall Risk Level 0 - 2 = Low Risk Oriented to surroundings, Maintained a safe environment, Educated pt \T\ family on fall prevention, incl call for assistance when getting out of bed, Assessed \T\ reinforced patient's understanding of fall precautions, Hourly rounding (assess needs \T\ fall precautionary measures) done, Used ambulatory aids as needed (educated on \T\ assisted with). Abuse screen: Denies threats or abuse. Nutritional screening: No deficits noted. Tuberculosis screening: No symptoms or risk factors identified. Assessment: 20:26 General: patient left before proper discharge. ap3 Vital Signs: 18:23 BP 139 / 85; Pulse 108; Resp 19; Temp 97.9; Pulse Ox 100% ; ap3 18:25 Weight 88.45 kg; Height 5 ft. 6 in. ; Pain 5/10; ap3 18:25 Body Mass Index 31.47 (88.45 kg, 167.64 cm) ap3 18:25 Pain Scale: Adult ap3 ED Course: 17:47 Patient arrived in ED. al6 17:55 Sara Paul [facility] sb4 17:55 Danny Knowles MD is Attending Physician. sb4 18:25 Triage completed. ap3 18:26 Arm band placed on right wrist. ap3 18:53 OB Multi Gestation In Process Unspecified. EDMS 20:26 No provider procedures requiring assistance completed. Patient did not have IV access ap3 during this emergency room visit. Administered Medications: No medications were administered Medication: 20:26 VIS not applicable for this client. ap3 Outcome: 20:22 Discharge ordered by . sb4 20:26 Discharged to home ap3 20:26 Condition: good 20:26 Patient left the ED. ap3 Signatures: Dispatcher [employer] EDMD Margaret Schaefer RN RN ap3 Brown, Sara, PA-C PA-C sb4 Bri Alonso al6
--- NOTE | 2024-11-26 20:22 | EDPHYS ---
Physician Documentation [facility] Name: Fauzia Darnell Age: 34 yrs Sex: Female : 1990 Arrival Date: 11/26/2024 Time: 17:44 Bed IW10 Private MD: ED Physician Danny Knowles HPI: 11/26 18:26 This 34 yrs old Female presents to ER via Ambulatory with complaints of Vaginal sb4 Bleeding, + Preg <12wks. 18:26 The patient presents to the emergency department with abdominal pain, of the suprapubic sb4 area, vaginal bleeding, described as spotting. The estimated gestational age is 11 weeks. course: care: private OB physician, Dr. Grossman, at 8 weeks, Leakage of Fluid: none appreciated, Ultrasound: the patient had an ultrasound, which showed twins. Previous pregnancies: in previous pregnancies patient has had . 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 - Infectious Disease History:: Denies. - Social history:: Smoking status: Patient denies any tobacco usage or history of. ROS: 18:28 Constitutional: Negative for fever, chills, and weight loss, sb4 18:28 : Positive for pelvic pain, vaginal bleeding, 18:28 All other systems are negative, Exam: 18:28 Constitutional: This is a well developed, well nourished patient who is awake, alert, sb4 and in no acute distress. Head/Face: Normocephalic, atraumatic. Eyes: Extra-ocular motions intact. Periorbital areas with no swelling, redness, or edema. ENT: Mucous membranes moist. Cardiovascular: Regular rate and rhythm with a normal S1 and S2. Respiratory: No increased work of breathing, no retractions or nasal flaring. Abdomen/GI: Soft, non-tender, no distension. Skin: Warm, dry with normal turgor. Normal color with no rashes, no lesions, and no evidence of cellulitis. Vital Signs: 18:23 BP 139 / 85; Pulse 108; Resp 19; Temp 97.9; Pulse Ox 100% ; ap3 18:25 Weight 88.45 kg; Height 5 ft. 6 in. ; Pain 5/10; ap3 18:25 Body Mass Index 31.47 (88.45 kg, 167.64 cm) ap3 18:25 Pain Scale: Adult ap3 MDM: 17:58 Medical Screening Exam initiated sb4 20:22 Data reviewed: vital signs, nurses notes, radiologic studies, and as a result, I will sb4 discharge patient. ED course: patient eloped after ultrasound was complete, before labs could be obtained. 02 18:37 Order name: OB Multi Gestation; Complete Time: 19:36 EDMS 11/26 18:26 Order name: IV Saline Lock sb4 11/26 18:26 Order name: Labs collected and sent sb4 Administered Medications: No medications were administered Disposition Summary: 11/26/24 20:22 Discharge Ordered Notes: Location: Home sb4 Problem: new sb4 Symptoms: are unchanged sb4 Condition: Stable sb4 Diagnosis - Threatened sb4 Followup: sb4 - With: Private Physician - When: 1 week - Reason: Recheck today's complaints, Re-evaluation by your physician Discharge Instructions: - Discharge Summary Sheet sb4 - Threatened Miscarriage sb4 - Vaginal Bleeding During , First Trimester sb4 Forms: - Patient Portal Instructions sb4 - Leadership Thank You Letter sb4 Signatures: Dispatcher [employer] Margaret Philip RN RN ap3 Sara Paul PAFilemonC PA-C sb4 Corrections: (The following items were deleted from the chart) 18:37 18:26 1st Trimest Single 1st Fetus+US.RAD.BRZ ordered. MEHRAN LAURENT
[2024-11-26 20:48] VITALS: BP 139/85; TEMP 97.9; O2SAT 100
== END 2024-11-26 20:26 | disposition home or self-care (01) ==
LOC: ER 17:44
DX: O20.0 Threatened abortion (principal); Z3A.10 10 weeks gestation of pregnancy
CPT/HCPCS: 76810; 99281